=== PATIENT | female | born 1945 | race Caucasian/White ===

== ENCOUNTER 2016-08-14 07:33 | Day surgery (SDC) | payer MEDICARE ==
[2016-08-09 14:18] VITALS: BMI 24.9
[~2016-08-14 07:33] MED LIST: LACTATED RINGERS 1,000 ML IV SCH
[2016-08-14 07:48] VITALS: TEMP 98
[2016-08-14 08:19] LABS: Glucose,Whole Blood 105 mg/dL (75-99)
[2016-08-14] MEDS ORDERED: PROPOFOL 10 MG/ML 20 ML VIAL IV ONE (09:12)
[2016-08-14] MEDS ORDERED: LACTATED RINGERS 1,000 ML IV ONE (09:45)
--- NOTE | 2016-08-14 09:53 | P.PCN ---
Date of Procedure: 08/14/16 Preoperative Diagnosis: Postoperative Diagnosis: Procedure(s) Performed: Procedures: 1. Esophagogastroduodenoscopy and biopsy. 2. Colonoscopy and biopsy and polypectomy. Preoperative diagnosis: Gastroesophageal reflux symptoms, atypical chest pain and screening for colon neoplasia. Postoperative diagnosis: 1. Hiatal hernia with no evidence of esophagitis or complicated reflux disease. 2. Mild antral gastritis. 3. Sigmoid diverticulosis with no evidence of acute diverticulitis or strictures. 4. Proximal sigmoid polyp snared. 5. Floppy fold in the sigmoid at 30 cm from the anal verge biopsied. Preparation: HalfLytely prep. Sedation: Was provided by anesthesia. Brief clinical history: The patient is a 71-year-old female who is referred for this evaluation for the above reasons. This would be her first upper and lower endoscopy. She has no bleeding or anemia. No family history of colon cancer. Her reflux symptoms and atypical chest pains are of few months duration. No dysphagia, weight loss or other alarm symptoms. Procedure: With the patient on her left lateral decubitus position and after informed consent and adequate sedation, I passed the Olympus-GIF 160 video upper endoscope through the cricopharyngeus down the esophagus. GE junction was around 35 cm from the incisors and there was a sliding hiatal hernia measuring around 2 cm. The esophagus did not show any erosions, ulcers, strictures or Lara's esophagus. The endoscope was then passed into the stomach which was insufflated with air and inspected in detail including the retroflex view in the cardia. There was some mottling and erythema in the antrum consistent with gastritis but no ulcers or erosions. Pyloric channel, duodenal bulb, post bulbar area and descending duodenum appeared within normal limits. Because of her symptoms I obtained biopsies from the duodenum, antrum and esophagus then the endoscope was withdrawn and I proceeded with the colonoscopy. Perianal area did not show any fissures or fistulas. There were no masses felt on digital rectal examination. The Olympus CFQ 160L video colonoscope was then inserted in the rectum in the usual fashion and advanced to the cecum. There were several diverticular orifices seen scattered in the sigmoid with no evidence of acute diverticulitis or strictures. The mucosa appeared healthy. There was a small polyp in the proximal sigmoid which was snared and retrieved by suction and there was a floppy fold in the sigmoid around 30 cm from the anal verge that that biopsied to rule out early polyp tissue. No other polyps or tumors were seen. I retroflexed the endoscope in the rectum before the endoscope was withdrawn. The patient tolerated the procedure well. Plan: The patient was reassured. Will await biopsy results. I anticipate repeating her colonoscopy in 3-5 years. She will follow-up with you as planned. Implants: Indications for Procedure: Operative Findings: Description of Procedure:
[2016-08-14 10:01] VITALS: BP 112/62
[2016-08-14 10:16] VITALS: PULSE 82; RESP 24
== END 2016-08-14 10:26 | disposition home or self-care (01) ==
LOC: ORWHC2ENDO 07:33
DX: Z12.11 Encounter for screening for malignant neoplasm of colon (principal); K29.50 Unspecified chronic gastritis without bleeding; K21.0 Gastro-esophageal reflux disease with esophagitis; D12.5 Benign neoplasm of sigmoid colon; K44.9 Diaphragmatic hernia without obstruction or gangrene; K57.30 Diverticulosis of large intestine without perforation or abscess without bleeding; E11.9 Type 2 diabetes mellitus without complications; J44.9 Chronic obstructive pulmonary disease, unspecified; I10 Essential (primary) hypertension; E78.5 Hyperlipidemia, unspecified; I25.10 Atherosclerotic heart disease of native coronary artery without angina pectoris; I99.9 Unspecified disorder of circulatory system; F17.200 Nicotine dependence, unspecified, uncomplicated; Z79.84 Long term (current) use of oral hypoglycemic drugs; Z79.1 Long term (current) use of non-steroidal anti-inflammatories (NSAID); Z79.02 Long term (current) use of antithrombotics/antiplatelets; Z79.82 Long term (current) use of aspirin; Z79.899 Other long term (current) drug therapy; Z88.1 Allergy status to other antibiotic agents
CPT/HCPCS: 88305; 88342; 45385; 43239; J2704

== ENCOUNTER → 2016-11-19 | Outpatient (CLI) | payer MEDICARE ==
--- NOTE | 2016-11-20 07:28 | MM ---
Reason for exam: screening (asymptomatic). Last mammogram was performed 1 year and 10 months ago. History: Patient is postmenopausal. Physical Findings: A clinical breast exam by your physician is recommended on an annual basis and results should be correlated with mammographic findings. MG 3D Screening Mammo W/Cad Bilateral CC and MLO view(s) were taken. Prior study comparison: January 26, 2015, bilateral MG 3d screening mammo w/cad. The breast tissue is heterogeneously dense. This may lower the sensitivity of mammography. No significant changes when compared with prior studies. ASSESSMENT: Benign, BI-RAD 2 RECOMMENDATION: Routine screening mammogram of both breasts in 1 year.
== END | disposition home or self-care (01) ==
LOC: RADMAMWWP 07:15
PROVIDERS: ATTEND Family Medicine
DX: Z12.31 Encounter for screening mammogram for malignant neoplasm of breast (principal)
CPT/HCPCS: 77063; G0202

== ENCOUNTER 2016-12-27 15:04 | Emergency (ER) | payer MEDICARE, SELFPAY ==
[2016-12-27] MEDS ORDERED: KETOROLAC 30 MG/ML 1 ML VIAL IVP STA (16:03)
--- NOTE | 2016-12-27 16:05 | ED ---
General Adult HPI - General Chief complaint: Recheck/Abnormal Lab/Rx Stated complaint: Left abd Pain Time Seen by Provider: 12/27/16 15:58 Source: patient, RN notes reviewed Mode of arrival: ambulatory Limitations: no limitations - History of Present Illness Initial comments: 71-year-old female presents emergency room chief complaint of left-sided rib pain. Patient states Saturday and Saturday should the stabbing pains left side of her ribs. Worse when she gets up and down worse if she moves or sits she coughs worse if she takes a deep breath. Patient states the pain got better and then over the last 2 days it has returned. Patient states touching the ribs makes it hurt. Patient denies any abdominal pain with this she denies any nausea or vomiting. Patient has COPD and she does smokes that she chronically has a cough and that irritates her movement around also irritates it. It happened stabbing type pain. Patient was concerned because just continues to be there so she thought that she should be evaluated. Patient denies any recent fever, chills, shortness of breath, back pain, abdominal pain , nausea vomiting, numbness or tingling, dysuria or hematuria, constipation or diarrhea, headaches or visual changes, or any other current symptoms. - Related Data Home Medications Medication Instructions Recorded Confirmed Albuterol Nebulized [Ventolin 2.5 mg INHALATION RT-TID PRN 06/21/15 12/27/16 Nebulized] Gabapentin [Neurontin] 200 mg PO QAM 06/21/15 12/27/16 Metoprolol Tartrate 12.5 mg PO BID 08/12/15 12/27/16 metFORMIN HCL [Glucophage] 500 mg PO DAILY 10/11/15 12/27/16 Acetaminophen Tab [Tylenol Tab] 500 mg PO DAILY PRN 08/09/16 12/27/16 Aspirin [Adult Low Dose Aspirin EC] 81 mg PO DAILY 08/09/16 12/27/16 Famotidine 20 mg PO BID PRN 12/27/16 12/27/16 Previous Rx's Medication Instructions Recorded Atorvastatin [Lipitor] 40 mg PO HS #90 tab 07/14/15 Clopidogrel [Plavix] 75 mg PO DAILY #90 tab 07/14/15 Ibuprofen [Motrin] 600 mg PO Q6HR PRN #20 tab 12/27/16 Allergies Allergy/AdvReac Type Severity Reaction Status Date / Time azithromycin Allergy Dyspnea Verified 12/27/16 16:19 Review of Systems ROS Statement: Those systems with pertinent positive or pertinent negative responses have been documented in the HPI. ROS Other: All systems not noted in ROS Statement are negative. Past Medical History Past Medical History: Chest Pain / Angina, COPD, Diabetes Mellitus, GERD/Reflux , Osteoarthritis (OA), Vascular Disorder Additional Past Medical History / Comment(s): RT LEG NERVE PAIN, OCCASIONAL TINNITUS, inguinal hernia, constipation, occ tightness in chest. poor circulation sosa legs, sm rt inguinal hernia, History of Any Multi-Drug Resistant Organisms: None Reported Past Surgical History: Hysterectomy, Tonsillectomy, Tubal Ligation Additional Past Surgical History / Comment(s): PTBA/STENT TO LT LEG Past Anesthesia/Blood Transfusion Reactions: No Reported Reaction Additional Past Anesthesia/Blood Transfusion Reaction / Comment(s): CLAUSTROPHOBIA Past Psychological History: Anxiety, Depression, Panic Disorder Smoking Status: Current every day smoker Past Alcohol Use History: None Reported Past Drug Use History: None Reported - Past Family History Son(s) Family Medical History: Cancer Additional Family Medical History / Comment(s): LYMPHOMA Mother Family Medical History: Diabetes Mellitus Father Additional Family Medical History / Comment(s): HAD AAA Sister(s) Family Medical History: Cancer General Exam - General Exam Comments Initial Comments: General: The patient is awake and alert, in no distress, and does not appear acutely ill. Eye: Pupils are equal, round. Ears, nose, mouth and throat: There are moist mucous membranes and no oral lesions. Neck: The neck is supple, there is no tenderness. Cardiovascular: There is a regular rate and rhythm. No murmur, rub or gallop is appreciated. Respiratory: Lungs are clear to auscultation, respirations are non-labored, breath sounds are equal. No wheezes, stridor, rales, or rhonchi. Tenderness along left lower rib cage Gastrointestinal: Soft, non-distended, non-tender abdomen without masses or organomegaly noted. There is no rebound or guarding present. No CVA tenderness. Bowel sounds are unremarkable. Back: There is no tenderness to palpation in the midline. There is no obvious deformity. No rashes noted. Musculoskeletal: Normal ROM, no tenderness, There is no pedal edema. There is no calf tenderness or swelling. Sensation intact. Pulses equal bilaterally 2+. Neurological: CN II-XII intact, There are no obvious motor or sensory deficits. Coordination appears grossly intact. Speech is normal. Skin: Skin is warm and dry and no rashes or lesions are noted. Psychiatric: Cooperative, appropriate mood & affect, normal judgment. Limitations: no limitations Course Vital Signs 12/27/16 12/27/16 15:07 17:18 Temperature 98.1 F Pulse Rate 85 78 Respiratory 20 16 Rate Blood Pressure 139/75 132/75 O2 Sat by Pulse 99 98 Oximetry EKG Findings - EKG Comments: EKG Findings:: normal sinus rhythm 78 bpm, normal axis, no atopy, no S-T depressions or elevations, Medical Decision Making - Medical Decision Making 71-year-old female presents for left-sided rib pain. At this time patient's lab work and imaging has been reviewed. At this time there does not appear to be a PE and cardiac negative for about a week now. At this and we discussed patient's symptoms are most consistent with costochondritis is reproducible to movement. This and we discussed care for this. We discussed follow-up. We discussed return parameters all patient's questions. She stated she understood and she plan. All questions have been answered. She will be discharged. - Lab Data Result diagrams: 12/27/16 16:12 12/27/16 16:12 Lab Results 12/27/16 12/27/16 12/27/16 Range/Units 16:12 16:12 16:12 WBC 10.9 H (3.8-10.6) k/uL RBC 4.82 (3.80-5.40) m/uL Hgb 14.4 (11.4-16.0) gm/dL Hct 45.1 (34.0-46.0) % MCV 93.5 (80.0-100.0) fL MCH 29.8 (25.0-35.0) pg MCHC 31.9 (31.0-37.0) g/dL RDW 15.0 (11.5-15.5) % Plt Count 376 (150-450) k/uL Neutrophils % 64 % Lymphocytes % 24 % Monocytes % 7 % Eosinophils % 2 % Basophils % 1 % Neutrophils # 6.9 (1.3-7.7) k/uL Lymphocytes # 2.6 (1.0-4.8) k/uL Monocytes # 0.7 (0-1.0) k/uL Eosinophils # 0.3 (0-0.7) k/uL Basophils # 0.2 (0-0.2) k/uL PT (9.0-12.0) sec INR (<1.2) APTT (22.0-30.0) sec D-Dimer (<0.60) mg/L FEU Sodium 140 (137-145) mmol/L Potassium 4.2 (3.5-5.1) mmol/L Chloride 104 (98-107) mmol/L Carbon Dioxide 24 (22-30) mmol/L Anion Gap 12 mmol/L BUN 14 (7-17) mg/dL Creatinine 0.72 (0.52-1.04) mg/dL Est GFR (MDRD) Af Amer >60 (>60 ml/min/1.73 sqM) Est GFR (MDRD) Non-Af >60 (>60 ml/min/1.73 sqM) Glucose 104 H (74-99) mg/dL Calcium 9.4 (8.4-10.2) mg/dL Magnesium 1.8 (1.6-2.3) mg/dL Total Bilirubin 0.2 (0.2-1.3) mg/dL AST 17 (14-36) U/L ALT 23 (9-52) U/L Alkaline Phosphatase 85 (38-126) U/L Total Creatine Kinase 25 L (30-135) U/L CK-MB (CK-2) 0.3 (0.0-2.4) ng/mL CK-MB (CK-2) Rel Index 1.2 Troponin I <0.012 (0.000-0.034) ng/mL Total Protein 8.1 (6.3-8.2) g/dL Albumin 4.2 (3.5-5.0) g/dL 12/27/16 Range/Units 16:12 WBC (3.8-10.6) k/uL RBC (3.80-5.40) m/uL Hgb (11.4-16.0) gm/dL Hct (34.0-46.0) % MCV (80.0-100.0) fL MCH (25.0-35.0) pg MCHC (31.0-37.0) g/dL RDW (11.5-15.5) % Plt Count (150-450) k/uL Neutrophils % % Lymphocytes % % Monocytes % % Eosinophils % % Basophils % % Neutrophils # (1.3-7.7) k/uL Lymphocytes # (1.0-4.8) k/uL Monocytes # (0-1.0) k/uL Eosinophils # (0-0.7) k/uL Basophils # (0-0.2) k/uL PT 9.6 (9.0-12.0) sec INR 0.9 (<1.2) APTT 23.9 (22.0-30.0) sec D-Dimer 0.71 H (<0.60) mg/L FEU Sodium (137-145) mmol/L Potassium (3.5-5.1) mmol/L Chloride (98-107) mmol/L Carbon Dioxide (22-30) mmol/L Anion Gap mmol/L BUN (7-17) mg/dL Creatinine (0.52-1.04) mg/dL Est GFR (MDRD) Af Amer (>60 ml/min/1.73 sqM) Est GFR (MDRD) Non-Af (>60 ml/min/1.73 sqM) Glucose (74-99) mg/dL Calcium (8.4-10.2) mg/dL Magnesium (1.6-2.3) mg/dL Total Bilirubin (0.2-1.3) mg/dL AST (14-36) U/L ALT (9-52) U/L Alkaline Phosphatase (38-126) U/L Total Creatine Kinase (30-135) U/L CK-MB (CK-2) (0.0-2.4) ng/mL CK-MB (CK-2) Rel Index Troponin I (0.000-0.034) ng/mL Total Protein (6.3-8.2) g/dL Albumin (3.5-5.0) g/dL - Radiology Data Radiology results: report reviewed, image reviewed Disposition Clinical Impression: Costochondritis Disposition: HOME SELF-CARE Condition: Stable Instructions: Costochondritis (ED) Additional Instructions: Please use medication as discussed. Please follow up with family doctor if symptoms have not improved over the next two days. Please return to the emergency room if your symptoms increase or worsen or for any other concerns. Prescriptions: Ibuprofen [Motrin] 600 mg PO Q6HR PRN #20 tab PRN Reason: pain Referrals: Silviano Lieberman MD [Primary Care Provider] - 1-2 days Time of Disposition: 17:42
[2016-12-27 16:26] LABS: Basophils # (A) 0.2 k/uL (0-0.2); Basophils % (A) 1 %; CH 30.6; CHCM 32.9; Eosinophils # (A) 0.3 k/uL (0-0.7); Eosinophils % (A) 2 %; HCT 45.1 % (34.0-46.0); HDW 2.21; HGB 14.4 gm/dL (11.4-16.0); Luc # (Auto) 0.26; Luc % (Auto) 2; Lymphocytes # (A) 2.6 k/uL (1.0-4.8); Lymphocytes % (A) 24 %; MCH 29.8 pg (25.0-35.0); MCHC 31.9 g/dL (31.0-37.0); MCV 93.5 fL (80.0-100.0); Mean Platelet Volume 7.2; Monocytes # (A) 0.7 k/uL (0-1.0); Monocytes % (A) 7 %; Neutrophils # (A) 6.9 k/uL (1.3-7.7); Neutrophils % (A) 64 %; RBC 4.82 m/uL (3.80-5.40); WBC 10.9 k/uL (3.8-10.6); WBC (Perox) 10.42
[2016-12-27 16:35] LABS: ALT 23 U/L (9-52); AST 17 U/L (14-36); Alkaline Phosphatase 85 U/L (38-126); Anion Gap 12 mmol/L; Blood Urea Nitrogen 14 mg/dL (7-17); Calcium 9.4 mg/dL (8.4-10.2); Carbon Dioxide 24 mmol/L (22-30); Chloride 104 mmol/L (98-107); Glucose 104 mg/dL (74-99); Magnesium 1.8 mg/dL (1.6-2.3); Non-African American GFR(MDRD) >60 (>60 ml/min/1.73 sqM); Potassium 4.2 mmol/L (3.5-5.1); Sodium 140 mmol/L (137-145); Total Bilirubin 0.2 mg/dL (0.2-1.3); Total Protein 8.1 g/dL (6.3-8.2)
[2016-12-27 16:39] LABS: Creatine Kinase 25 U/L (30-135)
[2016-12-27 16:44] LABS: INR 0.9 (<1.2); Partial Thromboplastin Time 23.9 sec (22.0-30.0); Prothrombin Time 9.6 sec (9.0-12.0)
[2016-12-27 16:52] LABS: Creatine Kinase MB 0.3 ng/mL (0.0-2.4); Troponin I <0.012 ng/mL (0.000-0.034)
--- NOTE | 2016-12-27 16:56 | XR ---
EXAMINATION TYPE: XR chest 2V DATE OF EXAM: 12/27/2016 COMPARISON: NONE HISTORY: Cough TECHNIQUE: Frontal and lateral views of the chest are obtained. FINDINGS: There is no heart failure nor confluent pneumonic infiltrate. Heart size is normal. Thorac ic aorta is atheromatous. There are small calcified granulomata at the pulmonary curly. Bony thorax is intact. IMPRESSION: No active cardiopulmonary disease.
[2016-12-27] MEDS ORDERED: RX INFO: IV CONTRAST WAS GIVEN 1 EACH MISC MISCELLANE PRN (17:00)
[2016-12-27 17:19] VITALS: BP 132/75; PULSE 78; RESP 16
--- NOTE | 2016-12-27 17:36 | CT ---
EXAMINATION TYPE: CT angio chest DATE OF EXAM: 12/27/2016 5:29 PM COMPARISON: NONE HISTORY: Chest pain CT DLP: mGycm Automated exposure control for dose reduction was used. CONTRAST: CTA scan of the thorax is performed , patient injected with mL of , pulmonary embolism protocol. The re are 3-D post processed images. Contrast was Omnipaque 65 mL.. FINDINGS: Thoracic aorta is atheromatous. There is no evidence of aneurysm or dissection. I see no filling defects in the pulmonary arteries. There are no hilar masses. There are no mediastin al lymph nodes enlarged. The lungs are clear of consolidation. There is no sign of a pulmonary mass. There is no pleural effus ion. I see no bony destructive process. IMPRESSION: NO EVIDENCE OF PULMONARY EMBOLISM. ATHEROSCLEROTIC VASCULAR DISEASE.
[2016-12-27 18:02] VITALS: TEMP 98
== END 2016-12-27 18:00 | disposition home or self-care (01) ==
LOC: EC 15:04
DX: M94.0 Chondrocostal junction syndrome [Tietze] (principal); E11.9 Type 2 diabetes mellitus without complications; F17.200 Nicotine dependence, unspecified, uncomplicated; Z88.1 Allergy status to other antibiotic agents; Z79.82 Long term (current) use of aspirin; Z79.84 Long term (current) use of oral hypoglycemic drugs; Z79.899 Other long term (current) drug therapy
CPT/HCPCS: 99284; 96374; 36415; 93005; 85379; 80053; 82550; 82553; 83735; 84484; 85025; 85610; 85730; 71020; 71275; Q9967; J1885

== ENCOUNTER → 2016-12-28 | Outpatient (CLI) | payer MEDICARE ==
[2016-12-28 09:01] LABS: CH 29.7; CHCM 31.1; HDW 2.11; HGB 13.9 gm/dL (11.4-16.0); MCH 30.4 pg (25.0-35.0); MCHC 31.6 g/dL (31.0-37.0); MCV 96.3 fL (80.0-100.0); RBC 4.57 m/uL (3.80-5.40); RDW 13.9 % (11.5-15.5); WBC 10.9 k/uL (3.8-10.6)
[2016-12-28 09:23] LABS: Anion Gap 10 mmol/L; Blood Urea Nitrogen 19 mg/dL (7-17); Carbon Dioxide 23 mmol/L (22-30); Chloride 107 mmol/L (98-107); Non-African American GFR(MDRD) >60 (>60 ml/min/1.73 sqM); Sodium 140 mmol/L (137-145)
== END | disposition home or self-care (01) ==
LOC: LABWHC1 08:43
PROVIDERS: ATTEND Internal Medicine Interventional Cardiology
DX: Z01.812 Encounter for preprocedural laboratory examination (principal); I73.9 Peripheral vascular disease, unspecified
CPT/HCPCS: 36415; 80051; 82565; 84520; 85027

== ENCOUNTER → 2017-05-30 | Outpatient (CLI) | payer MEDICARE, OTHER ==
--- NOTE | 2017-05-30 08:23 | US ---
EXAMINATION TYPE: US thyroid st tissue head/neck DATE OF EXAM: 05/30/2017 COMPARISON: NONE CLINICAL HISTORY: R22.1 Localized swelling, mass and lump, neck. Lump right neck for 1 year Right neck within patient's area of concern, probable lymph node = 3.6 x 1.6 x 3.1cm Multiple lymph nodes noted bilateral neck Multiple lymph nodes are seen throughout the right neck and images saved. Some retained fatty hilum. Largest at beginning of study is heterogeneous with loss of fatty hilum and abnormal longitudinal and transverse thickening or enlargement. IMPRESSION: Suspicious right neck adenopathy, neoplasm such as lymphoma needs to be excluded especia lly given history of findings present for one year. Hematology oncology referral is advised. Consider contrast-enhanced CT or PET CT follow-up.
== END | disposition home or self-care (01) ==
LOC: RADUSWWP 07:32
PROVIDERS: ATTEND Family Medicine
DX: R22.1 Localized swelling, mass and lump, neck (principal)
CPT/HCPCS: 76536

== ENCOUNTER 2017-06-14 09:37 | Day surgery (SDC) | payer MEDICARE, OTHER ==
[2017-06-14] MEDS ORDERED: ALPRAZolam 0.25 MG TAB PO STA (10:19)
[2017-06-14 10:36] LABS: Mean Platelet Volume 7.4; Platelet Count 285 k/uL (150-450)
[2017-06-14 10:40] LABS: INR 1.1 (<1.2); Prothrombin Time 10.4 sec (9.0-12.0)
--- NOTE | 2017-06-14 11:45 | US ---
ULTRASOUND GUIDED CORE BIOPSY RIGHT NECK MASS: CLINICAL HISTORY: Right neck lymph node FINDINGS: The procedure was explained to the patient. The risks, complications, benefits and alternatives were discussed and any questions were answered. Informed consent was obtained. Patient was placed supin e on the ultrasound table and prepped and draped in the usual sterile fashion. Utilizing a 18-gauge core needle, samples obtained from the right neck lymph node. Patient was stable throughout the procedure. Pathology is pending. All elements of maximal barrier technique were utilized. IMPRESSION: 1. Successful ultrasound guided core biopsy right neck mass.
[2017-06-14 11:51] VITALS: RESP 18; TEMP 97.7
[2017-06-14 11:52] VITALS: BP 117/74; PULSE 72
== END 2017-06-14 11:50 | disposition home or self-care (01) ==
LOC: RADPROMAIN 09:37
PROVIDERS: ATTEND Internal Medicine Hematology & Oncology
DX: C90.00 Multiple myeloma not having achieved remission (principal)
CPT/HCPCS: 36415; 38505; 76942; 85049; 85610; 88305; 88341; 88342

== ENCOUNTER → 2018-04-16 | Outpatient (CLI) | payer MEDICARE, OTHER ==
[2018-04-16 11:36] LABS: Blood Urea Nitrogen 17 mg/dL (7-17)
--- NOTE | 2018-04-16 13:15 | CT ---
EXAMINATION TYPE: CT soft tissue neck w con DATE OF EXAM: 04/16/2018 HISTORY: Right sided mass marked by BB COMPARISON: Right neck ultrasound June 14, 2017 CT DLP: 448 mGycm. Automated Exposure Control for Dose Reduction was Utilized. TECHNIQUE: CT scan of the neck is performed with IV Contrast, patient injected with 100 mL of Isovue 300, axial images are obtained, coronal and sagittal reformatted images are reviewed. FINDINGS: Airway: Mild to moderate emphysematous change in visualized upper lungs is seen. There are borderline 1 cm nodules left thyroid lobe upper to mid pole level seen best coronal image 44. Airway is patent. No obvious mucosal lesion is seen. Parotid/submandibular glands: Metallic BB is placed at level of palpable abnormality right neck axial image 23. There is heterogeneous enhancing oval circumscribed mass within the inferior right parotid gland extending inferiorly into the submandibular space at this level measuring 3.2 x 2.8 cm on axia l image 29 x 2.5 cm craniocaudal dimension coronal image 42. Just inferior to this there is second he terogeneous oval solid mass measuring 2.3 x 2.1 cm axial image 36 x 3.1 cm protocol dimension coronal image 36 causing mass effect on the submandibular gland lung is posterior lateral aspect and overlyi ng draining external jugular vein. There is additional posterior cervical mass deep to the posterior aspect of the SCM just posterior lateral to right internal jugular vein measuring 1.4 x 1.2 cm axial image 37 x 2.4 cm craniocaudal dimension sagittal image 28. Left parotid gland and bilateral submandibular glands are all noted within normal limits. Carotid/Vascular Structures: Moderate calcified plaque bilateral carotid bulbs is present without sig nificant stenosis seen. Osseous Structures: There is moderate disc space narrowing with mild to moderate spurring C3 at C4 th rough C5-C6 levels Other: No additional suspicious abnormality noted. IMPRESSION: Redemonstration of large right neck solid mass with 2 adjacent masses identified in the r ight neck. Correlation should be made with biopsy performed June 14, 2017. Consider parotid neoplasm with adjacent adenopathy or metastatic adenopathy related to other cancer. Uncertain why this case i s marked stat as strict clinical correlation is necessary.
== END | disposition home or self-care (01) ==
LOC: RADCTMAIN 11:00
PROVIDERS: ATTEND Family Medicine
DX: R22.1 Localized swelling, mass and lump, neck (principal)
CPT/HCPCS: 82565; 84520; 70491; 36415; Q9967

== ENCOUNTER → 2018-04-19 | Outpatient (CLI) | payer MEDICARE, OTHER ==
--- NOTE | 2018-04-21 07:39 | PE ---
EXAMINATION TYPE: PET CT fusion whole body DATE OF EXAM: 04/19/2018 COMPARISON: CT neck April 16, 2018. 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 TECHNIQUE: Following the intravenous administration of 14.02 mCi of F-18 FDG, top of head to bottom of feet. Images are reviewed on the computer in the coronal, axial, and sagittal planes. Reconstruc arnie rotating images are created on independent workstation and reviewed on the computer. A noncontr ast CT is performed in conjunction with the PET scan. SCAN: Initial Scan FINDINGS: HEAD AND NECK: There is large hypermetabolic right neck mass measuring 3.3 x 3.2 cm on axial image 6 0, max SUV is 14.37. There are additional smaller hypermetabolic posterior cervical lymph nodes for r eference 1.4 x 1.3 cm lymph node axial image 63, max SUV is 9.04. No suspicious hypermetabolic uptake left neck or scalp. CHEST, MEDIASTINUM, AND HILAR REGION: No suspicious hypermetabolic uptake. ABDOMEN AND PELVIS: No suspicious hypermetabolic uptake. OSSEOUS STRUCTURES: No suspicious hypermetabolic uptake. LOWER EXTREMITIES: No suspicious hypermetabolic uptake. OTHER CT: Moderate to severe calcified plaque bilateral carotid bulbs is present. Moderate to severe calcified plaque of aorta extends into branch vessels. There is moderate to severe coronary artery calcification. IMPRESSION: Hypermetabolic uptake right neck corresponds to biopsy-proven malignancy. No metastatic m alignancy to remainder body identified.
== END | disposition home or self-care (01) ==
LOC: RADPETMAIN 14:36
PROVIDERS: ATTEND Internal Medicine Hematology & Oncology
DX: D47.Z1 Post-transplant lymphoproliferative disorder (PTLD) (principal)
CPT/HCPCS: 78816; A9552

== ENCOUNTER → 2018-08-23 | Outpatient (CLI) | payer MEDICARE, OTHER ==
--- NOTE | 2018-08-26 10:41 | PE ---
Nuclear medicine PET/CT HISTORY: Solitary plasmacytoma, subsequent Patient received 11.8 mCi F-18 FDG intravenously in delayed scanning was performed through the whole body Correlation to prior nuclear medicine PET/CT April 19, 2018 Neck and chest: The abnormal hypermetabolic uptake seen along the right neck on previous exam is note d and shows a similar appearance posterior to the right mandible, hypermetabolic uptake is somewhat l ess intense, SUV is 7.7, central lack of signal be due to necrosis or posttreatment change, the hyper metabolic activity is peripheral. No additional soft tissue mass seen within the neck, no additional hypermetabolic uptake. There is some uptake seen at the sternomanubrial location, suggestion of a loc al fracture, SUV 3.8. There is no mediastinal, axillary, or hilar adenopathy. Coronary artery calcifi cations are present. There is a small hiatal hernia. No evident lung mass, pleural or pericardial eff usion. ABDOMEN: No evident liver mass or retroperitoneal adenopathy. No suspicious hypermetabolic uptake. De nse aortic calcifications are present. There is no ascites. Urinary bladder shows a thickened wall po ssibly due to lack of distention. Osseous structures are remarkable for some sclerotic density within the sacrum, mild uptake towards t he right of midline, SUV 3.2. IMPRESSION: There is an interval decreased activity in patient's right neck mass likely due to posttr eatment change. Correlate for history of trauma to this general manubrium joint. Sclerotic change in the sacrum, findings could be related to insufficiency fracture to the right of midline, MRI or diagn ostic CT may be of benefit.
== END | disposition home or self-care (01) ==
LOC: RADPETMAIN 09:06
PROVIDERS: ATTEND Radiology Radiation Oncology
DX: M89.8X8 Other specified disorders of bone, other site (principal); R22.1 Localized swelling, mass and lump, neck; C90.30 Solitary plasmacytoma not having achieved remission; F17.210 Nicotine dependence, cigarettes, uncomplicated
CPT/HCPCS: 78816; A9552

== ENCOUNTER 2018-09-27 19:23 | Emergency (ER) | payer MEDICARE, OTHER ==
[2018-09-27 19:42] VITALS: RESP 18
[2018-09-27] MEDS ORDERED: ACETAMINOPHEN TAB 325 MG TAB PO STA (19:57)
[2018-09-27 20:47] LABS: Basophils # (A) 0.1 k/uL (0-0.2); Basophils % (A) 1 %; Eosinophils # (A) 0.1 k/uL (0-0.7); Eosinophils % (A) 1 %; HCT 36.6 % (34.0-46.0); HGB 11.9 gm/dL (11.4-16.0); Lymphocytes # (A) 0.6 k/uL (1.0-4.8); Lymphocytes % (A) 6 %; MCH 27.6 pg (25.0-35.0); MCHC 32.5 g/dL (31.0-37.0); MCV 85.1 fL (80.0-100.0); Mean Platelet Volume 7.3; Monocytes # (A) 0.7 k/uL (0-1.0); Monocytes % (A) 7 %; Neutrophils # (A) 8.8 k/uL (1.3-7.7); Neutrophils % (A) 83 %; Platelet Count 381 k/uL (150-450); RDW 14.6 % (11.5-15.5); WBC 10.7 k/uL (3.8-10.6)
[2018-09-27 20:55] LABS: African American GFR (CKD) >90 (>60 ml/min/1.73 sqM); Anion Gap 9 mmol/L; Blood Urea Nitrogen 24 mg/dL (7-17); Calcium 9.2 mg/dL (8.4-10.2); Carbon Dioxide 27 mmol/L (22-30); Chloride 104 mmol/L (98-107); Glucose 126 mg/dL (74-99); Potassium 4.6 mmol/L (3.5-5.1); Sodium 140 mmol/L (137-145)
--- NOTE | 2018-09-27 22:04 | CT ---
EXAMINATION TYPE: CT soft tissue neck w con DATE OF EXAM: 09/27/2018 HISTORY: Pt c/o pain, burning sensation on LT side of neck. Hx of mass, plasmacytoma on RT side COMPARISON: NONE CT DLP: 179.2 mGycm. Automated Exposure Control for Dose Reduction was Utilized. TECHNIQUE: CT scan of the neck is performed with IV Contrast, patient injected with 100 mL of Isovue 300, axial images are obtained, coronal and sagittal reformatted images are reviewed. FINDINGS: There is interval growth of the previously seen right neck mass appearing to communicate with the inf erior deep lobe of the parotid gland and inferior superficial lobe of the parotid gland. There is pro gressive internal cystic degeneration. This previously measured 3.2 x 2.8 cm and currently measures 3 .6 x 3.8 cm. There is mass effect on the right internal and external carotid as well as the jugular v ein. The jugular vein is essentially nonvisualized throughout the mass. Thrombus from adjacent inflam matory change and reaction as well as compression is suspected. The previously seen associated adenop athy has decreased in size measuring up to 1.4 cm on the prior of 04/16/2018 and currently measuring u p to 8 mm on image 47 posterior to this mass. There is fat stranding surrounding this mass and oblite ration of the fat planes with the platysma and submandibular gland. There is some subtle fat strandin g and irregularity of the right sternocleidomastoid beginning at the level of the thyroid gland and i nferiorly, possibly reactive or infectious myositis. There is mass effect on the oropharynx with severe narrowing as phlegmonous changes surrounding the c arotid space and obscure the superficial mucosal space with mass effect on the right palatine tonsil. Mild centrilobular emphysematous changes are seen of the lung apices. Moderate multilevel degenerativ e changes of the cervical spine are noted with air posterior to the C6 vertebral level likely on the basis of vacuum disc disease. Visualized paranasal sinuses and mastoid air cells are well aerated. IMPRESSION: Progressive enlargement of the complex right neck mass appearing to originate from the inferior parot id gland as seen on the prior PET/CT dated 08/23/2018, 04/19/[address] dated 04/16/2018 that has been previously biopsied. This now has mass effect on the surrounding carotid vasculature and right caroti d space creating significant narrowing of the oral pharynx and concern for internal jugular thrombus. Surrounding myositis is also seen and adenopathy.
--- NOTE | 2018-09-27 22:44 | ED ---
ENT HPI - General Chief complaint: Dental/Oral Stated complaint: Jaw pain Time Seen by Provider: 09/27/18 19:46 Source: patient Mode of arrival: ambulatory Limitations: no limitations - History of Present Illness Initial comments: 73-year-old female with a history of right neck mass and recent radiation 3 weeks prior presenting with left jaw pain that she states the present for the last 1 week. States the pain is radiating from the left side of her jaw up to her left ear. She states she's been taking ibuprofen intermittently for the pain which improves it but does not alleviated. She denies any fevers or chills. States she feels like her face is now swollen and red. Denies any trouble swallowing or handling her secretions. - Related Data Home Medications Medication Instructions Recorded Confirmed Albuterol Nebulized [Ventolin 2.5 mg INHALATION RT-TID PRN 06/21/15 06/14/17 Nebulized] Gabapentin [Neurontin] 200 mg PO QAM 06/21/15 06/14/17 Metoprolol Tartrate 12.5 mg PO BID 08/12/15 06/14/17 metFORMIN HCL [Glucophage] 500 mg PO DAILY 10/11/15 06/14/17 Acetaminophen Tab [Tylenol Tab] 500 mg PO DAILY PRN 08/09/16 06/14/17 Famotidine 20 mg PO BID PRN 12/27/16 06/14/17 Ferrous Sulfate [Iron] 325 mg PO DAILY 06/06/17 06/14/17 Previous Rx's Medication Instructions Recorded Atorvastatin [Lipitor] 40 mg PO HS #90 tab 07/14/15 Clopidogrel [Plavix] 75 mg PO DAILY #90 tab 07/14/15 Ibuprofen [Motrin] 600 mg PO Q6HR PRN #20 tab 12/27/16 HYDROcodone/APAP 5-325MG [[place] 1 tab PO Q6HR PRN 3 Days #12 tab 09/27/18 5-325] Allergies Allergy/AdvReac Type Severity Reaction Status Date / Time azithromycin Allergy Dyspnea Verified 09/27/18 19:42 Review of Systems ROS Statement: Those systems with pertinent positive or pertinent negative responses have been documented in the HPI. Review of Systems Constitutional: Denies fever, chills Eyes: Denies change in vision, Denies pain Ears, nose, mouth, throat: Denies headaches, Denies sore throat. Positive jaw pain Cardiovascular: Denies chest pain. Denies palpitations Respiratory: Denies shortness of breath, Denies cough Gastrointestinal: Denies abdominal pain. Denies nausea, vomiting, diarrhea. Genitourinary: Denies hematuria, Denies infections Musculoskeletal: Denies pain, Denies swelling Integumentary: Denies rash Neurological: Denies headache, focal weakness, focal numbness Psychiatric: Denies anxiety, Denies depression Hematologic/Lymphatic: Denies easy bleeding or bruising ROS Other: All systems not noted in ROS Statement are negative. Past Medical History Past Medical History: Chest Pain / Angina, COPD, Diabetes Mellitus, GERD/Reflux, Osteoarthritis (OA), Vascular Disorder Additional Past Medical History / Comment(s): RT LEG NERVE PAIN, OCCASIONAL TINNITUS, inguinal hernia, constipation, occ tightness in chest. poor circulation sosa legs, sm rt inguinal hernia, History of Any Multi-Drug Resistant Organisms: None Reported Past Surgical History: Hysterectomy, Tonsillectomy, Tubal Ligation Additional Past Surgical History / Comment(s): PTBA/STENT TO LT LEG Past Anesthesia/Blood Transfusion Reactions: No Reported Reaction Additional Past Anesthesia/Blood Transfusion Reaction / Comment(s): CLAUSTROPHOBIA Past Psychological History: Anxiety, Depression, Panic Disorder Smoking Status: Current every day smoker Past Alcohol Use History: None Reported Past Drug Use History: None Reported - Past Family History Son(s) Family Medical History: Cancer Additional Family Medical History / Comment(s): LYMPHOMA Mother Family Medical History: Diabetes Mellitus Father Additional Family Medical History / Comment(s): HAD AAA Sister(s) Family Medical History: Cancer General Exam - General Exam Comments Initial Comments: General: Awake, alert, No acute Distress HENT: Normocephalic. Atraumatic. TMs without erythema, bulging, or effusions bilaterally. No gingival erythema. No apical abscess. No post-oropharyngeal swelling. No trismus Eyes: PERRL. EOMI. No scleral icterus. No injected conjunctiva. Neck: Full ROM. Right sided neck mass without erythema. Thyromegaly. No submandibular or cervical lymphadenopathy. Chest/Lungs: Clear to auscultation bilaterally. No wheezing, rhonchi, or rales Cardiac: Regular rate, rhythm. No murmurs or rubs Abdomen/GI: Soft, nontender, nondistended. No rebound, guarding, or rigidity. Musculoskeletal: Full ROM Skin: Warm, dry, intact Neurologic: A/Ox3, no weakness, no sensory deficit, no abnormal gait, no coordination deficit Limitations: no limitations Course Vital Signs 09/27/18 09/27/18 19:39 23:10 Temperature 98.9 F 97.5 F L Pulse Rate 106 H 99 Respiratory 18 18 Rate Blood Pressure 140/72 130/92 O2 Sat by Pulse 98 95 Oximetry Medical Decision Making - Medical Decision Making 73-year-old female presenting with jaw pain. Initial exam the patient is awake, alert, no acute distress. VSS. She is having left-sided jaw pain radiating up to her left ear. Her symptoms did not seem anginal in nature. She is nontoxic- appearing on exam and was in no respiratory distress. She was handling her secretions without difficulty. CT was done secondary to patient's history of this right-sided neck mass for concern that she could have another cancerous process. CT did not show any pathology on the left side. There was enlargement and inflammation of the right-sided neck mass and the CT results stated that there could be a jugular venous thrombosis on the right side. Patient was not having any worsening swelling or pain in that right side. I spoke with the on- call highway patrol pilot oncologist who stated that this was most likely was secondary to the radiation therapy, and if she is not having any acute symptoms on that side that she should be safe to follow-up with her physician as scheduled. I discussed this with the patient was agreeable to plan. I discussed the patient also following up with a dentist as her dental plates could be causing some irritation of her gums and jaw, which could be leading to her pain. She is given a short course of analgesic medication.No further emergent workup indicated. The patient was given return to ED instructions. They were instructed to follow up with their primary care provider. Stable for discharge at this time. - Lab Data Result diagrams: 09/27/18 20:25 09/27/18 20:25 Lab Results 09/27/18 09/27/18 Range/Units 20:25 20:25 WBC 10.7 H (3.8-10.6) k/uL RBC 4.30 (3.80-5.40) m/uL Hgb 11.9 (11.4-16.0) gm/dL Hct 36.6 (34.0-46.0) % MCV 85.1 (80.0-100.0) fL MCH 27.6 (25.0-35.0) pg MCHC 32.5 (31.0-37.0) g/dL RDW 14.6 (11.5-15.5) % Plt Count 381 (150-450) k/uL Neutrophils % 83 % Lymphocytes % 6 % Monocytes % 7 % Eosinophils % 1 % Basophils % 1 % Neutrophils # 8.8 H (1.3-7.7) k/uL Lymphocytes # 0.6 L (1.0-4.8) k/uL Monocytes # 0.7 (0-1.0) k/uL Eosinophils # 0.1 (0-0.7) k/uL Basophils # 0.1 (0-0.2) k/uL Sodium 140 (137-145) mmol/L Potassium 4.6 (3.5-5.1) mmol/L Chloride 104 (98-107) mmol/L Carbon Dioxide 27 (22-30) mmol/L Anion Gap 9 mmol/L BUN 24 H (7-17) mg/dL Creatinine 0.67 (0.52-1.04) mg/dL Est GFR (CKD-EPI)AfAm >90 (>60 ml/min/1.73 sqM) Est GFR (CKD-EPI)NonAf 89 (>60 ml/min/1.73 sqM) Glucose 126 H (74-99) mg/dL Calcium 9.2 (8.4-10.2) mg/dL Disposition Clinical Impression: Jaw pain Disposition: HOME SELF-CARE Condition: Good Instructions (If sedation given, give patient instructions): Toothache (ED) Prescriptions: HYDROcodone/APAP 5-325MG [[place] 5-325] 1 tab PO Q6HR PRN 3 Days #12 tab PRN Reason: Pain Is patient prescribed a controlled substance at d/c from ED?: Yes When asked, does pt state using other controlled substances?: No If prescribed controlled substance>3 days was MAPS reviewed?: Prescribed <3 Days Referrals: Silviano Lieberman MD [Primary Care Provider] - 1-2 days Venu Jack MD [STAFF PHYSICIAN] - 1-2 days
[2018-09-27 23:17] VITALS: BP 130/92; PULSE 99; TEMP 97.5
== END 2018-09-27 23:10 | disposition home or self-care (01) ==
LOC: EC 19:23
DX: R68.84 Jaw pain (principal); R22.1 Localized swelling, mass and lump, neck; J44.9 Chronic obstructive pulmonary disease, unspecified; E11.9 Type 2 diabetes mellitus without complications; K21.9 Gastro-esophageal reflux disease without esophagitis; F17.200 Nicotine dependence, unspecified, uncomplicated; Z79.84 Long term (current) use of oral hypoglycemic drugs; Z79.899 Other long term (current) drug therapy; Z88.1 Allergy status to other antibiotic agents
CPT/HCPCS: 36415; 80048; 85025; 70491; 99284; Q9967

== ENCOUNTER → 2018-11-08 | Outpatient (CLI) | payer MEDICARE, OTHER ==
--- NOTE | 2018-11-09 15:07 | PE ---
EXAMINATION TYPE: PET CT fusion skull to thigh DATE OF EXAM: 11/08/2018 COMPARISON: CT neck 09/27/2018 Prior PET/CT: 08/23/2018 HISTORY: Plasmacytoma TECHNIQUE: Following the intravenous administration of 12.5 mCi of F-18 FDG, whole body images are p erformed from the skull base to the midthigh. Images are reviewed on the computer in the coronal, ax ial, and sagittal planes. Reconstructed rotating images are created on independent workstation and r eviewed on the computer. A localization and attenuation correction CT is performed in conjunction w ith the PET scan. Dedicated head and neck imaging is performed. DLP: 76.01+ 279.85 mGycm SCAN: Follow-up Blood glucose: 114 mg/dL Average Mediastinum SUV: 1.5 Average Liver SUV: 2.06 FINDINGS: Head: There is likely some misregistration of the head imaged with the brain image. However, given th e limitation on the localization and attenuation correction CT, subdural hematoma on the right cannot be excluded. This is unlikely given the appearance on the whole body PET/CT imaging through this reg ion. Artifact is felt to be favored given the radiotracer in the expected region of the left calvariu m. Example image 11 CT PET fusion. NECK: There is a peripherally enhancing lesion within the right parotid region. The lateral portion has intense radiotracer accumulation measuring SUV of 15 suspicious for neoplastic process. Additiona l abnormal radiotracer within the head and neck is not evident. Small amount of radiotracer is in the anterior lateral left mandible, more likely related to periodon angela disease. This has SUV value of 3.1. THORAX: No suspicious uptake ABDOMEN: No suspicious uptake PELVIS: No suspicious uptake OSSEOUS STRUCTURES: No suspicious uptake LOCALIZATION CT: The right parotid gland is enlarged and poorly defined. This appears to extend into the left tonsillar pillar region and parapharyngeal region on previous poorly defined on the localiza tion and attenuation correction CT. The appearance on the PET portion of the study more closely match es the cavitary lesion appearance of the 09/27/2018 CT soft tissue neck. COMPARISON: The enhancement pattern of the right parotid region is similar to 08/23/2018. However, thi ckness of the enhancement is significantly diminished over the interval. No new enhancing lesions are identified. IMPRESSION: 1. Ring-enhancing lesion can be compatible with a cavitary lesion in the right parotid region. Radiot racer remains elevated but has less radiotracer thickness increasing SUV value from 08/23/2018. 2. No new enhancing lesions identified. 3. Misregistration is likely present on PET CT of the head and neck.
== END | disposition home or self-care (01) ==
LOC: RADPETMAIN 07:06
PROVIDERS: ATTEND Internal Medicine Hematology & Oncology
DX: C90.30 Solitary plasmacytoma not having achieved remission (principal); Z92.3 Personal history of irradiation
CPT/HCPCS: 78815; A9552

== ENCOUNTER 2018-11-19 08:26 | Day surgery (SDC) | payer MEDICARE, OTHER ==
[2018-11-19 09:13] LABS: Glucose,Whole Blood 112 mg/dL (75-99)
[2018-11-19 09:17] VITALS: TEMP 97.8
[2018-11-19 10:40] VITALS: BP 131/71; PULSE 90; RESP 18
--- NOTE | 2018-11-19 11:03 | US ---
EXAMINATION TYPE: US biopsy thorax or neck DATE OF EXAM: 11/19/2018 HISTORY: Right neck mass. FINDINGS: Maximal barrier technique was utilized. The skin overlying a suitable path to the patient' s right neck mass was localized with ultrasound and the overlying skin prepped and draped. Ultrasoun d was utilized with sterile technique. Lidocaine was used for local anesthesia. A skin camelia was mad e with a scalpel. An 18-gauge needle was advanced under direct ultrasound guidance and core specimen obtained of the mass, second specimen obtained for flow analysis. First specimen submitted in formal in to Pathology. Following the procedure, hemostasis achieved and the patient is discharged in stabl e condition without complication. IMPRESSION:STATUS POST ULTRASOUND GUIDED CORE BIOPSY OF right neck MASS, PATHOLOGY IS PENDING. THIS PROCEDURE IS PERFORMED BY THE UNDERSIGNED.
== END 2018-11-19 10:49 | disposition home or self-care (01) ==
LOC: RADPROMAIN 08:26
PROVIDERS: ATTEND Internal Medicine Hematology & Oncology
DX: R22.1 Localized swelling, mass and lump, neck (principal); C90.00 Multiple myeloma not having achieved remission
CPT/HCPCS: 21550; 88305

== ENCOUNTER → 2018-12-11 | Outpatient (CLI) | payer MEDICARE, OTHER ==
[2018-12-11 14:09] LABS: African American GFR (CKD) >90 (>60 ml/min/1.73 sqM); Blood Urea Nitrogen 20 mg/dL (7-17)
--- NOTE | 2018-12-11 14:57 | CT ---
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 Location marked by BB. CT DLP: 292.9 mGycm CONTRAST: CT scan of the neck is performed with IV Contrast, patient injected with 100 mL of Isovue M300. Contrast enhanced CT of the neck was performed from the skull base through the lung apices. AIRWAY: The supraglottic, glottic, and subglottic portions of the airway appear patent and free of mass. SALIVARY GLANDS: Interval enlargement of right neck mass with infiltration into the deep parotid lobe as well as the superficial right parotid lobe. Mass currently measures 5.4 x 4.1 x 4.8 cm versus 3.6 x 3.8 cm. There is subcutaneous extension noted as well as mass effect upon the adjacent right inter nal carotid and right internal jugular vein. Right internal jugular vein again is essentially nonvisu alized through the course of the mass. Mass demonstrates internal cystic degeneration. Stable adjacen t lymph nodes are seen measuring up to 1.4 cm. Suspect infiltration into the sternocleidomastoid musc ulature as well. THYROID GLAND: No nodules or masses seen. LUNG APICES: No nodule or mass is seen. OTHER: Degenerative changes cervical spine. No abscess seen. IMPRESSION: 1. Progressive enlargement of complex right neck mass as discussed above. Mass effect upon the adjace nt carotid vasculature as well as essentially nonvisualization of the internal jugular vein through t he course of the mass. The mass is also suspected to infiltrate into the sternocleidomastoid musculat ure and into the subcutaneous tissues. Stable adenopathy appreciated.
== END | disposition home or self-care (01) ==
LOC: RADCTMAIN 13:25
PROVIDERS: ATTEND Otolaryngology
DX: R59.9 Enlarged lymph nodes, unspecified (principal); C90.30 Solitary plasmacytoma not having achieved remission; F17.210 Nicotine dependence, cigarettes, uncomplicated; Z92.3 Personal history of irradiation
CPT/HCPCS: 82565; 84520; 70491; 36415; Q9967

== ENCOUNTER → 2019-04-04 | Outpatient (CLI) | payer MEDICARE, OTHER ==
--- NOTE | 2019-04-06 08:32 | PE ---
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 Patient status post r adiation therapy 2 months ago. TECHNIQUE: Following the intravenous administration of 10.21 mCi of F-18 FDG, initial cone-down marie ges of the head and neck were obtained followed by whole body images are performed from the skull bas e to the midthigh. Images are reviewed on the computer in the coronal, axial, and sagittal planes. Reconstructed rotating images are created on independent workstation and reviewed on the computer. A localization and attenuation correction CT is performed in conjunction with the PET scan. Glucose level: 10.21 mg/dL Injection site: Right AC COMPARISON: 11/08/2018 FINDINGS: PET: As compared to 11/08/2018, there has been progressive enlargement of the large, fungating lobulated ma ss along the right side of the head/jaw and upper neck with new abnormal mass extending anteriorly an d posteriorly. Intense hypermetabolism remains, max SUV 20.2 versus 15, previously. Large areas of central cavitatio n and photopenia are redemonstrated even within the new portions of the mass. The hypermetabolic abnormality measures up to 10.0 cm AP by 5.6 cm wide (versus 4.8 x 4.2 cm, previou sly) but the underlying soft tissue abnormality is larger measuring up to 7.2 cm wide extending to th e right lateral aspect of the hypopharyngeal mucosal space across the carotid space as seen previousl y. 9 mm left mid cervical lymph node is new and shows mild, borderline moderate FDG uptake, max SUV 3.2. Physiologic FDG uptake within the chest. Focal intense uptake at the right antecubital fossa likely relating to injection site. Average liver SUV: 1.8 Focal moderate intense uptake along the splenic flexure of the colon and upper descending colon (Max SUV 3.8 and 5.2, respectively, shows no discrete CT abnormality but the areas appears slightly larger from 11/08/2018 (max SUV 3.3, previously). Direct visualization can be performed to exclude any under lying polyps within the colon. Some scattered mild to moderate FDG uptake throughout the colon likely physiologic. ATTENUATION CORRECTION CT: Visualized paranasal sinuses and mastoid air cells are well pneumatized. Heart is normal size without pericardial effusion. Coronary vessel calcifications are present. Moder ate atherosclerotic calcifications throughout the thoracic aorta with conventional arch vessel branch ing anatomy. No thoracic lymphadenopathy by CT size criteria. Mild centrilobular emphysema. No consol idation or pleural effusion. Moderate to severe atherosclerotic calcifications throughout the abdominal aorta and iliac arteries, particularly severe at the aortic bifurcation. Moderate stool burden. No dilated small bowel, fluid, or free air. Bladder under distended. Multiple pelvic phlebolith. No abnormal fluid collection in the pelvis or pe lvic lymphadenopathy. Severe atherosclerotic calcifications within the common femoral arteries on bot h sides. Bones: Degenerative changes at the hips and lower lumbar spine. Endplate spondylosis lower thoracic s pine. IMPRESSION: 1. As compared to 11/08/2018, significant interval enlargement of intensely hypermetabolic mass along the right side of the face and jaw with the hypermetabolic area measuring up to 10.0 x 5.6 cm (versus 4.8 x 4.2 cm, previously). Large areas of central necrosis are redemonstrated, max SUV 20.2 versus 1 5.0, previously. Findings suggest local progression. 2. A new 9 mm left mid cervical lymph node shows mild, borderline moderate FDG uptake. Attention on f ollow-up. 3. A couple focal areas of increased uptake at the splenic flexure of the colon appear slightly large r from 11/08/2018. Direct visualization can be performed to exclude underlying polyps/mucosal lesions. 4. Incidental: Moderate to severe atherosclerotic calcifications throughout the abdominal aorta and i liac arteries, particularly severe at the aortic bifurcation and within the common femoral arteries.
== END | disposition home or self-care (01) ==
LOC: RADPETMAIN 10:46
PROVIDERS: ATTEND Internal Medicine Hematology & Oncology
DX: R93.3 Abnormal findings on diagnostic imaging of other parts of digestive tract (principal); R93.89 Abnormal findings on diagnostic imaging of other specified body structures; C90.30 Solitary plasmacytoma not having achieved remission
CPT/HCPCS: 78815; A9552

== ENCOUNTER 2019-07-20 08:06 | Emergency (ER) | payer MEDICARE, OTHER ==
[2019-07-20 08:12] VITALS: BP 128/72; PULSE 80; RESP 18; TEMP 97.8
[2019-07-20] MEDS ORDERED: KETOROLAC 60 MG/2 ML VIAL IM STA (08:25)
[2019-07-20] MEDS ORDERED: MORPHINE SULFATE 2 MG/ML SYRINGE IM STA (08:26)
--- NOTE | 2019-07-20 08:28 | ED ---
General Adult HPI - General Chief complaint: Abdominal Pain Stated complaint: lt sided abd pain Time Seen by Provider: 07/20/19 08:06 Source: patient, RN notes reviewed, old records reviewed Mode of arrival: ambulatory Limitations: no limitations - History of Present Illness Initial comments: This is a 74-year-old female who presents emergency Department complaining of left-sided rib pain. Patient states she bent over to clean something up a floor when she got up and twisted she heard a crack in her left side of her ribs. Patient states she is a patient with cancer of the skin shows no type which she just finished radiation and chemotherapy. Patient denies any difficulty breathing first breath per patient only complains of pain with deep breathing or moving or twisting. Patient denies any abdominal pain. Patient denies any fever chills or cough. Patient denies any other problems at this time. - Related Data Home Medications Medication Instructions Recorded Confirmed Gabapentin [Neurontin] 200 mg PO QAM 06/21/15 06/25/19 Metoprolol Tartrate 12.5 mg PO BID 08/12/15 06/25/19 metFORMIN HCL [Glucophage] 500 mg PO QAM 10/11/15 06/25/19 Famotidine 20 mg PO BID PRN 12/27/16 06/25/19 Aspirin [Adult Low Dose Aspirin EC] 81 mg PO DAILY 11/10/18 06/25/19 Albuterol Nebulized [Ventolin 2.5 mg INHALATION QID PRN 01/27/19 06/25/19 Nebulized] Atorvastatin [Lipitor] 40 mg PO W/SUPPER 01/27/19 06/25/19 traMADol HCL [Ultram] 50 mg PO Q6HR PRN 01/27/19 06/25/19 Doxycycline [Vibramycin] 100 mg PO BID 04/16/19 06/25/19 Previous Rx's Medication Instructions Recorded Ibuprofen [Motrin] 400 mg PO Q6HR PRN 5 Days #20 tab 07/20/19 Allergies Allergy/AdvReac Type Severity Reaction Status Date / Time azithromycin Allergy Dyspnea/anx Verified 06/25/19 07:39 iety Review of Systems ROS Statement: Those systems with pertinent positive or pertinent negative responses have been documented in the HPI. ROS Other: All systems not noted in ROS Statement are negative. 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(getting Tx with radiation) History of Any Multi-Drug Resistant Organisms: None Reported Past Surgical History: Hysterectomy, Tonsillectomy, Tubal Ligation Additional Past Surgical History / Comment(s): PTBA/STENT TO LT LEG Past Anesthesia/Blood Transfusion Reactions: No Reported Reaction Additional Past Anesthesia/Blood Transfusion Reaction / Comment(s): CLAUSTROPHOBIA Past Psychological History: Anxiety, Depression, Panic Disorder Smoking Status: Current every day smoker Past Alcohol Use History: None Reported Past Drug Use History: None Reported - Past Family History Son(s) Family Medical History: Cancer Additional Family Medical History / Comment(s): LYMPHOMA Mother Family Medical History: Diabetes Mellitus Father Additional Family Medical History / Comment(s): HAD AAA Sister(s) Family Medical History: Cancer General Exam - General Exam Comments Initial Comments: GENERAL: Patient is well-developed and well-nourished. Patient is nontoxic and well- hydrated and is in no acute distress. ENT: Neck is soft and supple. No significant lymphadenopathy is noted. Neck has full range of motion without eliciting any pain. EYES: The sclera were anicteric and conjunctiva were pink and moist. Extraocular movements were intact and pupils were equal round and reactive to light. Eyelids were unremarkable. PULMONARY: Unlabored respirations. Good breath sounds bilaterally. No audible rales rhonchi or wheezing was noted. CARDIOVASCULAR: There is a regular rate and rhythm without any murmurs gallops or rubs. Left lateral ribs are very tender to touch at about ribs 9 and 10 ABDOMEN: Soft and nontender with normal bowel sounds. SKIN: Skin is clear with no lesions or rashes and otherwise unremarkable. NEUROLOGIC: Patient is alert and oriented x3. Cranial nerves II through XII are grossly intact. Motor and sensory are also intact. Normal speech, volume and content. Symmetrical smile. MUSCULOSKELETAL: Normal extremities with adequate strength and full range of motion. LYMPHATICS: No significant lymphadenopathy is noted PSYCHIATRIC: Normal psychiatric evaluation. Limitations: no limitations Course Vital Signs 07/20/19 08:06 Temperature 97.8 F Pulse Rate 80 Respiratory 18 Rate Blood Pressure 128/72 O2 Sat by Pulse 97 Oximetry Medical Decision Making - Medical Decision Making Chest x-ray and x-ray of the ribs showed possible 6 rib fracture Disposition Clinical Impression: Rib fracture Disposition: HOME SELF-CARE Instructions (If sedation given, give patient instructions): Rib Fracture (ED) Prescriptions: Ibuprofen [Motrin] 400 mg PO Q6HR PRN 5 Days #20 tab PRN Reason: Pain Is patient prescribed a controlled substance at d/c from ED?: No Referrals: Silviano Lieberman MD [Primary Care Provider] - 1-2 days Time of Disposition: 09:11
--- NOTE | 2019-07-20 08:55 | XR ---
EXAMINATION TYPE: XR ribs LT w pa chest xray DATE OF EXAM: 07/20/2019 COMPARISON: 12/27/2016 HISTORY: Pain TECHNIQUE: Single view of the chest 4 views of the ribs are submitted. FINDINGS: Small density left costophrenic angle may reflect atelectasis or small infiltrate. No Evide nce for pneumothorax. No evidence for focal contusion. Mediastinal structures are midline. Evaluat ion of the ribs demonstrate some vague deformity of left rib #6. Nondisplaced fracture difficult to e xclude. Correlate clinically with point tenderness. Chronic appearing deformity left clavicle IMPRESSION: 1.Small density left costophrenic angle may reflect atelectasis or small infiltrate. 2.Evaluation of the ribs demonstrate some vague deformity of left rib #6. Nondisplaced fracture diffi cult to exclude.
== END 2019-07-20 09:25 | disposition home or self-care (01) ==
LOC: EC 08:06
DX: S22.32XA Fracture of one rib, left side, initial encounter for closed fracture (principal); J44.9 Chronic obstructive pulmonary disease, unspecified; E78.5 Hyperlipidemia, unspecified; I10 Essential (primary) hypertension; M19.90 Unspecified osteoarthritis, unspecified site; E11.42 Type 2 diabetes mellitus with diabetic polyneuropathy; I25.2 Old myocardial infarction; F17.200 Nicotine dependence, unspecified, uncomplicated; Z79.84 Long term (current) use of oral hypoglycemic drugs; Z79.899 Other long term (current) drug therapy; Z79.82 Long term (current) use of aspirin; Z88.1 Allergy status to other antibiotic agents; Z85.79 Personal history of other malignant neoplasms of lymphoid, hematopoietic and related tissues; Z85.828 Personal history of other malignant neoplasm of skin; Z92.21 Personal history of antineoplastic chemotherapy; Z92.3 Personal history of irradiation; X50.1XXA Overexertion from prolonged static or awkward postures, initial encounter; Y93.E5 Activity, floor mopping and cleaning; Y92.009 Unspecified place in unspecified non-institutional (private) residence as the place of occurrence of the external cause
CPT/HCPCS: 71101; 96372 ×2; 99284; J1885; J2270

== ENCOUNTER → 2019-08-28 | Outpatient (CLI) | payer MEDICARE, OTHER ==
--- NOTE | 2019-08-28 15:38 | PE ---
Nuclear medicine PET/CT HISTORY: Head and neck carcinoma, subsequent Patient received 11.8 mCi F-18 FDG intravenously in delayed scanning was performed from the skull bas e to the mid thighs. Localization and attenuation correction CT scan was performed. Small field-of-vi ew images obtained through the head and neck Correlation to prior nuclear medicine PET/CT 04/04/2019 Head and neck: The large soft tissue lesion seen on previous exam over the right side of the head and neck is again noted and shows areas of probable necrosis, associated hypermetabolic uptake is presen t with some areas of relative central sparing. There is increased extent of the FDG avid soft tissue anteriorly along the mandible. There is interval development of uptake seen within the right temporal bone. Uptake is also noted at the region of the torus tubarius which is more conspicuous. There is a focus of uptake also present anterior to the C3 transverse process level on the right. Mass effect i s noted along the oropharynx on the right. Along the anterior cervical chain on the left there is a f ocus of shanthi uptake present as on prior exam. CHEST: There is no FDG uptake. No pleural or pericardial effusion. No evident lung mass. ABDOMEN: There is no liver mass. No retroperitoneal adenopathy. No ascites. Uptake along the bowel is likely physiologic. Osseous structures show multiple anterior rib foci on the left at the lower aspect of the chest likel y representing healing rib fractures, correlate for history of trauma. IMPRESSION: Progression of patient's head and neck mass, abnormal uptake as described.
== END | disposition home or self-care (01) ==
LOC: RADPETMAIN 09:55
PROVIDERS: ATTEND Internal Medicine Hematology & Oncology
DX: R93.89 Abnormal findings on diagnostic imaging of other specified body structures (principal); C76.0 Malignant neoplasm of head, face and neck
CPT/HCPCS: 78815; A9552

== ENCOUNTER 2019-09-26 08:37 | Inpatient (IN) | payer MEDICARE, OTHER ==
[2019-09-26] MEDS ORDERED: SODIUM CHLORIDE 0.9% 1,000 ML IV ONE (09:01)
[2019-09-26] MEDS ORDERED: LORazepam 2 MG/ML INJ IV STA (09:01)
[2019-09-26 09:41] LABS: ALT 10 U/L (4-34); AST 15 U/L (14-36); African American GFR (CKD) >90 (>60 ml/min/1.73 sqM); Albumin 3.1 g/dL (3.5-5.0); Alkaline Phosphatase 89 U/L (38-126); Anion Gap 11 mmol/L; Blood Urea Nitrogen 22 mg/dL (7-17); Calcium 8.1 mg/dL (8.4-10.2); Carbon Dioxide 23 mmol/L (22-30); Chloride 101 mmol/L (98-107); Glucose 168 mg/dL (74-99); Non-African American GFR(CKD) >90 (>60 ml/min/1.73 sqM); Potassium 3.7 mmol/L (3.5-5.1); Sodium 135 mmol/L (137-145); Total Bilirubin 0.6 mg/dL (0.2-1.3); Total Protein 6.7 g/dL (6.3-8.2)
[2019-09-26 09:51] LABS: Basophils # (A) 0.1 k/uL (0-0.2); Basophils % (A) 0 %; Eosinophils # (A) 0.1 k/uL (0-0.7); Eosinophils % (A) 1 %; HCT 28.5 % (34.0-46.0); Hypochromasia Slight; Lymphocytes # (A) 0.6 k/uL (1.0-4.8); Lymphocytes % (A) 4 %; MCH 26.2 pg (25.0-35.0); MCHC 32.1 g/dL (31.0-37.0); MCV 81.6 fL (80.0-100.0); Mean Platelet Volume 7.2; Monocytes # (A) 0.1 k/uL (0-1.0); Monocytes % (A) 1 %; Neutrophils # (A) 13.6 k/uL (1.3-7.7); Neutrophils % (A) 93 %; Platelet Count 428 k/uL (150-450); RDW 15.3 % (11.5-15.5); WBC 14.6 k/uL (3.8-10.6)
[2019-09-26 10:01] LABS: HGB 9.2 gm/dL (11.4-16.0); Prothrombin Time 10.1 sec (9.0-12.0)
[2019-09-26 10:04] LABS: Partial Thromboplastin Time 21.7 sec (22.0-30.0)
--- NOTE | 2019-09-26 10:27 | CT ---
EXAMINATION TYPE: CT facial bones w con DATE OF EXAM: 09/26/2019 COMPARISON: Previous PET/CT dated 08/28/2019 HISTORY: Rt sided facial mass, known plasmacytoma, bleeding from Rt ear CT DLP: 422.2 mGycm Automated exposure control for dose reduction was used. CONTRAST: CT scan of the facial bones is performed with IV Contrast, patient injected with 100 mL of Isovue 300 . TECHNIQUE: CT scan of the sinuses is performed without contrast, axial images are obtained, coronal r eformatted images are also reviewed. FINDINGS: There is a large, heterogenous right sided mass overlying the upper neck and involving the pinna on the right. There appears to be areas of necrosis within this. This measures today 10.4 x 5.9 x 7.4 cm. Previously this measured approximately 8.9 x 4.9 cm. No definite destructive lesion about the mandible is seen. There is fluid within the right-sided mastoid air cells suggesting acute mastoi ditis. There is also some the sphenoid sinus mucosal thickening. There is now asymmetry in the oropharynx and the right side of the tongue now appears enlarged and is encroaching on the oropharynx. This was present previously but appears to have worsened slightly. IMPRESSION: WORSENING APPEARANCE OF THE PATIENT'S KNOWN RIGHT NECK MASS.
[2019-09-26] MEDS ORDERED: NALOXONE 0.4 MG/ML 1 ML VIAL IV PRN (11:10)
--- NOTE | 2019-09-26 11:10 | ED ---
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 Patient was diagnosed in May of last year. She sees Dr. Bishop. She was originally on chemo and radiation shortly after her diagnosis. Currently the patient is on chemotherapy every 3 weeks. Last treatment was 2 weeks ago. States that yesterday she began having some bleeding from the area of her mass. She's never had bleeding before. She has never seen a surgeon. She put some ice on it and stated that it stopped. She woke this morning and the bleeding has started again. States that it got her panicked and therefore she called EMS. She denies difficulty breathing. Denies a sensation that her airway is closing off. No hearing changes. Admits to lightheadedness. Denies headaches or visual changes. No hearing changes. No swelling. No chest pain. Denies any fevers or chills. There are no other alleviating, precipitating or modifying factors - Related Data Home Medications Medication Instructions Recorded Confirmed Gabapentin [Neurontin] 200 mg PO DAILY 06/21/15 09/26/19 Metoprolol Tartrate 12.5 mg PO BID 08/12/15 09/26/19 metFORMIN HCL [Glucophage] 500 mg PO DAILY 10/11/15 09/26/19 Famotidine 20 mg PO BID 12/27/16 09/26/19 Albuterol Nebulized [Ventolin 2.5 mg INHALATION TID PRN 01/27/19 09/26/19 Nebulized] Atorvastatin [Lipitor] 40 mg PO W/SUPPER 01/27/19 09/26/19 Ibuprofen [Motrin] 600 mg PO QID PRN 09/26/19 09/26/19 Ondansetron HCl [Zofran] 4 mg PO Q4H PRN 09/26/19 09/26/19 Slow-Mag 71.5mg 143 mg PO DAILY 09/26/19 09/26/19 Previous Rx's Medication Instructions Recorded Acetaminophen Tab [Tylenol] 650 mg PO Q6HR PRN tab 09/30/19 Amoxicillin/Potassium Clav 1 tab PO Q12HR #20 tab 09/30/19 [Augmentin 875-125 Tablet] HYDROcodone/APAP 7.5-325MG [[place] 1 tab PO Q4H PRN 3 Days #18 tab 09/30/19 7.5-325] Nicotine 21Mg/24Hr Patch [Habitrol] 1 patch TRANSDERM DAILY #14 patch 09/30/19 Allergies Allergy/AdvReac Type Severity Reaction Status Date / Time azithromycin Allergy Dyspnea/anx Verified 09/26/19 13:01 iety Review of Systems ROS Statement: Those systems with pertinent positive or pertinent negative responses have been documented in the HPI. ROS Other: All systems not noted in ROS Statement are negative. 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(getting Tx with radiation) History of Any Multi-Drug Resistant Organisms: None Reported Past Surgical History: Hysterectomy, Tonsillectomy, Tubal Ligation Additional Past Surgical History / Comment(s): PTBA/STENT TO LT LEG Past Anesthesia/Blood Transfusion Reactions: No Reported Reaction Additional Past Anesthesia/Blood Transfusion Reaction / Comment(s): CLAUSTROPHOBIA Past Psychological History: Anxiety, Depression, Panic Disorder Smoking Status: Current every day smoker Past Alcohol Use History: None Reported Past Drug Use History: None Reported - Past Family History Son(s) Family Medical History: Cancer Additional Family Medical History / Comment(s): LYMPHOMA Mother Family Medical History: Diabetes Mellitus Father Additional Family Medical History / Comment(s): HAD AAA Sister(s) Family Medical History: Cancer General Exam Limitations: no limitations General appearance: alert, in no apparent distress, anxious Head exam: Present: atraumatic, normocephalic, normal inspection Eye exam: Present: normal appearance, PERRL, EOMI. Absent: scleral icterus, conjunctival injection, periorbital swelling ENT exam: Present: mucous membranes moist, TM's normal bilaterally, other (no drooling, trismus, hoarseness or stridor. Large necrotic facial mass right side of face. Measures approx 16x14x 4 cm. Deep central ulceration. Friable with loosely hanging fragments. Central area of mass has yellow purluent drainage. Mass is malodorous. Areas covered in thick clotted blood but no active, red or pulsatile bleeding. No drooling, trismus, hoarseness or stridor. ) Course Vital Signs 09/26/19 09/26/19 09/26/19 08:51 09:28 12:00 Temperature 98.6 F Pulse Rate 122 H 121 H 98 Respiratory 20 20 20 Rate Blood Pressure 105/65 96/60 109/64 O2 Sat by Pulse 98 96 98 Oximetry Medical Decision Making - Medical Decision Making Upon arrival the patient is placed into room 18. A thorough history and physical exam was performed. Patient has a large necrotic mass noted to the right side of her face. Lesion is malodorous. There is some areas of friability with dark red clotted blood. No active pulsatile bleeding or drainage. No stridor or obvious signs of airway compromise. PIVi was established. The patient was extremely anxious requesting something for anxiety. Patient was given 1 mg of Ativan. Laboratory studies were performed. CT with contrast was performed. Patient has had a drop in hemoglobin from 10.[address] shows enlargement of the patient's facial mass with more impingement on the airway. Patient is reevaluated. I did discuss results. I also discussed the case with Dr. Chino in regards to treatment plan. He requested admission to medicine with him to be placed on consult as well as Dr. Main. States they will discuss further treatment plan with the patient. Blood cultures were obtained. Patient placed on Zosyn. Patient is currently awaiting a bed on the floor - Lab Data Result diagrams: 09/30/19 06:57 09/29/19 06:40 Lab Results 09/26/19 09/26/19 09/26/19 Range/Units 09:19 09:19 09:19 WBC 14.6 H (3.8-10.6) k/uL RBC 3.50 L (3.80-5.40) m/uL Hgb 9.2 L D (11.4-16.0) gm/dL Hct 28.5 L (34.0-46.0) % MCV 81.6 (80.0-100.0) fL MCH 26.2 (25.0-35.0) pg MCHC 32.1 (31.0-37.0) g/dL RDW 15.3 (11.5-15.5) % Plt Count 428 (150-450) k/uL Neutrophils % 93 % Lymphocytes % 4 % Monocytes % 1 % Eosinophils % 1 % Basophils % 0 % Neutrophils # 13.6 H (1.3-7.7) k/uL Lymphocytes # 0.6 L (1.0-4.8) k/uL Monocytes # 0.1 (0-1.0) k/uL Eosinophils # 0.1 (0-0.7) k/uL Basophils # 0.1 (0-0.2) k/uL Hypochromasia Slight PT 10.1 (9.0-12.0) sec INR 1.0 (<1.2) APTT 21.7 L (22.0-30.0) sec Sodium 135 L (137-145) mmol/L Potassium 3.7 (3.5-5.1) mmol/L Chloride 101 (98-107) mmol/L Carbon Dioxide 23 (22-30) mmol/L Anion Gap 11 mmol/L BUN 22 H (7-17) mg/dL Creatinine 0.51 L (0.52-1.04) mg/dL Est GFR (CKD-EPI)AfAm >90 (>60 ml/min/1.73 sqM) Est GFR (CKD-EPI)NonAf >90 (>60 ml/min/1.73 sqM) Glucose 168 H (74-99) mg/dL Calcium 8.1 L (8.4-10.2) mg/dL Total Bilirubin 0.6 (0.2-1.3) mg/dL AST 15 (14-36) U/L ALT 10 (4-34) U/L Alkaline Phosphatase 89 (38-126) U/L Total Protein 6.7 (6.3-8.2) g/dL Albumin 3.1 L (3.5-5.0) g/dL Disposition Clinical Impression: Plasmocytoma, Tachycardia, Anemia Disposition: ADMITTED IP TO THIS [facility] Condition: Stable Is patient prescribed a controlled substance at d/c from ED?: No Decision to Admit Reason: Admit from EC Decision Date: 09/26/19 Decision Time: 11:10
[2019-09-26] MEDS ORDERED: PIPERACILLIN-TAZOBACTAM 3.375 GM in SODIUM CHLORIDE 0.9% 100 ML IVPB SCH (12:00)
[2019-09-26] MEDS ORDERED: AMPICILLIN-SULBACTAM 3 GM in SODIUM CHLORIDE 0.9% 100 ML IVPB SCH (12:45)
[2019-09-26] MEDS ORDERED: ONDANSETRON 4 MG/2 ML VIAL IVP PRN (14:25)
[2019-09-26] MEDS ORDERED: MELATONIN 3 MG TABLET PO PRN (14:25)
[2019-09-26] MEDS ORDERED: MORPHINE SULFATE 4 MG/ML SYRINGE IV PRN (14:25)
[2019-09-26] MEDS ORDERED: ACETAMINOPHEN TAB 325 MG TAB PO PRN (14:25)
[2019-09-26] MEDS ORDERED: ALBUTEROL NEBULIZED 2.5 MG/3 ML INHALATION PRN (14:27)
[2019-09-26] MEDS ORDERED: VANCOMYCIN IV PER PHARMACY 1 EACH MISC MISCELLANE PRN (14:30)
--- NOTE | 2019-09-26 14:32 | P.HPIM ---
History of Present Illness H&P Date: 09/26/19 Chief Complaint: bleeding tumor on face Patient is a 74-year-old female currently undergoing treatment for a plasma cytoma of the right neck and face, COPD, diabetes, and angina who presented to the emergency department secondary to bleeding from her tumor site. In the ER she underwent an extensive evaluation. On arrival she was tachycardic with heart rate of 122. Laboratory analysis showed a white blood cell count of 14.6 (this is down from 21.8 obtained on 09/21/2019 and the patient has recently started taking Augmentin as prescribed by the oncology team.), Hemoglobin of 9.2 (10.8), sodium 135, BUN 22, creatinine 0.51. She underwent a CT facial bones which showed worsening appearance of the patient's known right neck mass with areas of necrosis, possible acute mastoiditis, sphenoid sinus thickening, and Chang symmetry of the oropharynx with enlargement of the right tongue. Dr. Chino was contacted by the emergency department and suggested antibiotics, infectious disease consult, and admission to medicine. Patient was therefore admitted for treatment of infected and necrotic right sided face mask. Patient seen and examined at bedside. Has been under going treatment with Dr. Jack. Her last chemo session was 2 weeks ago and she is currently on q 3 week treatment regiment. No radiation treatment currently. She does not believe that there was any plans for changing her treatment in the near future. She awoke on the couch last night and noted that her face felt wet. She noted blood on the pillow and the couch. She has had one other episode of blood. She became nervous due to the amount of blood and sought medical attention. Has been having right ear pain for a few months that worsened a couple of days ago. No difficulty swallowing, + drooling with drinking that is uncharged. + Chronic shortness of breath that is unchanged Intermittent headache and blurry vision which is unchaged. Left ear lesion started 3 months ago and hurts to the touch Numbness in her legs bilateral and walking is painful this started 3 days ago, b [facility] records indicated that she has been on neurontin with known peripheral neuropathy felt related to chemo. No fevers or chills, No nausea or vomiting, + constipation, No urination problems. She reports no change in appetite. Patient had a large tissue mass that appears mostly to be clotted blood but also possibly some necrotic tissue, which been displaced from her face while she was in the emergency department. Review of Systems Pertinent positives and negatives as discussed in HPI, a complete review of systems was performed and all other systems are negative. 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(getting Tx with radiation) History of Any Multi-Drug Resistant Organisms: None Reported Past Surgical History: Hysterectomy, Tonsillectomy, Tubal Ligation Additional Past Surgical History / Comment(s): PTBA/STENT TO LT LEG Past Anesthesia/Blood Transfusion Reactions: No Reported Reaction Additional Past Anesthesia/Blood Transfusion Reaction / Comment(s): CLAUSTROPHOBIA Past Psychological History: Anxiety, Depression, Panic Disorder Smoking Status: Current every day smoker Past Alcohol Use History: None Reported Past Drug Use History: None Reported Additional History: 1PPD tobacco abuse. Lives with her 2 sons at home - Past Family History Son(s) Family Medical History: Cancer Additional Family Medical History / Comment(s): LYMPHOMA Mother Family Medical History: Diabetes Mellitus Father Additional Family Medical History / Comment(s): HAD AAA Sister(s) Family Medical History: Cancer Medications and Allergies Home Medications Medication Instructions Recorded Confirmed Type Gabapentin [Neurontin] 200 mg PO DAILY 06/21/15 09/26/19 History Metoprolol Tartrate 12.5 mg PO BID 08/12/15 09/26/19 History metFORMIN HCL [Glucophage] 500 mg PO DAILY 10/11/15 09/26/19 History Famotidine 20 mg PO BID 12/27/16 09/26/19 History Albuterol Nebulized [Ventolin 2.5 mg INHALATION TID PRN 01/27/19 09/26/19 History Nebulized] Atorvastatin [Lipitor] 40 mg PO W/SUPPER 01/27/19 09/26/19 History traMADol HCL [Ultram] 50 mg PO Q6HR 01/27/19 09/26/19 History Doxycycline [Vibramycin] 100 mg PO BID 04/16/19 09/26/19 History Ibuprofen [Motrin] 600 mg PO QID PRN 09/26/19 09/26/19 History Ondansetron HCl [Zofran] 4 mg PO Q4H PRN 09/26/19 09/26/19 History Slow-Mag 71.5mg 143 mg PO DAILY 09/26/19 09/26/19 History Allergies Allergy/AdvReac Type Severity Reaction Status Date / Time azithromycin Allergy Dyspnea/anx Verified 09/26/19 13:01 iety Physical Exam Osteopathic Statement: *. No significant issues noted on an osteopathic structural exam other than those noted in the History and Physical/Consult. Vitals: Vital Signs Temp Pulse Resp BP Pulse Ox 09/26/19 09:28 121 H 20 96/60 96 09/26/19 08:51 98.6 F 122 H 20 105/65 98 Intake and Output 09/25/19 09/26/19 09/26/19 22:59 06:59 14:59 Other: Weight 47.627 kg General: ill appearing, mild distress, appears at stated age, temporal wasting, cachectic Derm: no unusual ecchymoses, warm, dry Head: Asymmetric with large multilobulated mass extending from the right side of the neck towards the right and jones with areas of what appears to be necrotic tissue, and some friable tissue with sanguinous drainage, malodorous. Eyes: EOMI, no lid lag, anicteric sclera, pupils equal round reactive to light ENT: Nose atraumatic, no thrush, no pharyngeal erythema Neck: No thyromegaly, no cervical lymphadenopathy, trachea midline, supple Mouth: no lip lesion, mucus membranes dry, enlarged tongue, no signs of extension of tumor into oral pharynx, muffled voice Cardiovascular: S1S2 reg, no murmur, positive posterior tibial pulse bilateral, no edema, capillary refill less than 2 seconds Lungs: CTA bilateral, no rhonchi, no rales , no accessory muscle use Abdominal: soft, nontender to palpation, no guarding, no appreciable organomegaly, normal bowel sounds Ext: no gross muscle atrophy, muscle strength 4 out of 5 in all 4 extremities grossly, no contractures, Neuro: CN II-XI grossly intact, light touch intact all 4 extremities, finger to nose within normal limits, Psych: Alert, oriented, appropriate affect Results CBC & Chem 7: 09/26/19 09:19 09/26/19 09:19 Labs: Abnormal Lab Results - Last 24 Hours (Table) 09/26/19 09/26/19 09/26/19 Range/Units 09:19 09:19 09:19 WBC 14.6 H (3.8-10.6) k/uL RBC 3.50 L (3.80-5.40) m/uL Hgb 9.2 L D (11.4-16.0) gm/dL Hct 28.5 L (34.0-46.0) % Neutrophils # 13.6 H (1.3-7.7) k/uL Lymphocytes # 0.6 L (1.0-4.8) k/uL APTT 21.7 L (22.0-30.0) sec Sodium 135 L (137-145) mmol/L BUN 22 H (7-17) mg/dL Creatinine 0.51 L (0.52-1.04) mg/dL Glucose 168 H (74-99) mg/dL Calcium 8.1 L (8.4-10.2) mg/dL Albumin 3.1 L (3.5-5.0) g/dL Comments: CT facial done reviewed Thrombosis Risk Factor Assmnt - DVT/VTE Prophylaxis DVT/VTE Prophylaxis: Pharmacologic Prophylaxis ordered Assessment and Plan Assessment: Plasmacytoma right face with probable infection and possible mastoiditis with bleeding - Unasyn - Vanco - Consult ID and Heme/onc - IVF - Monitor for sings of increased bleeding Cancer related pain - Transition from tramadol to norco - Morphine is there for break through pain - Patient reports pain at home 8-9 most days and tramadol not helping Acute blood loss anemia on chronic anemia - serial HgB - no indications for transfusion at this time DM 2 - hold metformin - SSI - Follow BS - Check A1C COPD without exacerbation - prn albuterol HTN - metoprolol - follow BP Neuropathy - gabapentin resumed Tobacco abuse - cessation - nicotine replacement Chronic: HLD GERD The patient is admitted with an anticipated greater than 2 midnight stay for evaluation of infected tumor. Surrogate decision-maker: Gemini Johnson and Lakhwinder CODE STATUS:Full DVT prophylaxis: SCDs due to bleeding Discussed with: Patient, nursing, Anticipated discharge date: 1-[address]: home with palliative care A total of 65 minutes was spent on the care of this complex patient more than 50% of the time was spent in counseling and care coordination.
[2019-09-26] MEDS: SODIUM CHLORIDE 0.9% 1,000 ML IV SCH (15:00)
[2019-09-26] MEDS: GABAPENTIN 100 MG CAP PO SCH (15:31)
[2019-09-26] MEDS: NICOTINE 21MG/24HR PATCH TRANSDERM SCH (15:32)
[2019-09-26] MEDS: VANCOMYCIN 750 MG in SODIUM CHLORIDE 0.9% 250 ML IVPB SCH (16:40)
[2019-09-26 17:29] LABS: Glucose,Whole Blood 126 mg/dL (75-99)
[2019-09-26 17:32] LABS: Glucose,Whole Blood 122 mg/dL (75-99)
[2019-09-26] MEDS: INSULIN ASPART (NovoLOG) 100 UNIT/ML VIAL SQ SCH ×2 (17:33→22:19)
[2019-09-26] MEDS: ATORVASTATIN 40 MG TAB PO SCH (17:48)
[2019-09-26 20:37] LABS: Glucose,Whole Blood 121 mg/dL (75-99)
[2019-09-26] MEDS: METOPROLOL TARTRATE 12.5 MG TAB PO SCH (22:18)
[2019-09-26] MEDS: AMPICILLIN-SULBACTAM 3 GM in SODIUM CHLORIDE 0.9% 100 ML IVPB SCH (22:19)
--- NOTE | 2019-09-27 01:15 | P.CONS ---
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 and the patient has been on chemo since then last chemo has been about 2 weeks ago patient did have significant destructive lesion to the right side of the neck involving the pinna of the right ear in this patient presented to the hospital with chief complaints of bleeding from her tumor site that she noticed last night she make a burning or pain to the right side of the neck and tumor area describing a little dull aching to sharp intensity 5-6 out of 10 and no radiation patient denies high-grade fever or any chills denies having difficulty swallowing no chest pain shortness of breath or cough no nausea no vomiting no abdominal pain or diarrhea on arrival to the ER the patient has been afebrile she was noticed to have usual 14.6 and she did have a CT of the facial bone area which it shows destructive changes to the right side of the neck and involvement of the right femur and this has increased in size compared to her previous CT patient has been admitted to the hospital she was started on Unasyn and vancomycin and infectious disease has been consulted for further management of antibiotic therapy and concern for possible cellulitis Review of Systems Positive point has been mentioned in the HPI rest of the systems are negative 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(getting Tx with radiation) History of Any Multi-Drug Resistant Organisms: None Reported Past Surgical History: Hysterectomy, Tonsillectomy, Tubal Ligation Additional Past Surgical History / Comment(s): PTBA/STENT TO LT LEG Past Anesthesia/Blood Transfusion Reactions: No Reported Reaction Additional Past Anesthesia/Blood Transfusion Reaction / Comm: CLAUSTROPHOBIA Past Psychological History: Anxiety, Depression, Panic Disorder Additional Psychological History / Comment(s): claustrophobia Smoking Status: Current every day smoker Past Alcohol Use History: None Reported Additional Past Alcohol Use History / Comment(s): STARTED SMOKING AGE 23, down to<1PPD Past Drug Use History: None Reported - Past Family History Son(s) Family Medical History: Cancer Additional Family Medical History / Comment(s): LYMPHOMA Mother Family Medical History: Diabetes Mellitus Father Additional Family Medical History / Comment(s): HAD AAA Sister(s) Family Medical History: Cancer Medications and Allergies Home Medications Medication Instructions Recorded Confirmed Type Gabapentin [Neurontin] 200 mg PO DAILY 06/21/15 09/26/19 History Metoprolol Tartrate 12.5 mg PO BID 08/12/15 09/26/19 History metFORMIN HCL [Glucophage] 500 mg PO DAILY 10/11/15 09/26/19 History Famotidine 20 mg PO BID 12/27/16 09/26/19 History Albuterol Nebulized [Ventolin 2.5 mg INHALATION TID PRN 01/27/19 09/26/19 History Nebulized] Atorvastatin [Lipitor] 40 mg PO W/SUPPER 01/27/19 09/26/19 History traMADol HCL [Ultram] 50 mg PO Q6HR 01/27/19 09/26/19 History Doxycycline [Vibramycin] 100 mg PO BID 04/16/19 09/26/19 History Ibuprofen [Motrin] 600 mg PO QID PRN 09/26/19 09/26/19 History Ondansetron HCl [Zofran] 4 mg PO Q4H PRN 09/26/19 09/26/19 History Slow-Mag 71.5mg 143 mg PO DAILY 09/26/19 09/26/19 History Allergies Allergy/AdvReac Type Severity Reaction Status Date / Time azithromycin Allergy Dyspnea/anx Verified 09/26/19 13:01 iety Physical Exam Vitals: Vital Signs Temp Pulse Pulse Resp BP BP Pulse Ox 09/26/19 13:35 97.9 F 115 H 20 121/78 98 09/26/19 12:00 98 20 109/64 98 09/26/19 09:28 121 H 20 96/60 96 09/26/19 08:51 98.6 F 122 H 20 105/65 98 Intake and Output 09/26/19 09/26/19 09/26/19 06:59 14:59 22:59 Intake Total 100 Balance 100 Intake: Intake, IV Titration 100 Amount Ampicillin-Sulbactam 3 gm 100 In Sodium Chloride 0.9% 100 ml @ 200 mls/hr IVPB Q6HR [facility], [facility]1983 Rx#:[id number] Other: Weight 47.627 kg 47.627 kg GENERAL DESCRIPTION: Middle-aged female lying in bed, no distress. No tachypnea or accessory muscle of respiration use. HEENT: Shows Pallor , no scleral icterus. Oral mucous membrane is dry. Patient did have significant obstructive tumor to the right side of the neck involving the pain with necrotic tissue and some bleeding surrounding swelling and redness NECK: Trachea central, no thyromegaly. LUNGS: Unlabored breathing. Clear to auscultation anteriorly. No wheeze or crackle. HEART: S1, S2, regular rate and rhythm. No loud murmur ABDOMEN: Soft, no tenderness , guarding or rigidity, no organomegaly EXTREMITIES: No edema of feet. SKIN: No rash, no masses palpable. NEUROLOGICAL: The patient is awake, alert, oriented x3, mood and affect normal. Results CBC & Chem 7: 09/26/19 09:19 09/26/19 09:19 Labs: Abnormal Lab Results - Last 24 Hours (Table) 09/26/19 09/26/19 09/26/19 Range/Units 09:19 09:19 09:19 WBC 14.6 H (3.8-10.6) k/uL RBC 3.50 L (3.80-5.40) m/uL Hgb 9.2 L D (11.4-16.0) gm/dL Hct 28.5 L (34.0-46.0) % Neutrophils # 13.6 H (1.3-7.7) k/uL Lymphocytes # 0.6 L (1.0-4.8) k/uL APTT 21.7 L (22.0-30.0) sec Sodium 135 L (137-145) mmol/L BUN 22 H (7-17) mg/dL Creatinine 0.51 L (0.52-1.04) mg/dL Glucose 168 H (74-99) mg/dL POC Glucose (mg/dL) (75-99) mg/dL Calcium 8.1 L (8.4-10.2) mg/dL Albumin 3.1 L (3.5-5.0) g/dL 09/26/19 09/26/19 09/26/19 Range/Units 17:09 17:30 20:33 WBC (3.8-10.6) k/uL RBC (3.80-5.40) m/uL Hgb (11.4-16.0) gm/dL Hct (34.0-46.0) % Neutrophils # (1.3-7.7) k/uL Lymphocytes # (1.0-4.8) k/uL APTT (22.0-30.0) sec Sodium (137-145) mmol/L BUN (7-17) mg/dL Creatinine (0.52-1.04) mg/dL Glucose (74-99) mg/dL POC Glucose (mg/dL) 126 H 122 H 121 H (75-99) mg/dL Calcium (8.4-10.2) mg/dL Albumin (3.5-5.0) g/dL Assessment and Plan Assessment: 1- patient is a 74-year-old female with a past medical history significant for plasmacytoma diagnosed in May 2018 and this patient has been on chemo last 2 weeks ago presented to hospital with significant bleeding from her tumor site this patient had did have increasing size of the tumor on the CT with possible tumor necrosis with some surrounding swelling and redness underlying infection not entirely excluded and will need to cover for both gram- positive as well as gram-negative pathogen (1) Leukocytosis Current Visit: Yes Status: Acute Code(s): D72.829 - ELEVATED WHITE BLOOD CELL COUNT, UNSPECIFIED SNOMED Code(s): 279059598 (2) Cellulitis and abscess of neck Current Visit: Yes Status: Acute Code(s): L03.221 - CELLULITIS OF NECK; L02.11 - CUTANEOUS ABSCESS OF NECK SNOMED Code(s): 927294939 Plan: 1-Unasyn 3 g every 6 hours 2-Vancomycin pharmacy to dose target trough of 15 while watching his kidney function and Vanco trough closely We will follow on clinical condition and cultures to further adjust medication if needed Thank you for this consultation will follow this patient with you
[2019-09-27] MEDS: AMPICILLIN-SULBACTAM 3 GM in SODIUM CHLORIDE 0.9% 100 ML IVPB SCH ×4 (04:28→20:12)
[2019-09-27] MEDS: SODIUM CHLORIDE 0.9% 1,000 ML IV SCH ×2 (04:28→17:01)
[2019-09-27] MEDS: VANCOMYCIN 750 MG in SODIUM CHLORIDE 0.9% 250 ML IVPB SCH ×2 (05:39→16:53)
[2019-09-27 07:15] LABS: Glucose,Whole Blood 131 mg/dL (75-99)
[2019-09-27 08:03] LABS: Basophils % (A) 0 %; Eosinophils # (A) 0.1 k/uL (0-0.7); Eosinophils % (A) 1 %; HCT 26.4 % (34.0-46.0); HGB 8.5 gm/dL (11.4-16.0); Hypochromasia Slight; Lymphocytes # (A) 0.6 k/uL (1.0-4.8); Lymphocytes % (A) 7 %; MCH 26.2 pg (25.0-35.0); MCHC 32.3 g/dL (31.0-37.0); MCV 81.3 fL (80.0-100.0); Mean Platelet Volume 7.4; Monocytes # (A) 0.2 k/uL (0-1.0); Monocytes % (A) 2 %; Neutrophils # (A) 7.7 k/uL (1.3-7.7); Neutrophils % (A) 88 %; Platelet Count 403 k/uL (150-450); RBC 3.25 m/uL (3.80-5.40); RDW 15.2 % (11.5-15.5); WBC 8.8 k/uL (3.8-10.6)
[2019-09-27 08:20] LABS: African American GFR (CKD) >90 (>60 ml/min/1.73 sqM); Anion Gap 7 mmol/L; Blood Urea Nitrogen 17 mg/dL (7-17); Carbon Dioxide 24 mmol/L (22-30); Chloride 104 mmol/L (98-107); Glucose 112 mg/dL (74-99); Non-African American GFR(CKD) >90 (>60 ml/min/1.73 sqM); Potassium 3.9 mmol/L (3.5-5.1); Sodium 135 mmol/L (137-145)
[2019-09-27] MEDS: METOPROLOL TARTRATE 12.5 MG TAB PO SCH ×2 (08:23→20:12)
[2019-09-27] MEDS: GABAPENTIN 100 MG CAP PO SCH ×2 (08:23→20:12)
[2019-09-27] MEDS: NICOTINE 21MG/24HR PATCH TRANSDERM SCH (08:23)
[2019-09-27] MEDS: INSULIN ASPART (NovoLOG) 100 UNIT/ML VIAL SQ SCH ×4 (08:25→20:12)
[2019-09-27] MEDS: HYDROcodone/APAP 5-325MG 1 EACH TAB PO PRN ×2 (08:32→19:27)
[2019-09-27] MEDS: MORPHINE SULFATE 2 MG/ML SYRINGE IVP PRN (09:44)
[2019-09-27 11:46] LABS: Glucose,Whole Blood 130 mg/dL (75-99)
--- NOTE | 2019-09-27 11:53 | P.CONS ---
History of Present Illness - Reason for Consult Consult date: 09/27/19 Necrotic tumor with possible infection, and bleeding. Squamous cell ca - History of Present Illness The patient is a 74-year-old white female well known to our service. She is followed by Dr. Jack in the outpatient setting. 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 Her Oncology history is as follows: She was initially referred refered by Dr Lieberman in 06/16 for evaluation of R cervical Lymphadenopathy, which she reported present X 1 year, unchanged. She denied fever, chills, night sweats or unexplained weight loss. U/S of Thyroid & neck revealed R cervical lesion measuring 3.6X1.6X3.1 cm in mid R cervical region with fatty hilum. It was interpreted as suspicious by Radiology. She denied prior malignancies. She is a lifetime non smoker and denied ETOH use. Her son of Non-Hodgkins lymphoma. 06/20/17: Bx of Lymph node was positive for Plasmacytoma 04/17/18: The patient declined further staging and treatment after the 06/16 visit and did not want to follow up. She presented to Dr Lieberman with further progression of R cervical mass that was now painful> refered again by her PCP Dr Lieberman. 04/24/18: Feels Ok, C/O R cervical pain. Work up revealed FDG-avid R cervical mass, but no further disease on PET Scan. Serology studies did not show monocl onal protein (Has elevated IgG > reactive). 08/28/18: Completed Radiation therapy > R cervical lesion improving, but still present and painless. 10/08/18: having slight R cervical pain. 11/05/18: Not doing well : C/O progressive diffuse skeletal pain, as well as, increasing pain & size of R cervical mass. 01/09/19: C/O increasing R cervical pain, mass enlarging. Repeat Bx negative. Seen by Dr Salazar : Further XRT scheduled. 02/05/19: C/O R neck pain, no chest pain, SOB or other areas of skeletal pains. 03/03/19: R neck mass enlarging, pain controlled with Tramadol. 04/20: Repeat biopsy in 04/20 at [facility] now showed a new diagnosis of squamous cell carcinoma. She was started on Erbitux 05/01/19: Tolerating Erbitux well, C/O R neck pain, controlled by Tramadol. 05/29/19: Feels Ok, pain in cervical area controlled, tolerating Erbitux well. 06/16/19: Feels well, tolerating Erbitux well, R cervical mass gradually decreasing, has minimal local pain. 08/04/19: Feels well, C/O irritation to hands/feet. Had lesion on L ear, tolerating Erbitux well, pain well controlled. 08/18/19: has a lesion on L ear, tolerating Erbitux well. 09/03/19: Feels well, pain in R neck worse. PET Scan:Progression. 09/21/19: She was thus changed to Carboplatin + Taxol and is s/p 1 cycle Since her first chemotherapy with carboplatin and Taxol, the patient had continued to have right neck pain. She states that she started to have scabs on the surface of the tumor as well as "chunks" of the tumor starting to break down and fall off. She then developed bleeding from an open site along with drainage, about 2 days prior to her admission. This initially improved with local pressure including but then recurred again causing her to come to the ER. She will has also been having increased foul odor from area of the tumor. She also developed significant neuropathic type pain in her lower extremities below the knee since having the chemotherapy. She denied any fevers or chills. She denied any difficulty in swallowing or with breathing Review of Systems Constitutional: Reports weakness, Reports weight loss Eyes: denies blurred vision, denies pain Ears: deny: decreased hearing, ear discharge, earache, tinnitus Ears, nose, mouth and throat: Reports as per HPI, Reports neck lump Cardiovascular: Reports decreased exercise tolerance Respiratory: Denies cough Gastrointestinal: Denies abdominal pain, Denies diarrhea, Denies nausea, Denies vomiting Genitourinary: Denies dysuria, Denies hematuria Menstruation: Reports postmenopausal Musculoskeletal: Reports leg numbness/tingling, Reports muscle weakness Integumentary: Reports as per HPI, Reports wounds Neurological: Reports weakness Psychiatric: Denies anxiety, Denies depression Endocrine: Reports fatigue, Reports weight change Hematologic/Lymphatic: Reports as per HPI, Reports lymphadenopathy 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(getting Tx with radiation) History of Any Multi-Drug Resistant Organisms: None Reported Past Surgical History: Hysterectomy, Tonsillectomy, Tubal Ligation Additional Past Surgical History / Comment(s): PTBA/STENT TO LT LEG Past Anesthesia/Blood Transfusion Reactions: No Reported Reaction Additional Past Anesthesia/Blood Transfusion Reaction / Comm: CLAUSTROPHOBIA Past Psychological History: Anxiety, Depression, Panic Disorder Additional Psychological History / Comment(s): claustrophobia Smoking Status: Current every day smoker Past Alcohol Use History: None Reported Additional Past Alcohol Use History / Comment(s): STARTED SMOKING AGE 23, down to<1PPD Past Drug Use History: None Reported - Past Family History Son(s) Family Medical History: Cancer Additional Family Medical History / Comment(s): LYMPHOMA Mother Family Medical History: Diabetes Mellitus Father Additional Family Medical History / Comment(s): HAD AAA Sister(s) Family Medical History: Cancer Medications and Allergies Home Medications Medication Instructions Recorded Confirmed Type Gabapentin [Neurontin] 200 mg PO DAILY 06/21/15 09/26/19 History Metoprolol Tartrate 12.5 mg PO BID 08/12/15 09/26/19 History metFORMIN HCL [Glucophage] 500 mg PO DAILY 10/11/15 09/26/19 History Famotidine 20 mg PO BID 12/27/16 09/26/19 History Albuterol Nebulized [Ventolin 2.5 mg INHALATION TID PRN 01/27/19 09/26/19 History Nebulized] Atorvastatin [Lipitor] 40 mg PO W/SUPPER 01/27/19 09/26/19 History traMADol HCL [Ultram] 50 mg PO Q6HR 01/27/19 09/26/19 History Doxycycline [Vibramycin] 100 mg PO BID 04/16/19 09/26/19 History Ibuprofen [Motrin] 600 mg PO QID PRN 09/26/19 09/26/19 History Ondansetron HCl [Zofran] 4 mg PO Q4H PRN 09/26/19 09/26/19 History Slow-Mag 71.5mg 143 mg PO DAILY 09/26/19 09/26/19 History Allergies Allergy/AdvReac Type Severity Reaction Status Date / Time azithromycin Allergy Dyspnea/anx Verified 09/26/19 13:01 iety Physical Exam Vitals: Vital Signs Temp Pulse Pulse Resp BP BP Pulse Ox 09/26/19 21:00 98.1 F 110 H 20 112/68 96 09/26/19 13:35 97.9 F 115 H 20 121/78 98 09/26/19 12:00 98 20 109/64 98 09/26/19 09:28 121 H 20 96/60 96 09/26/19 08:51 98.6 F 122 H 20 105/65 98 Intake and Output 09/26/19 09/26/19 09/27/19 14:59 22:59 06:59 Intake Total 100 Balance 100 Intake: Intake, IV Titration 100 Amount Ampicillin-Sulbactam 3 gm 100 In Sodium Chloride 0.9% 100 ml @ 200 mls/hr IVPB Q6HR [facility] Rx#:[id number] Other: # Voids 1 Weight 47.627 kg 47.627 kg - Constitutional General appearance: no acute distress - EENT Eyes: EOMI, PERRLA ENT: hearing grossly normal, other (Extensive irregular nodular lesion involving the lower part of the rt ear and extending down into the upper neck involving the right side of the jaw. 6-7 cm area of necrosis with purulent tissue. No active bleeding sites currently) - Neck As described above Thyroid: bilateral: normal size - Respiratory Respiratory: bilateral: CTA - Cardiovascular Rhythm: regular Heart sounds: normal: S1, S2 - Gastrointestinal General gastrointestinal: normal bowel sounds, soft - Integumentary Lesion of the right ear right angle of the mandible and right neck as described above. Underlying postradiation skin changes Integumentary: ulcer - Neurologic Neurologic: CNII-XII intact - Musculoskeletal Musculoskeletal: generalized weakness, strength equal bilaterally - Psychiatric Psychiatric: A&O x's 3, appropriate affect Results CBC & Chem 7: 09/27/19 07:19 09/27/19 07:19 Labs: Abnormal Lab Results - Last 24 Hours (Table) 09/26/19 09/26/19 09/26/19 Range/Units 09:19 09:19 09:19 WBC 14.6 H (3.8-10.6) k/uL RBC 3.50 L (3.80-5.40) m/uL Hgb 9.2 L D (11.4-16.0) gm/dL Hct 28.5 L (34.0-46.0) % Neutrophils # 13.6 H (1.3-7.7) k/uL Lymphocytes # 0.6 L (1.0-4.8) k/uL APTT 21.7 L (22.0-30.0) sec Sodium 135 L (137-145) mmol/L BUN 22 H (7-17) mg/dL Creatinine 0.51 L (0.52-1.04) mg/dL Glucose 168 H (74-99) mg/dL POC Glucose (mg/dL) (75-99) mg/dL Calcium 8.1 L (8.4-10.2) mg/dL Albumin 3.1 L (3.5-5.0) g/dL 09/26/19 09/26/19 09/26/19 Range/Units 17:09 17:30 20:33 WBC (3.8-10.6) k/uL RBC (3.80-5.40) m/uL Hgb (11.4-16.0) gm/dL Hct (34.0-46.0) % Neutrophils # (1.3-7.7) k/uL Lymphocytes # (1.0-4.8) k/uL APTT (22.0-30.0) sec Sodium (137-145) mmol/L BUN (7-17) mg/dL Creatinine (0.52-1.04) mg/dL Glucose (74-99) mg/dL POC Glucose (mg/dL) 126 H 122 H 121 H (75-99) mg/dL Calcium (8.4-10.2) mg/dL Albumin (3.5-5.0) g/dL Comments: Facial CT report reviewed Assessment and Plan (1) Squamous cell carcinoma, face Narrative/Plan: The patient's current malignancy represents a squamous cell carcinoma, and NOT plasmacytoma, as noted in the HPI. The patient had developed recent progression and has just started a new treatment with carboplatin and Taxol a few days ago. - The patient is preventing with new symptoms, with necrosis, breakdown, discharge and bleeding. At this time it is possible that this could be due to tumor progression. However this could also reflect treatment effect causing tumor degeneration and necrosis. - The patient did have bleeding from an open area but this has improved markedly. Charge in order have also improved with topical treatment. - Skin is discussed in detail with the admitting service. From the oncology standpoint, our management will not change. Even if the patient is having progression, she has just started a new treatment and it may be too early for us to see any benefit from the same. Therefore we will continue the same line of treatment once her current situation is adequately controlled. If the patient is already having treatment effect with tumor necrosis and obviously it would make sense to continue the treatment also. - Continue to monitor counts as the patient may be approaching her alyssa in the next 2-3 days. Supportive transfusions as needed. Resumed treatment in the outpatient setting as current acute situation is adequately controlled - Given the extent of the tumor, and prior radiation to that area, the patient is likely not a candidate for any aggressive surgical approach or additional radiation. Therefore current management focused on treatment of possible infection, and wound care appears to be most reasonable. Current Visit: Yes Status: Acute Code(s): C44.320 - SQUAMOUS CELL CARCINOMA OF SKIN OF UNSPECIFIED PARTS OF FACE SNOMED Code(s): 594815795 (2) Cellulitis and abscess of neck Narrative/Plan: As above. The scan did not show any definite fluid collection or air. It is possible that her presentation with foul odor, and discharged represents necrosis but infection cannot be totally ruled out. Therefore it was recommended, and discussion with the ER physician that ID should be consulted. The patient is on IV antibiotics. Assuming continued improvement, she can be switched over to orals, and continue with wound care as an outpatient. Current Visit: Yes Status: Acute Code(s): L03.221 - CELLULITIS OF NECK; L02.11 - CUTANEOUS ABSCESS OF NECK SNOMED Code(s): 566558900 (3) Anemia Narrative/Plan: Mostly due to antineoplastic chemotherapy, with likely an added component of anemia of malignancy. Hemoglobin is in a safe range. Continue to monitor and t ransfuse to keep above 7. Current Visit: Yes Status: Acute Code(s): D64.9 - ANEMIA, UNSPECIFIED SNOMED Code(s): 457992559 (4) Neoplasm related pain Narrative/Plan: The patient has been having some increased pain related to the right neck area. This appears to be due to the malignancy, and/or increased ongoing inflammation from treatment effect. She was previously on Tylenol which was not controlling her pain well. She has been changed to [place], which is more effective. Continue same as outpatient. - She is also been having lower extremity pain that is most likely due to the effect of Taxol. Gabapentin dose is also being increased. Current Visit: Yes Status: Acute Code(s): G89.3 - NEOPLASM RELATED PAIN (ACUTE) (CHRONIC) SNOMED Code(s): 37481172771326 Plan: Case d/w ER and IM in detail
[2019-09-27 12:56] LABS: HCT 24.5 % (34.0-46.0); HGB 7.9 gm/dL (11.4-16.0); Hypochromasia Slight; MCH 26.2 pg (25.0-35.0); MCHC 32.4 g/dL (31.0-37.0); MCV 81.1 fL (80.0-100.0); Mean Platelet Volume 8.6; Platelet Count 372 k/uL (150-450); RBC 3.02 m/uL (3.80-5.40); RDW 15.4 % (11.5-15.5); WBC 7.9 k/uL (3.8-10.6)
[2019-09-27 15:08] VITALS: BMI 18.0
--- NOTE | 2019-09-27 16:26 | P.PN ---
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 In the ER she underwent an extensive evaluation. On arrival she was tachycardic with heart rate of 122. Laboratory analysis showed a white blood cell count of 14.6 (this is down from 21.8 obtained on 09/21/2019 and the patient has recently started taking Augmentin as prescribed by the oncology team.), Hemoglobin of 9.2 (10.8), sodium 135, BUN 22, creatinine 0.51. She underwent a CT facial bones which showed worsening appearance of the patient's known right neck mass with areas of necrosis, possible acute mastoiditis, sphenoid sinus thickening, and Chang symmetry of the oropharynx with enlargement of the right tongue. Dr. Lulú chaney s contacted by the emergency department and suggested antibiotics, infectious disease consult, and admission to medicine. Patient was therefore admitted for treatment of infected and necrotic right sided face mask. She was started on vanco and unsayn. Her pain regiment was increased. General: non toxic, no distress, appears at stated age Derm: warm, dry Head: Asymmetric with large multilobulated mass extending from the right side of the neck towards the right and jones with areas of what appears to be necrotic tissue, and some friable tissue with sanguinous drainage, malodorous but less and drainage less today. Eyes: EOMI, no lid lag, anicteric sclera Mouth: no lip lesion, mucus membranes moist Cardiovascular: S1S2 reg, no murmur, positive posterior tibial pulse bilateral, Lungs: Decreased bs bilateral, no rhonchi, no rales , no accessory muscle use Abdominal: soft, nontender to palpation, no guarding, no appreciable organomegaly Ext: no gross muscle atrophy, no edema, no contractures Neuro: CN II-XI grossly intact, no focal neuro deficits Psych: Alert, oriented, appropriate affect Squamous cell carcinoma of the right face with probable infection and possible mastoiditis with bleeding - Unasyn - Vanco - ID and Heme/onc recs apprecaited - IVF - Monitor for sings of increased bleeding - Cover with vaseline gauze - Started Taxol and Carboplantin last week Cancer related pain - Transitioned from tramadol to norco - Morphine is there for break through pain - Patient reports pain at home 8-9 most days and tramadol not helping Acute blood loss anemia on chronic anemia - serial HgB - no indications for transfusion at this time - Check iron studies - also may be due to recent chemo DM 2 - hold metformin - SSI - Follow BS - A1C pending COPD without exacerbation - prn albuterol HTN - metoprolol - follow BP Neuropathy - gabapentin increased Tobacco abuse - cessation - nicotine replacement Chronic: HLD GERD DVT prophylaxis: SCDs due to bleeding Discussed with: Patient, nursing, Dr, Lulú Anticipated discharge date: 1-[address]: home with palliative care A total of 35 minutes was spent on the care of this complex patient more than 50% of the time was spent in counseling and care coordination. Objective - Vital Signs Vital signs: Vital Signs Temp 98.4 F 09/27/19 12:31 Pulse 96 09/27/19 13:44 Resp 18 09/27/19 12:31 BP 117/61 09/27/19 12:31 Pulse Ox 98 09/27/19 12:31 Intake & Output 09/26/19 09/27/19 09/27/19 18:59 06:59 18:59 Intake Total 668 405 6904.5 Balance 628 294 0276.5 Weight 47.627 kg 47.627 kg Intake: Intake, IV Titration 100 662.5 Amount Ampicillin-Sulbactam 3 gm 100 In Sodium Chloride 0.9% 100 ml @ 200 mls/hr IVPB Q6H [facility] Rx#:[id number] Ampicillin-Sulbactam 3 gm 100 In Sodium Chloride 0.9% 100 ml @ 200 mls/hr IVPB Q6HR [facility] Rx#:[id number] Sodium Chloride 0.9% 1, 562.5 000 ml @ 75 mls/hr IV . [id number] [facility] Rx#:[id number] Oral 400 350 Other: # Voids 2 - Labs CBC & Chem 7: 09/27/19 12:36 09/27/19 07:19 Labs: Abnormal Lab Results - Last 24 Hours (Table) 09/26/19 09/26/19 09/26/19 Range/Units 17:09 17:30 20:33 RBC (3.80-5.40) m/uL Hgb (11.4-16.0) gm/dL Hct (34.0-46.0) % Lymphocytes # (1.0-4.8) k/uL Sodium (137-145) mmol/L Creatinine (0.52-1.04) mg/dL Glucose (74-99) mg/dL POC Glucose (mg/dL) 126 H 122 H 121 H (75-99) mg/dL Calcium (8.4-10.2) mg/dL 09/27/19 09/27/19 09/27/19 Range/Units 07:14 07:19 07:19 RBC 3.25 L (3.80-5.40) m/uL Hgb 8.5 L (11.4-16.0) gm/dL Hct 26.4 L (34.0-46.0) % Lymphocytes # 0.6 L (1.0-4.8) k/uL Sodium 135 L (137-145) mmol/L Creatinine 0.38 L (0.52-1.04) mg/dL Glucose 112 H (74-99) mg/dL POC Glucose (mg/dL) 131 H (75-99) mg/dL Calcium 8.0 L (8.4-10.2) mg/dL 09/27/19 09/27/19 Range/Units 11:43 12:36 RBC 3.02 L (3.80-5.40) m/uL Hgb 7.9 L (11.4-16.0) gm/dL Hct 24.5 L (34.0-46.0) % Lymphocytes # (1.0-4.8) k/uL Sodium (137-145) mmol/L Creatinine (0.52-1.04) mg/dL Glucose (74-99) mg/dL POC Glucose (mg/dL) 130 H (75-99) mg/dL Calcium (8.4-10.2) mg/dL Microbiology - Last 24 Hours (Table) 09/26/19 12:07 Blood Culture - Preliminary Blood No Growth after 24 hours
[2019-09-27 17:00] LABS: Glucose,Whole Blood 130 mg/dL (75-99)
[2019-09-27] MEDS: ATORVASTATIN 40 MG TAB PO SCH (17:01)
[2019-09-27 19:04] LABS: Glucose,Whole Blood 209 mg/dL (75-99)
[2019-09-28] MEDS: AMPICILLIN-SULBACTAM 3 GM in SODIUM CHLORIDE 0.9% 100 ML IVPB SCH ×4 (03:44→22:27)
[2019-09-28] MEDS: VANCOMYCIN 750 MG in SODIUM CHLORIDE 0.9% 250 ML IVPB SCH ×2 (04:54→18:13)
[2019-09-28] MEDS: SODIUM CHLORIDE 0.9% 1,000 ML IV SCH ×2 (04:55→22:32)
[2019-09-28 07:00] LABS: Glucose,Whole Blood 119 mg/dL (75-99)
[2019-09-28 07:05] LABS: HGB 8.1 gm/dL (11.4-16.0); Hypochromasia Slight; MCH 26.3 pg (25.0-35.0); MCHC 32.2 g/dL (31.0-37.0); MCV 81.5 fL (80.0-100.0); Mean Platelet Volume 7.1; Platelet Count 430 k/uL (150-450); RBC 3.07 m/uL (3.80-5.40); RDW 15.3 % (11.5-15.5); WBC 8.2 k/uL (3.8-10.6)
[2019-09-28 07:12] LABS: ALT 12 U/L (4-34); AST 19 U/L (14-36); African American GFR (CKD) >90 (>60 ml/min/1.73 sqM); Albumin 2.5 g/dL (3.5-5.0); Alkaline Phosphatase 80 U/L (38-126); Anion Gap 8 mmol/L; Blood Urea Nitrogen 10 mg/dL (7-17); Calcium 7.5 mg/dL (8.4-10.2); Carbon Dioxide 22 mmol/L (22-30); Chloride 107 mmol/L (98-107); Glucose 110 mg/dL (74-99); Non-African American GFR(CKD) >90 (>60 ml/min/1.73 sqM); Sodium 137 mmol/L (137-145); Total Bilirubin 0.4 mg/dL (0.2-1.3)
--- NOTE | 2019-09-28 07:38 | PN ---
PROGRESS NOTE DATE OF SERVICE: 09/27/2019 REASON FOR FOLLOWUP: Right neck area wound and cellulitis. INTERVAL HISTORY: The patient is currently afebrile. Still complaining of pain discomfort to the right side of neck area, but no further bleeding. Denies having any chest pain, shortness of breath or cough. No abdominal pain or diarrhea. PHYSICAL EXAMINATION: Blood pressure 117/61 with a pulse of 96, temperature 98.4. She is 98% on room air. General description is an elderly female lying in bed in no distress. HEENT EXAMINATION: Right lateral neck area with tumor and some foul-smelling drainage. LUNGS: Unlabored breathing, clear to auscultation anteriorly. HEART: S1, S2. Regular rate and rhythm. ABDOMEN: Soft, no tenderness. LABS: Hemoglobin 7.9, white count 7.9. Blood culture negative. DIAGNOSTIC IMPRESSION AND PLAN: Patient with a right-sided neck wound from invasive squamous cell carcinoma with bleeding possibly from tumor invasion underlying abscess less likely not entirely excluded. Patient is covered with Unasyn and vancomycin to continue and will monitor clinical course closely. MMODL / IJN: [id number] / MTDD
[2019-09-28] MEDS: INSULIN ASPART (NovoLOG) 100 UNIT/ML VIAL SQ SCH ×4 (08:05→22:27)
[2019-09-28] MEDS: NICOTINE 21MG/24HR PATCH TRANSDERM SCH (08:23)
[2019-09-28] MEDS: METOPROLOL TARTRATE 12.5 MG TAB PO SCH ×2 (08:24→22:26)
[2019-09-28] MEDS: GABAPENTIN 100 MG CAP PO SCH ×2 (08:24→22:26)
[2019-09-28 08:57] LABS: Hemoglobin A1C 6.9 % (4.0-6.0)
[2019-09-28 11:38] LABS: Glucose,Whole Blood 218 mg/dL (75-99)
[2019-09-28] MEDS: MORPHINE SULFATE 2 MG/ML SYRINGE IVP PRN (15:48)
[2019-09-28] MEDS ORDERED: VANCOMYCIN TROUGH DUE 1 EACH MISC MISCELLANE ONE (16:00)
--- NOTE | 2019-09-28 16:13 | CDI ---
Documentation Clarification Form Date: 09/28/2019 03:53:59 PM From: Yessica Bucio RN CCDS Email: [email or web address] Admit Date: 09/26/2019 11:10:00 AM Patient Name: Margaret Chen Visit Number: [id number] Discharge Date: ATTENTION: The Clinical Documentation Specialists (CDI) and [facility] Coding Staff appreciate your assistance in clarifying documentation. Please respond to the clarification below the line at the bottom and electronically sign. The CDI & [facility] Coding staff will review the response and follow-up if needed. Please note: Queries are made part of the Legal Health Record. If you have any questions, please contact the author of this message via ITS. Dr. Hang Solis Conflicting documentation has been found in the medical record. Your progress note 09/27 Moderate protein calorie malnutrition Dietary Consult assessment 09/26 Severe protein calorie malnutrition History/Risk Factors: 74-year-old female presents to the ED with Medical history Plasmacytoma Cancer, COPD, DM, GERD, HTN. Clinical Indicators: Documented in the H&P 09/25 Ill appearing, mild distress, appears at stated age, temporal wasting and cachetic 09/26 Dietary Assessment: Appetite: Fair; Prior to admission regular diet patient prefers soft foods due to facial mass. A 14 -23 Lb weight loss due to decreased appetite. Current Nutrition Intake: Fair; Percent consumed 50-75% consistent carb diet, 800ml fluid restriction. Nutritional concerns: Difficulty chewing due to poor fitting dentures, facial mass and taste changes. Appears underweight. With stated by patient 47.627, Hgt 5 ft 4 inches, BMI 18.0 Calculated ideal weight 54.431 Treatment: 09/26 Dietary Consult: Severe Protein Calorie Malnutrition. See assessment above Supplements: Ensure Compact TID Kcal/Serving 220, protein/serving 9. Monitor PO In your professional opinion, what is the most clinically appropriate diagnosis for this patient? Moderate Protein Calorie Malnutrition Severe Protein-Calorie Malnutrition Other condition, please specify Unable to determine (Last Revision: September 2018) (Last Revision: September 2018) query is addressed in the discharge summary MTDD
[2019-09-28] MEDS ORDERED: VANCOMYCIN 750 MG in SODIUM CHLORIDE 0.9% 250 ML IVPB SCH (17:00)
[2019-09-28 17:18] LABS: Glucose,Whole Blood 142 mg/dL (75-99)
[2019-09-28] MEDS: ATORVASTATIN 40 MG TAB PO SCH (18:11)
[2019-09-28 19:41] LABS: Glucose,Whole Blood 177 mg/dL (75-99)
[2019-09-28] MEDS: HYDROcodone/APAP 5-325MG 1 EACH TAB PO PRN (19:51)
--- NOTE | 2019-09-28 19:54 | PN ---
PROGRESS NOTE DATE OF SERVICE: 09/28/2019 REASON FOR FOLLOWUP: Right neck wound and cellulitis. INTERVAL HISTORY: The patient is currently afebrile. The patient is breathing comfortably. Overall pain and discomfort to the right side of the neck have slightly decreased. No further bleeding. No chest pain. No cough. No abdominal pain or diarrhea. PHYSICAL EXAMINATION: Blood pressure 118/61 with a pulse of 105, temperature 98. She is 98% on room air. General description is an elderly female lying in bed in no distress. HEENT EXAMINATION: The right neck wound is currently dressed. Minimal drainage on the dressing. LUNGS: Unlabored breathing. Clear to auscultation anteriorly. HEART: S1, S2. Regular rate and rhythm. ABDOMEN: Soft. No tenderness. LABS: Hemoglobin 8.9, white count 8.2, BUN of 10, creatinine 0.35. Vancomycin trough has been low at 8. DIAGNOSTIC IMPRESSION AND PLAN: Patient with a right neck wound with secondary cellulitis. The patient seems to have some improvement with the Unasyn; to continue. Vancomycin trough has been on the lower side. Clinically doubt vancomycin did any improvement; hence will discontinue the vancomycin. Continue supportive care. MMODL / IJN: [id number] /
--- NOTE | 2019-09-28 20:18 | P.PN ---
Subjective Progress Note Date: 09/28/19 Principal diagnosis: Necrosis from tumor destruction In follow-up today patient states she is doing okay. She is still tolerating oral intake, no dysphagia, fevers, nausea. Objective - Vital Signs Vital signs: Vital Signs Temp 98.0 F 09/28/19 12:56 Pulse 105 H 09/28/19 15:57 Resp 20 09/28/19 15:57 BP 118/61 09/28/19 12:56 Pulse Ox 98 09/28/19 12:56 Intake & Output 09/28/19 09/28/19 09/29/19 06:59 18:59 06:59 Intake Total 1290 1280 Balance 1290 1280 Intake: Intake, IV Titration 1090 600 Amount Ampicillin-Sulbactam 3 gm 200 In Sodium Chloride 0.9% 100 ml @ 200 mls/hr IVPB Q6H [facility] Rx#:[id number] Sodium Chloride 0.9% 1, 540 600 000 ml @ 75 mls/hr IV . [id number] [facility] Rx#:[id number] Vancomycin 750 mg In 350 Sodium Chloride 0.9% 250 ml @ 125 mls/hr IVPB Q12H [facility] Rx#:[id number] Oral 200 680 Other: Voiding Method Toilet Toilet # Voids 1 3 - Constitutional General appearance: Present: cooperative, no acute distress, thin - EENT EENT Comment(s): Oral mucosa free of thrush Eyes: Present: anicteric sclerae, EOMI ENT: Present: hearing grossly normal - Neck Details: Large necrotic right facial/jaw/neck mass-tumor destruction posttreatment - Respiratory Respiratory: bilateral: CTA, rales (Few scattered) - Cardiovascular Rhythm: regular Heart sounds: normal: S1, S2 Abnormal Heart Sounds: Absent: systolic murmur, diastolic murmur, rub, S3 Gallop, S4 Gallop, click, other - Gastrointestinal General gastrointestinal: Present: normal bowel sounds, soft. Absent: absent bowel sounds, decreased bowel sounds, distended, hepatomegaly, hyperactive bowel sounds, organomegaly, rigid, scaphoid, splenomegaly, tenderness, umbilical hernia, ventral hernia - Integumentary Integumentary Comment(s): see neck - Neurologic Neurologic: Present: CNII-XII intact - Musculoskeletal Musculoskeletal: Present: strength equal bilaterally - Psychiatric Psychiatric: Present: A&O x's 3, appropriate affect, intact judgment & insight - Labs CBC & Chem 7: 09/28/19 06:23 09/28/19 06:23 Labs: Abnormal Lab Results - Last 24 Hours (Table) 09/27/19 09/28/19 09/28/19 Range/Units 07:19 06:23 06:23 RBC 3.07 L (3.80-5.40) m/uL Hgb 8.1 L (11.4-16.0) gm/dL Hct 25.0 L (34.0-46.0) % Creatinine 0.35 L (0.52-1.04) mg/dL Glucose 110 H (74-99) mg/dL POC Glucose (mg/dL) (75-99) mg/dL Hemoglobin A1c 6.9 H (4.0-6.0) % Calcium 7.5 L (8.4-10.2) mg/dL Total Protein 6.0 L (6.3-8.2) g/dL Albumin 2.5 L (3.5-5.0) g/dL 09/28/19 09/28/19 09/28/19 Range/Units 06:58 11:23 17:16 RBC (3.80-5.40) m/uL Hgb (11.4-16.0) gm/dL Hct (34.0-46.0) % Creatinine (0.52-1.04) mg/dL Glucose (74-99) mg/dL POC Glucose (mg/dL) 119 H 218 H 142 H (75-99) mg/dL Hemoglobin A1c (4.0-6.0) % Calcium (8.4-10.2) mg/dL Total Protein (6.3-8.2) g/dL Albumin (3.5-5.0) g/dL 09/28/19 Range/Units 19:40 RBC (3.80-5.40) m/uL Hgb (11.4-16.0) gm/dL Hct (34.0-46.0) % Creatinine (0.52-1.04) mg/dL Glucose (74-99) mg/dL POC Glucose (mg/dL) 177 H (75-99) mg/dL Hemoglobin A1c (4.0-6.0) % Calcium (8.4-10.2) mg/dL Total Protein (6.3-8.2) g/dL Albumin (3.5-5.0) g/dL Microbiology - Last 24 Hours (Table) 09/26/19 12:07 Blood Culture - Preliminary Blood No Growth after 48 hours Assessment and Plan (1) Squamous cell carcinoma, face Narrative/Plan: Patient was very frightened when some of the tumor began falling off, so she cristina ght medical attention. She has a good understanding of what is going on, she feels that she can manage with some assistance from wound care/home care. Discussed with Data Center Manager, patient is ordered the same. Current Visit: Yes Status: Acute Priority: High Code(s): C44.320 - SQUAMOUS CELL CARCINOMA OF SKIN OF UNSPECIFIED PARTS OF FACE SNOMED Code(s): 296947040 (2) Anemia Narrative/Plan: No transfusion needed. Anemia workup ordered Current Visit: Yes Status: Chronic Priority: Medium Code(s): D64.9 - ANEMIA, UNSPECIFIED SNOMED Code(s): 734161320
--- NOTE | 2019-09-28 22:28 | P.PN ---
Progress Note - Text Progress Note Date: 09/28/19 Patient is a 74-year-old female of Dr. Silviano Lieberman. 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 In the ER she underwent an extensive evaluation. On arrival she was tachycardic with heart rate of 122. Laboratory analysis showed a white blood cell count of 14.6 (this is down from 21.8 obtained on 09/21/2019 and the patient has recently started taking Augmentin as prescribed by the oncology team.), Hemoglobin of 9.2 (10.8), sodium 135, BUN 22, creatinine 0.51. She underwent a CT facial bones which showed worsening appearance of the patient's known right neck mass with areas of necrosis, possible acute mastoiditis, sphenoid sinus thickening, and Chang symmetry of the oropharynx with enlargement of the right tongue. Dr. Chino was contacted by the emergency department and suggested antibiotics, infectious disease consult, and admission to medicine. Patient was therefore admitted for treatment of infected and necrotic right sided face mask. She was started on vanco and unsayn. Her pain regiment was increased Today-sitting forward bed. Some pain at the affected side. Did tolerate some diet. Some drainage is present over the dressing. No fever or chills. Review of systems: Was done for constitutional, cardiovascular, GI, pulmonary. HEENT, relevant finding as above Active Medications Acetaminophen (Tylenol Tab) 650 mg PO Q6HR PRN PRN Reason: Mild Pain or Fever > 100.5 Hydrocodone Bitart/Acetaminophen ([place] 5-325) 1 each PO Q6HR PRN PRN Reason: Pain Last Admin: 09/28/19 19:51 Dose: 1 each Documented by: Albuterol Sulfate (Ventolin Nebulized) 2.5 mg INHALATION RT-TID PRN PRN Reason: Shortness Of Breath Last Admin: 09/27/19 13:34 Dose: 2.5 mg Documented by: Atorvastatin Calcium (Lipitor) 40 mg PO W/SUPPER [facility] Last Admin: 09/28/19 18:11 Dose: 40 mg Documented by: Gabapentin (Neurontin) 200 mg PO BID [facility] Last Admin: 09/28/19 08:24 Dose: 200 mg Documented by: Sodium Chloride (Saline 0.9%) 1,000 mls @ 75 mls/hr IV .[id number] [facility] Last Admin: 09/28/19 04:55 Dose: 75 mls/hr Documented by: Ampicillin Sodium/Sulbactam (Sodium 3 gm/ Sodium Chloride) 100 mls @ 200 mls/hr IVPB Q6H [facility] Last Admin: 09/28/19 15:51 Dose: 200 mls/hr Documented by: Insulin Aspart (Novolog) 0 unit SQ ACHS [facility]; Protocol Last Admin: 09/28/19 18:11 Dose: 1 unit Documented by: Melatonin (Melatonin) 3 mg PO HS PRN PRN Reason: Insomnia Metoprolol Tartrate (Lopressor) 12.5 mg PO BID [facility] Last Admin: 09/28/19 08:24 Dose: 12.5 mg Documented by: Morphine Sulfate (Morphine Sulfate (Inj)) 2 mg IVP Q4H PRN PRN Reason: Pain/Discomfort Last Admin: 09/28/19 15:48 Dose: 2 mg Documented by: Morphine Sulfate (Morphine Sulfate (Inj)) 4 mg IV Q4HR PRN PRN Reason: Severe Pain Naloxone HCl (Narcan) 0.2 mg IV Q2M PRN PRN Reason: Opioid Reversal Nicotine (Habitrol 21mg/24hr Patch) 1 patch TRANSDERM DAILY [facility] Last Admin: 09/28/19 08:23 Dose: 1 patch Documented by: Ondansetron HCl (Zofran) 4 mg IVP Q8HR PRN PRN Reason: Nausea And Vomiting On examination: VITAL SIGNS: 98, 105, 20, 118/61, 98% room air GENERAL APPEARANCE: Laying in bed, tired HEENT: No deforming growth on the right side of the face with breakdown and drainage EYES: Pupils equal. Conjunctiva normal. NECK: JVD not raised. Mass not palpable. RESPIRATORY: Respiratory effort increased, decreased breath sounds CARDIOVASCULAR: First and second sounds normal. No edema. ABDOMEN: Soft. Liver and spleen not palpable. No tenderness. No mass palpable. PSYCHIATRY: Alert and oriented x3. Mood and affect normal. INVESTIGATIONS, reviewed in the clinical context: White count 8.2 hemoglobin 8.1 potassium 4 creatinine 0.35 albumin 2.5 Computed tomography scan of the face large heterogenous right-sided mass overlying the upper neck involving the pinna on the right. It is of necrosis within the same. Crohn from the last computed tomography scan. Fluid within the right mastoid air cells. Some asymmetry of the oropharynx and rice of the tongue. Assessment: -Progressive squamous cell carcinoma of the face. -Possible secondary infection of the affected tumor site as above -Chronic nicotine dependence patient's cigarette smoker -Moderate protein calorie malnutrition from decreased oral intake. With a BMI o f 18 -COPD in a current smoker -Diabetes mellitus type 2 on oral hypoglycemic -Essential hypertension Plan: Patient remains on IV Unasyn. IV fluids. Nicotine patch. Follow with ID and oncology. Care was discussed with the patient. Vancomycin being discontinued by ID.
[2019-09-29] MEDS: AMPICILLIN-SULBACTAM 3 GM in SODIUM CHLORIDE 0.9% 100 ML IVPB SCH ×4 (03:24→21:25)
[2019-09-29 07:11] LABS: Glucose,Whole Blood 118 mg/dL (75-99)
[2019-09-29 07:43] LABS: HCT 23.5 % (34.0-46.0); HGB 7.4 gm/dL (11.4-16.0); Hypochromasia Slight; MCH 25.4 pg (25.0-35.0); MCHC 31.4 g/dL (31.0-37.0); MCV 80.9 fL (80.0-100.0); Mean Platelet Volume 7.4; Platelet Count 410 k/uL (150-450); RBC 2.91 m/uL (3.80-5.40); RDW 15.7 % (11.5-15.5); WBC 7.7 k/uL (3.8-10.6)
[2019-09-29 08:10] LABS: African American GFR (CKD) >90 (>60 ml/min/1.73 sqM); Non-African American GFR(CKD) >90 (>60 ml/min/1.73 sqM)
[2019-09-29] MEDS: INSULIN ASPART (NovoLOG) 100 UNIT/ML VIAL SQ SCH ×4 (09:33→21:25)
[2019-09-29] MEDS: GABAPENTIN 100 MG CAP PO SCH ×2 (10:01→21:25)
[2019-09-29] MEDS: METOPROLOL TARTRATE 12.5 MG TAB PO SCH ×2 (10:04→21:25)
[2019-09-29] MEDS: NICOTINE 21MG/24HR PATCH TRANSDERM SCH (10:35)
[2019-09-29] MEDS: MORPHINE SULFATE 2 MG/ML SYRINGE IVP PRN ×2 (11:40→21:31)
[2019-09-29 11:44] LABS: Glucose,Whole Blood 175 mg/dL (75-99)
[2019-09-29] MEDS: SODIUM CHLORIDE 0.9% 1,000 ML IV SCH (14:00)
[2019-09-29] MEDS: HYDROcodone/APAP 5-325MG 1 EACH TAB PO PRN (16:35)
--- NOTE | 2019-09-29 17:03 | PN ---
PROGRESS NOTE DATE OF SERVICE: 09/29/2019 REASON FOR FOLLOWUP: Right side neck wound and cellulitis. INTERVAL HISTORY: The patient is currently afebrile. The patient is feeling slightly better today. The patient denies having any chest pain or shortness of breath or cough. Overall discomfort to the right side of the neck has slightly decreased. No further bleeding. PHYSICAL EXAMINATION: Her blood pressure is 118/68 with a pulse of 101, temperature 97.7. She is 97% on room air. General description is an elderly female lying in bed in no distress. HEENT EXAMINATION: Right-sided neck wound is currently dressed. Minimal drainage on the dressing. LUNGS: Unlabored breathing. Clear to auscultation anteriorly. HEART: S1, S2. Regular rate and rhythm. ABDOMEN: Soft. No tenderness. LABS: Hemoglobin 7.4, white count 7.7, creatinine 0.39. Blood culture has been negative. DIAGNOSTIC IMPRESSION AND PLAN: Patient with right neck wound with concern for secondary cellulitis. The patient is currently covered with Unasyn; to continue, and hopefully finish therapy with oral Augmentin. Continue with supportive care. MMODL / IJN: [id number] /
[2019-09-29 17:19] LABS: Glucose,Whole Blood 153 mg/dL (75-99)
[2019-09-29] MEDS ORDERED: HYDROcodone/APAP 7.5-325MG 1 EACH TAB PO PRN (18:13)
--- NOTE | 2019-09-29 18:21 | P.PN ---
Subjective Progress Note Date: 09/29/19 Principal diagnosis: Necrosis from tumor destruction In follow-up today patient is stable, her ear and facial pain is better controlled with the IV morphine, the norco gives her some relief. She is still tolerating oral intake, no dysphagia, fevers, nausea, she is more confident about managing her tumor with help from home care/wound care. Objective - Vital Signs Vital signs: Vital Signs Temp 97.7 F 09/29/19 13:00 Pulse 101 H 09/29/19 16:00 Resp 18 09/29/19 16:00 BP 118/68 09/29/19 13:00 Pulse Ox 97 09/29/19 13:00 Intake & Output 09/28/19 09/29/19 09/29/19 18:59 06:59 18:59 Intake Total 1280 900 240 Balance 1280 900 240 Intake: Intake, IV Titration 600 900 Amount Ampicillin-Sulbactam 3 gm 100 In Sodium Chloride 0.9% 100 ml @ 200 mls/hr IVPB Q6H [facility] Rx#:[id number] Sodium Chloride 0.9% 1, 600 800 000 ml @ 75 mls/hr IV . [id number] [facility] Rx#:[id number] Oral 680 240 Other: Voiding Method Toilet Toilet Toilet # Voids 3 3 3 - Constitutional General appearance: Present: cooperative, no acute distress, thin - EENT Eyes: Present: anicteric sclerae, EOMI ENT: Present: hearing grossly normal - Respiratory Respiratory: bilateral: CTA - Cardiovascular Heart sounds: normal: S1, S2 - Peripheral edema leg Peripheral Edema: bilateral: None - Gastrointestinal General gastrointestinal: Present: normal bowel sounds, soft - Musculoskeletal Musculoskeletal: Present: strength equal bilaterally - Psychiatric Psychiatric: Present: A&O x's 3, appropriate affect, intact judgment & insight - Labs CBC & Chem 7: 09/29/19 06:40 09/29/19 06:40 Labs: Abnormal Lab Results - Last 24 Hours (Table) 09/28/19 09/29/19 09/29/19 Range/Units 19:40 06:40 06:40 RBC 2.91 L (3.80-5.40) m/uL Hgb 7.4 L (11.4-16.0) gm/dL Hct 23.5 L (34.0-46.0) % RDW 15.7 H (11.5-15.5) % Creatinine 0.39 L (0.52-1.04) mg/dL POC Glucose (mg/dL) 177 H (75-99) mg/dL 09/29/19 09/29/19 09/29/19 Range/Units 07:10 11:23 17:17 RBC (3.80-5.40) m/uL Hgb (11.4-16.0) gm/dL Hct (34.0-46.0) % RDW (11.5-15.5) % Creatinine (0.52-1.04) mg/dL POC Glucose (mg/dL) 118 H 175 H 153 H (75-99) mg/dL Microbiology - Last 24 Hours (Table) 09/26/19 12:07 Blood Culture - Preliminary Blood No Growth after 72 hours Assessment and Plan (1) Squamous cell carcinoma, face Narrative/Plan: Patient was very frightened when some of the tumor began falling off, so she sought medical attention. She has a good understanding of what is going on, she feels that she can manage with some assistance from wound care/home care. Discussed with Shoe Stock Associate, patient is ordered the same. Plan is to continue chemo-pt tolerated actually pretty well with minimal hematological toxicities. Abx per ID for tumor necrosis Current Visit: Yes Status: Acute Priority: High Code(s): C44.320 - SQUAMOUS CELL CARCINOMA OF SKIN OF UNSPECIFIED PARTS OF FACE SNOMED Code(s): 938362698 (2) Anemia Narrative/Plan: No transfusion needed. Anemia workup ordered today-did not order yesterday Current Visit: Yes Status: Chronic Priority: Medium Code(s): D64.9 - ANEMIA, UNSPECIFIED SNOMED Code(s): 891117590 (3) Neoplasm related pain Narrative/Plan: Pt started on norco, using the IV morphine more. Adjusted dose and frequency of norco and have asked pt to try so we can get better control of her pain with an oral so she is prepared for DC. Pt verbalized understanding Current Visit: Yes Status: Acute Priority: High Code(s): G89.3 - NEOPLASM RELATED PAIN (ACUTE) (CHRONIC) SNOMED Code(s): 97590261460662
[2019-09-29] MEDS: ATORVASTATIN 40 MG TAB PO SCH (18:31)
[2019-09-29 20:32] LABS: Glucose,Whole Blood 196 mg/dL (75-99)
--- NOTE | 2019-09-29 22:18 | P.PN ---
Progress Note - Text Progress Note Date: 09/29/19 Patient is a 74-year-old female of Dr. Silviano Lieberman. 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 In the ER she underwent an extensive evaluation. On arrival she was tachycardic with heart rate of 122. Laboratory analysis showed a white blood cell count of 14.6 (this is down from 21.8 obtained on 09/21/2019 and the patient has recently started taking Augmentin as prescribed by the oncology team.), Hemoglobin of 9.2 (10.8), sodium 135, BUN 22, creatinine 0.51. She underwent a CT facial bones which showed worsening appearance of the patient's known right neck mass with areas of necrosis, possible acute mastoiditis, sphenoid sinus thickening, and Chang symmetry of the oropharynx with enlargement of the right tongue. Dr. Chino was contacted by the emergency department and suggested antibiotics, infectious disease consult, and admission to medicine. Patient was therefore admitted for treatment of infected and necrotic right sided face mask. She was started on vanco and unsayn. Her pain regiment was increased Today-face a bit better this morning. Slight decrease drainage. Oral intake improving. On antibiotics. Review of systems: Was done for constitutional, cardiovascular, GI, pulmonary. HEENT, relevant finding as above Active Medications Acetaminophen (Tylenol Tab) 650 mg PO Q6HR PRN PRN Reason: Mild Pain or Fever > 100.5 Hydrocodone Bitart/Acetaminophen ([place] 7.5-325) 1 each PO Q4H PRN PRN Reason: MODERATE Pain Albuterol Sulfate (Ventolin Nebulized) 2.5 mg INHALATION RT-TID PRN PRN Reason: Shortness Of Breath Last Admin: 09/27/19 13:34 Dose: 2.5 mg Documented by: Atorvastatin Calcium (Lipitor) 40 mg PO W/SUPPER [facility] Last Admin: 09/29/19 18:31 Dose: 40 mg Documented by: Gabapentin (Neurontin) 200 mg PO BID [facility] Last Admin: 09/29/19 21:25 Dose: 200 mg Documented by: Sodium Chloride (Saline 0.9%) 1,000 mls @ 75 mls/hr IV .[id number] [facility] Last Admin: 09/29/19 14:00 Dose: 75 mls/hr Documented by: Ampicillin Sodium/Sulbactam (Sodium 3 gm/ Sodium Chloride) 100 mls @ 200 mls/hr IVPB Q6H [facility] Last Admin: 09/29/19 21:25 Dose: 200 mls/hr Documented by: Insulin Aspart (Novolog) 0 unit SQ ACHS [facility]; Protocol Last Admin: 09/29/19 21:25 Dose: 2 unit Documented by: Melatonin (Melatonin) 3 mg PO HS PRN PRN Reason: Insomnia Metoprolol Tartrate (Lopressor) 12.5 mg PO BID [facility] Last Admin: 09/29/19 21:25 Dose: 12.5 mg Documented by: Morphine Sulfate (Morphine Sulfate (Inj)) 2 mg IVP Q4H PRN PRN Reason: Pain/Discomfort Last Admin: 09/29/19 21:31 Dose: 2 mg Documented by: Morphine Sulfate (Morphine Sulfate (Inj)) 4 mg IV Q4HR PRN PRN Reason: Severe Pain Naloxone HCl (Narcan) 0.2 mg IV Q2M PRN PRN Reason: Opioid Reversal Nicotine (Habitrol 21mg/24hr Patch) 1 patch TRANSDERM DAILY [facility] Last Admin: 09/29/19 10:35 Dose: 1 patch Documented by: Ondansetron HCl (Zofran) 4 mg IVP Q8HR PRN PRN Reason: Nausea And Vomiting On examination: VITAL SIGNS: 97.7, 101, 18, 118/68, 97% on room air GENERAL APPEARANCE: Laying in bed, looks a bit better HEENT: No deforming growth on the right side of the face with breakdown and drainage EYES: Pupils equal. Conjunctiva normal. NECK: JVD not raised. Mass not palpable. RESPIRATORY: Respiratory effort increased, decreased breath sounds CARDIOVASCULAR: First and second sounds normal. No edema. ABDOMEN: Soft. Liver and spleen not palpable. No tenderness. No mass palpable. PSYCHIATRY: Alert and oriented x3. Mood and affect normal. INVESTIGATIONS, reviewed in the clinical context: White count 7.7 hemoglobin 7.4 creatinine 0.39 Previous testing White count 8.2 hemoglobin 8.1 potassium 4 creatinine 0.35 albumin 2.5 Computed tomography scan of the face large heterogenous right-sided mass overlying the upper neck involving the pinna on the right. It is of necrosis within the same. Crohn from the last computed tomography scan. Fluid within the right mastoid air cells. Some asymmetry of the oropharynx and rice of the tongue. 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 -Possible secondary infection of the affected tumor site as above -Chronic nicotine dependence patient's cigarette smoker -Moderate protein calorie malnutrition from decreased oral intake. With a BMI of 18 -COPD in a current smoker -Diabetes mellitus type 2 on oral hypoglycemic -Essential hypertension Plan: IV Unasyn. IV fluids. Nicotine patch. Discussed with the patient. Dressing changes to continue.
[2019-09-29 22:23] VITALS: RESP 16
[2019-09-30] MEDS: SODIUM CHLORIDE 0.9% 1,000 ML IV SCH (01:02)
[2019-09-30] MEDS: AMPICILLIN-SULBACTAM 3 GM in SODIUM CHLORIDE 0.9% 100 ML IVPB SCH ×2 (02:58→08:00)
[2019-09-30 07:14] LABS: Glucose,Whole Blood 134 mg/dL (75-99)
[2019-09-30] MEDS: INSULIN ASPART (NovoLOG) 100 UNIT/ML VIAL SQ SCH ×2 (08:00→13:11)
[2019-09-30] MEDS: NICOTINE 21MG/24HR PATCH TRANSDERM SCH (08:01)
[2019-09-30] MEDS: GABAPENTIN 100 MG CAP PO SCH (08:01)
[2019-09-30] MEDS: METOPROLOL TARTRATE 12.5 MG TAB PO SCH (08:01)
[2019-09-30 08:09] LABS: HCT 23.5 % (34.0-46.0); HGB 7.4 gm/dL (11.4-16.0); Hypochromasia Moderate; MCHC 31.7 g/dL (31.0-37.0); Platelet Count 470 k/uL (150-450); RBC 2.86 m/uL (3.80-5.40); RDW 15.6 % (11.5-15.5); WBC 6.1 k/uL (3.8-10.6)
[2019-09-30] MEDS: MORPHINE SULFATE 2 MG/ML SYRINGE IVP PRN (10:21)
--- NOTE | 2019-09-30 10:48 | P.PN ---
Subjective Progress Note Date: 09/30/19 Principal diagnosis: Necrosis from tumor destruction In follow-up today patient is stable, her ear and facial pain is labile, she is not able to identify a specific aggravating factor, what she wants most is to be able to sleep. No fever, dysphagia, nausea, she has had a BM. Objective - Vital Signs Vital signs: Vital Signs Temp 97.8 F 09/30/19 05:00 Pulse 106 H 09/30/19 05:00 Resp 16 09/30/19 05:00 BP 130/74 09/30/19 05:00 Pulse Ox 97 09/30/19 05:00 Intake & Output 09/29/19 09/30/19 09/30/19 18:59 06:59 18:59 Intake Total 240 225 Balance 240 225 Intake: Intake, IV Titration 225 Amount Sodium Chloride 0.9% 1, 225 000 ml @ 75 mls/hr IV . [id number] [facility] Rx#:[id number] Oral 240 Other: Voiding Method Toilet Toilet Toilet # Voids 3 2 - Constitutional General appearance: Present: cooperative, no acute distress, thin - EENT Eyes: Present: anicteric sclerae, EOMI ENT: Present: hearing grossly normal - Respiratory Respiratory: bilateral: CTA - Cardiovascular Heart sounds: normal: S1, S2 - Gastrointestinal General gastrointestinal: Present: normal bowel sounds, soft - Musculoskeletal Musculoskeletal: Present: strength equal bilaterally - Psychiatric Psychiatric: Present: A&O x's 3, appropriate affect, intact judgment & insight - Labs CBC & Chem 7: 09/30/19 06:57 09/29/19 06:40 Labs: Abnormal Lab Results - Last 24 Hours (Table) 09/29/19 09/29/19 09/29/19 Range/Units 11:23 17:17 20:28 RBC (3.80-5.40) m/uL Hgb (11.4-16.0) gm/dL Hct (34.0-46.0) % RDW (11.5-15.5) % Plt Count (150-450) k/uL POC Glucose (mg/dL) 175 H 153 H 196 H (75-99) mg/dL 09/30/19 09/30/19 Range/Units 06:57 07:12 RBC 2.86 L (3.80-5.40) m/uL Hgb 7.4 L (11.4-16.0) gm/dL Hct 23.5 L (34.0-46.0) % RDW 15.6 H (11.5-15.5) % Plt Count 470 H (150-450) k/uL POC Glucose (mg/dL) 134 H (75-99) mg/dL Microbiology - Last 24 Hours (Table) 09/26/19 12:07 Blood Culture - Preliminary Blood No Growth after 72 hours Assessment and Plan (1) Squamous cell carcinoma, face Narrative/Plan: Pt confident she can manage wound with assistance from wound care/home care. Discussed with IM Attending. Plan is to continue chemo-pt tolerated actually pretty well with minimal hemato logical toxicities. Abx per ID for tumor necrosis Current Visit: Yes Status: Acute Priority: High Code(s): C44.320 - SQUAMOUS CELL CARCINOMA OF SKIN OF UNSPECIFIED PARTS OF FACE SNOMED Code(s): 075349108 (2) Anemia Narrative/Plan: No transfusion needed. Anemia workup ordered, pending. Will f/u with results. Current Visit: Yes Status: Chronic Priority: Medium Code(s): D64.9 - ANEMIA, UNSPECIFIED SNOMED Code(s): 585226038 (3) Neoplasm related pain Narrative/Plan: Pt did not use the norco, has had 2 doses of IV morphine. Sent 3 days Rx for norco, she sees Primary Oncologist in 2 days, will evaluate pain at that time. Discussed prevention of narcotic induced constipation Current Visit: Yes Status: Acute Priority: High Code(s): G89.3 - NEOPLASM RELATED PAIN (ACUTE) (CHRONIC) SNOMED Code(s): 83222256532419
[2019-09-30 11:39] LABS: Glucose,Whole Blood 193 mg/dL (75-99)
[2019-09-30 11:56] LABS: Ferritin 104.7 ng/mL (10.0-291.0)
[2019-09-30 12:06] VITALS: BP 106/66; PULSE 99; TEMP 98.4
--- NOTE | 2019-09-30 14:07 | PN ---
PROGRESS NOTE DATE OF SERVICE: 09/30/2019 REASON FOR FOLLOWUP: Right neck wound with concern for secondary infection. INTERVAL HISTORY: The patient is currently afebrile. The patient is breathing comfortably. Overall pain and discomfort to the right side of the neck is slightly decreased. No chest pain or cough. No abdominal pain. No nausea or vomiting. No diarrhea. No further bleeding. On examination, blood pressure is 106/66, pulse of 99, temperature 98.4. He is 97% on room air. General description: The patient is an elderly female lying in bed in no distress. Right side of the neck: Wound is cleaned and dressed. No drainage on the dressing. Lungs unlabored breathing. Clear to auscultation anteriorly. Heart S1, S2. Regular rate and rhythm. Abdomen soft, no tenderness. LABS: White count normal 6.1. Blood culture negative. DIAGNOSTIC IMPRESSION AND PLAN: Patient with right-sided neck wound with concern for secondary infection. The patient's breathing has resolved. We will finish therapy with oral Augmentin 875 b.i.d. for about 2 weeks to 10 days. This was discussed with the admitting physician working on discharge. MMODL / IJN: [id number] /
[2019-09-30 15:02] LABS: % Iron Saturation 3.59 (12.00-45.00)
--- NOTE | 2019-09-30 23:46 | P.DS ---
Providers Date of admission: 09/26/19 11:10 Expected date of discharge: 09/30/19 Attending physician: Hang Solis Consults: 09/26/19 11:12 Consult Physician Urgent Consulting Provider: Autumn Main Consult Reason/Comments: right facial mass, suspected infection Do you want consulting provider notified?: Yes 09/26/19 11:15 Consult Physician Urgent Consulting Provider: Quan Chino Consult Reason/Comments: right facial mass, hx plasmacytoma Do you want consulting provider notified?: Already Contacted Primary care physician: Silviano Lieberman [facility] Course: Patient is a 74-year-old female of Dr. Silviano Lieberman. 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 In the ER she underwent an extensive evaluation. On arrival she was tachycardic with heart rate of 122. Laboratory analysis showed a white blood cell count of 14.6 (this is down from 21.8 obtained on 09/21/2019 and the patient has recently started taking Augmentin as prescribed by the oncology team.), Hemoglobin of 9.2 (10.8), sodium 135, BUN 22, creatinine 0.51. She underwent a CT facial bones which showed worsening appearance of the patient's known right neck mass with areas of necrosis, possible acute mastoiditis, sphenoid sinus thickening, and Chang symmetry of the oropharynx with enlargement of the right tongue. Dr. Chino was contacted by the emergency department and suggested antibiotics, infectious disease consult, and admission to medicine. Patient was therefore admitted for treatment of infected and necrotic right sided face mask. She was started on vanco and unsayn. Her pain regiment was increased Today-symptoms are better today. Decreased drainage. Much improved. Discussed with Dr. Balderas from ID. Discussed with Fabienne from oncology. Okay to ND. Patient also is on the lesion on the left ear. Follow up with Dr. Jack. Dressing changes to continue. Discussion and discharge planning more than 35 minutes Consultation: Dr. Chino from oncology Dr. Main from ID On examination: VITAL SIGNS: 98.4, , 16, 106/66, 97% on room air GENERAL APPEARANCE: Laying in bed, more comfortable HEENT: deforming growth on the right side of the face/neck , slight growth on the left pinna EYES: Pupils equal. Conjunctiva normal. NECK: JVD not raised. Mass not palpable. RESPIRATORY: Respiratory effort increased, decreased breath sounds CARDIOVASCULAR: First and second sounds normal. No edema. ABDOMEN: Soft. Liver and spleen not palpable. No tenderness. No mass palpable. PSYCHIATRY: Alert and oriented x3. Mood and affect normal. INVESTIGATIONS, reviewed in the clinical context: White count 6.1 hemoglobin 7.4 iron studies show iron 8 TIBC 223% saturation 3.59 Previous testing White count 8.2 hemoglobin 8.1 potassium 4 creatinine 0.35 albumin 2.5 Computed tomography scan of the face large heterogenous right-sided mass overlying the upper neck involving the pinna on the right. It is of necrosis within the same. Crohn from the last computed tomography scan. Fluid within the right mastoid air cells. Some asymmetry of the oropharynx and rice of the tongue. Assessment: -Progressive squamous cell carcinoma of the face and neck involving the right ear and neck, possible early lesion on the left ear. -secondary infection of the affected tumor site as above -Chronic nicotine dependence patient's cigarette smoker -Moderate protein calorie malnutrition from decreased oral intake. With a BMI of 18 -COPD in a current smoker -Diabetes mellitus type 2 on oral hypoglycemic -Essential hypertension Plan: Home Patient Condition at Discharge: Stable Plan - Discharge Summary New Discharge Prescriptions: New Amoxicillin/Potassium Clav [Augmentin 875-125 Tablet] 1 tab PO Q12HR #20 tab Nicotine 21Mg/24Hr Patch [Habitrol] 1 patch TRANSDERM DAILY #14 patch Acetaminophen Tab [Tylenol] 650 mg PO Q6HR PRN tab PRN Reason: Mild Pain Or Fever > 100.5 HYDROcodone/APAP 7.5-325MG [[place] 7.5-325] 1 tab PO Q4H PRN 3 Days #18 tab PRN Reason: Pain Continue Gabapentin [Neurontin] 200 mg PO DAILY Metoprolol Tartrate 12.5 mg PO BID metFORMIN HCL [Glucophage] 500 mg PO DAILY Famotidine 20 mg PO BID Atorvastatin [Lipitor] 40 mg PO W/SUPPER Albuterol Nebulized [Ventolin Nebulized] 2.5 mg INHALATION TID PRN PRN Reason: Shortness Of Breath Ibuprofen [Motrin] 600 mg PO QID PRN PRN Reason: Pain Slow-Mag 71.5mg 143 mg PO DAILY Ondansetron HCl [Zofran] 4 mg PO Q4H PRN PRN Reason: Nausea And Vomiting Discontinued traMADol HCL [Ultram] 50 mg PO Q6HR Doxycycline [Vibramycin] 100 mg PO BID Discharge Medication List Gabapentin [Neurontin] 200 mg PO DAILY 06/21/15 [History] Metoprolol Tartrate 12.5 mg PO BID 08/12/15 [History] metFORMIN HCL [Glucophage] 500 mg PO DAILY 10/11/15 [History] Famotidine 20 mg PO BID 12/27/16 [History] Albuterol Nebulized [Ventolin Nebulized] 2.5 mg INHALATION TID PRN 01/27/19 [History] Atorvastatin [Lipitor] 40 mg PO W/SUPPER 01/27/19 [History] Ibuprofen [Motrin] 600 mg PO QID PRN 09/26/19 [History] Ondansetron HCl [Zofran] 4 mg PO Q4H PRN 09/26/19 [History] Slow-Mag 71.5mg 143 mg PO DAILY 09/26/19 [History] Acetaminophen Tab [Tylenol] 650 mg PO Q6HR PRN tab 09/30/19 [Rx] Amoxicillin/Potassium Clav [Augmentin 875-125 Tablet] 1 tab PO Q12HR #20 tab 09/30/19 [Rx] HYDROcodone/APAP 7.5-325MG [[place] 7.5-325] 1 tab PO Q4H PRN 3 Days #18 tab 09/30/19 [Rx] Nicotine 21Mg/24Hr Patch [Habitrol] 1 patch TRANSDERM DAILY #14 patch 09/30/19 [Rx] Follow up Appointment(s)/Referral(s): Silviano Lieberman MD [Primary Care Provider] - 10/05/19 4:30 pm [facility], [NON-STAFF] - Venu Jack MD [STAFF PHYSICIAN] - 10/02/19 8:45 am Patient Instructions/Handouts: Hydrocodone/Acetaminophen (By mouth), Amoxicillin/Clavulanate Potassium (By mouth), Nicotine (Absorbed through the skin), Cellulitis (DC) Activity/Diet/Wound Care/Special Instructions: Cleanse with NS and dry dressing. Ok to increase stool softener to 2 tabs twice a day if needed for prevention of narcotic induced constipation. Discharge Disposition: HOME SELF-CARE
== END 2019-09-30 18:11 | disposition home or self-care (01) | DRG 607 ==
LOC: EC 08:37 → 5NMEDONC 11:10
PROVIDERS: ADMIT Hospitalist; ATTEND Hospitalist
DX: C44.329 Squamous cell carcinoma of skin of other parts of face (principal); Z68.1 Body mass index [BMI] 19.9 or less, adult; E44.0 Moderate protein-calorie malnutrition; C90.30 Solitary plasmacytoma not having achieved remission; D62 Acute posthemorrhagic anemia; L03.221 Cellulitis of neck; L02.11 Cutaneous abscess of neck; H70.002 Acute mastoiditis without complications, left ear; C44.222 Squamous cell carcinoma of skin of right ear and external auricular canal; K21.9 Gastro-esophageal reflux disease without esophagitis; M19.90 Unspecified osteoarthritis, unspecified site; E78.5 Hyperlipidemia, unspecified; F41.0 Panic disorder [episodic paroxysmal anxiety]; F32.9 Major depressive disorder, single episode, unspecified; F17.210 Nicotine dependence, cigarettes, uncomplicated; J44.9 Chronic obstructive pulmonary disease, unspecified; D63.0 Anemia in neoplastic disease; G89.3 Neoplasm related pain (acute) (chronic); I10 Essential (primary) hypertension; E11.9 Type 2 diabetes mellitus without complications; G62.9 Polyneuropathy, unspecified; Z11.59 Encounter for screening for other viral diseases; Z90.710 Acquired absence of both cervix and uterus; Z90.89 Acquired absence of other organs; Z98.51 Tubal ligation status; Z98.890 Other specified postprocedural states; Z79.899 Other long term (current) drug therapy; Z79.84 Long term (current) use of oral hypoglycemic drugs; Z88.1 Allergy status to other antibiotic agents; Z92.3 Personal history of irradiation; Z83.3 Family history of diabetes mellitus; Z80.7 Family history of other malignant neoplasms of lymphoid, hematopoietic and related tissues; Z82.49 Family history of ischemic heart disease and other diseases of the circulatory system
CPT/HCPCS: 36415; 70487; 80048; 80053; 80202; 82565; 82607; 82728; 82747; 83036; 83540; 83550; 85025; 85027; 85610; 85730; 87040; 94640; 96361; 96374; 99284

== ENCOUNTER 2019-11-04 10:55 | Inpatient (IN) | payer MEDICARE, OTHER ==
[2019-11-04] MEDS ORDERED: IPRATROPIUM-ALBUTEROL 3 ML NEB INHALATION STA (11:16)
--- NOTE | 2019-11-04 11:21 | ED ---
General Adult HPI - General Chief complaint: Shortness of Breath Stated complaint: poss PE, sent from [facility] Time Seen by Provider: 11/04/19 11:05 Source: patient, RN notes reviewed, old records reviewed Mode of arrival: wheelchair Limitations: physical limitation - History of Present Illness Initial comments: This is a 74-year-old female presents emergency Department complaining of difficulty breathing. Patient states she has skin cancer on the right side of her neck and that is been there for about a year and a half. Patient states she has had a hard time opening her mouth and has had a hoarse voice for about 3 months now. Patient states she is receiving chemotherapy for. Patient states the difficulty breathing was so she got this morning she continues to smoke however and did not take her breathing treatment this morning. Patient denies any chest pain or palpitations. Patient denies any swelling in her legs or calf tenderness. Patient denies any headache patient denies numbness weakness. Patient denies any recent cough or fever. - Related Data Home Medications Medication Instructions Recorded Confirmed Gabapentin [Neurontin] 200 mg PO DAILY 06/21/15 11/04/19 Metoprolol Tartrate 12.5 mg PO BID 08/12/15 11/04/19 metFORMIN HCL [Glucophage] 500 mg PO DAILY 10/11/15 11/04/19 Famotidine 20 mg PO BID 12/27/16 11/04/19 Albuterol Nebulized [Ventolin 2.5 mg INHALATION RT-TID PRN 01/27/19 11/04/19 Nebulized] Atorvastatin [Lipitor] 40 mg PO HS 01/27/19 11/04/19 Ibuprofen [Motrin] 600 mg PO QID PRN 09/26/19 11/04/19 Ondansetron HCl [Zofran] 4 mg PO Q8H PRN 09/26/19 11/04/19 Morphine Sulfate 15 mg PO BID PRN 11/02/19 11/04/19 Ferrous Sulfate [Feosol] 325 mg PO DAILY 11/04/19 11/04/19 Megestrol Acetate 800 mg PO DAILY 11/04/19 11/04/19 Polyethylene Glycol 3350 [Miralax] 17 gm PO DAILY 11/04/19 11/04/19 Previous Rx's Medication Instructions Recorded HYDROcodone/APAP 7.5-325MG [[place] 1 tab PO Q4H PRN 3 Days #18 tab 09/30/19 7.5-325] Allergies Allergy/AdvReac Type Severity Reaction Status Date / Time azithromycin Allergy Dyspnea/anx Verified 11/04/19 13:07 iety Review of Systems ROS Statement: Those systems with pertinent positive or pertinent negative responses have been documented in the HPI. ROS Other: All systems not noted in ROS Statement are negative. Past Medical History Past Medical History: Cancer, Chest Pain / Angina, COPD, Diabetes Mellitus, GERD/Reflux, Hyperlipidemia, Hypertension, Osteoarthritis (OA), Vascular Disorder Additional Past Medical History / Comment(s): RT LEG NERVE PAIN, OCCASIONAL TINNITUS, constipation, poor circulation sosa legs, sm rt inguinal hernia, varicose veins, hx ulcer, plasmacytoma cancer dx. on neck History of Any Multi-Drug Resistant Organisms: None Reported Past Surgical History: Hysterectomy, Tonsillectomy, Tubal Ligation Additional Past Surgical History / Comment(s): PTBA/STENT TO LT LEG Past Anesthesia/Blood Transfusion Reactions: No Reported Reaction Additional Past Anesthesia/Blood Transfusion Reaction / Comment(s): CLAUSTROPHOBIA Past Psychological History: Anxiety, Depression, Panic Disorder Smoking Status: Current every day smoker Past Alcohol Use History: None Reported Past Drug Use History: None Reported - Past Family History Son(s) Family Medical History: Cancer Additional Family Medical History / Comment(s): LYMPHOMA Mother Family Medical History: Diabetes Mellitus Father Additional Family Medical History / Comment(s): HAD AAA Sister(s) Family Medical History: Cancer General Exam - General Exam Comments Initial Comments: GENERAL: Patient is well-developed and well-nourished. Patient is nontoxic and well- hydrated and is in mild distress. ENT: Neck is soft and supple. Moist mucous membranes. Patient has a large neck mass on the right side of her neck which she states is chronic and has had no changes. She does not want us to remove the bandage at this time. Patient also has difficulty fully opening her mouth which she states this is also chronic. EYES: The sclera were anicteric and conjunctiva were pink and moist. Extraocular movements were intact and pupils were equal round and reactive to light. Eyelids were unremarkable. PULMONARY: Slightly diminished breath sounds in the left base CARDIOVASCULAR: There is a regular rate and rhythm without any murmurs gallops or rubs. ABDOMEN: Soft and nontender with normal bowel sounds. SKIN: Skin is clear with no lesions or rashes and otherwise unremarkable. NEUROLOGIC: Patient is alert and oriented x3. Cranial nerves II through XII are grossly intact. Motor and sensory are also intact. Normal speech, volume and content. Symmetrical smile. MUSCULOSKELETAL: Normal extremities with adequate strength and full range of motion. PSYCHIATRIC: Normal psychiatric evaluation. Limitations: physical limitation Course Vital Signs 11/04/19 11/04/19 11/04/19 11:03 11:18 11:34 Temperature 97.0 F L 97.7 F Pulse Rate 113 H Respiratory 18 20 20 Rate Blood Pressure 118/77 O2 Sat by Pulse 100 100 Oximetry 11/04/19 11/04/19 11/04/19 11:51 11:58 14:13 Temperature Pulse Rate 111 H 110 H 116 H Respiratory 18 Rate Blood Pressure 103/71 O2 Sat by Pulse 99 Oximetry Medical Decision Making - Medical Decision Making EKG shows sinus tachycardia 108 bpm CA interval 230 QRS is 80 QT interval 314 QTC is 420. Patient's EKG shows no ST segment elevation or depression. Patient's chest x-ray showed no acute abnormality. It was determined at about 2 PM that the patient probably had a reaction in the chronic wound on her neck on the right initially she did not want us to remove the bandage but when we did was malodorous and cultures were taken any antibiotics were started. - Lab Data Result diagrams: 11/04/19 11:28 11/04/19 11:28 Lab Results 11/04/19 11/04/19 11/04/19 Range/Units 11:28 11:28 11:28 WBC 26.9 H (3.8-10.6) k/uL RBC 4.12 (3.80-5.40) m/uL Hgb 9.9 L (11.4-16.0) gm/dL Hct 32.8 L (34.0-46.0) % MCV 79.6 L (80.0-100.0) fL MCH 24.0 L (25.0-35.0) pg MCHC 30.2 L (31.0-37.0) g/dL RDW 17.2 H (11.5-15.5) % Plt Count 540 H (150-450) k/uL Neutrophils % 95 % Lymphocytes % 2 % Monocytes % 2 % Eosinophils % 0 % Basophils % 0 % Neutrophils # 25.7 H (1.3-7.7) k/uL Lymphocytes # 0.5 L (1.0-4.8) k/uL Monocytes # 0.6 (0-1.0) k/uL Eosinophils # 0.1 (0-0.7) k/uL Basophils # 0.1 (0-0.2) k/uL Manual Slide Review Performed Hypochromasia Marked Anisocytosis Slight Microcytosis Slight PT 9.9 (9.0-12.0) sec INR 0.9 (<1.2) APTT 22.3 (22.0-30.0) sec D-Dimer 1.05 H (<0.60) mg/L FEU Sodium 131 L (137-145) mmol/L Potassium 5.2 H (3.5-5.1) mmol/L Chloride 97 L (98-107) mmol/L Carbon Dioxide 25 (22-30) mmol/L Anion Gap 9 mmol/L BUN 25 H (7-17) mg/dL Creatinine 0.46 L (0.52-1.04) mg/dL Est GFR (CKD-EPI)AfAm >90 (>60 ml/min/1.73 sqM) Est GFR (CKD-EPI)NonAf >90 (>60 ml/min/1.73 sqM) Glucose 141 H (74-99) mg/dL Plasma Lactic Acid Matthew (0.7-2.0) mmol/L Calcium 9.2 (8.4-10.2) mg/dL Magnesium 1.9 (1.6-2.3) mg/dL Total Bilirubin 0.7 (0.2-1.3) mg/dL AST 33 (14-36) U/L ALT 19 (4-34) U/L Alkaline Phosphatase 99 (38-126) U/L Troponin I (0.000-0.034) ng/mL NT-Pro-B Natriuret Pep pg/mL Total Protein 7.4 (6.3-8.2) g/dL Albumin 3.5 (3.5-5.0) g/dL 11/04/19 11/04/19 11/04/19 Range/Units 11:28 11:28 11:28 WBC (3.8-10.6) k/uL RBC (3.80-5.40) m/uL Hgb (11.4-16.0) gm/dL Hct (34.0-46.0) % MCV (80.0-100.0) fL MCH (25.0-35.0) pg MCHC (31.0-37.0) g/dL RDW (11.5-15.5) % Plt Count (150-450) k/uL Neutrophils % % Lymphocytes % % Monocytes % % Eosinophils % % Basophils % % Neutrophils # (1.3-7.7) k/uL Lymphocytes # (1.0-4.8) k/uL Monocytes # (0-1.0) k/uL Eosinophils # (0-0.7) k/uL Basophils # (0-0.2) k/uL Manual Slide Review Hypochromasia Anisocytosis Microcytosis PT (9.0-12.0) sec INR (<1.2) APTT (22.0-30.0) sec D-Dimer (<0.60) mg/L FEU Sodium (137-145) mmol/L Potassium (3.5-5.1) mmol/L Chloride (98-107) mmol/L Carbon Dioxide (22-30) mmol/L Anion Gap mmol/L BUN (7-17) mg/dL Creatinine (0.52-1.04) mg/dL Est GFR (CKD-EPI)AfAm (>60 ml/min/1.73 sqM) Est GFR (CKD-EPI)NonAf (>60 ml/min/1.73 sqM) Glucose (74-99) mg/dL Plasma Lactic Acid Matthew 1.7 (0.7-2.0) mmol/L Calcium (8.4-10.2) mg/dL Magnesium (1.6-2.3) mg/dL Total Bilirubin (0.2-1.3) mg/dL AST (14-36) U/L ALT (4-34) U/L Alkaline Phosphatase (38-126) U/L Troponin I <0.012 (0.000-0.034) ng/mL NT-Pro-B Natriuret Pep 577 pg/mL Total Protein (6.3-8.2) g/dL Albumin (3.5-5.0) g/dL Disposition Clinical Impression: Infected wound, Squamous cell carcinoma Disposition: ADMITTED IP TO THIS HOSP Referrals: Silviano Lieberman MD [Primary Care Provider] - 1-2 days Time of Disposition: 14:31
--- NOTE | 2019-11-04 11:44 | XR ---
EXAMINATION TYPE: XR chest 2V DATE OF EXAM: 11/04/2019 COMPARISON: 07/20/2019 INDICATION: Difficulty breathing TECHNIQUE: Frontal and lateral views of the chest are obtained. FINDINGS: The heart size is normal. The pulmonary vasculature is normal. The lungs are clear. IMPRESSION: 1. No acute pulmonary process.
[2019-11-04 12:24] LABS: ALT 19 U/L (4-34); AST 33 U/L (14-36); African American GFR (CKD) >90 (>60 ml/min/1.73 sqM); Albumin 3.5 g/dL (3.5-5.0); Alkaline Phosphatase 99 U/L (38-126); Anion Gap 9 mmol/L; Blood Urea Nitrogen 25 mg/dL (7-17); Calcium 9.2 mg/dL (8.4-10.2); Carbon Dioxide 25 mmol/L (22-30); Chloride 97 mmol/L (98-107); Glucose 141 mg/dL (74-99); Magnesium 1.9 mg/dL (1.6-2.3); Non-African American GFR(CKD) >90 (>60 ml/min/1.73 sqM); Potassium 5.2 mmol/L (3.5-5.1); Sodium 131 mmol/L (137-145); Total Bilirubin 0.7 mg/dL (0.2-1.3); Total Protein 7.4 g/dL (6.3-8.2)
[2019-11-04 12:28] LABS: Anisocytosis Slight; Basophils # (A) 0.1 k/uL (0-0.2); Basophils % (A) 0 %; Eosinophils # (A) 0.1 k/uL (0-0.7); Eosinophils % (A) 0 %; HCT 32.8 % (34.0-46.0); HGB 9.9 gm/dL (11.4-16.0); Hypochromasia Marked; Lymphocytes # (A) 0.5 k/uL (1.0-4.8); Lymphocytes % (A) 2 %; MCHC 30.2 g/dL (31.0-37.0); MCV 79.6 fL (80.0-100.0); Mean Platelet Volume 8.1; Microcytosis Slight; Monocytes # (A) 0.6 k/uL (0-1.0); Monocytes % (A) 2 %; Neutrophils # (A) 25.7 k/uL (1.3-7.7); Neutrophils % (A) 95 %; Platelet Count 540 k/uL (150-450); RBC 4.12 m/uL (3.80-5.40); RDW 17.2 % (11.5-15.5)
[2019-11-04 12:31] LABS: INR 0.9 (<1.2); Partial Thromboplastin Time 22.3 sec (22.0-30.0); Prothrombin Time 9.9 sec (9.0-12.0)
[2019-11-04 12:34] LABS: WBC 26.9 k/uL (3.8-10.6)
[2019-11-04 12:42] LABS: D-Dimer 1.05 mg/L FEU (<0.60)
[2019-11-04] MEDS ORDERED: MORPHINE SULFATE 2 MG/ML SYRINGE IVP STA (12:44)
--- NOTE | 2019-11-04 13:35 | CT ---
EXAMINATION TYPE: CT chest angio for PE DATE OF EXAM: 11/04/2019 COMPARISON: CTA chest December 27, 2016 HISTORY: Dyspnea and elevated d-dimer. History of head and neck cancer. CT DLP: 189.4 mGycm. Automated Exposure Control for Dose Reduction was Utilized. CONTRAST: CTA scan of the thorax is performed with IV Contrast, patient injected with 57ml mL of Isovue 370, pu lmonary embolism protocol. MIP Images are created on CT scanner and reviewed. FINDINGS: LUNGS: Backwall mild to moderate underlying emphysematous change is redemonstrated. No new suspicious focal consolidation or groundglass opacity. No pleural effusion or pneumothorax seen bilaterally. No new concerning nodules or masses. MEDIASTINUM: There is satisfactory enhancement of the pulmonary artery and its branches, there is no CT evidence for pulmonary embolism. Satisfactory enhancement of the aorta without aneurysm or dissect ion. Moderate mixed plaque in the arch and descending aorta. There are no greater than 1 cm hilar or mediastinal lymph nodes. No cardiomegaly or pericardial effusion is seen. Coronary artery calcifica tion is present which is noted marked underlying coronary artery disease. OTHER: Slight scoliotic curvature in the upper thoracic spine. IMPRESSION: No CT evidence for acute pulmonary embolism. Mild to moderate underlying emphysematous ch meghan without new suspicious acute pulmonary process.
[2019-11-04] MEDS ORDERED: PIPERACILLIN-TAZOBACTAM 3.375 GM in SODIUM CHLORIDE 0.9% 100 ML IVPB STA (14:28)
[2019-11-04] MEDS ORDERED: SODIUM CHLORIDE 0.9% 1,000 ML IV ONE (14:33)
[2019-11-04] MEDS ORDERED: LEVOFLOXACIN 750MG-D5W PMX 750 MG in DEXTROSE/WATER 1 150ML.BAG IVPB STA (14:34)
[2019-11-04] MEDS ORDERED: LORazepam 2 MG/ML INJ IV STA (15:09)
[2019-11-04] MEDS ORDERED: LEVOFLOXACIN 750MG-D5W PMX 750 MG in DEXTROSE/WATER 1 150ML.BAG IVPB SCH ×2 (16:00→21:00)
[2019-11-04 16:31] LABS: Glucose,Whole Blood 113 mg/dL (75-99)
[2019-11-04] MEDS ORDERED: ONDANSETRON 4 MG TAB PO PRN (16:55)
[2019-11-04] MEDS ORDERED: ALBUTEROL NEBULIZED 2.5 MG/3 ML INHALATION PRN (16:55)
[2019-11-04] MEDS: LACTATED RINGERS 1,000 ML IV SCH (17:09)
[2019-11-04] MEDS: INSULIN ASPART (NovoLOG) 100 UNIT/ML VIAL SQ SCH ×2 (17:29→20:42)
--- NOTE | 2019-11-04 18:07 | P.GSCN ---
History of Present Illness Consult date: 11/04/19 Reason for Consult: Neck mass, neck infection Requesting physician: Hang Solis History of present illness: this is a 74-year-old debilitated cachectic white female who has a two-year history of a right neck skin cancer i.e. squamous cell carcinoma. This is regionally aggressive with extension into the lateral space involving deep structures of the neck on the right side. The patient has difficulty swallowing. He has a chronic problem opening her mouth. She does to dysphagia. She has severe fatigue. The patient is very cachectic. she has been treated for her cancer with chemotherapy. Currently she has difficulty swallowing. Again, she is a chronic difficult time opening her mouth. I infection was suspected because her white count was elevated and the patient's been placed on antibiotic therapy and infectious disease consultation has been ordered. I've been asked to consult to rule out abscess or to see if any surgical intervention would be helpful. The patient is a no code. Hospice care has not been instituted. Review of Systems - Constitutional Reports anorexia, Reports chronic pain, Reports daytime sleepiness, Reports lethargy, Reports malaise, Reports poor appetite, Reports weakness, Reports weight loss - EENT EENT Comment(s): this patient has a very large exophytic fungating mass of the right neck involving the infra-auricular region extending into the mandible and posteriorly into the posterior triangle. This extending down to the midportion of the neck and a deep mass that is fixed. There is no evidence of purulence. Ears: deny: decreased hearing, ear discharge - Cardiovascular Denies chest pain - Respiratory Denies congestion - Gastrointestinal Denies bloating - Genitourinary Genitourinary: Denies hematuria - Musculoskeletal Reports neck stiffness - Integumentary Denies darkening of skin - Neurological Reports change in speech - Psychiatric Denies anxiety - Endocrine Denies cold intolerance - Hematologic/Lymphatic Reports as per HPI - Allergic/Immunologic Reports as per HPI Past Medical History Past Medical History: Cancer, Chest Pain / Angina, COPD, Diabetes Mellitus, GERD/Reflux, Hyperlipidemia, Hypertension, Osteoarthritis (OA), Vascular Disorder Additional Past Medical History / Comment(s): Pt recently admitted to [facility] on 09/26/19 with infected/necrotic R face mass and lesion L ear, moderate protein calorie malnutrition. Other hx: Squamous cell cancer R neck/face/ear with past radiation and chemo last given 11/02/19, anemia, NIDDM type II, past gastric ulcer, PVD-poor circulation bilateral legs, varicosities, R leg nerve pain, occasional tinnitis, constipation, small R inguinal hernia. History of Any Multi-Drug Resistant Organisms: None Reported Past Surgical History: Hysterectomy, Tonsillectomy, Tubal Ligation Additional Past Surgical History / Comment(s): PTBA/STENT TO LT LEG, EGD, colonoscopy/benign polypectomy, cystocele/rectocele repairs. Past Anesthesia/Blood Transfusion Reactions: No Reported Reaction Additional Past Anesthesia/Blood Transfusion Reaction / Comm: CLAUSTROPHOBIA Smoking Status: Current every day smoker - Past Family History Son(s) Family Medical History: Cancer Additional Family Medical History / Comment(s): LYMPHOMA Mother Family Medical History: Diabetes Mellitus Father Additional Family Medical History / Comment(s): HAD AAA Sister(s) Family Medical History: Cancer Medications and Allergies Home Medications Medication Instructions Recorded Confirmed Type Gabapentin [Neurontin] 200 mg PO DAILY 06/21/15 11/04/19 History Metoprolol Tartrate 12.5 mg PO BID 08/12/15 11/04/19 History metFORMIN HCL [Glucophage] 500 mg PO DAILY 10/11/15 11/04/19 History Famotidine 20 mg PO BID 12/27/16 11/04/19 History Albuterol Nebulized [Ventolin 2.5 mg INHALATION RT-TID PRN 01/27/19 11/04/19 History Nebulized] Atorvastatin [Lipitor] 40 mg PO HS 01/27/19 11/04/19 History Ibuprofen [Motrin] 600 mg PO QID PRN 09/26/19 11/04/19 History Ondansetron HCl [Zofran] 4 mg PO Q8H PRN 09/26/19 11/04/19 History HYDROcodone/APAP 7.5-325MG [[place] 1 tab PO Q4H PRN 3 Days #18 tab 09/30/19 11/04/19 Rx 7.5-325] Morphine Sulfate 15 mg PO BID PRN 11/02/19 11/04/19 History Ferrous Sulfate [Feosol] 325 mg PO DAILY 11/04/19 11/04/19 History Megestrol Acetate 800 mg PO DAILY 11/04/19 11/04/19 History Polyethylene Glycol 3350 [Miralax] 17 gm PO DAILY 11/04/19 11/04/19 History Allergies Allergy/AdvReac Type Severity Reaction Status Date / Time azithromycin Allergy Dyspnea/anx Verified 11/04/19 13:07 iety Surgical - Exam Osteopathic Statement: *. No significant issues noted on an osteopathic structural exam other than those noted in the History and Physical/Consult. Vital Signs Temp Pulse Resp BP Pulse Ox 97.0 F L 113 H 18 118/77 100 11/04/19 11:03 11/04/19 11:03 11/04/19 11:03 11/04/19 11:03 11/04/19 11:03 - General no distress, cachectic, chronically ill - Eyes PERRL, normal ocular movement - ENT head is normocephalic, the face is symmetric.scalp is without any defects. Auricles demonstrated asymmetry with a tumor affecting the lower portion of the right auricle. The left auricle is unremarkable. The canals are clear tympanic members without bulging or retraction. Nose is patent. Mouth and throat difficulty examination because of severe trismus. Neck shows a large exophytic fungating mass of the right side of the neck with extension into the mandible, into the pterygoid space, into the skull base, into the deep structures of the right neck and centered around zone two w with posterior extension also noted. - Neck large exophytic fungating mass of the right neck with deep extension. Trismus is noted. no bruits - Respiratory normal expansion - Cardiovascular Rhythm: regular - Abdomen Abdomen: soft - Integumentary no rash - Neurologic other (she is very weak) - Musculoskeletal other (patient is very weak) - Psychiatric oriented to time, oriented to person, oriented to place Results - Labs 11/04/19 11:28 11/04/19 11:28 Abnormal Lab Results - Last 24 Hours (Table) 11/04/19 11/04/19 11/04/19 Range/Units 11:28 11:28 11:28 WBC 26.9 H (3.8-10.6) k/uL Hgb 9.9 L (11.4-16.0) gm/dL Hct 32.8 L (34.0-46.0) % MCV 79.6 L (80.0-100.0) fL MCH 24.0 L (25.0-35.0) pg MCHC 30.2 L (31.0-37.0) g/dL RDW 17.2 H (11.5-15.5) % Plt Count 540 H (150-450) k/uL Neutrophils # 25.7 H (1.3-7.7) k/uL Lymphocytes # 0.5 L (1.0-4.8) k/uL D-Dimer 1.05 H (<0.60) mg/L FEU Sodium 131 L (137-145) mmol/L Potassium 5.2 H (3.5-5.1) mmol/L Chloride 97 L (98-107) mmol/L BUN 25 H (7-17) mg/dL Creatinine 0.46 L (0.52-1.04) mg/dL Glucose 141 H (74-99) mg/dL POC Glucose (mg/dL) (75-99) mg/dL 11/04/19 Range/Units 16:29 WBC (3.8-10.6) k/uL Hgb (11.4-16.0) gm/dL Hct (34.0-46.0) % MCV (80.0-100.0) fL MCH (25.0-35.0) pg MCHC (31.0-37.0) g/dL RDW (11.5-15.5) % Plt Count (150-450) k/uL Neutrophils # (1.3-7.7) k/uL Lymphocytes # (1.0-4.8) k/uL D-Dimer (<0.60) mg/L FEU Sodium (137-145) mmol/L Potassium (3.5-5.1) mmol/L Chloride (98-107) mmol/L BUN (7-17) mg/dL Creatinine (0.52-1.04) mg/dL Glucose (74-99) mg/dL POC Glucose (mg/dL) 113 H (75-99) mg/dL Diabetes panel 11/04/19 Range/Units 11:28 Sodium 131 L (137-145) mmol/L Potassium 5.2 H (3.5-5.1) mmol/L Chloride 97 L (98-107) mmol/L Carbon Dioxide 25 (22-30) mmol/L BUN 25 H (7-17) mg/dL Creatinine 0.46 L (0.52-1.04) mg/dL Glucose 141 H (74-99) mg/dL Calcium 9.2 (8.4-10.2) mg/dL AST 33 (14-36) U/L ALT 19 (4-34) U/L Alkaline Phosphatase 99 (38-126) U/L Total Protein 7.4 (6.3-8.2) g/dL Albumin 3.5 (3.5-5.0) g/dL Calcium panel 11/04/19 Range/Units 11:28 Calcium 9.2 (8.4-10.2) mg/dL Albumin 3.5 (3.5-5.0) g/dL Pituitary panel 11/04/19 Range/Units 11:28 Sodium 131 L (137-145) mmol/L Potassium 5.2 H (3.5-5.1) mmol/L Chloride 97 L (98-107) mmol/L Carbon Dioxide 25 (22-30) mmol/L BUN 25 H (7-17) mg/dL Creatinine 0.46 L (0.52-1.04) mg/dL Glucose 141 H (74-99) mg/dL Calcium 9.2 (8.4-10.2) mg/dL Adrenal panel 11/04/19 Range/Units 11:28 Sodium 131 L (137-145) mmol/L Potassium 5.2 H (3.5-5.1) mmol/L Chloride 97 L (98-107) mmol/L Carbon Dioxide 25 (22-30) mmol/L BUN 25 H (7-17) mg/dL Creatinine 0.46 L (0.52-1.04) mg/dL Glucose 141 H (74-99) mg/dL Calcium 9.2 (8.4-10.2) mg/dL Total Bilirubin 0.7 (0.2-1.3) mg/dL AST 33 (14-36) U/L ALT 19 (4-34) U/L Alkaline Phosphatase 99 (38-126) U/L Total Protein 7.4 (6.3-8.2) g/dL Albumin 3.5 (3.5-5.0) g/dL Assessment and Plan Plan: this patient has a very large exophytic fungating mass of the right neck with extension into the deep structures of the neck laterally, mandible, skull base, pharynx. It appears that the pterygoid muscles are also involved because the patient has significant trismus. The trismus is chronic. I'm recommending a computed tomography scan of the neck to rule out a deep space neck abscess. The patient's on appropriate antibiotics at this time. I would also consider a feeding tube for this patient and consideration of hospice care. I will reevaluate the patient after CAT scan imaging to see if any abscess formation is seen. CAT scan has been scheduled for tomorrow. Consideration of comfort care is strongly suggested. Feeding tube is to be considered. I will defer to medicine. I will see the patient back in the office tomorrow after I review the CAT scan. Continuous pulse oximetry has been ordered. May consider telemetry/ICU if patient's condition worsens. Time with Patient: Greater than 30
[2019-11-04] MEDS: MORPHINE SULFATE 2 MG/ML SYRINGE IVP PRN (19:21)
[2019-11-04 20:23] LABS: Glucose,Whole Blood 113 mg/dL (75-99)
[2019-11-04] MEDS: FAMOTIDINE 20 MG TAB PO SCH (22:00)
[2019-11-04] MEDS: METOPROLOL TARTRATE 12.5 MG TAB PO SCH (22:00)
[2019-11-04] MEDS: ATORVASTATIN 40 MG TAB PO SCH (22:00)
--- NOTE | 2019-11-04 23:17 | P.CONS ---
History of Present Illness - Reason for Consult Consult date: 11/04/19 Infected wound to the neck Requesting physician: Hang Solis - Chief Complaint Shortness of breath and difficulty opening her mouth x weeks - History of Present Illness Patient is a 74-year-old female with a diagnosis of squamous cell carcinoma on the right side of the neck that has been diagnosed about a year and half ago patient did have aggressive cancer involving the right seventh and neck and a deeper tissue with significant ulcerative and fungating wound on the right side of the neck she was recently admitted to this facility and was diagnosed with a wound infection she was treated with IV Unasyn that she was discharged home on oral Augmentin after clinical improvement with IV antibiotic therapy patient now presenting back to [facility] with chief complaints of increasing shortness of breath over the last few days has also been complaining of difficulty opening her mouth, patient complaining of pain to the right side of the neck wound and some foul-smelling scant drainage patient denies high-grade fever however she was noticed to have elevated white count 26,000 patient did have a CT angiogram of of the chest that was negative for PE did not show any pneumonia patient had been started on Zosyn and Levaquin she was admitted to the hospital infection he was considered for further management of antibiotic therapy at that time of my evaluation, patient is lethargic and could not provide any history so most information has been obtained from review of the chart Review of Systems Positive point has been mentioned in the HPI rest of the systems are negative Past Medical History Past Medical History: Cancer, Chest Pain / Angina, COPD, Diabetes Mellitus, GERD/Reflux, Hyperlipidemia, Hypertension, Osteoarthritis (OA), Vascular Disorder Additional Past Medical History / Comment(s): Pt recently admitted to [facility] on 09/26/19 with infected/necrotic R face mass and lesion L ear, moderate protein calorie malnutrition. Other hx: Squamous cell cancer R neck/face/ear with past radiation and chemo last given 11/02/19, anemia, NIDDM type II, past gastric ulcer, PVD-poor circulation bilateral legs, varicosities, R leg nerve pain, occasional tinnitis, constipation, small R inguinal hernia. History of Any Multi-Drug Resistant Organisms: None Reported Past Surgical History: Hysterectomy, Tonsillectomy, Tubal Ligation Additional Past Surgical History / Comment(s): PTBA/STENT TO LT LEG, EGD, colonoscopy/benign polypectomy, cystocele/rectocele repairs. Past Anesthesia/Blood Transfusion Reactions: No Reported Reaction Additional Past Anesthesia/Blood Transfusion Reaction / Comm: CLAUSTROPHOBIA Smoking Status: Current every day smoker - Past Family History Son(s) Family Medical History: Cancer Additional Family Medical History / Comment(s): LYMPHOMA Mother Family Medical History: Diabetes Mellitus Father Additional Family Medical History / Comment(s): HAD AAA Sister(s) Family Medical History: Cancer Medications and Allergies Home Medications Medication Instructions Recorded Confirmed Type Gabapentin [Neurontin] 200 mg PO DAILY 06/21/15 11/04/19 History Metoprolol Tartrate 12.5 mg PO BID 08/12/15 11/04/19 History metFORMIN HCL [Glucophage] 500 mg PO DAILY 10/11/15 11/04/19 History Famotidine 20 mg PO BID 12/27/16 11/04/19 History Albuterol Nebulized [Ventolin 2.5 mg INHALATION RT-TID PRN 01/27/19 11/04/19 History Nebulized] Atorvastatin [Lipitor] 40 mg PO HS 01/27/19 11/04/19 History Ibuprofen [Motrin] 600 mg PO QID PRN 09/26/19 11/04/19 History Ondansetron HCl [Zofran] 4 mg PO Q8H PRN 09/26/19 11/04/19 History HYDROcodone/APAP 7.5-325MG [[place] 1 tab PO Q4H PRN 3 Days #18 tab 09/30/19 11/04/19 Rx 7.5-325] Morphine Sulfate 15 mg PO BID PRN 11/02/19 11/04/19 History Ferrous Sulfate [Feosol] 325 mg PO DAILY 11/04/19 11/04/19 History Megestrol Acetate 800 mg PO DAILY 11/04/19 11/04/19 History Polyethylene Glycol 3350 [Miralax] 17 gm PO DAILY 11/04/19 11/04/19 History Allergies Allergy/AdvReac Type Severity Reaction Status Date / Time azithromycin Allergy Dyspnea/anx Verified 11/04/19 13:07 iety Physical Exam Vitals: Vital Signs Temp Pulse Pulse Resp BP BP Pulse Ox 11/04/19 19:07 98.7 F 113 H 14 107/66 100 11/04/19 15:54 98.1 F 112 H 20 112/63 99 11/04/19 14:57 99.2 F 11/04/19 14:13 116 H 18 103/71 99 11/04/19 11:58 110 H 11/04/19 11:51 111 H 11/04/19 11:34 20 11/04/19 11:18 97.7 F 20 100 11/04/19 11:03 97.0 F L 113 H 18 118/77 100 Intake and Output 11/04/19 11/04/19 11/05/19 14:59 22:59 06:59 Other: # Voids 1 Weight 45.813 kg 45.813 kg GENERAL DESCRIPTION: An elderly female lying in bed, no distress. No tachypnea or accessory muscle of respiration use. HEENT: Shows Pallor , no scleral icterus. Oral mucous membrane is dry. Large ulcerative and fungating lesion on the right side of the neck with slough tissue at the base and foul-smelling NECK: Trachea central, no thyromegaly. LUNGS: Unlabored breathing. Clear to auscultation anteriorly. No wheeze or crackle. HEART: S1, S2, regular rate and rhythm. No loud murmur ABDOMEN: Soft, no tenderness , guarding or rigidity, no organomegaly EXTREMITIES: No edema of feet. SKIN: No rash, no masses palpable. NEUROLOGICAL: The patient is sleepy lethargic orientation could not be determined. Results CBC & Chem 7: 11/04/19 11:28 11/04/19 11:28 Labs: Abnormal Lab Results - Last 24 Hours (Table) 11/04/19 11/04/19 11/04/19 Range/Units 11:28 11:28 11:28 WBC 26.9 H (3.8-10.6) k/uL Hgb 9.9 L (11.4-16.0) gm/dL Hct 32.8 L (34.0-46.0) % MCV 79.6 L (80.0-100.0) fL MCH 24.0 L (25.0-35.0) pg MCHC 30.2 L (31.0-37.0) g/dL RDW 17.2 H (11.5-15.5) % Plt Count 540 H (150-450) k/uL Neutrophils # 25.7 H (1.3-7.7) k/uL Lymphocytes # 0.5 L (1.0-4.8) k/uL D-Dimer 1.05 H (<0.60) mg/L FEU Sodium 131 L (137-145) mmol/L Potassium 5.2 H (3.5-5.1) mmol/L Chloride 97 L (98-107) mmol/L BUN 25 H (7-17) mg/dL Creatinine 0.46 L (0.52-1.04) mg/dL Glucose 141 H (74-99) mg/dL POC Glucose (mg/dL) (75-99) mg/dL 11/04/19 11/04/19 Range/Units 16:29 20:21 WBC (3.8-10.6) k/uL Hgb (11.4-16.0) gm/dL Hct (34.0-46.0) % MCV (80.0-100.0) fL MCH (25.0-35.0) pg MCHC (31.0-37.0) g/dL RDW (11.5-15.5) % Plt Count (150-450) k/uL Neutrophils # (1.3-7.7) k/uL Lymphocytes # (1.0-4.8) k/uL D-Dimer (<0.60) mg/L FEU Sodium (137-145) mmol/L Potassium (3.5-5.1) mmol/L Chloride (98-107) mmol/L BUN (7-17) mg/dL Creatinine (0.52-1.04) mg/dL Glucose (74-99) mg/dL POC Glucose (mg/dL) 113 H 113 H (75-99) mg/dL Microbiology - Last 24 Hours (Table) 11/04/19 14:57 Wound Culture - Preliminary Neck Assessment and Plan Assessment: 1- patient with a large ulcerative and fungating tumor of the right side of the neck with significant slough tissue and some foul-smelling but concern for underlying wound infection more likely from gram-positive skin chica, gram- negative infection less likely but not excluded underlying deep abscess needs to be ruled out for a CT has been ordered (1) Infected wound Current Visit: Yes Status: Acute Code(s): T14.8XXA - OTHER INJURY OF UNSPECIFIED BODY REGION, INITIAL ENCOUNTER; L08.9 - LOCAL INFECTION OF THE SKIN AND SUBCUTANEOUS TISSUE, UNSP SNOMED Code(s): 03022948 (2) Leukocytosis Current Visit: No Status: Acute Code(s): D72.829 - ELEVATED WHITE BLOOD CELL COUNT, UNSPECIFIED SNOMED Code(s): 738561436 Plan: 1- discontinue Zosyn and Levaquin 2- start the patient on Unasyn 3 g every 6 hours 3- await CT of the neck and deep tissue 4- local wound care with medahoney followed by moist dressing With overall poor prognosis hospice oriented care should be considered We will follow on clinical condition and cultures to further adjust medication if needed Thank you for this consultation will follow this patient with you Time with Patient: Greater than 30
[2019-11-05] MEDS ORDERED: PIPERACILLIN-TAZOBACTAM 3.375 GM in SODIUM CHLORIDE 0.9% 100 ML IVPB SCH ×2
[2019-11-05] MEDS: AMPICILLIN-SULBACTAM 3 GM in SODIUM CHLORIDE 0.9% 100 ML IVPB SCH ×5 (00:53→23:54)
[2019-11-05] MEDS: LACTATED RINGERS 1,000 ML IV SCH ×3 (00:53→19:33)
[2019-11-05] MEDS: MORPHINE SULFATE 2 MG/ML SYRINGE IVP PRN ×4 (00:59→22:04)
[2019-11-05 07:37] LABS: Glucose,Whole Blood 118 mg/dL (75-99)
[2019-11-05] MEDS: INSULIN ASPART (NovoLOG) 100 UNIT/ML VIAL SQ SCH ×4 (07:39→20:54)
[2019-11-05] MEDS: METOPROLOL TARTRATE 12.5 MG TAB PO SCH ×2 (08:04→20:54)
[2019-11-05] MEDS: polyethylene glycoL 3350 17 GM POWD.PACK PO SCH (08:04)
[2019-11-05] MEDS: GABAPENTIN 100 MG CAP PO SCH (08:05)
[2019-11-05] MEDS: FERROUS SULFATE 325 MG TAB PO SCH (08:05)
[2019-11-05] MEDS: metFORMIN 500 MG TAB PO SCH (08:05)
[2019-11-05] MEDS: MEGESTROL 400 MG/10 ML CUP PO SCH (08:05)
[2019-11-05] MEDS: FAMOTIDINE 20 MG TAB PO SCH ×2 (08:05→20:54)
[2019-11-05 08:55] LABS: Anisocytosis Slight; HCT 28.4 % (34.0-46.0); HGB 8.5 gm/dL (11.4-16.0); Hypochromasia Marked; MCH 24.1 pg (25.0-35.0); MCHC 29.8 g/dL (31.0-37.0); MCV 80.8 fL (80.0-100.0); Mean Platelet Volume 8.3; Platelet Count 359 k/uL (150-450); RBC 3.51 m/uL (3.80-5.40); RDW 17.3 % (11.5-15.5); WBC 20.3 k/uL (3.8-10.6)
[2019-11-05 09:06] LABS: African American GFR (CKD) >90 (>60 ml/min/1.73 sqM); Anion Gap 6 mmol/L; Blood Urea Nitrogen 18 mg/dL (7-17); Calcium 8.3 mg/dL (8.4-10.2); Carbon Dioxide 26 mmol/L (22-30); Chloride 101 mmol/L (98-107); Glucose 107 mg/dL (74-99); Non-African American GFR(CKD) >90 (>60 ml/min/1.73 sqM); Potassium 4.1 mmol/L (3.5-5.1); Sodium 133 mmol/L (137-145)
--- NOTE | 2019-11-05 10:43 | CT ---
EXAMINATION TYPE: CT soft tissue neck w con DATE OF EXAM: 11/05/2019 10:13 AM COMPARISON: CT facial bones HISTORY: rule out deep space neck abscess, history of squamous cell CA CT DLP: 180.8 mGycm Automated exposure control for dose reduction was used. CONTRAST: CT scan of the neck is performed following with IV Contrast, patient injected with 100 mL of Isovue 3 00. Axial images are obtained, coronal and sagittal reformatted images are reviewed. FINDINGS: There is an increased large right neck superficial, fungating, irregular soft tissue mass measuring 1 1.4 x 7.5 x 7.0 cm spanning from the level of the inferior right ear to the level of C4 involving the right cheek, and buccal/masseter/parapharyngeal/carotid/and parotid spaces. There are areas of hypod ense necrosis. There are also several areas of gas within the mass and near the level of the right C1 transverse process. The right mastoid air cells are opacified. There is somewhat irregular osseous a ppearance around the jugular foramen of the right skull base. The right jugular vein appears occluded . The right external carotid artery and right vertebral artery are patent. The right internal carotid artery becomes narrowed at the level of C1, with trifurcation into collateral vessels and dominant v essel continuing superiorly within the internal carotid canal. There is mass effect and narrowing on the right airway from the oral cavity to the level of the vocal cords. No evidence of cervical or upper mediastinal lymphadenopathy. There is a 2 mm pulmonary nodule of the left upper lobe (204:27). IMPRESSION: Large necrotic fungating neck mass, mildly increased in size versus 09/06/2019 comparison. There are increased internal foci of gas within the mass, likely related to necrosis, however small areas of intratumoral abscesses included in differential. No definitive large drainable fluid collect ion.
[2019-11-05] MEDS: methylPREDNISolone SOD SUCCI 40 MG/ML 1 ML VIAL IV SCH ×3 (11:47→23:55)
[2019-11-05] MEDS: guaiFENesin 600 MG TABLET.ER PO SCH ×2 (11:47→20:54)
[2019-11-05] MEDS: HYDROcodone/APAP 7.5-325MG 1 EACH TAB PO PRN ×3 (11:48→20:53)
[2019-11-05 11:52] LABS: Glucose,Whole Blood 115 mg/dL (75-99)
[2019-11-05] MEDS: IPRATROPIUM-ALBUTEROL 3 ML NEB INHALATION SCH ×3 (13:24→20:33)
--- NOTE | 2019-11-05 16:10 | P.PN ---
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 I did review the results of the patient's CAT scan revealing no drainable abscess. The CAT scan just reveals a large exophytic fungating mass with deep extension to the parapharyngeal region, pterygoid muscle, cervical vertebrae and causing vascular compression of the internal carotid and jugular system. Objective - Vital Signs Vital signs: Vital Signs Temp 98.3 F 11/05/19 14:13 Pulse 104 H 11/05/19 14:13 Resp 16 11/05/19 14:13 BP 103/67 11/05/19 14:13 Pulse Ox 100 11/05/19 14:13 Intake & Output 11/04/19 11/05/19 11/05/19 18:59 06:59 18:59 Weight 45.813 kg 45.813 kg Other: Voiding Method Toilet Toilet Bedside Commode Bedside Commode # Voids 1 # Bowel Movements 2 - Constitutional General appearance: Present: thin - EENT EENT Comment(s): no change in physical exam. Patient has a 12 x 8 cm exophytic fungating mass of the right neck. It is involving the mandible, pterygoid muscle, vascular sheath, cervical vertebrae etc. etc. No demonstrable abscesses seen on CT Eyes: Present: PERRLA ENT: Absent: hard of hearing - Neck Neck: Present: lymphadenopathy - Cardiovascular Rhythm: regular - Musculoskeletal Musculoskeletal: Present: generalized weakness - Psychiatric Psychiatric: Present: A&O x's 3, appropriate affect, intact judgment & insight - Labs CBC & Chem 7: 11/05/19 08:37 11/05/19 08:37 Labs: Abnormal Lab Results - Last 24 Hours (Table) 11/04/19 11/04/19 11/05/19 Range/Units 16:29 20:21 07:26 WBC (3.8-10.6) k/uL RBC (3.80-5.40) m/uL Hgb (11.4-16.0) gm/dL Hct (34.0-46.0) % MCH (25.0-35.0) pg MCHC (31.0-37.0) g/dL RDW (11.5-15.5) % Sodium (137-145) mmol/L BUN (7-17) mg/dL Creatinine (0.52-1.04) mg/dL Glucose (74-99) mg/dL POC Glucose (mg/dL) 113 H 113 H 118 H (75-99) mg/dL Calcium (8.4-10.2) mg/dL 11/05/19 11/05/19 11/05/19 Range/Units 08:37 08:37 11:50 WBC 20.3 H (3.8-10.6) k/uL RBC 3.51 L (3.80-5.40) m/uL Hgb 8.5 L (11.4-16.0) gm/dL Hct 28.4 L (34.0-46.0) % MCH 24.1 L (25.0-35.0) pg MCHC 29.8 L (31.0-37.0) g/dL RDW 17.3 H (11.5-15.5) % Sodium 133 L (137-145) mmol/L BUN 18 H (7-17) mg/dL Creatinine 0.42 L (0.52-1.04) mg/dL Glucose 107 H (74-99) mg/dL POC Glucose (mg/dL) 115 H (75-99) mg/dL Calcium 8.3 L (8.4-10.2) mg/dL Microbiology - Last 24 Hours (Table) 11/04/19 14:57 Gram Stain - Preliminary Neck Wound Culture - Preliminary Assessment and Plan (1) Neck mass Current Visit: Yes Status: Acute Code(s): R22.1 - LOCALIZED SWELLING, MASS AND LUMP, NECK SNOMED Code(s): 698035291 Plan: this patient has a terminal malignancy of the right neck and is quite debilitated. I'm recommending comfort care. I spent of a feeding tube i.e. PEG tube is recommended. Hospice care is our next appropriate option for this patient. This was discussed with the patient. The patient is quite debilitated. I will defer to medicine to make the arrangements for the feeding tube and for comfort care. Thank you. I will no longer be following this patient. Please contact me if you wish to have me see this patient on follow- up. I see no demonstrable abscess to drain. Thank you Time with Patient: Greater than 30
--- NOTE | 2019-11-05 16:23 | PN ---
PROGRESS NOTE DATE OF SERVICE: 11/05/2019 REASON FOR FOLLOWUP: Right-sided neck tumor wound and possible infection. INTERVAL HISTORY: The patient is currently afebrile. The patient is more awake, alert, still complains of pain to the right neck. No worsening, still has some foul smelling. No chest pain, shortness of breath, no cough. No abdominal pain, no diarrhea. PHYSICAL EXAMINATION: Blood pressure 130/67, pulse 104, temperature 98.2, she is 100% on room air. General description is a middle-aged female, lying in bed in no distress. HEENT: Examination right side neck wound is currently dressed, no drainage on the dressing. Some foul smelling. LUNGS: Unlabored breathing, clear to auscultation anteriorly. HEART: S1, S2. Regular rate and rhythm. ABDOMEN: Soft, no tenderness. LABS: Hemoglobin 8.5, white count 20.2, BUN of 18, creatinine 0.42. Wound cultures currently pending. CT of the soft tissue of neck did show large necrotic fungating mass, increased in size likely necrosis and small intramural abscess. DIAGNOSTIC IMPRESSION AND PLAN: Patient with right-sided neck with a fungating tumor and possible necrosis. Patient is covered with Unasyn. Await ENT evaluation for possible drainage versus hospice oriented care may be appropriate for her and continue supportive care. MMODL / IJN: [id number] /
[2019-11-05 17:14] LABS: Glucose,Whole Blood 144 mg/dL (75-99)
--- NOTE | 2019-11-05 18:33 | P.CONS ---
History of Present Illness - Reason for Consult Consult date: 11/05/19 squamous cell carcinoma Requesting physician: Iván Francois - Chief Complaint odynophagia, facial pain - History of Present Illness The patient is a 74-year-old white female well known to our service. She is followed by Dr. Jack in the outpatient setting. 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 She is status post 3 cycles of carbo/Taxol, last dosed 11/01. Her Oncology history is as follows: Patient was referred by her primary care Dr. Lieberman 06/16 for evaluation of right cervical lymphadenopathy, 1 year, stable. Ultrasound revealed right cervical lesion 3.6 x 1.6 x 3.1 cm. 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 Patient declined further staging, treatment, did not want follow-up. Her symptoms progressed, she was referred back April 2018, right cervical mass was FDG avid, no other disease on staging PET scan. She completed radiation therapy with some improvement in the right cervical lesion. By the fall of 2018 she was having more pain, increase size of the cervical mass. Repeat biopsy was negative. She was recommended for some further radiation. Patient was seen in April 2019 at [facility]. Biopsy showed squamous cell carcinoma. Patient was started on Erbitux. She did well until PET scan 09/03/19, PET scan showed progression. She was started 09/20/21 carboplatin plus Taxol. She was admitted to the hospital and believe after the first cycle due to increased pain and tumor basically dissolving and falling off. She also required antibiotic therapy for suspected necrosis/infection. Patient is admitted for very similar symptoms, she is also having some neuropathic pain, difficulty swallowing, unable to eat. Denies fever, vomiting, difficulty in breathing, no other complaints. Review of Systems 14 point ROS is negative except as stated in HPI Past Medical History Past Medical History: Cancer, Chest Pain / Angina, COPD, Diabetes Mellitus, GERD/Reflux, Hyperlipidemia, Hypertension, Osteoarthritis (OA), Vascular Disorder Additional Past Medical History / Comment(s): Pt recently admitted to [facility] on 09/26/19 with infected/necrotic R face mass and lesion L ear, moderate protein calorie malnutrition. Other hx: Squamous cell cancer R neck/face/ear with past radiation and chemo last given 11/02/19, anemia, NIDDM type II, past gastric ulcer, PVD-poor circulation bilateral legs, varicosities, R leg nerve pain, occasional tinnitis, constipation, small R inguinal hernia. History of Any Multi-Drug Resistant Organisms: None Reported Past Surgical History: Hysterectomy, Tonsillectomy, Tubal Ligation Additional Past Surgical History / Comment(s): PTBA/STENT TO LT LEG, EGD, colonoscopy/benign polypectomy, cystocele/rectocele repairs. Past Anesthesia/Blood Transfusion Reactions: No Reported Reaction Additional Past Anesthesia/Blood Transfusion Reaction / Comm: CLAUSTROPHOBIA Smoking Status: Current every day smoker - Past Family History Son(s) Family Medical History: Cancer Additional Family Medical History / Comment(s): LYMPHOMA Mother Family Medical History: Diabetes Mellitus Father Additional Family Medical History / Comment(s): HAD AAA Sister(s) Family Medical History: Cancer Medications and Allergies Home Medications Medication Instructions Recorded Confirmed Type Gabapentin [Neurontin] 200 mg PO DAILY 06/21/15 11/04/19 History Metoprolol Tartrate 12.5 mg PO BID 08/12/15 11/04/19 History metFORMIN HCL [Glucophage] 500 mg PO DAILY 10/11/15 11/04/19 History Famotidine 20 mg PO BID 12/27/16 11/04/19 History Albuterol Nebulized [Ventolin 2.5 mg INHALATION RT-TID PRN 01/27/19 11/04/19 History Nebulized] Atorvastatin [Lipitor] 40 mg PO HS 01/27/19 11/04/19 History Ibuprofen [Motrin] 600 mg PO QID PRN 09/26/19 11/04/19 History Ondansetron HCl [Zofran] 4 mg PO Q8H PRN 09/26/19 11/04/19 History HYDROcodone/APAP 7.5-325MG [[place] 1 tab PO Q4H PRN 3 Days #18 tab 09/30/19 11/04/19 Rx 7.5-325] Morphine Sulfate 15 mg PO BID PRN 11/02/19 11/04/19 History Ferrous Sulfate [Feosol] 325 mg PO DAILY 11/04/19 11/04/19 History Megestrol Acetate 800 mg PO DAILY 11/04/19 11/04/19 History Polyethylene Glycol 3350 [Miralax] 17 gm PO DAILY 11/04/19 11/04/19 History Allergies Allergy/AdvReac Type Severity Reaction Status Date / Time azithromycin Allergy Dyspnea/anx Verified 11/04/19 13:07 iety Physical Exam Vitals: Vital Signs Temp Pulse Pulse Resp BP BP Pulse Ox 11/05/19 08:00 117 H 24 11/05/19 07:14 98.0 F 117 H 24 125/78 100 11/05/19 04:20 16 11/05/19 00:46 16 11/05/19 00:31 97.7 F 117 H 16 97/62 100 11/04/19 19:17 14 11/04/19 19:07 98.7 F 113 H 14 107/66 100 11/04/19 15:54 98.1 F 112 H 20 112/63 99 11/04/19 14:57 99.2 F 11/04/19 14:13 116 H 18 103/71 99 Intake and Output 11/04/19 11/05/19 11/05/19 22:59 06:59 14:59 Other: Voiding Method Toilet Toilet Bedside Commode Bedside Commode # Voids 1 1 Weight 45.813 kg - Constitutional General appearance: cooperative, mild distress, thin - EENT Rt facial/mandible/neck involved with necrotic mass, tumors surround a large hole in the neck and mandible area, purulent drainage and foul odor. Left ear has a skin lesion in the cartilage-this is stable Eyes: anicteric sclerae, EOMI ENT: hard of hearing - Neck Neck: lymphadenopathy (right neck ) - Respiratory Respiratory: bilateral: diminished (weak inspiratory effort) - Cardiovascular Rhythm: regular Heart sounds: normal: S1, S2 Abnormal Heart Sounds: no systolic murmur, no diastolic murmur, no rub, no S3 Gallop, no S4 Gallop, no click, no other leg Peripheral Edema: bilateral: None - Gastrointestinal General gastrointestinal: no absent bowel sounds, no decreased bowel sounds, no distended, no hepatomegaly, no hyperactive bowel sounds, normal bowel sounds, no organomegaly, no rigid, no scaphoid, soft, no splenomegaly, no tenderness, no umbilical hernia, no ventral hernia - Integumentary CT head and neck, skin otherwise normal - Neurologic facial nerves on the right are not intact, invaded by tumor - Musculoskeletal Musculoskeletal: generalized weakness - Psychiatric Psychiatric: A&O x's 3, appropriate affect, intact judgment & insight Results CBC & Chem 7: 11/05/19 08:37 11/05/19 08:37 Labs: Abnormal Lab Results - Last 24 Hours (Table) 11/04/19 11/04/19 11/04/19 Range/Units 11:28 11:28 16:29 WBC 26.9 H (3.8-10.6) k/uL RBC (3.80-5.40) m/uL Hgb 9.9 L (11.4-16.0) gm/dL Hct 32.8 L (34.0-46.0) % MCV 79.6 L (80.0-100.0) fL MCH 24.0 L (25.0-35.0) pg MCHC 30.2 L (31.0-37.0) g/dL RDW 17.2 H (11.5-15.5) % Plt Count 540 H (150-450) k/uL Neutrophils # 25.7 H (1.3-7.7) k/uL Lymphocytes # 0.5 L (1.0-4.8) k/uL D-Dimer 1.05 H (<0.60) mg/L FEU Sodium (137-145) mmol/L BUN (7-17) mg/dL Creatinine (0.52-1.04) mg/dL Glucose (74-99) mg/dL POC Glucose (mg/dL) 113 H (75-99) mg/dL Calcium (8.4-10.2) mg/dL 11/04/19 11/05/19 11/05/19 Range/Units 20:21 07:26 08:37 WBC 20.3 H (3.8-10.6) k/uL RBC 3.51 L (3.80-5.40) m/uL Hgb 8.5 L (11.4-16.0) gm/dL Hct 28.4 L (34.0-46.0) % MCV (80.0-100.0) fL MCH 24.1 L (25.0-35.0) pg MCHC 29.8 L (31.0-37.0) g/dL RDW 17.3 H (11.5-15.5) % Plt Count (150-450) k/uL Neutrophils # (1.3-7.7) k/uL Lymphocytes # (1.0-4.8) k/uL D-Dimer (<0.60) mg/L FEU Sodium (137-145) mmol/L BUN (7-17) mg/dL Creatinine (0.52-1.04) mg/dL Glucose (74-99) mg/dL POC Glucose (mg/dL) 113 H 118 H (75-99) mg/dL Calcium (8.4-10.2) mg/dL 11/05/19 11/05/19 Range/Units 08:37 11:50 WBC (3.8-10.6) k/uL RBC (3.80-5.40) m/uL Hgb (11.4-16.0) gm/dL Hct (34.0-46.0) % MCV (80.0-100.0) fL MCH (25.0-35.0) pg MCHC (31.0-37.0) g/dL RDW (11.5-15.5) % Plt Count (150-450) k/uL Neutrophils # (1.3-7.7) k/uL Lymphocytes # (1.0-4.8) k/uL D-Dimer (<0.60) mg/L FEU Sodium 133 L (137-145) mmol/L BUN 18 H (7-17) mg/dL Creatinine 0.42 L (0.52-1.04) mg/dL Glucose 107 H (74-99) mg/dL POC Glucose (mg/dL) 115 H (75-99) mg/dL Calcium 8.3 L (8.4-10.2) mg/dL Microbiology - Last 24 Hours (Table) 11/04/19 14:57 Gram Stain - Preliminary Neck Wound Culture - Preliminary CT scan - chest: report reviewed Assessment and Plan (1) Squamous cell carcinoma Current Visit: Yes Status: Acute Priority: High Code(s): WIG5699 - SNOMED Code(s): 019053353 (2) Neoplasm related pain Current Visit: Yes Status: Chronic Priority: High Code(s): G89.3 - NEOPLASM RELATED PAIN (ACUTE) (CHRONIC) SNOMED Code(s): 72489157824145 Plan: Dr. Chino discussed with the pt that s/p 3 cycles she is due for treatment f/u imaging. Based on the findings he will be able to tell her if the treatment is providing any benefit or not. Comfort was discussed as the recommendation if she is not deriving any benefit from treatment. PEG tube recommended if pt is going to continue treatment to maintain nutritional status. PEG tube recommended if pursuit of comfort for medication administration. Doctor attests: I performed a history and physical examination of this patient, developed impression and plan of care. Discussed with dictator. I agree with dictators note, documented as a scribe.
--- NOTE | 2019-11-05 19:51 | P.HPIM ---
History of Present Illness H&P Date: 11/05/19 Chief Complaint: Large fungating mass right neck History of presenting complaint: Patient is a 74-year-old female of Dr. Silviano Lieberman. 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 She follows with Dr. Mei. Outpatient treatment has failed. The fungating masses progress to get worse. With drainage. Painful. Patient is continuing to smoke. Congested in the chest, short of breath. Some trouble swallowing. Failing health. Losing weight. Review of systems: GEN.: Weight loss tired decreased appetite EYES: None HEENT: As above] NECK: As above RESPIRATORY: Congested sort of bad cough CARDIOVASCULAR: None GASTROINTESTINAL: None GENITOURINARY: None MUSCULOSKELETAL: Joint pains LYMPHATICS: None HEMATOLOGICAL: None PSYCHIATRY: Anxious NEUROLOGICAL: None Past medical history to include: Squamous cell carcinoma of the face and neck on the right side having failed outpatient treatment, protein calorie malnutrition, COPD, diabetes, hypertension Social history: Does use a walker. Long-standing smoker. Over 50 years. Physical examination: VITAL SIGNS: 97, 113, 18, 118/77, 100% on 2 L GENERAL: BMI 18.5, a massively laying in bed tired. EYES: Pupils equal. Conjunctiva normal. HEENT: [External appearance of nose and ears normal, oral cavity unable to assess NECK: JVD unable to assess; large right neck mass fungating with lower edges. HEART: First and second heart sounds are normal; no edema. LUNGS: Respiratory rate increased, decreased breath sound congested wheezing. ABDOMEN: Soft, nontender, liver spleen not palpable, no masses palpable. PSYCH: [Alert and oriented x3; mood and affect low l. NEUROLOGICAL: Cranial nerves grossly intact; some facial asymmetry, power and sensation grossly intact. Hoarse voice MUSCULAR skeletal: Wasting of muscles LYMPHATICS: No lymph nodes palpable in the axilla and neck INVESTIGATIONS, reviewed in the clinical context: White count 20.3 hemoglobin 8.5 potassium 4.1 creatinine 0.4 to Computed tomography scan of the neck large necrotic fungating neck mass some increase in size increase interval foci of gas within the mass, no obvious fluid collection, right jugular vein appears occluded. Right internal carotid artery narrowing the level of C1. Also mass effect narrowing the right airway from the oral cavity. 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 Causing hoarse otherwise. It looks like patient not able to clear his secretions. -Possible secondary infection of the affected tumor site as above -Chronic nicotine dependence patient's cigarette smoker -Moderate protein calorie malnutrition from decreased oral intake. With a BMI of 18 -Acute COPD exacerbation in a current smoker -Diabetes mellitus type 2 on oral hypoglycemic -Essential hypertension Plan: Patient doing very poorly. Not a surgical candidate. Do not believe any treatment will help the patient. Palliative and hospice care for the past comfortable the patient. A PEG tube and most likely prolonged the misery of the patient. Will discuss with oncology and then get back the patient. Meantime continue current medication treatment plan. Patient IV Unasyn. IV Solu-Medrol. Bronchodilators. Prognosis poor. Past Medical History Past Medical History: Cancer, Chest Pain / Angina, COPD, Diabetes Mellitus, GERD /Reflux, Hyperlipidemia, Hypertension, Osteoarthritis (OA), Vascular Disorder Additional Past Medical History / Comment(s): Pt recently admitted to [facility] on 09/26/19 with infected/necrotic R face mass and lesion L ear, moderate protein calorie malnutrition. Other hx: Squamous cell cancer R neck/face/ear with past radiation and chemo last given 11/02/19, anemia, NIDDM type II, past gastric ulcer, PVD-poor circulation bilateral legs, varicosities, R leg nerve pain, occasional tinnitis, constipation, small R inguinal hernia. History of Any Multi-Drug Resistant Organisms: None Reported Past Surgical History: Hysterectomy, Tonsillectomy, Tubal Ligation Additional Past Surgical History / Comment(s): PTBA/STENT TO LT LEG, EGD, colonoscopy/benign polypectomy, cystocele/rectocele repairs. Past Anesthesia/Blood Transfusion Reactions: No Reported Reaction Additional Past Anesthesia/Blood Transfusion Reaction / Comment(s): CLAUSTROPHOBIA Smoking Status: Current every day smoker - Past Family History Son(s) Family Medical History: Cancer Additional Family Medical History / Comment(s): LYMPHOMA Mother Family Medical History: Diabetes Mellitus Father Additional Family Medical History / Comment(s): HAD AAA Sister(s) Family Medical History: Cancer Medications and Allergies Home Medications Medication Instructions Recorded Confirmed Type Gabapentin [Neurontin] 200 mg PO DAILY 06/21/15 11/04/19 History Metoprolol Tartrate 12.5 mg PO BID 08/12/15 11/04/19 History metFORMIN HCL [Glucophage] 500 mg PO DAILY 10/11/15 11/04/19 History Famotidine 20 mg PO BID 12/27/16 11/04/19 History Albuterol Nebulized [Ventolin 2.5 mg INHALATION RT-TID PRN 01/27/19 11/04/19 History Nebulized] Atorvastatin [Lipitor] 40 mg PO HS 01/27/19 11/04/19 History Ibuprofen [Motrin] 600 mg PO QID PRN 09/26/19 11/04/19 History Ondansetron HCl [Zofran] 4 mg PO Q8H PRN 09/26/19 11/04/19 History HYDROcodone/APAP 7.5-325MG [[place] 1 tab PO Q4H PRN 3 Days #18 tab 09/30/19 11/04/19 Rx 7.5-325] Morphine Sulfate 15 mg PO BID PRN 11/02/19 11/04/19 History Ferrous Sulfate [Feosol] 325 mg PO DAILY 11/04/19 11/04/19 History Megestrol Acetate 800 mg PO DAILY 11/04/19 11/04/19 History Polyethylene Glycol 3350 [Miralax] 17 gm PO DAILY 11/04/19 11/04/19 History Allergies Allergy/AdvReac Type Severity Reaction Status Date / Time azithromycin Allergy Dyspnea/anx Verified 11/04/19 13:07 iety Physical Exam Vitals: Vital Signs Temp Pulse Pulse Resp BP BP Pulse Ox 11/05/19 08:00 117 H 24 11/05/19 07:14 98.0 F 117 H 24 125/78 100 11/05/19 04:20 16 11/05/19 00:46 16 11/05/19 00:31 97.7 F 117 H 16 97/62 100 11/04/19 19:17 14 11/04/19 19:07 98.7 F 113 H 14 107/66 100 11/04/19 15:54 98.1 F 112 H 20 112/63 99 08/05/20 14:57 99.2 F 08/05/20 14:13 116 H 18 103/71 99 11/04/19 11:58 110 H 11/04/19 11:51 111 H 11/04/19 11:34 20 11/04/19 11:18 97.7 F 20 100 11/04/19 11:03 97.0 F L 113 H 18 118/77 100 Intake and Output 11/04/19 11/05/19 11/05/19 22:59 06:59 14:59 Other: Voiding Method Toilet Toilet Bedside Commode Bedside Commode # Voids 1 1 Weight 45.813 kg Results CBC & Chem 7: 11/05/19 08:37 11/05/19 08:37 Labs: Abnormal Lab Results - Last 24 Hours (Table) 11/04/19 11/04/19 11/04/19 Range/Units 11:28 11:28 11:28 WBC 26.9 H (3.8-10.6) k/uL RBC (3.80-5.40) m/uL Hgb 9.9 L (11.4-16.0) gm/dL Hct 32.8 L (34.0-46.0) % MCV 79.6 L (80.0-100.0) fL MCH 24.0 L (25.0-35.0) pg MCHC 30.2 L (31.0-37.0) g/dL RDW 17.2 H (11.5-15.5) % Plt Count 540 H (150-450) k/uL Neutrophils # 25.7 H (1.3-7.7) k/uL Lymphocytes # 0.5 L (1.0-4.8) k/uL D-Dimer 1.05 H (<0.60) mg/L FEU Sodium 131 L (137-145) mmol/L Potassium 5.2 H (3.5-5.1) mmol/L Chloride 97 L (98-107) mmol/L BUN 25 H (7-17) mg/dL Creatinine 0.46 L (0.52-1.04) mg/dL Glucose 141 H (74-99) mg/dL POC Glucose (mg/dL) (75-99) mg/dL Calcium (8.4-10.2) mg/dL 11/04/19 11/04/19 11/05/19 Range/Units 16:29 20:21 07:26 WBC (3.8-10.6) k/uL RBC (3.80-5.40) m/uL Hgb (11.4-16.0) gm/dL Hct (34.0-46.0) % MCV (80.0-100.0) fL MCH (25.0-35.0) pg MCHC (31.0-37.0) g/dL RDW (11.5-15.5) % Plt Count (150-450) k/uL Neutrophils # (1.3-7.7) k/uL Lymphocytes # (1.0-4.8) k/uL D-Dimer (<0.60) mg/L FEU Sodium (137-145) mmol/L Potassium (3.5-5.1) mmol/L Chloride (98-107) mmol/L BUN (7-17) mg/dL Creatinine (0.52-1.04) mg/dL Glucose (74-99) mg/dL POC Glucose (mg/dL) 113 H 113 H 118 H (75-99) mg/dL Calcium (8.4-10.2) mg/dL 11/05/19 11/05/19 Range/Units 08:37 08:37 WBC 20.3 H (3.8-10.6) k/uL RBC 3.51 L (3.80-5.40) m/uL Hgb 8.5 L (11.4-16.0) gm/dL Hct 28.4 L (34.0-46.0) % MCV (80.0-100.0) fL MCH 24.1 L (25.0-35.0) pg MCHC 29.8 L (31.0-37.0) g/dL RDW 17.3 H (11.5-15.5) % Plt Count (150-450) k/uL Neutrophils # (1.3-7.7) k/uL Lymphocytes # (1.0-4.8) k/uL D-Dimer (<0.60) mg/L FEU Sodium 133 L (137-145) mmol/L Potassium (3.5-5.1) mmol/L Chloride (98-107) mmol/L BUN 18 H (7-17) mg/dL Creatinine 0.42 L (0.52-1.04) mg/dL Glucose 107 H (74-99) mg/dL POC Glucose (mg/dL) (75-99) mg/dL Calcium 8.3 L (8.4-10.2) mg/dL Microbiology - Last 24 Hours (Table) 11/04/19 14:57 Gram Stain - Preliminary Neck Wound Culture - Preliminary Thrombosis Risk Factor Assmnt - Choose All That Apply Any of the Below Risk Factors Present?: Yes Each Factor Represents 1 point: Abnormal pulmonary function (COPD) Other Risk Factors: Yes Each Risk Factor Represents 2 Points: Age 61-74 years, Malignancy Other congenital or acquired thrombophilia - If yes, enter type in comment: No Thrombosis Risk Factor Assessment Total Risk Factor Score: 5 Thrombosis Risk Factor Assessment Level: High Risk
[2019-11-05 19:55] LABS: Glucose,Whole Blood 232 mg/dL (75-99)
[2019-11-05] MEDS: ATORVASTATIN 40 MG TAB PO SCH (20:54)
[2019-11-06] MEDS: HYDROcodone/APAP 7.5-325MG 1 EACH TAB PO PRN ×5 (00:02→19:36)
[2019-11-06] MEDS: LACTATED RINGERS 1,000 ML IV SCH ×4 (00:02→23:36)
[2019-11-06] MEDS: MORPHINE SULFATE 2 MG/ML SYRINGE IVP PRN ×4 (05:59→23:34)
[2019-11-06] MEDS: AMPICILLIN-SULBACTAM 3 GM in SODIUM CHLORIDE 0.9% 100 ML IVPB SCH ×4 (05:59→23:33)
[2019-11-06 06:52] LABS: Glucose,Whole Blood 183 mg/dL (75-99)
[2019-11-06] MEDS: methylPREDNISolone SOD SUCCI 40 MG/ML 1 ML VIAL IV SCH ×3 (07:20→23:33)
[2019-11-06] MEDS: INSULIN ASPART (NovoLOG) 100 UNIT/ML VIAL SQ SCH ×4 (07:20→21:02)
[2019-11-06] MEDS: IPRATROPIUM-ALBUTEROL 3 ML NEB INHALATION SCH ×4 (07:48→20:49)
[2019-11-06] MEDS: polyethylene glycoL 3350 17 GM POWD.PACK PO SCH (08:16)
[2019-11-06] MEDS: GABAPENTIN 100 MG CAP PO SCH (08:16)
[2019-11-06] MEDS: guaiFENesin 600 MG TABLET.ER PO SCH ×2 (08:16→21:02)
[2019-11-06] MEDS: metFORMIN 500 MG TAB PO SCH (08:16)
[2019-11-06] MEDS: MEGESTROL 400 MG/10 ML CUP PO SCH (08:16)
[2019-11-06] MEDS: FERROUS SULFATE 325 MG TAB PO SCH (08:16)
[2019-11-06] MEDS: METOPROLOL TARTRATE 12.5 MG TAB PO SCH ×2 (08:16→21:02)
[2019-11-06] MEDS: FAMOTIDINE 20 MG TAB PO SCH ×2 (08:16→21:03)
[2019-11-06 11:38] LABS: Glucose,Whole Blood 192 mg/dL (75-99)
--- NOTE | 2019-11-06 13:05 | PN ---
PROGRESS NOTE DATE OF SERVICE: 11/06/2019 REASON FOR FOLLOWUP: Right neck fungating mass wound and possible cellulitis. INTERVAL HISTORY: The patient is currently afebrile. The patient is feeling better today. The patient's pain to the right side neck wound is currently decreased. No chest pain, no shortness of breath, some cough. No abdominal pain, no diarrhea. The patient has been asking if he can go out and smoke a cigarette. PHYSICAL EXAMINATION: Blood pressure 127/66, pulse of 107, temperature 98.1, she is 99% on 3 L nasal cannula. General description is an elderly female. up in the bed in no distress. HEENT: Examination right wound is currently dressed with some foul smelling. LUNGS: Unlabored breathing, decreased breath sounds. HEART: S1, S2. Regular rate and rhythm. ABDOMEN: Soft, no tenderness. LABS: No new labs have been obtained today. Wound culture showing Gram-negative bacilli. DIAGNOSTIC IMPRESSION AND PLAN: Patient with right neck wound in this patient who did have a squamous cell carcinoma with significant extension to the deeper structures. CT did not show any drainable abscess. Recommending comfort care, which will be appropriate or hospice. Wound culture showing a gram-negative currently covered with Unasyn, make a short course of oral antibiotic on discharge. Continue supportive care. MMODL / IJN: [id number] /
[2019-11-06 16:51] LABS: Glucose,Whole Blood 184 mg/dL (75-99)
[2019-11-06 20:20] LABS: Glucose,Whole Blood 207 mg/dL (75-99)
[2019-11-06] MEDS: ATORVASTATIN 40 MG TAB PO SCH (21:03)
--- NOTE | 2019-11-06 22:51 | P.PN ---
Progress Note - Text Progress Note Date: 11/06/19 Chief Complaint: Large fungating mass right neck History of presenting complaint: Patient is a 74-year-old female of Dr. Silviano Lieberman. 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 She follows with Dr. Mei. Outpatient treatment has failed. The fungating masses progress to get worse. With drainage. Painful. Patient is continuing to smoke. Congested in the chest, short of breath. Some trouble swallowing. Failing health. Losing weight. the right neck mass also affecting the right vocal cord, occluded the right internal jugular vein. Possible secondary infection. Also acute COPD exacerbation. Patient put on nebulized bronchodilators steroids. Today sitting up. Tired. A bit less congested.eating better. Review of systems: Was done for constitutional, cardiovascular, GI, pulmonary. relevant finding as above Active Medications Hydrocodone Bitart/Acetaminophen ([place] 7.5-325) 1 each PO Q4H PRN PRN Reason: Pain Last Admin: 11/06/19 19:36 Dose: 1 each Documented by: Albuterol Sulfate (Ventolin Nebulized) 2.5 mg INHALATION RT-TID PRN PRN Reason: Shortness Of Breath Albuterol/Ipratropium (Duoneb 0.5 Mg-3 Mg/3 Ml Soln) 3 ml INHALATION RT-QID [facility] Last Admin: 11/06/19 20:49 Dose: 3 ml Documented by: Atorvastatin Calcium (Lipitor) 40 mg PO HS [facility] Last Admin: 11/06/19 21:03 Dose: 40 mg Documented by: Famotidine (Pepcid) 20 mg PO BID [facility] Last Admin: 11/06/19 21:03 Dose: 20 mg Documented by: Ferrous Sulfate (Feosol) 325 mg PO DAILY [facility] Last Admin: 11/06/19 08:16 Dose: 325 mg Documented by: Gabapentin (Neurontin) 200 mg PO DAILY [facility] Last Admin: 11/06/19 08:16 Dose: 200 mg Documented by: Guaifenesin (Mucinex) 1,200 mg PO Q12HR [facility] Last Admin: 11/06/19 21:02 Dose: 1,200 mg Documented by: Lactated Ringer's (Lactated Ringers) 1,000 mls @ 125 mls/hr IV .Q8H [facility] Last Admin: 11/06/19 17:16 Dose: 125 mls/hr Documented by: Ampicillin Sodium/Sulbactam (Sodium 3 gm/ Sodium Chloride) 100 mls @ 200 mls/hr IVPB Q6HR [facility] Last Admin: 11/06/19 17:11 Dose: 200 mls/hr Documented by: Ibuprofen (Motrin) 600 mg PO QID PRN PRN Reason: Pain Insulin Aspart (Novolog) 0 unit SQ ACHS [facility]; Protocol Last Admin: 11/06/19 21:02 Dose: 3 unit Documented by: Megestrol Acetate (Megace) 800 mg PO DAILY [facility] Last Admin: 11/06/19 08:16 Dose: 800 mg Documented by: Metformin HCl (Glucophage) 500 mg PO DAILY [facility] Last Admin: 11/06/19 08:16 Dose: 500 mg Documented by: Methylprednisolone Sodium Succinate (Solu-Medrol) 40 mg IV Q8HR [facility] Last Admin: 11/06/19 17:11 Dose: 40 mg Documented by: Metoprolol Tartrate (Lopressor) 12.5 mg PO BID [facility] Last Admin: 11/06/19 21:02 Dose: 12.5 mg Documented by: Morphine Sulfate (Morphine Sulfate (Inj)) 2 mg IVP Q6H PRN PRN Reason: Pain/Discomfort Last Admin: 11/06/19 17:12 Dose: 2 mg Documented by: Morphine Sulfate (Msir) 15 mg PO BID PRN PRN Reason: Pain Ondansetron HCl (Zofran) 4 mg PO Q8H PRN PRN Reason: Nausea And Vomiting Polyethylene Glycol (Miralax) 17 gm PO DAILY [facility] Last Admin: 11/06/19 08:16 Dose: 17 gm Documented by: Physical examination: VITAL SIGNS: 98.1, 106, 18, 127/66, 99% on 3 L GENERAL: sitting at the age the bed, tired EYES: Pupils equal. Conjunctiva pale HEENT: [External appearance of nose and ears normal, oral cavity unable to assess NECK: JVD unable to assess; large right neck mass fungating with lower edges. HEART: First and second heart sounds are normal; no edema. LUNGS: Respiratory rate increased, decreased breath sound congested wheezing. ABDOMEN: Soft, nontender, liver spleen not palpable, no masses palpable. PSYCH: [Alert and oriented x3; mood and affect low . NEUROLOGICAL: Cranial nerves grossly intact; some facial asymmetry, power and sensation grossly intact. Hoarse voice MUSCULAR skeletal: Wasting of muscles INVESTIGATIONS, reviewed in the clinical context: White count 20.3 hemoglobin 8.5 potassium 4.1 creatinine 0.4 to Computed tomography scan of the neck large necrotic fungating neck mass some increase in size increase interval foci of gas within the mass, no obvious fluid collection, right jugular vein appears occluded. Right internal carotid artery narrowing the level of C1. Also mass effect narrowing the right airway from the oral cavity. 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 Causing hoarse otherwise. It looks like patient not able to clear his secretions. -Possible secondary infection of the affected tumor site as above -Chronic nicotine dependence patient's cigarette smoker -Moderate protein calorie malnutrition from decreased oral intake. With a BMI of 18 -Acute COPD exacerbation in a current smoker -Diabetes mellitus type 2 on oral hypoglycemic -Essential hypertension Plan: discussed with the patient. Consultation made to hospice for informational visit. Discussed with Dr. Chino from oncology. She thinks patient may benefit from one more round of chemotherapy. PEG tube feeding is being ordered. Other medications to continue. Total time spent about 45 minutes with over 25 minutes of discussion.
--- NOTE | 2019-11-06 23:52 | P.PN ---
Subjective Progress Note Date: 11/06/19 Principal diagnosis: Known Malignancy Head and Neck Review of CT neck: APpears to have increased necrosis (possible cell from treatment). There is mention of increased size, will await comparison discussion Patient feels it is improving. Objective - Vital Signs Vital signs: Vital Signs Temp 98.1 F 11/06/19 07:15 Pulse 100 11/06/19 11:41 Resp 18 11/06/19 07:15 BP 127/66 11/06/19 07:15 Pulse Ox 99 11/06/19 07:15 Intake & Output 11/05/19 11/06/19 11/06/19 18:59 06:59 18:59 Intake Total 540 Balance 540 Weight 45.813 kg Intake: Oral 540 Other: Voiding Method Toilet Toilet Bedside Commode Bedside Commode # Voids 1 1 # Bowel Movements 2 - Exam - Constitutional General appearance: cooperative, mild distress, thin - EENT Rt facial/mandible/neck involved with necrotic mass, tumors surround a large hole in the neck and mandible area, purulent drainage and foul odor. Left ear has a skin lesion in the cartilage-this is stable Eyes: anicteric sclerae, EOMI ENT: hard of hearing - Neck Neck: lymphadenopathy (right neck ) - Respiratory Respiratory: bilateral: diminished (weak inspiratory effort) - Cardiovascular Rhythm: regular Heart sounds: normal: S1, S2 Abnormal Heart Sounds: no systolic murmur, no diastolic murmur, no rub, no S3 Gallop, no S4 Gallop, no click, no other leg Peripheral Edema: bilateral: None - Gastrointestinal General gastrointestinal: no absent bowel sounds, no decreased bowel sounds, no distended, no hepatomegaly, no hyperactive bowel sounds, normal bowel sounds, no organomegaly, no rigid, no scaphoid, soft, no splenomegaly, no tenderness, no umbilical hernia, no ventral hernia - Integumentary CT head and neck, skin otherwise normal - Neurologic facial nerves on the right are not intact, invaded by tumor - Musculoskeletal Musculoskeletal: generalized weakness - Psychiatric Psychiatric: A&O x's 3, appropriate affect, intact judgment & insight - Labs CBC & Chem 7: 11/05/19 08:37 11/05/19 08:37 Labs: Abnormal Lab Results - Last 24 Hours (Table) 11/05/19 11/05/19 11/06/19 Range/Units 16:58 19:54 06:50 POC Glucose (mg/dL) 144 H 232 H 183 H (75-99) mg/dL 11/06/19 Range/Units 11:36 POC Glucose (mg/dL) 192 H (75-99) mg/dL Microbiology - Last 24 Hours (Table) 11/04/19 14:50 Blood Culture - Preliminary Blood No Growth after 24 hours 11/04/19 14:57 Gram Stain - Preliminary Neck Wound Culture - Preliminary Gram Neg Bacilli Assessment and Plan Plan: CT scan - chest: report reviewed Assessment and Plan Squamous cell carcinoma Current Visit: Yes Status: Acute Priority: High Code(s): ZTG4093 - SNOMED Code(s): 708420279 Neoplasm related pain Current Visit: Yes Status: Chronic Priority: High Code(s): G89.3 - NEOPLASM RELATED PAIN (ACUTE) (CHRONIC) SNOMED Code(s): 69884744497210 Plan: - Based on images it appears she is respondong to treatment with increased necrosis of tumor PEG tube recommended if pt is going to continue treatment to maintain nutritional status. PEG tube recommended if pursuit of comfort for medication administration. Physician Attest: I have completed the full history and physical and developed the complete assessment and plan. Agree with dictation by [employer], Dictated as a scribe
[2019-11-07] MEDS: MORPHINE SULFATE IR 15 MG TABLET PO PRN (05:36)
[2019-11-07] MEDS: AMPICILLIN-SULBACTAM 3 GM in SODIUM CHLORIDE 0.9% 100 ML IVPB SCH ×3 (05:37→17:12)
[2019-11-07 06:47] LABS: Glucose,Whole Blood 173 mg/dL (75-99)
[2019-11-07] MEDS: IPRATROPIUM-ALBUTEROL 3 ML NEB INHALATION SCH ×4 (08:42→20:37)
[2019-11-07] MEDS: metFORMIN 500 MG TAB PO SCH (09:16)
[2019-11-07] MEDS: FERROUS SULFATE 325 MG TAB PO SCH (09:16)
[2019-11-07] MEDS: guaiFENesin 600 MG TABLET.ER PO SCH ×2 (09:16→19:54)
[2019-11-07] MEDS: FAMOTIDINE 20 MG TAB PO SCH ×2 (09:16→19:54)
[2019-11-07] MEDS: methylPREDNISolone SOD SUCCI 40 MG/ML 1 ML VIAL IV SCH ×2 (09:16→17:12)
[2019-11-07] MEDS: INSULIN ASPART (NovoLOG) 100 UNIT/ML VIAL SQ SCH ×4 (09:16→21:13)
[2019-11-07] MEDS: GABAPENTIN 100 MG CAP PO SCH (09:16)
[2019-11-07] MEDS: METOPROLOL TARTRATE 12.5 MG TAB PO SCH ×2 (09:16→19:54)
[2019-11-07] MEDS: MORPHINE SULFATE 2 MG/ML SYRINGE IVP PRN (09:17)
[2019-11-07] MEDS: MEGESTROL 400 MG/10 ML CUP PO SCH (09:19)
[2019-11-07] MEDS: LACTATED RINGERS 1,000 ML IV SCH ×2 (09:19→17:13)
[2019-11-07] MEDS: polyethylene glycoL 3350 17 GM POWD.PACK PO SCH (09:19)
[2019-11-07 11:15] LABS: Glucose,Whole Blood 193 mg/dL (75-99)
[2019-11-07] MEDS: HYDROcodone/APAP 7.5-325MG 1 EACH TAB PO PRN ×2 (11:59→19:54)
[2019-11-07 16:28] LABS: Glucose,Whole Blood 215 mg/dL (75-99)
--- NOTE | 2019-11-07 20:09 | P.PN ---
Progress Note - Text Progress Note Date: 11/07/19 Chief Complaint: Large fungating mass right neck History of presenting complaint: Patient is a 74-year-old female of Dr. Silviano Lieberman. 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 She follows with Dr. Mei. Outpatient treatment has failed. The fungating masses progress to get worse. With drainage. Painful. Patient is continuing to smoke. Congested in the chest, short of breath. Some trouble swallowing. Failing health. Losing weight. the right neck mass also affecting the right vocal cord, occluded the right internal jugular vein. Possible secondary infection. Also acute COPD exacerbation. Patient put on nebulized bronchodilators steroids. Today-breathing a bit better. Did eat some diet. Sitting at the edge of the bed. Review of systems: Was done for constitutional, cardiovascular, GI, pulmonary. relevant finding as above Active Medications Hydrocodone Bitart/Acetaminophen ([place] 7.5-325) 1 each PO Q4H PRN PRN Reason: Pain Last Admin: 11/07/19 19:54 Dose: 1 each Documented by: Albuterol Sulfate (Ventolin Nebulized) 2.5 mg INHALATION RT-TID PRN PRN Reason: Shortness Of Breath Albuterol/Ipratropium (Duoneb 0.5 Mg-3 Mg/3 Ml Soln) 3 ml INHALATION RT-QID [facility] Last Admin: 11/07/19 16:12 Dose: 3 ml Documented by: Atorvastatin Calcium (Lipitor) [address] [facility] Last Admin: 11/06/19 21:03 Dose: 40 mg Documented by: Famotidine (Pepcid) [address] [facility] Last Admin: 11/07/19 19:54 Dose: 20 mg Documented by: Ferrous Sulfate (Feosol) [address] [facility] Last Admin: 11/07/19 09:16 Dose: 325 mg Documented by: Gabapentin (Neurontin) [address] [facility] Last Admin: 11/07/19 09:16 Dose: 200 mg Documented by: Guaifenesin (Mucinex) 1,[address] [facility] Last Admin: 11/07/19 19:54 Dose: 1,200 mg Documented by: Lactated Ringer's (Lactated Ringers) 1,000 mls @ 125 mls/hr IV .Q8H [facility] Last Admin: 11/07/19 17:13 Dose: 125 mls/hr Documented by: Ampicillin Sodium/Sulbactam (Sodium 3 gm/ Sodium Chloride) 100 mls @ 200 mls/hr IVPB Q6HR [facility] Last Admin: 11/07/19 17:12 Dose: 200 mls/hr Documented by: Ibuprofen (Motrin) 600 mg PO QID PRN PRN Reason: Pain Insulin Aspart (Novolog) [address] [facility]; Protocol Last Admin: 11/07/19 17:12 Dose: 3 unit Documented by: Megestrol Acetate (Megace) [address] [facility] Last Admin: 11/07/19 09:19 Dose: 800 mg Documented by: Metformin HCl (Glucophage) [address] [facility] Last Admin: 11/07/19 09:16 Dose: 500 mg Documented by: Methylprednisolone Sodium Succinate (Solu-Medrol) [address] [facility] Last Admin: 11/07/19 17:12 Dose: 40 mg Documented by: Metoprolol Tartrate (Lopressor) 12.[address] [facility] Last Admin: 11/07/19 19:54 Dose: 12.5 mg Documented by: Morphine Sulfate (Morphine Sulfate (Inj)) 2 mg IVP Q6H PRN PRN Reason: Pain/Discomfort Last Admin: 11/07/19 09:17 Dose: 2 mg Documented by: Morphine Sulfate (Msir) 15 mg PO BID PRN PRN Reason: Pain Last Admin: 11/07/19 05:36 Dose: 15 mg Documented by: Ondansetron HCl (Zofran) 4 mg PO Q8H PRN PRN Reason: Nausea And Vomiting Polyethylene Glycol (Miralax) [address] [facility] Last Admin: 11/07/19 09:19 Dose: 17 gm Documented by: Physical examination: VITAL SIGNS: 98.2, 95, 16, 106/51, 100% on 4 L GENERAL: sitting at the age the bed, eating EYES: Pupils equal. Conjunctiva pale HEENT: [External appearance of nose and ears normal, oral cavity unable to assess NECK: JVD unable to assess; large right neck mass fungating with lower edges. HEART: First and second heart sounds are normal; no edema. LUNGS: Respiratory rate increased, decreased breath sound congested wheezing. ABDOMEN: Soft, nontender, liver spleen not palpable, no masses palpable. PSYCH: [Alert and oriented x3; mood and affect low . NEUROLOGICAL: Cranial nerves grossly intact; some facial asymmetry, power and sensation grossly intact. Hoarse voice MUSCULAR skeletal: Wasting of muscles INVESTIGATIONS, reviewed in the clinical context: White count 20.3 hemoglobin 8.5 potassium 4.1 creatinine 0.4 to Computed tomography scan of the neck large necrotic fungating neck mass some increase in size increase interval foci of gas within the mass, no obvious fluid collection, right jugular vein appears occluded. Right internal carotid artery narrowing the level of C1. Also mass effect narrowing the right airway from the oral cavity. 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 Causing hoarse otherwise. It looks like patient not able to clear his secretions. -Possible secondary infection of the affected tumor site as above -Chronic nicotine dependence patient's cigarette smoker -Moderate protein calorie malnutrition from decreased oral intake. With a BMI of 18 -Acute COPD exacerbation in a current smoker -Diabetes mellitus type 2 on oral hypoglycemic -Essential hypertension -PEG tube being scheduled for Saturday with Dr. Hines discussed with him Plan: Discussed with Dr. Hines. PEG tube on Saturday. Meantime continue medications to continue. Discussed with patient. Continue bronchodilators antibiotic steroids.
[2019-11-07 20:16] LABS: Glucose,Whole Blood 121 mg/dL (75-99)
[2019-11-07] MEDS: ATORVASTATIN 40 MG TAB PO SCH (22:10)
--- NOTE | 2019-11-07 23:34 | PN ---
PROGRESS NOTE DATE OF SERVICE: 11/07/2019 REASON FOR FOLLOW UP: Right side neck wound and cellulitis. INTERVAL HISTORY: The patient is currently afebrile. The patient is feeling slightly better. Pain and discomfort to the right side of the neck has decreased. No chest pain or cough. No abdominal pain or diarrhea. PHYSICAL EXAMINATION: Blood pressure 115/64 with a pulse of 90, temperature 98.6. She is 94% on 2 L nasal cannula. General description is an elderly female up in the bed in no distress. HEENT examination: Right side of the neck deep wound with some slough tissue, foul smelling. LUNGS: Unlabored breathing. Clear to auscultation. Heart S1, S2. Regular rate and rhythm. Abdomen soft, no tenderness. LABS: No new labs have been obtained today. Cultures from the neck showing Pseudomonas. DIAGNOSTIC IMPRESSION AND PLAN: Patient with right neck wound from a fungating tumor with secondary infection. Culture now showing Pseudomonas. Antibiotic will be switched over to Zosyn with plan to finish therapy with oral antibiotic on discharge. Continue supportive care. MMODL / IJN: [id number] /
--- NOTE | 2019-11-08 00:24 | P.CONS ---
History of Present Illness - Reason for Consult Consult date: 11/07/19 Dysphagia Requesting physician: Hang Solis - Chief Complaint Pain, shortness of breath - History of Present Illness 74-year-old female with a medical history significant for COPD, tobacco abuse and squamous cell carcinoma affecting the right face and neck who presented to the hospital with complaints of pain related to her malignancy, and shortness of breath. Currently the patient is being managed on the medical service. The patient has had some difficulty swallowing secondary to esophageal dysphagia. She has had poor oral intake and reports weight loss. She denies any abdominal pain, nausea or vomiting. GI was consulted for PEG tube placement given her po or oral nutrition. Review of Systems REVIEW OF SYSTEMS: CONSTITUTIONAL: Denies any fevers, chills, weight change she does report some fatigue and weakness. CARDIOVASCULAR: Denies any chest pain, palpitations high or low blood pressures RESPIRATORY: Denies any shortness of breath, hemoptysis or cough time it did have shortness of breath on presentation. GENITOURINARY: No dysuria or hematuria. MUSCULOSKELETAL: No weakness reported. SKIN: Denies any new rashes or lesions, jaundice or pallor. PSYCHIATRIC: Denies any depression or anxiety. NEUROLOGY: Denies headache, denies any new focal deficits. EARS/NOSE/THROAT: No recent hearing change, congestion, nasal discharge or sore throat, the patient does have a fungating mass on her right face and neck secondary to squamous cell carcinoma. EYES: No pain in eyes, discharge or change in vision. GASTROINTESTINAL: As per HPI. Past Medical History Past Medical History: Cancer, Chest Pain / Angina, COPD, Diabetes Mellitus, GERD/Reflux, Hyperlipidemia, Hypertension, Osteoarthritis (OA), Vascular Disorder Additional Past Medical History / Comment(s): Pt recently admitted to [facility] on 09/26/19 with infected/necrotic R face mass and lesion L ear, moderate protein calorie malnutrition. Other hx: Squamous cell cancer R neck/face/ear with past radiation and chemo last given 11/02/19, anemia, NIDDM type II, past gastric ulcer, PVD-poor circulation bilateral legs, varicosities, R leg nerve pain, occasional tinnitis, constipation, small R inguinal hernia. History of Any Multi-Drug Resistant Organisms: None Reported Past Surgical History: Hysterectomy, Tonsillectomy, Tubal Ligation Additional Past Surgical History / Comment(s): PTBA/STENT TO LT LEG, EGD, colonoscopy/benign polypectomy, cystocele/rectocele repairs. Past Anesthesia/Blood Transfusion Reactions: No Reported Reaction Additional Past Anesthesia/Blood Transfusion Reaction / Comm: CLAUSTROPHOBIA Smoking Status: Current every day smoker - Past Family History Son(s) Family Medical History: Cancer Additional Family Medical History / Comment(s): LYMPHOMA Mother Family Medical History: Diabetes Mellitus Father Additional Family Medical History / Comment(s): HAD AAA Sister(s) Family Medical History: Cancer Medications and Allergies Home Medications Medication Instructions Recorded Confirmed Type Gabapentin [Neurontin] 200 mg PO DAILY 06/21/15 11/04/19 History Metoprolol Tartrate 12.5 mg PO BID 08/12/15 11/04/19 History metFORMIN HCL [Glucophage] 500 mg PO DAILY 10/11/15 11/04/19 History Famotidine 20 mg PO BID 12/27/16 11/04/19 History Albuterol Nebulized [Ventolin 2.5 mg INHALATION RT-TID PRN 01/27/19 11/04/19 History Nebulized] Atorvastatin [Lipitor] 40 mg PO HS 01/27/19 11/04/19 History Ibuprofen [Motrin] 600 mg PO QID PRN 09/26/19 11/04/19 History Ondansetron HCl [Zofran] 4 mg PO Q8H PRN 09/26/19 11/04/19 History HYDROcodone/APAP 7.5-325MG [[place] 1 tab PO Q4H PRN 3 Days #18 tab 09/30/19 11/04/19 Rx 7.5-325] Morphine Sulfate 15 mg PO BID PRN 11/02/19 11/04/19 History Ferrous Sulfate [Feosol] 325 mg PO DAILY 11/04/19 11/04/19 History Megestrol Acetate 800 mg PO DAILY 11/04/19 11/04/19 History Polyethylene Glycol 3350 [Miralax] 17 gm PO DAILY 11/04/19 11/04/19 History Ipratropium-Albuterol Nebulize 3 ml INHALATION RT-QID #120 ml 11/07/19 Rx [Duoneb 0.5 mg-3 mg/3 ml Soln] Levofloxacin [Levaquin] 750 mg PO DAILY 7 Days #7 tab 11/07/19 Rx guaiFENesin [Mucinex] 1,200 mg PO Q12HR #60 tablet.er 11/07/19 Rx predniSONE 10 mg PO DAILY #30 tab 11/07/19 Rx Allergies Allergy/AdvReac Type Severity Reaction Status Date / Time azithromycin Allergy Dyspnea/anx Verified 11/04/19 13:07 iety Physical Exam Vitals: Vital Signs Temp Pulse Pulse Resp BP Pulse Ox 11/07/19 14:29 98.2 F 95 16 106/51 100 11/07/19 12:00 102 H 11/07/19 11:50 102 H 11/07/19 08:53 104 H 11/07/19 08:43 108 H 11/07/19 07:00 97.8 F 120 H 14 119/64 99 11/07/19 02:41 98.2 F 102 H 133/64 99 11/07/19 00:00 16 11/06/19 20:59 100 11/06/19 20:50 100 11/06/19 19:18 98.2 F 111 H 132/67 100 11/06/19 18:00 98 11/06/19 15:43 104 H 11/06/19 15:28 100 Intake and Output 11/06/19 11/07/19 11/07/19 22:59 06:59 14:59 Intake Total 190 Balance 190 Intake: Oral 190 Other: Voiding Method Toilet Toilet Bedside Commode Bedside Commode # Voids 2 2 1 On physical examination, patient appears comfortable in no apparent distress. HEAD: Fungating mass of the right face and neck otherwise atraumatic. EYES: No scleral icterus. No conjunctival injection. MOUTH: No lesions, tongue midline. NECK: Trachea midline, no gross abnormalities. CHEST: Decreased air entry in all amaya. HEART: Regular rate and rhythm. ABDOMEN: Soft, thin. Bowel sounds are positive. No organomegaly. No guarding or rigidity. EXTREMITIES: No pedal edema. SKIN: No rashes, no jaundice. NEUROLOGIC: Alert and oriented x3. No focal deficits. Results CBC & Chem 7: 11/05/19 08:37 11/05/19 08:37 Labs: Abnormal Lab Results - Last 24 Hours (Table) 11/06/19 11/06/19 11/07/19 Range/Units 16:46 20:18 06:46 POC Glucose (mg/dL) 184 H 207 H 173 H (75-99) mg/dL 11/07/19 Range/Units 11:13 POC Glucose (mg/dL) 193 H (75-99) mg/dL Microbiology - Last 24 Hours (Table) 11/04/19 14:57 Gram Stain - Final Neck Wound Culture - Final Pseudomonas aeruginosa 11/04/19 14:50 Blood Culture - Preliminary Blood No Growth after 48 hours Chest x-ray: report reviewed (No acute process on chest x-ray) Assessment and Plan (1) Esophageal dysphagia Narrative/Plan: 74-year-old female with multiple medical comorbidities including squamous cell carcinoma of the right face and neck currently into the management of the oncology service who presented due to weakness, pain and shortness of breath. Patient has been having difficulty swallowing and tolerating a diet. Her oral saturation has been poor. Consult was placed for PEG tube placement. Current Visit: Yes Status: Acute Code(s): R13.10 - DYSPHAGIA, UNSPECIFIED SNOMED Code(s): 34627711 (2) Squamous cell carcinoma Current Visit: Yes Status: Acute Priority: High Code(s): QZA5076 - SNOMED Code(s): 546668293 Plan: Supportive care Okay for diet as tolerated Extensive discussion with the patient regarding PEG tube placement, with all the risks, benefits and possible complications discussed with her at length Plan for PEG tube placement on 11/09/2019 Continue other medical management Thank you for allowing us to participate in the care of the patient
[2019-11-08] MEDS: HYDROcodone/APAP 7.5-325MG 1 EACH TAB PO PRN ×4 (01:13→22:43)
[2019-11-08] MEDS: methylPREDNISolone SOD SUCCI 40 MG/ML 1 ML VIAL IV SCH ×3 (01:29→16:29)
[2019-11-08] MEDS: PIPERACILLIN-TAZOBACTAM 3.375 GM in SODIUM CHLORIDE 0.9% 100 ML IVPB SCH ×4 (01:29→23:03)
[2019-11-08] MEDS: LACTATED RINGERS 1,000 ML IV SCH ×4 (01:30→22:55)
[2019-11-08 06:42] LABS: Glucose,Whole Blood 166 mg/dL (75-99)
[2019-11-08] MEDS: INSULIN ASPART (NovoLOG) 100 UNIT/ML VIAL SQ SCH ×4 (07:27→20:25)
[2019-11-08] MEDS: METOPROLOL TARTRATE 12.5 MG TAB PO SCH (07:28)
[2019-11-08] MEDS: metFORMIN 500 MG TAB PO SCH (07:28)
[2019-11-08] MEDS: guaiFENesin 600 MG TABLET.ER PO SCH ×2 (07:28→20:25)
[2019-11-08] MEDS: FERROUS SULFATE 325 MG TAB PO SCH (07:28)
[2019-11-08] MEDS: FAMOTIDINE 20 MG TAB PO SCH ×2 (07:28→20:25)
[2019-11-08] MEDS: polyethylene glycoL 3350 17 GM POWD.PACK PO SCH (07:29)
[2019-11-08] MEDS: GABAPENTIN 100 MG CAP PO SCH (07:29)
[2019-11-08] MEDS: MEGESTROL 400 MG/10 ML CUP PO SCH (07:29)
[2019-11-08] MEDS: MORPHINE SULFATE 2 MG/ML SYRINGE IVP PRN ×2 (07:30→20:33)
[2019-11-08] MEDS: IPRATROPIUM-ALBUTEROL 3 ML NEB INHALATION SCH ×4 (09:23→19:10)
[2019-11-08 11:13] LABS: Glucose,Whole Blood 248 mg/dL (75-99)
[2019-11-08] MEDS ORDERED: DILTIAZEM DRIP BOLUS FROM BAG 1 MG SOLN IV ONE (14:54)
[2019-11-08] MEDS ORDERED: DILTIAZEM 125 MG in SODIUM CHLORIDE 0.9% 100 ML IV SCH (15:00)
--- NOTE | 2019-11-08 15:05 | P.CRDCN ---
History of Present Illness Consult date: 11/08/19 History of present illness: This is a very pleasant 74-year-old female patient who I see in the office as an outpatient with significant history of smoking as well as history of peripheral arterial disease where she underwent stenting of the left iliac artery in 2016 as well as hypertension who we consulted to see the patient for further evaluation of atrial fibrillation with RVR. 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 She underwent after that multiple cycles of chemotherapy as well as radiation therapy. Apparently she was not amenable to surgical intervention because the mass is adjacent to the right carotid artery. The patient was admitted to the hospital this time because she was diagnosed with an ear infection involving the mass itself. Infectious disease is on the case. We involved in the care of the patient because during her hospital stay she developed an atrial fibrillation with RVR which is new to her. She denies any feeling of heart racing or fluttering and no symptoms of chest pain or chest discomfort. No dizziness or lightheadedness and no change in mental status. She is on metoprolol at 12.5 mg by mouth twice a day. Subsequently the patient was transferred to the third floor for further cardiac evaluation. The patient was seen and evaluated at bedside and she seems to be stable. Her heart rate at this point is around 110 bpm an EKG was performed and confirmed atrial fibrillation. At this point I'm going to start the patient on Cardizem IV at 5 mg per hour after the bolus of 5 mg. The patient is not a candidate to receive any anticoagulation because she did have multiple episodes of bleeding from the mass itself. Past Medical History Past Medical History: Cancer, Chest Pain / Angina, COPD, Diabetes Mellitus, GERD/Reflux, Hyperlipidemia, Hypertension, Osteoarthritis (OA), Vascular Disorder Additional Past Medical History / Comment(s): Pt recently admitted to [facility] on 09/26/19 with infected/necrotic R face mass and lesion L ear, moderate protein calorie malnutrition. Other hx: Squamous cell cancer R neck/face/ear with past radiation and chemo last given 11/02/19, anemia, NIDDM type II, past gastric ulcer, PVD-poor circulation bilateral legs, varicosities, R leg nerve pain, occasional tinnitis, constipation, small R inguinal hernia. History of Any Multi-Drug Resistant Organisms: None Reported Past Surgical History: Hysterectomy, Tonsillectomy, Tubal Ligation Additional Past Surgical History / Comment(s): PTBA/STENT TO LT LEG, EGD, colonoscopy/benign polypectomy, cystocele/rectocele repairs. Past Anesthesia/Blood Transfusion Reactions: No Reported Reaction Additional Past Anesthesia/Blood Transfusion Reaction / Comment(s): CLAUSTROPHOBIA Smoking Status: Current every day smoker - Past Family History Son(s) Family Medical History: Cancer Additional Family Medical History / Comment(s): LYMPHOMA Mother Family Medical History: Diabetes Mellitus Father Additional Family Medical History / Comment(s): HAD AAA Sister(s) Family Medical History: Cancer Medications and Allergies Home Medications Medication Instructions Recorded Confirmed Type Gabapentin [Neurontin] 200 mg PO DAILY 06/21/15 11/04/19 History Metoprolol Tartrate 12.5 mg PO BID 08/12/15 11/04/19 History metFORMIN HCL [Glucophage] 500 mg PO DAILY 10/11/15 11/04/19 History Famotidine 20 mg PO BID 12/27/16 11/04/19 History Albuterol Nebulized [Ventolin 2.5 mg INHALATION RT-TID PRN 01/27/19 11/04/19 History Nebulized] Atorvastatin [Lipitor] 40 mg PO HS 01/27/19 11/04/19 History Ibuprofen [Motrin] 600 mg PO QID PRN 09/26/19 11/04/19 History Ondansetron HCl [Zofran] 4 mg PO Q8H PRN 09/26/19 11/04/19 History HYDROcodone/APAP 7.5-325MG [[place] 1 tab PO Q4H PRN 3 Days #18 tab 09/30/19 11/04/19 Rx 7.5-325] Morphine Sulfate 15 mg PO BID PRN 11/02/19 11/04/19 History Ferrous Sulfate [Feosol] 325 mg PO DAILY 11/04/19 11/04/19 History Megestrol Acetate 800 mg PO DAILY 11/04/19 11/04/19 History Polyethylene Glycol 3350 [Miralax] 17 gm PO DAILY 11/04/19 11/04/19 History Ipratropium-Albuterol Nebulize 3 ml INHALATION RT-QID #120 ml 11/07/19 Rx [Duoneb 0.5 mg-3 mg/3 ml Soln] Levofloxacin [Levaquin] 750 mg PO DAILY 7 Days #7 tab 11/07/19 Rx guaiFENesin [Mucinex] 1,200 mg PO Q12HR #60 tablet.er 11/07/19 Rx predniSONE 10 mg PO DAILY #30 tab 11/07/19 Rx Allergies Allergy/AdvReac Type Severity Reaction Status Date / Time azithromycin Allergy Dyspnea/anx Verified 11/04/19 13:07 iety Physical Exam Vitals: Vital Signs Temp Pulse Pulse Resp BP Pulse Ox 11/08/19 12:43 92 11/08/19 12:31 94 11/08/19 09:34 92 11/08/19 09:23 92 11/08/19 07:00 98.3 F 103 H 15 130/82 99 11/08/19 02:33 98.7 F 87 17 164/65 90 L 11/07/19 23:58 20 11/07/19 20:47 93 11/07/19 20:38 96 11/07/19 19:56 98.6 F 98 20 115/64 94 L 11/07/19 19:30 98 20 11/07/19 16:22 92 11/07/19 16:12 92 Intake and Output 11/07/19 11/08/19 11/08/19 22:59 06:59 14:59 Intake Total 240 Balance 240 Intake: Oral 240 Other: Voiding Method Toilet Toilet Toilet Bedside Commode Bedside Commode Bedside Commode # Voids 2 2 3 # Bowel Movements 2 - Constitutional General appearance: no acute distress - Respiratory Respiratory: bilateral: diminished - Cardiovascular Rhythm: irregularly irregular Heart sounds: normal: S1, S2 Results 11/05/19 08:37 11/05/19 08:37 Current Medications Generic Name Dose Route Start Last Admin Trade Name Freq PRN Reason Stop Dose Admin Hydrocodone Bitart/Acetaminophen 1 each 11/04/19 16:55 11/08/19 10:28 [place] 7.5-325 PO 1 each Q4H PRN Administration Pain Albuterol Sulfate 2.5 mg 11/04/19 16:55 Ventolin Nebulized INHALATION RT-TID PRN Shortness Of Breath Albuterol/Ipratropium 3 ml 11/05/19 12:00 11/08/19 12:31 Duoneb 0.5 Mg-3 Mg/3 Ml Soln INHALATION 3 ml RT-QID MONICA Administration Atorvastatin Calcium 40 mg 11/04/19 21:00 11/07/19 22:10 Lipitor PO 40 mg HS MONICA Administration Diltiazem HCl 5 mg 11/08/19 14:54 Cardizem Drip Bolus From Bag IV 11/08/19 14:55 ONCE ONE Famotidine 20 mg 11/04/19 21:00 11/08/19 07:28 Pepcid PO 20 mg BID MONICA Administration Ferrous Sulfate 325 mg 11/05/19 09:00 11/08/19 07:28 Feosol PO 325 mg DAILY MONICA Administration Gabapentin 200 mg 11/05/19 09:00 11/08/19 07:29 Neurontin PO 200 mg DAILY MONICA Administration Guaifenesin 1,200 mg 11/05/19 11:45 11/08/19 07:28 Mucinex PO 1,200 mg Q12HR MONICA Administration Lactated Ringer's 1,000 mls @ 125 mls/hr 11/04/19 16:30 11/08/19 07:31 Lactated Ringers IV 125 mls/hr .Q8H MONICA Administration Piperacillin Sod/Tazobactam 100 mls @ 25 mls/hr 11/08/19 00:00 11/08/19 07:30 Sod 3.375 gm/ Sodium Chloride IVPB 25 mls/hr Q8HR MONICA Administration Diltiazem HCl 125 mg/ Sodium 125 mls @ 5 mls/hr 11/08/19 15:00 Chloride IV .Q24H MONICA 5 MG/HR Ibuprofen 600 mg 11/04/19 16:55 Motrin PO QID PRN Pain Insulin Aspart 0 unit 11/04/19 17:30 11/08/19 12:05 Novolog SQ 4 unit ACHS MONICA Administration Protocol Megestrol Acetate 800 mg 11/05/19 09:00 11/08/19 07:29 Megace PO 800 mg DAILY MONICA Administration Metformin HCl 500 mg 11/05/19 09:00 11/08/19 07:28 Glucophage PO 500 mg DAILY MONICA Administration Methylprednisolone Sodium Succinate 40 mg 11/05/19 11:45 11/08/19 07:28 Solu-Medrol IV 40 mg Q8HR MONICA Administration Morphine Sulfate 2 mg 11/04/19 14:34 11/08/19 07:30 Morphine Sulfate (Inj) IVP 2 mg Q6H PRN Administration Pain/Discomfort Morphine Sulfate 15 mg 11/04/19 16:55 11/07/19 05:36 Msir PO 15 mg BID PRN Administration Pain Ondansetron HCl 4 mg 11/04/19 16:55 Zofran PO Q8H PRN Nausea And Vomiting Polyethylene Glycol 17 gm 11/05/19 09:00 11/08/19 07:29 Miralax PO 17 gm DAILY MONICA Administration Intake and Output 11/07/19 11/08/19 11/08/19 22:59 06:59 14:59 Intake Total 240 Balance 240 Intake: Oral 240 Other: Voiding Method Toilet Toilet Toilet Bedside Commode Bedside Commode Bedside Commode # Voids 2 2 3 # Bowel Movements 2 11/05/19 08:37 11/05/19 08:37 Assessment and Plan Assessment: Assessment #1 squamous cell carcinoma of the neck, it seems to be progressive #2 significant history of smoking #3 atrial fibrillation with RVR. This is a new to the patient #4 peripheral arterial disease Plan #1 start the patient on Cardizem IV #2 increase the dose of metoprolol #3 hold any oral or IV anticoagulation #4 follow-up with the patient Thank you for allowing us participate in her care
[2019-11-08 16:42] LABS: Glucose,Whole Blood 195 mg/dL (75-99)
--- NOTE | 2019-11-08 16:56 | P.PN ---
Progress Note - Text Progress Note Date: 11/08/19 Chief Complaint: Large fungating mass right neck History of presenting complaint: Patient is a 74-year-old female of Dr. Silviano Lieberman. 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 She follows with Dr. Mei. Outpatient treatment has failed. The fungating masses progress to get worse. With drainage. Painful. Patient is continuing to smoke. Congested in the chest, short of breath. Some trouble swallowing. Failing health. Losing weight. the right neck mass also affecting the right vocal cord, occluded the right internal jugular vein. Possible secondary infection. Also acute COPD exacerbation. Patient put on nebulized bronchodilators steroids. Today-. Eating anemia from 25-50% of her meals. Some shortness of breath and wheezing. Pending PEG tube placement tomorrow. Late in the afternoon I was called and patient got into A. fib with rapid ventricular rate. Patient being moved to the cardiology telemetry floor. Dr. Barakat's been consulted. Review of systems: Was done for constitutional, cardiovascular, GI, pulmonary. relevant finding as above Active Medications Hydrocodone Bitart/Acetaminophen ([place] 7.5-325) 1 each PO Q4H PRN PRN Reason: Pain Last Admin: 11/08/19 10:28 Dose: 1 each Documented by: Albuterol Sulfate (Ventolin Nebulized) 2.5 mg INHALATION RT-TID PRN PRN Reason: Shortness Of Breath Albuterol/Ipratropium (Duoneb 0.5 Mg-3 Mg/3 Ml Soln) 3 ml INHALATION RT-QID [facility] Last Admin: 11/08/19 12:31 Dose: 3 ml Documented by: Atorvastatin Calcium (Lipitor) 40 mg PO HS [facility] Last Admin: 11/07/19 22:10 Dose: 40 mg Documented by: Famotidine (Pepcid) 20 mg PO BID [facility] Last Admin: 11/08/19 07:28 Dose: 20 mg Documented by: Ferrous Sulfate (Feosol) 325 mg PO DAILY [facility] Last Admin: 11/08/19 07:28 Dose: 325 mg Documented by: Gabapentin (Neurontin) 200 mg PO DAILY [facility] Last Admin: 11/08/19 07:29 Dose: 200 mg Documented by: Guaifenesin (Mucinex) 1,200 mg PO Q12HR [facility] Last Admin: 11/08/19 07:28 Dose: 1,200 mg Documented by: Lactated Ringer's (Lactated Ringers) 1,000 mls @ 125 mls/hr IV .Q8H [facility] Last Admin: 11/08/19 16:23 Dose: 125 mls/hr Documented by: Piperacillin Sod/Tazobactam (Sod 3.375 gm/ Sodium Chloride) 100 mls @ 25 mls/hr IVPB Q8HR [facility] Last Admin: 11/08/19 16:29 Dose: 25 mls/hr Documented by: Diltiazem HCl 125 mg/ Sodium (Chloride) 125 mls @ 5 mls/hr IV .Q24H [facility] Last Admin: 11/08/19 16:21 Dose: 5 mg/hr, 5 mls/hr Documented by: Ibuprofen (Motrin) 600 mg PO QID PRN PRN Reason: Pain Insulin Aspart (Novolog) 0 unit SQ ACHS [facility]; Protocol Last Admin: 11/08/19 12:05 Dose: 4 unit Documented by: Megestrol Acetate (Megace) 800 mg PO DAILY [facility] Last Admin: 11/08/19 07:29 Dose: 800 mg Documented by: Metformin HCl (Glucophage) 500 mg PO DAILY [facility] Last Admin: 11/08/19 07:28 Dose: 500 mg Documented by: Methylprednisolone Sodium Succinate (Solu-Medrol) 40 mg IV Q8HR [facility] Last Admin: 11/08/19 16:29 Dose: 40 mg Documented by: Metoprolol Tartrate (Lopressor) 25 mg PO BID [facility] Morphine Sulfate (Morphine Sulfate (Inj)) 2 mg IVP Q6H PRN PRN Reason: Pain/Discomfort Last Admin: 11/08/19 07:30 Dose: 2 mg Documented by: Morphine Sulfate (Msir) 15 mg PO BID PRN PRN Reason: Pain Last Admin: 11/07/19 05:36 Dose: 15 mg Documented by: Ondansetron HCl (Zofran) 4 mg PO Q8H PRN PRN Reason: Nausea And Vomiting Polyethylene Glycol (Miralax) 17 gm PO DAILY [facility] Last Admin: 11/08/19 07:29 Dose: 17 gm Documented by: Sodium Hypochlorite ([place]akin's 0.25% (Half Strength)) 120 ml MISCELLANE DAILY MONICA Physical examination: VITAL SIGNS: 98.3, 103, 15, 130/82, 99% nasal cannula GENERAL: sitting at the age the bed, EYES: Pupils equal. Conjunctiva pale HEENT: [External appearance of nose and ears normal, oral cavity unable to assess NECK: JVD unable to assess; large right neck mass fungating with lower edges. HEART: First and second heart sounds are normal; no edema. LUNGS: Respiratory rate increased, decreased breath sound congested wheezing. ABDOMEN: Soft, nontender, liver spleen not palpable, no masses palpable. PSYCH: [Alert and oriented x3; mood and affect low . NEUROLOGICAL: Cranial nerves grossly intact; some facial asymmetry, power and sensation grossly intact. Hoarse voice MUSCULAR skeletal: Wasting of muscles INVESTIGATIONS, reviewed in the clinical context: White count 20.3 hemoglobin 8.5 potassium 4.1 creatinine 0.4 to Computed tomography scan of the neck large necrotic fungating neck mass some increase in size increase interval foci of gas within the mass, no obvious fluid collection, right jugular vein appears occluded. Right internal carotid artery narrowing the level of C1. Also mass effect narrowing the right airway from the oral cavity. 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 Causing hoarse otherwise. It looks like patient not able to clear his secretions. -Possible secondary infection of the affected tumor site as above -Chronic nicotine dependence patient's cigarette smoker -Moderate protein calorie malnutrition from decreased oral intake. With a BMI of 18 -Acute COPD exacerbation in a current smoker -Diabetes mellitus type 2 on oral hypoglycemic -Essential hypertension -PEG tube being scheduled for Saturday with Dr. Hines discussed with him -New onset atrial fibrillation rapid ventricular rate Plan: Continue current medication treatment plan. Patient scheduled for PEG tube tomorrow morning. Depending on the clinical course to proceed with the same. Depending on heart rate controlled. Prognosis guarded. IV Cardizem drip being started. Switched to by mouth prednisone.
[2019-11-08] MEDS: SODIUM HYPOCHLORITE 0.25% 480 ML BOT MISCELLANE SCH (18:16)
[2019-11-08] MEDS: ATORVASTATIN 40 MG TAB PO SCH (20:24)
[2019-11-08] MEDS: METOPROLOL TARTRATE 25 MG TAB PO SCH (20:24)
[2019-11-08 20:25] LABS: Glucose,Whole Blood 231 mg/dL (75-99)
--- NOTE | 2019-11-08 21:38 | P.PN ---
Subjective Progress Note Date: 11/08/19 Principal diagnosis: Squamous cell carcinoma of the head and neck, esophageal dysphagia The patient seen lying in bed today. No acute complaints. The patient was again informed of the risks, benefits and possible complications of the planned EGD with PEG tube placement tomorrow. Objective - Vital Signs Vital signs: Vital Signs Temp 98.3 F 11/08/19 07:00 Pulse 92 11/08/19 09:34 Resp 15 11/08/19 07:00 BP 130/82 11/08/19 07:00 Pulse Ox 99 11/08/19 07:00 Intake & Output 11/07/19 11/08/19 11/08/19 18:59 06:59 18:59 Intake Total 190 240 Balance 190 240 Intake: Oral 190 240 Other: Voiding Method Toilet Toilet Bedside Commode Bedside Commode # Voids 1 2 # Bowel Movements 2 - Exam On physical examination, patient appears comfortable in no apparent distress. HEAD: Fungating mass of the right face and neck, atraumatic. EYES: No scleral icterus. No conjunctival injection. MOUTH: No lesions, tongue midline. NECK: Trachea midline, no gross abnormalities. ABDOMEN: Soft, obese. Bowel sounds are positive. No organomegaly. No guarding or rigidity. EXTREMITIES: No pedal edema. SKIN: No rashes, no jaundice. NEUROLOGIC: Alert and oriented x3. No focal deficits. - Labs CBC & Chem 7: 11/05/19 08:37 11/05/19 08:37 Labs: Abnormal Lab Results - Last 24 Hours (Table) 11/07/19 11/07/19 11/07/19 Range/Units 11:13 16:27 20:14 POC Glucose (mg/dL) 193 H 215 H 121 H (75-99) mg/dL 11/08/19 Range/Units 06:40 POC Glucose (mg/dL) 166 H (75-99) mg/dL Microbiology - Last 24 Hours (Table) 11/04/19 14:50 Blood Culture - Preliminary Blood No Growth after 72 hours Assessment and Plan (1) Esophageal dysphagia Narrative/Plan: 74-year-old female with multiple medical comorbidities including squamous cell carcinoma of the right face and neck currently into the management of the oncology service who presented due to weakness, pain and shortness of breath. Patient has been having difficulty swallowing and tolerating a diet. Her oral saturation has been poor. Consult was placed for PEG tube placement. Current Visit: Yes Status: Acute Code(s): R13.10 - DYSPHAGIA, UNSPECIFIED SNOMED Code(s): 19610789 (2) Squamous cell carcinoma Current Visit: Yes Status: Acute Priority: High Code(s): MQQ2073 - SNOMED Code(s): 999812408 Plan: Supportive care Okay for diet as tolerated, nothing by mouth after midnight Extensive discussion with the patient regarding PEG tube placement, with all the risks, benefits and possible complications discussed with her at length Plan for PEG tube placement on 11/09/2019 Continue other medical management Thank you for allowing us to participate in the care of the patient
--- NOTE | 2019-11-08 23:26 | PN ---
PROGRESS NOTE DATE OF SERVICE: 11/08/2019 REASON FOR FOLLOWUP: Right neck wound with secondary bacterial infection. INTERVAL HISTORY: Patient is currently afebrile, has been transferred to the cardiac unit because of atrial fibrillation with RVR. The patient denies having any chest pain, or shortness of breath or cough. Pain to the right neck is currently controlled. No abdominal pain. No diarrhea. PHYSICAL EXAMINATION: Blood pressure 130/82 with a pulse of 92, temperature 98.3. She is 99% on room air. General description is an elderly female up in the bed in no distress. Examination right neck wound did have some slough at the base with . LUNGS: Unlabored breathing, clear to auscultation. HEART: S1, S2. Regular rate and rhythm. ABDOMEN: Soft, no tenderness. LABS: No new labs been have been obtained today. DIAGNOSTIC IMPRESSION AND PLAN: Patient with right neck wound from her squamous cell carcinoma with no evidence of any abscess on the CT. Patient is currently covered with Zosyn of local wound cultures. Continue local wound care with half strength Dakin solution daily and monitor clinical course closely. MMODL / IJN: [id number] /
[2019-11-09] MEDS: INSULIN ASPART (NovoLOG) 100 UNIT/ML VIAL SQ SCH ×4 (06:59→20:54)
[2019-11-09 07:00] LABS: Glucose,Whole Blood 124 mg/dL (75-99)
[2019-11-09] MEDS: MORPHINE SULFATE 2 MG/ML SYRINGE IVP PRN ×3 (07:07→23:44)
[2019-11-09] MEDS: IPRATROPIUM-ALBUTEROL 3 ML NEB INHALATION SCH ×4 (07:37→20:09)
[2019-11-09] MEDS: METOPROLOL TARTRATE 25 MG TAB PO SCH ×3 (09:38→20:53)
[2019-11-09] MEDS: MORPHINE SULFATE IR 15 MG TABLET PO PRN (09:38)
[2019-11-09] MEDS: LACTATED RINGERS 1,000 ML IV SCH ×2 (09:47→17:21)
[2019-11-09] MEDS: PIPERACILLIN-TAZOBACTAM 3.375 GM in SODIUM CHLORIDE 0.9% 100 ML IVPB SCH ×3 (09:47→23:44)
[2019-11-09] MEDS: FAMOTIDINE 20 MG TAB PO SCH ×2 (09:48→20:53)
[2019-11-09] MEDS: FERROUS SULFATE 325 MG TAB PO SCH (09:54)
[2019-11-09] MEDS: metFORMIN 500 MG TAB PO SCH (09:55)
[2019-11-09] MEDS: GABAPENTIN 100 MG CAP PO SCH ×2 (09:55→17:20)
[2019-11-09] MEDS: SODIUM HYPOCHLORITE 0.25% 480 ML BOT MISCELLANE SCH (09:55)
[2019-11-09] MEDS: MEGESTROL 400 MG/10 ML CUP PO SCH (09:55)
[2019-11-09] MEDS: guaiFENesin 600 MG TABLET.ER PO SCH ×2 (09:55→20:53)
[2019-11-09] MEDS: polyethylene glycoL 3350 17 GM POWD.PACK PO SCH (09:55)
[2019-11-09] MEDS: predniSONE 20 MG TAB PO SCH ×2 (09:55→17:20)
--- NOTE | 2019-11-09 10:46 | P.PN ---
Subjective Progress Note Date: 11/09/19 CHIEF COMPLAINT: Afib HISTORY OF PRESENT ILLNESS: Patient examined this morning at the bedside. She denies shortness of breath or chest pain. She remains on a cardizem drip at 5mg/hr. She is maintaining SR. Heartrate 80-100s. She is scheduled for a PEG tube today with GI service. PHYSICAL EXAM: VITAL SIGNS: Reviewed. GENERAL: Well-developed in no acute distress. NECK: Large dressing to right side of neck. No JVD or thyromegaly LUNGS: Respirations even and unlabored. Lungs essentially clear to auscultation bilaterally. HEART: Regular rate and rhythm. S1 and S2 heard. EXTREMITIES: Normal range of motion. No clubbing or cyanosis. Peripheral pulses intact. No lower extremity edema ASSESSMENT: 1. New onset atrial fibrillation with RVR 2. Squamous cell carcinoma of the neck 3. History of smoking 4. Peripheral arterial disease PLAN: -Discontinue cardizem drip -Increase metoprolol to 25mg TID. Monitor vital signs. -Obtain echocardiogram Nurse practitioner note has been reviewed by physician. Signing provider agrees with the documented findings, assessment, and plan of care. Objective - Vital Signs Vital signs: Vital Signs Temp 98.0 F 11/08/19 20:00 Pulse 100 11/09/19 07:50 Resp 16 11/09/19 04:00 BP 123/63 11/09/19 04:00 Pulse Ox 98 11/09/19 04:00 Intake & Output 11/08/19 11/09/19 11/09/19 18:59 06:59 18:59 Intake Total 240 Balance 240 Intake: Oral 240 Other: Voiding Method Toilet Toilet Bedside Commode Bedside Commode # Voids 3 - Labs CBC & Chem 7: 11/05/19 08:37 11/05/19 08:37 Labs: Abnormal Lab Results - Last 24 Hours (Table) 11/08/19 11/08/19 11/08/19 Range/Units 11:11 16:40 20:16 POC Glucose (mg/dL) 248 H 195 H 231 H (75-99) mg/dL 11/09/19 Range/Units 06:58 POC Glucose (mg/dL) 124 H (75-99) mg/dL Microbiology - Last 24 Hours (Table) 11/04/19 14:50 Blood Culture - Preliminary Blood No Growth after 96 hours
[2019-11-09 11:47] LABS: Glucose,Whole Blood 107 mg/dL (75-99)
[2019-11-09] MEDS ORDERED: GLYCOPYRROLATE 0.2 MG/ML 2 ML VIAL ONE (13:07)
[2019-11-09] MEDS ORDERED: KETAMINE 10 MG/ML 20 ML VIAL ONE (13:07)
[2019-11-09] MEDS ORDERED: MIDAZOLAM 2 MG/2 ML VIAL ONE (13:07)
[2019-11-09] MEDS ORDERED: IV FLUID CONTINUATION 1,000 ML IV ONE (13:09)
--- NOTE | 2019-11-09 14:01 | P.PCN ---
Date of Procedure: 11/09/19 Description of Procedure: Brief history: 74-year-old female with multiple medical comorbidities including squamous cell carcinoma of the right face and neck currently into the management of the oncology service who presented due to weakness, pain and shortness of breath. Patient has been having difficulty swallowing and tolerating a diet. Her oral saturation has been poor. Procedure performed: EGD with PEG tube placement Preoperative diagnosis: Esophageal dysphagia, unintentional weight loss IV sedation by anesthesia Estimated blood loss: Minimal. Procedure: After informed consent was obtained with the patient as well as the family the patient was brought into the endoscopy unit. IV conscious sedation was administered by anesthesia under continuous monitoring. The Olympus GF 190 video endoscope was inserted into the mouth and esophagus intubated without any difficulty and was gradually advanced to the stomach and duodenum. The bulb and second part of the duodenum was visualized which appeared normal. The scope at this time was withdrawn to the stomach adequately insufflated with air. Adequate transillumination was achieved onto the anterior abdominal wall. At the site of adequate transillumination and maximal finger indentation, on the anterior abdominal wall, this area was sterilely prepped and draped. One percent Lidocaine was infiltrated into the skin and a small incision was made. Trocar and cannula was passed through the incision into the stomach cavity. The trocar was removed. The insertion wire was passed through the cannula into the stomach. Insertion wire was snared and then the insertion wire, snare and endoscope were withdrawn from the mouth. The insertion wire was then attached to a 20-[employer] PEG tube. The insertion wire was then pulled with the PEG tube through the incision site. PEG tube was pulled until the internal bolster was sitting snugly against the gastric mucosa which was confirmed with repeat EGD. On repeat EGD the esophagus was intubated without any difficulty and was advanced into the stomach. The internal bumper appeared to be in secure position. The visualized portions of the antrum body cardia and fundus of the stomach appeared normal. The esophagus was carefully examined as the scope was gradually being withdrawn which appeared normal. At this time external bumper was placed on the PEG tube closer to the anterior abdominal wall at 3.5 cm jac. The patient tolerated the procedure well. Impression: Successful 20[employer] PEG tube placement as described above. Recommendations: Findings of this examination were discussed with the patient's family. The patient will be started on tube feeds tomorrow. Okay for diet tonight. Patient on antibiotic therapy for infection of head and neck squamous cell cancer..
--- NOTE | 2019-11-09 14:06 | P.PN ---
Subjective Progress Note Date: 11/09/19 Principal diagnosis: Known Malignancy Head and Neck She has decided to move forward with feeding tube, and has not comitted to hospice care fully at this time, therefore recheck of her blood work and cardiology is following. Objective - Vital Signs Vital signs: Vital Signs Temp 97.8 F 11/09/19 08:00 Pulse 100 11/09/19 11:20 Resp 18 11/09/19 08:00 BP 121/68 11/09/19 08:00 Pulse Ox 100 11/09/19 08:00 Intake & Output 11/08/19 11/09/19 11/09/19 18:59 06:59 18:59 Intake Total 240 40 Balance 240 40 Weight 45.813 kg Intake: IV 40 Oral 240 Other: Voiding Method Toilet Toilet Bedside Commode Bedside Commode # Voids 3 - Exam - Constitutional General appearance: cooperative, mild distress, thin - EENT Rt facial/mandible/neck involved with necrotic mass, tumors surround a large hole in the neck and mandible area, purulent drainage and foul odor. Left ear has a skin lesion in the cartilage-this is stable Eyes: anicteric sclerae, EOMI ENT: hard of hearing - Neck Neck: lymphadenopathy (right neck ) - Respiratory Respiratory: bilateral: diminished (weak inspiratory effort) - Cardiovascular Rhythm: regular Heart sounds: normal: S1, S2 Abnormal Heart Sounds: no systolic murmur, no diastolic murmur, no rub, no S3 Ga llop, no S4 Gallop, no click, no other leg Peripheral Edema: bilateral: None - Gastrointestinal General gastrointestinal: no absent bowel sounds, no decreased bowel sounds, no distended, no hepatomegaly, no hyperactive bowel sounds, normal bowel sounds, no organomegaly, no rigid, no scaphoid, soft, no splenomegaly, no tenderness, no umbilical hernia, no ventral hernia - Integumentary CT head and neck, skin otherwise normal - Neurologic facial nerves on the right are not intact, invaded by tumor - Musculoskeletal Musculoskeletal: generalized weakness - Psychiatric Psychiatric: A&O x's 3, appropriate affect, intact judgment & insight - Labs CBC & Chem 7: 11/05/19 08:37 11/05/19 08:37 Labs: Abnormal Lab Results - Last 24 Hours (Table) 11/08/19 11/08/19 11/09/19 Range/Units 16:40 20:16 06:58 POC Glucose (mg/dL) 195 H 231 H 124 H (75-99) mg/dL 11/09/19 Range/Units 11:46 POC Glucose (mg/dL) 107 H (75-99) mg/dL Microbiology - Last 24 Hours (Table) 11/04/19 14:50 Blood Culture - Preliminary Blood No Growth after 96 hours Assessment and Plan Plan: CT scan - chest: report reviewed Assessment and Plan Squamous cell carcinoma Current Visit: Yes Status: Acute Priority: High Code(s): MGG1008 - SNOMED Code(s): 682723175 Neoplasm related pain Current Visit: Yes Status: Chronic Priority: High Code(s): G89.3 - NEOPLASM RELATED PAIN (ACUTE) (CHRONIC) SNOMED Code(s): 73411632750061 Plan: - Based on images it appears she is respondong to treatment with increased necrosis of tumor PEG tube planned Recheck cbc, cmp today Physician Attest: I have completed the full history and physical and agree with above dictation, dictated as a ascribe
[2019-11-09 16:29] LABS: Anisocytosis Slight; Basophils % (A) 0 %; Eosinophils % (A) 0 %; HCT 27.7 % (34.0-46.0); HGB 8.4 gm/dL (11.4-16.0); Hypochromasia Marked; Lymphocytes # (A) 0.8 k/uL (1.0-4.8); Lymphocytes % (A) 11 %; MCH 24.5 pg (25.0-35.0); MCHC 30.4 g/dL (31.0-37.0); MCV 80.7 fL (80.0-100.0); Mean Platelet Volume 7.7; Monocytes # (A) 0.3 k/uL (0-1.0); Monocytes % (A) 3 %; Neutrophils # (A) 6.1 k/uL (1.3-7.7); Neutrophils % (A) 83 %; Platelet Count 362 k/uL (150-450); RBC 3.43 m/uL (3.80-5.40); RDW 17.1 % (11.5-15.5); WBC 7.4 k/uL (3.8-10.6)
[2019-11-09 16:35] LABS: Prothrombin Time 10.8 sec (9.0-12.0)
[2019-11-09 16:53] LABS: ALT 14 U/L (4-34); AST 17 U/L (14-36); African American GFR (CKD) >90 (>60 ml/min/1.73 sqM); Albumin 2.7 g/dL (3.5-5.0); Alkaline Phosphatase 70 U/L (38-126); Anion Gap 6 mmol/L; Blood Urea Nitrogen 15 mg/dL (7-17); Carbon Dioxide 27 mmol/L (22-30); Chloride 102 mmol/L (98-107); Glucose 90 mg/dL (74-99); Non-African American GFR(CKD) >90 (>60 ml/min/1.73 sqM); Potassium 3.5 mmol/L (3.5-5.1); Sodium 135 mmol/L (137-145); Total Bilirubin 0.3 mg/dL (0.2-1.3); Total Protein 5.8 g/dL (6.3-8.2)
[2019-11-09 17:13] LABS: Glucose,Whole Blood 106 mg/dL (75-99)
[2019-11-09] MEDS: IBUPROFEN 600 MG TAB PO PRN (17:20)
--- NOTE | 2019-11-09 17:33 | PN ---
PROGRESS NOTE DATE OF SERVICE: 11/09/2019 REASON FOR FOLLOWUP: Right side neck wound infection with Pseudomonas. INTERVAL HISTORY: Patient is currently afebrile, the patient is breathing comfortably. Overall pain and discomfort to the right side of the neck has improved. Denies having any chest pain, no cough. No abdominal pain, no diarrhea. PHYSICAL EXAMINATION: Blood pressure 121/68 with a pulse of 89, temperature is 97.8, she is 100% on room air. General description is an elderly female, lying in bed in no distress. Right sided neck wound is currently dressed. Overall swelling has improved. LUNGS: Unlabored breathing, clear to auscultation anteriorly. HEART: S1, S2. Regular rate and rhythm. LABS: Hemoglobin 8.4, white count 7.4, BUN of 15, creatinine 0.47. Local culture with Pseudomonas aeruginosa. DIAGNOSTIC IMPRESSION AND PLAN: Patient with right ankle wound with secondary cellulitis, culture with Pseudomonas aeruginosa. Continue with Zosyn to finish therapy with oral Cipro. Local care to continue with Dakin solution and close outpatient followup. MMODL / IJN: [id number] /
--- NOTE | 2019-11-09 17:47 | ECHOF ---
Referral Reason:afib MEASUREMENTS -------- HEIGHT: 157.5 cm WEIGHT: 45.8 kg BP: 123/63 RVIDd: 3.3 cm (< 3.3) IVSd: 1.2 cm (0.6 - 1.1) LVIDd: 3.7 cm (3.9 - 5.3) LVPWd: 1.2 cm (0.6 - 1.1) EDV(Teich): 57 ml IVSs: 1.5 cm LVIDs: 2.5 cm LVPWs: 1.1 cm %IVS Thck: 22 % ESV(Teich): 23 ml EF(Teich): 60 % %FS: 31 % SV(Teich): 34 ml LA Diam: 3.7 cm (2.7 - 3.8) Ao Diam: 2.9 cm (2.0 - 3.7) AV Cusp: 1.7 cm (1.5 - 2.6) MV EXCURSION: 19.089 mm (> 18.000) MV EF SLOPE: 81 mm/s (70 - 150) EPSS: 0.2 cm MV E Wan: 0.49 m/s MV DecT: 147 ms MV Dec [place]: 3.4 m/s MV A Wan: 0.77 m/s MV E/A Ratio: 0.64 MV PHT: 43 ms TR Vmax: 2.41 m/s TR maxP.15 mmHg RAP: 5.00 mmHg RVSP: 28.15 mmHg FINDINGS -------- Sinus rhythm. This was a technically good study. LV size, wall thickness and systolic function are normal, with an EF greater than 55%. The left jillian tricular size is normal. The right ventricle is normal in size. The left atrial size is normal. The right atrial size is normal. There is mild aortic valve sclerosis. There is mild aortic regurgitation. Mild mitral regurgitation is present. Mild tricuspid regurgitation present. Right ventricular systolic pressure is normal at < 35 mmHg. There is no pulmonic regurgitation present. The aortic root size is normal. There is no pericardial effusion. CONCLUSIONS -------- 1. LV size, wall thickness and systolic function are normal, with an EF greater than 55%. 2. The left ventricular size is normal. 3. The right ventricle is normal in size. 4. The left atrial size is normal. 5. The right atrial size is normal. 6. There is mild aortic valve sclerosis. 7. There is mild aortic regurgitation. 8. Mild mitral regurgitation is present. 9. Mild tricuspid regurgitation present. 10aneurysmal interatrial septum BEVERAGE MANAGER: Marah Stark RDCS
[2019-11-09 20:21] LABS: Glucose,Whole Blood 134 mg/dL (75-99)
[2019-11-09] MEDS: HYDROcodone/APAP 7.5-325MG 1 EACH TAB PO PRN (20:54)
[2019-11-09] MEDS: ATORVASTATIN 40 MG TAB PO SCH (20:54)
--- NOTE | 2019-11-10 01:03 | P.PN ---
Subjective Progress Note Date: 11/09/19 Principal diagnosis: Large fungating mass right neck Patient is a 74-year-old female of Dr. Silviano Lieberman. 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 She follows with Dr. Mei. Outpatient treatment has failed. The fungating masses progress to get worse. With drainage. Painful. Patient is continuing to smoke. Congested in the chest, short of breath. Some trouble swallowing. Failing health. Losing weight. the right neck mass also affecting the right vocal cord, occluded the right internal jugular vein. Possible secondary infection. Also acute COPD exacerbation. Patient put on nebulized bronchodilators steroids. on 11/07-. Eating anemia from 25-50% of her meals. Some shortness of breath and wheezing. Pending PEG tube placement tomorrow. Late in the afternoon I was called and patient got into A. fib with rapid ventricular rate. Patient being moved to the cardiology telemetry floor. Dr. Barakat's been consulted. 11/09/2019 Patient is currently lying in bed comfortably. No complaints of fever or chills. Patient decided to go with feeding tube. Patient underwent EGD with PEG tube placement today. Echocardiogram showed ejection fraction 55% and no significant valvular abnormalities noted. Currently patient is in sinus rhythm. Currently on antibiotics in the form of Zosyn. Cardiology, ID and oncology is following. Current medications reviewed. Review of systems: Was done for constitutional, cardiovascular, GI, pulmonary. relevant finding as above Objective - Vital Signs Vital signs: Vital Signs Temp 97.8 F 11/09/19 08:00 Pulse 100 11/09/19 11:20 Resp 18 11/09/19 08:00 BP 121/68 11/09/19 08:00 Pulse Ox 100 11/09/19 08:00 Intake & Output 11/08/19 11/09/19 11/09/19 18:59 06:59 18:59 Intake Total 240 40 Balance 240 40 Weight 45.813 kg Intake: IV 40 Oral 240 Other: Voiding Method Toilet Toilet Bedside Commode Bedside Commode # Voids 3 - Exam GENERAL: sitting at the age the bed, EYES: Pupils equal. Conjunctiva pale HEENT: [External appearance of nose and ears normal, oral cavity unable to assess NECK: JVD unable to assess; large right neck mass fungating with lower edges. HEART: First and second heart sounds are normal; no edema. LUNGS: Respiratory rate increased, decreased breath sound congested wheezing. ABDOMEN: Soft, nontender, liver spleen not palpable, no masses palpable. PSYCH: [Alert and oriented x3; mood and affect low . NEUROLOGICAL: Cranial nerves grossly intact; some facial asymmetry, power and sensation grossly intact. 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 Causing hoarse otherwise. It looks like patient not able to clear his secretions. -Possible secondary infection of the affected tumor site as above - -Chronic nicotine dependence patient's cigarette smoker -Moderate protein calorie malnutrition from decreased oral intake. With a BMI of 18 -Acute COPD exacerbation in a current smoker -Diabetes mellitus type 2 on oral hypoglycemic -Essential hypertension -PEG tube placement on 11/[address] Hines -New onset atrial fibrillation rapid ventricular rate Plan: Continue current medication treatment plan. c/w Zosyn s/p PEG tube today. Depending on the clinical course to proceed with the same. heart rate controlled. c/w metoprolol. DCed Cardizem drip Prognosis guarded. Time with Patient: Greater than 30
[2019-11-10] MEDS: HYDROcodone/APAP 7.5-325MG 1 EACH TAB PO PRN ×2 (04:06→17:33)
[2019-11-10 06:06] LABS: Glucose,Whole Blood 153 mg/dL (75-99)
[2019-11-10 06:32] LABS: Anisocytosis Slight; Basophils % (A) 0 %; Eosinophils % (A) 0 %; HCT 32.2 % (34.0-46.0); Hypochromasia Marked; Lymphocytes # (A) 0.4 k/uL (1.0-4.8); Lymphocytes % (A) 4 %; MCH 24.3 pg (25.0-35.0); MCHC 28.1 g/dL (31.0-37.0); Mean Platelet Volume 7.7; Monocytes # (A) 0.3 k/uL (0-1.0); Monocytes % (A) 3 %; Neutrophils # (A) 8.5 k/uL (1.3-7.7); Neutrophils % (A) 91 %; Platelet Count 374 k/uL (150-450); RBC 3.72 m/uL (3.80-5.40); RDW 16.5 % (11.5-15.5); WBC 9.4 k/uL (3.8-10.6)
[2019-11-10 06:37] LABS: MCV 86.5 fL (80.0-100.0)
[2019-11-10 06:46] LABS: African American GFR (CKD) >90 (>60 ml/min/1.73 sqM); Anion Gap 8 mmol/L; Blood Urea Nitrogen 17 mg/dL (7-17); Calcium 7.6 mg/dL (8.4-10.2); Carbon Dioxide 21 mmol/L (22-30); Chloride 106 mmol/L (98-107); Glucose 139 mg/dL (74-99); Non-African American GFR(CKD) >90 (>60 ml/min/1.73 sqM); Potassium 4.1 mmol/L (3.5-5.1); Sodium 135 mmol/L (137-145)
[2019-11-10] MEDS: LACTATED RINGERS 1,000 ML IV SCH ×2 (08:12→08:15)
[2019-11-10] MEDS: INSULIN ASPART (NovoLOG) 100 UNIT/ML VIAL SQ SCH ×4 (08:13→20:14)
[2019-11-10] MEDS: polyethylene glycoL 3350 17 GM POWD.PACK PO SCH (08:13)
[2019-11-10] MEDS: metFORMIN 500 MG TAB PO SCH (08:13)
[2019-11-10] MEDS: predniSONE 20 MG TAB PO SCH (08:13)
[2019-11-10] MEDS: GABAPENTIN 100 MG CAP PO SCH (08:13)
[2019-11-10] MEDS: FERROUS SULFATE 325 MG TAB PO SCH (08:13)
[2019-11-10] MEDS: FAMOTIDINE 20 MG TAB PO SCH ×2 (08:13→20:14)
[2019-11-10] MEDS: guaiFENesin 600 MG TABLET.ER PO SCH ×2 (08:14→20:14)
[2019-11-10] MEDS: PIPERACILLIN-TAZOBACTAM 3.375 GM in SODIUM CHLORIDE 0.9% 100 ML IVPB SCH ×2 (08:14→17:26)
[2019-11-10] MEDS: MORPHINE SULFATE IR 15 MG TABLET PO PRN (08:14)
[2019-11-10] MEDS: MEGESTROL 400 MG/10 ML CUP PO SCH (08:15)
[2019-11-10] MEDS: SODIUM HYPOCHLORITE 0.25% 480 ML BOT MISCELLANE SCH (08:16)
[2019-11-10] MEDS: METOPROLOL TARTRATE 25 MG TAB PO SCH (08:19)
--- NOTE | 2019-11-10 11:27 | PN ---
PROGRESS NOTE Mrs. Chen is a 74-year-old female with a history of malignancy, with squamous cell carcinoma of the neck. History of smoking, history of peripheral vascular disease. She had atrial fibrillation. She underwent PEG tube placement yesterday. She is feeling better. She denies any chest pain. She denies any dizziness or palpitation. Her echocardiogram revealed a preserved ventricular size and systolic function with mild mitral and tricuspid regurgitation. She continues to be at this time on Lipitor 40 mg daily, metformin 500 mg daily, metoprolol tartrate 25 mg 3 times a day in addition to prednisone. PHYSICAL EXAMINATION: Blood pressure 135/60 with a heart rate in the 80s. LUNGS: No wheezes. NECK: With dressing noted. HEART: Regular rate and rhythm, S1, S2. No S3. No rub or gallop. ABDOMEN: Soft, nontender. EXTREMITIES: No edema. LAB DATA: Revealed BUN and creatinine 17 and 0.43, hemoglobin of 9. IMPRESSION: 1. Paroxysmal atrial fibrillation, back in sinus mechanism, not anticoagulated because of bleeding. 2. History of squamous non-cell carcinoma of the neck, status post PEG tube placement. 3. History of smoking. 4. Peripheral vascular disease. RECOMMENDATION: At this time from the cardiac standpoint, will continue present therapy. I will change her metoprolol to 50 mg twice a day. Continue rest of medical regimen. No further cardiac workup is needed at this time. MMODL / IJN: [id number] /
[2019-11-10] MEDS: IPRATROPIUM-ALBUTEROL 3 ML NEB INHALATION SCH ×4 (11:54→19:53)
[2019-11-10 12:01] LABS: Glucose,Whole Blood 193 mg/dL (75-99)
[2019-11-10] MEDS: SODIUM CHLORIDE 0.9% 1,000 ML IV SCH (12:24)
[2019-11-10] MEDS: MORPHINE SULFATE 2 MG/ML SYRINGE IVP PRN ×2 (12:25→20:15)
[2019-11-10] MEDS: IBUPROFEN 600 MG TAB PO PRN (13:59)
--- NOTE | 2019-11-10 16:06 | PN ---
PROGRESS NOTE DATE OF SERVICE: 11/10/2019 REASON FOR FOLLOWUP: Right neck wound infection, Pseudomonas. INTERVAL HISTORY: The patient is currently afebrile. The patient is breathing comfortably. The patient denies having any chest pain or shortness of breath or cough. The patient is status post PEG tube placement yesterday; tolerated the procedure. No worsening pain to the neck area. PHYSICAL EXAMINATION: Blood pressure 127/68 with a pulse of 92, temperature 97.4. She is 100% on 2 L nasal cannula. General description is an elderly female up in the bed in no distress. HEENT EXAMINATION: Right neck wound is currently dressed. No foul-smelling or drainage on the dressing. LUNGS: Unlabored breathing. Clear to auscultation anteriorly. HEART: S1, S2. Regular rate and rhythm. ABDOMEN: Soft. No tenderness. LABS: Hemoglobin 9, white count 9.4, BUN of 17, creatinine 0.43. DIAGNOSTIC IMPRESSION AND PLAN: Patient with Pseudomonas right neck wound infection. Plan at this time is to continue with Zosyn. Local care with the Dakin solution. Finish therapy with oral Cipro. Local wound care as ordered. Continue with supportive care. MMODL / IJN: [id number] /
[2019-11-10 16:47] LABS: Glucose,Whole Blood 145 mg/dL (75-99)
--- NOTE | 2019-11-10 17:42 | P.PN ---
Subjective Progress Note Date: 11/10/19 Principal diagnosis: Known Malignancy Head and Neck Status Post EGD and PEg Tube Objective - Vital Signs Vital signs: Vital Signs Temp 97.4 F L 11/10/19 08:00 Pulse 97 11/10/19 16:03 Resp 20 11/10/19 16:00 BP 124/57 11/10/19 16:00 Pulse Ox 97 11/10/19 16:00 Intake & Output 11/09/19 11/10/19 11/10/19 18:59 06:59 18:59 Intake Total 280 720 Balance 280 720 Weight 45.813 kg Intake: IV 40 Oral 240 720 Other: Voiding Method Toilet Bedside Commode - Exam - Constitutional General appearance: cooperative, mild distress, thin - EENT Rt facial/mandible/neck involved with necrotic mass, tumors surround a large hole in the neck and mandible area, purulent drainage and foul odor. Left ear has a skin lesion in the cartilage-this is stable Eyes: anicteric sclerae, EOMI ENT: hard of hearing - Neck Neck: lymphadenopathy (right neck ) - Respiratory Respiratory: bilateral: diminished (weak inspiratory effort) - Cardiovascular Rhythm: regular Heart sounds: normal: S1, S2 Abnormal Heart Sounds: no systolic murmur, no diastolic murmur, no rub, no S3 Gallop, no S4 Gallop, no click, no other leg Peripheral Edema: bilateral: None - Gastrointestinal General gastrointestinal: no absent bowel sounds, no decreased bowel sounds, no distended, no hepatomegaly, no hyperactive bowel sounds, normal bowel sounds, no organomegaly, no rigid, no scaphoid, soft, no splenomegaly, no tenderness, no umbilical hernia, no ventral hernia - Integumentary CT head and neck, skin otherwise normal - Neurologic facial nerves on the right are not intact, invaded by tumor - Musculoskeletal Musculoskeletal: generalized weakness - Psychiatric Psychiatric: A&O x's 3, appropriate affect, intact judgment & insight - Labs CBC & Chem 7: 11/10/19 06:07 11/10/19 06:07 Labs: Abnormal Lab Results - Last 24 Hours (Table) 11/09/19 11/10/19 11/10/19 Range/Units 20:20 06:05 06:07 RBC (3.80-5.40) m/uL Hgb (11.4-16.0) gm/dL Hct (34.0-46.0) % MCH (25.0-35.0) pg MCHC (31.0-37.0) g/dL RDW (11.5-15.5) % Neutrophils # (1.3-7.7) k/uL Lymphocytes # (1.0-4.8) k/uL Sodium 135 L (137-145) mmol/L Carbon Dioxide 21 L (22-30) mmol/L Creatinine 0.43 L (0.52-1.04) mg/dL Glucose 139 H (74-99) mg/dL POC Glucose (mg/dL) 134 H 153 H (75-99) mg/dL Calcium 7.6 L (8.4-10.2) mg/dL 11/10/19 11/10/19 11/10/19 Range/Units 06:07 11:36 16:45 RBC 3.72 L (3.80-5.40) m/uL Hgb 9.0 L (11.4-16.0) gm/dL Hct 32.2 L (34.0-46.0) % MCH 24.3 L (25.0-35.0) pg MCHC 28.1 L (31.0-37.0) g/dL RDW 16.5 H (11.5-15.5) % Neutrophils # 8.5 H (1.3-7.7) k/uL Lymphocytes # 0.4 L (1.0-4.8) k/uL Sodium (137-145) mmol/L Carbon Dioxide (22-30) mmol/L Creatinine (0.52-1.04) mg/dL Glucose (74-99) mg/dL POC Glucose (mg/dL) 193 H 145 H (75-99) mg/dL Calcium (8.4-10.2) mg/dL Microbiology - Last 24 Hours (Table) 11/04/19 14:50 Blood Culture - Final Blood No Growth after 144 hours Assessment and Plan Plan: CT scan - chest: report reviewed Assessment and Plan New Onset A-fib: Pseudomonas in Right Neck Wound: - ID is managing Squamous cell carcinoma Current Visit: Yes Status: Acute Priority: High Code(s): QTY4311 - SNOMED Code(s): 023919902 Neoplasm related pain Current Visit: Yes Status: Chronic Priority: High Code(s): G89.3 - NEOPLASM RELATED PAIN (ACUTE) (CHRONIC) SNOMED Code(s): 98578382223623 Plan: - Based on images it appears she is respondong to treatment with increased necrosis of tumor - Status Post EGD and PEG - Iron Deficiency anemia - Will continue on Faraheme as outpatient she has received one of two - Follow-up with Dr. Chino after discharge before resuming chemo Physician Attest: I have completed the full history and physical and agree with above dictation, dictated as a ascribe
[2019-11-10 20:04] LABS: Glucose,Whole Blood 192 mg/dL (75-99)
[2019-11-10] MEDS: METOPROLOL TARTRATE 50 MG TAB PO SCH (20:14)
[2019-11-10] MEDS: ATORVASTATIN 40 MG TAB PO SCH (20:14)
--- NOTE | 2019-11-10 22:58 | P.PN ---
Subjective Progress Note Date: 11/10/19 Principal diagnosis: Squamous cell carcinoma of the head and neck, esophageal dysphagia The patient seen lying in bed today. No acute complaints. The patient underwent successful placement of PEG tube yesterday and has been started on tube feeds. Patient seen at bedside with PEG tube bumper loosened. Objective - Vital Signs Vital signs: Vital Signs Temp 97.4 F L 11/10/19 08:00 Pulse 92 11/10/19 12:40 Resp 20 11/10/19 08:00 BP 127/68 11/10/19 08:00 Pulse Ox 100 11/10/19 08:00 Intake & Output 11/09/19 11/10/19 11/10/19 18:59 06:59 18:59 Intake Total 280 Balance 280 Weight 45.813 kg Intake: IV 40 Oral 240 Other: Voiding Method Toilet Bedside Commode - Exam On physical examination, patient appears comfortable in no apparent distress. HEAD: Fungating mass of the right face and neck, atraumatic. EYES: No scleral icterus. No conjunctival injection. MOUTH: No lesions, tongue midline. NECK: Trachea midline, no gross abnormalities. ABDOMEN: Soft, PEG tube site clean/Dry/intact with bumper loosened. Bowel sounds are positive. No organomegaly. No guarding or rigidity. EXTREMITIES: No pedal edema. SKIN: No rashes, no jaundice. NEUROLOGIC: Alert and oriented x3. No focal deficits. - Labs CBC & Chem 7: 11/10/19 06:07 11/10/19 06:07 Labs: Abnormal Lab Results - Last 24 Hours (Table) 11/09/19 11/09/19 11/09/19 Range/Units 15:50 15:50 17:11 RBC 3.43 L (3.80-5.40) m/uL Hgb 8.4 L (11.4-16.0) gm/dL Hct 27.7 L (34.0-46.0) % MCH 24.5 L (25.0-35.0) pg MCHC 30.4 L (31.0-37.0) g/dL RDW 17.1 H (11.5-15.5) % Neutrophils # (1.3-7.7) k/uL Lymphocytes # 0.8 L (1.0-4.8) k/uL Sodium 135 L (137-145) mmol/L Carbon Dioxide (22-30) mmol/L Creatinine 0.47 L (0.52-1.04) mg/dL Glucose (74-99) mg/dL POC Glucose (mg/dL) 106 H (75-99) mg/dL Calcium 8.0 L (8.4-10.2) mg/dL Total Protein 5.8 L (6.3-8.2) g/dL Albumin 2.7 L (3.5-5.0) g/dL 11/09/19 11/10/19 11/10/19 Range/Units 20:20 06:05 06:07 RBC (3.80-5.40) m/uL Hgb (11.4-16.0) gm/dL Hct (34.0-46.0) % MCH (25.0-35.0) pg MCHC (31.0-37.0) g/dL RDW (11.5-15.5) % Neutrophils # (1.3-7.7) k/uL Lymphocytes # (1.0-4.8) k/uL Sodium 135 L (137-145) mmol/L Carbon Dioxide 21 L (22-30) mmol/L Creatinine 0.43 L (0.52-1.04) mg/dL Glucose 139 H (74-99) mg/dL POC Glucose (mg/dL) 134 H 153 H (75-99) mg/dL Calcium 7.6 L (8.4-10.2) mg/dL Total Protein (6.3-8.2) g/dL Albumin (3.5-5.0) g/dL 11/10/19 11/10/19 Range/Units 06:07 11:36 RBC 3.72 L (3.80-5.40) m/uL Hgb 9.0 L (11.4-16.0) gm/dL Hct 32.2 L (34.0-46.0) % MCH 24.3 L (25.0-35.0) pg MCHC 28.1 L (31.0-37.0) g/dL RDW 16.5 H (11.5-15.5) % Neutrophils # 8.5 H (1.3-7.7) k/uL Lymphocytes # 0.4 L (1.0-4.8) k/uL Sodium (137-145) mmol/L Carbon Dioxide (22-30) mmol/L Creatinine (0.52-1.04) mg/dL Glucose (74-99) mg/dL POC Glucose (mg/dL) 193 H (75-99) mg/dL Calcium (8.4-10.2) mg/dL Total Protein (6.3-8.2) g/dL Albumin (3.5-5.0) g/dL Microbiology - Last 24 Hours (Table) 11/04/19 14:50 Blood Culture - Preliminary Blood No Growth after 120 hours Assessment and Plan (1) Esophageal dysphagia Narrative/Plan: 74-year-old female with multiple medical comorbidities including squamous cell carcinoma of the right face and neck currently into the management of the oncology service who presented due to weakness, pain and shortness of breath. Patient has been having difficulty swallowing and tolerating a diet. Her oral saturation has been poor. PEG tube placement successfully yesterday. Current Visit: Yes Status: Acute Code(s): R13.10 - DYSPHAGIA, UNSPECIFIED SNOMED Code(s): 89251071 (2) Squamous cell carcinoma Current Visit: Yes Status: Acute Priority: High Code(s): TQT2994 - SNOMED Code(s): 522674919 Plan: Supportive care Okay for diet as tolerated Continue nutritional supplementation through PEG tube as per recommendations by nutrition service Local PEG tube care Treatment of other medical comorbidities per oncology and primary team as well as infectious disease service No plans for further GI workup at this time Thank you for allowing us to participate in the care of the patient, the GI ser vice will stand by, please call us back with any questions or concerns
[2019-11-11] MEDS: HYDROcodone/APAP 7.5-325MG 1 EACH TAB PO PRN ×2 (00:31→09:57)
[2019-11-11] MEDS: PIPERACILLIN-TAZOBACTAM 3.375 GM in SODIUM CHLORIDE 0.9% 100 ML IVPB SCH ×3 (00:32→14:48)
[2019-11-11] MEDS: SODIUM CHLORIDE 0.9% 1,000 ML IV SCH ×3 (00:32→21:12)
[2019-11-11] MEDS: MORPHINE SULFATE 2 MG/ML SYRINGE IVP PRN ×2 (03:52→15:51)
[2019-11-11 06:03] LABS: Glucose,Whole Blood 139 mg/dL (75-99)
[2019-11-11] MEDS: MORPHINE SULFATE IR 15 MG TABLET PO PRN ×2 (06:13→21:04)
[2019-11-11] MEDS: INSULIN ASPART (NovoLOG) 100 UNIT/ML VIAL SQ SCH ×4 (06:18→21:19)
[2019-11-11 07:41] LABS: Anisocytosis Slight; Basophils % (A) 0 %; Eosinophils % (A) 0 %; HCT 24.7 % (34.0-46.0); Hypochromasia Marked; Lymphocytes # (A) 0.4 k/uL (1.0-4.8); Lymphocytes % (A) 5 %; MCH 24.5 pg (25.0-35.0); MCHC 30.1 g/dL (31.0-37.0); Mean Platelet Volume 7.1; Monocytes # (A) 0.4 k/uL (0-1.0); Monocytes % (A) 5 %; Neutrophils # (A) 7.6 k/uL (1.3-7.7); Neutrophils % (A) 87 %; Platelet Count 383 k/uL (150-450); RBC 3.04 m/uL (3.80-5.40); RDW 17.7 % (11.5-15.5); WBC 8.7 k/uL (3.8-10.6)
[2019-11-11 07:49] LABS: HGB 7.4 gm/dL (11.4-16.0); MCV 81.4 fL (80.0-100.0)
[2019-11-11 08:05] LABS: African American GFR (CKD) >90 (>60 ml/min/1.73 sqM); Anion Gap 3 mmol/L; Blood Urea Nitrogen 17 mg/dL (7-17); Calcium 7.2 mg/dL (8.4-10.2); Carbon Dioxide 23 mmol/L (22-30); Chloride 111 mmol/L (98-107); Glucose 130 mg/dL (74-99); Non-African American GFR(CKD) >90 (>60 ml/min/1.73 sqM); Potassium 4.1 mmol/L (3.5-5.1); Sodium 137 mmol/L (137-145)
[2019-11-11] MEDS: IPRATROPIUM-ALBUTEROL 3 ML NEB INHALATION SCH ×4 (08:56→20:02)
[2019-11-11] MEDS: FERROUS SULFATE 325 MG TAB PO SCH (09:25)
[2019-11-11] MEDS: GABAPENTIN 100 MG CAP PO SCH (09:25)
[2019-11-11] MEDS: polyethylene glycoL 3350 17 GM POWD.PACK PO SCH (09:25)
[2019-11-11] MEDS: METOPROLOL TARTRATE 50 MG TAB PO SCH ×2 (09:25→21:05)
[2019-11-11] MEDS: FAMOTIDINE 20 MG TAB PO SCH ×2 (09:25→21:04)
[2019-11-11] MEDS: predniSONE 20 MG TAB PO SCH (09:25)
[2019-11-11] MEDS: guaiFENesin 600 MG TABLET.ER PO SCH ×2 (09:26→21:04)
[2019-11-11] MEDS: SODIUM HYPOCHLORITE 0.25% 480 ML BOT MISCELLANE SCH (09:26)
[2019-11-11] MEDS: MEGESTROL 400 MG/10 ML CUP PO SCH (09:31)
[2019-11-11 11:56] LABS: Glucose,Whole Blood 143 mg/dL (75-99)
--- NOTE | 2019-11-11 12:48 | P.PN ---
Subjective Progress Note Date: 11/11/19 CHIEF COMPLAINT: Afib HISTORY OF PRESENT ILLNESS: Patient examined this morning at the bedside. She complains of shortness of breath and a nonproductive cough this morning. Patient is on nasal cannula with oxygen saturations greater than 92%. She denies chest pain. PHYSICAL EXAM: VITAL SIGNS: Reviewed. GENERAL: Well-developed in no acute distress. NECK: Large dressing to right side of neck. No JVD or thyromegaly LUNGS: Respirations even and unlabored. Lungs essentially clear to auscultation bilaterally. HEART: Regular rate and rhythm. S1 and S2 heard. EXTREMITIES: Normal range of motion. No clubbing or cyanosis. Peripheral pul ses intact. No lower extremity edema ASSESSMENT: 1. New onset atrial fibrillation with RVR 2. Squamous cell carcinoma of the neck 3. History of smoking 4. Peripheral arterial disease PLAN: -Obtain 2 view chest x-ray -Continue current dose of metoprolol 50 mg twice a day. Monitor heart rate Nurse practitioner note has been reviewed by physician. Signing provider agrees with the documented findings, assessment, and plan of care. Objective - Vital Signs Vital signs: Vital Signs Temp 98.0 F 11/11/19 08:00 Pulse 100 11/11/19 09:09 Resp 16 11/11/19 08:00 BP 136/63 11/11/19 08:00 Pulse Ox 98 11/11/19 08:00 Intake & Output 11/10/19 11/11/19 11/11/19 18:59 06:59 18:59 Intake Total 840 200 Balance 840 200 Weight 50.8 kg Intake: Oral 840 200 Other: Voiding Method Toilet Toilet Bedside Commode Bedside Commode - Labs CBC & Chem 7: 11/11/19 06:54 11/11/19 06:54 Labs: Abnormal Lab Results - Last 24 Hours (Table) 11/10/19 11/10/19 11/10/19 Range/Units 11:36 16:45 20:02 RBC (3.80-5.40) m/uL Hgb (11.4-16.0) gm/dL Hct (34.0-46.0) % MCH (25.0-35.0) pg MCHC (31.0-37.0) g/dL RDW (11.5-15.5) % Lymphocytes # (1.0-4.8) k/uL Chloride (98-107) mmol/L Creatinine (0.52-1.04) mg/dL Glucose (74-99) mg/dL POC Glucose (mg/dL) 193 H 145 H 192 H (75-99) mg/dL Calcium (8.4-10.2) mg/dL 11/11/19 11/11/19 11/11/19 Range/Units 06:02 06:54 06:54 RBC 3.04 L (3.80-5.40) m/uL Hgb 7.4 L D (11.4-16.0) gm/dL Hct 24.7 L (34.0-46.0) % MCH 24.5 L (25.0-35.0) pg MCHC 30.1 L (31.0-37.0) g/dL RDW 17.7 H (11.5-15.5) % Lymphocytes # 0.4 L (1.0-4.8) k/uL Chloride 111 H (98-107) mmol/L Creatinine 0.40 L (0.52-1.04) mg/dL Glucose 130 H (74-99) mg/dL POC Glucose (mg/dL) 139 H (75-99) mg/dL Calcium 7.2 L (8.4-10.2) mg/dL Microbiology - Last 24 Hours (Table) 11/04/19 14:50 Blood Culture - Final Blood No Growth after 144 hours
[2019-11-11 12:53] LABS: Glucose,Whole Blood 135 mg/dL (75-99)
--- NOTE | 2019-11-11 13:45 | XR ---
EXAMINATION TYPE: XR chest 2V DATE OF EXAM: 11/11/2019 COMPARISON: 11/04/2019 HISTORY: 74 year-old female shortness of breath and cough TECHNIQUE: PA and lateral views FINDINGS: Heart normal size. Aorta and pulmonary vasculature within normal limits. Mild hyperinflation. Small e ffusions with posterior basilar patchy opacity, new from prior. IMPRESSION: 1. Correlate for underlying COPD. 2. Small effusions with adjacent atelectasis and/or consolidation, new from 11/04/2019. Correlate for u nderlying pneumonia versus sequela of mild CHF.
[2019-11-11 14:47] VITALS: BMI 20.5
--- NOTE | 2019-11-11 14:59 | PN ---
PROGRESS NOTE DATE OF SERVICE: 11/11/2019 REASON FOR FOLLOWUP: Right neck wound infection. INTERVAL HISTORY: Patient is currently afebrile. The patient denies having any chest pain or shortness of breath or cough. No abdominal pain at the PEG tube site. No nausea, no vomiting, no diarrhea or pain to the right neck wound. PHYSICAL EXAMINATION: Blood pressure 100/55 with a pulse of 93, temperature 98.2, he is 98% 2 L nasal cannula. General description is elderly female, up in the bed in no distress. Right side neck wound is currently dressed, no drainage on the dressing. LUNGS: Unlabored breathing, clear to auscultation anteriorly. HEART: S1, S2. Regular rate and rhythm. ABDOMEN: Soft, no tenderness. LABS: Hemoglobin 7.2, white count 8.7, BUN of 17, creatinine 0.40. DIAGNOSTIC IMPRESSION AND PLAN: Patient with Pseudomonas aeruginosa right side neck wound infection with secondary cellulitis. Plan at this time is to keep the patient on Zosyn, finishing therapy with oral Cipro on discharge. Continue supportive care. MMODL / IJN: [id number] /
[2019-11-11 16:56] LABS: Glucose,Whole Blood 157 mg/dL (75-99)
[2019-11-11] MEDS: ATORVASTATIN 40 MG TAB PO SCH (21:04)
[2019-11-11 21:17] LABS: Glucose,Whole Blood 159 mg/dL (75-99)
[2019-11-12] MEDS: HYDROcodone/APAP 7.5-325MG 1 EACH TAB PO PRN ×3 (00:24→13:13)
[2019-11-12] MEDS: PIPERACILLIN-TAZOBACTAM 3.375 GM in SODIUM CHLORIDE 0.9% 100 ML IVPB SCH ×2 (01:24→09:28)
[2019-11-12 02:20] VITALS: RESP 20
[2019-11-12] MEDS: MORPHINE SULFATE 2 MG/ML SYRINGE IVP PRN ×2 (02:58→09:30)
[2019-11-12 06:17] LABS: Glucose,Whole Blood 127 mg/dL (75-99)
[2019-11-12] MEDS: SODIUM CHLORIDE 0.9% 1,000 ML IV SCH (06:33)
[2019-11-12] MEDS: INSULIN ASPART (NovoLOG) 100 UNIT/ML VIAL SQ SCH ×2 (06:34→13:13)
[2019-11-12] MEDS: MORPHINE SULFATE IR 15 MG TABLET PO PRN (06:36)
[2019-11-12] MEDS: IPRATROPIUM-ALBUTEROL 3 ML NEB INHALATION SCH ×3 (08:53→16:24)
[2019-11-12] MEDS: FERROUS SULFATE 325 MG TAB PO SCH (09:30)
[2019-11-12] MEDS: polyethylene glycoL 3350 17 GM POWD.PACK PO SCH (09:30)
[2019-11-12] MEDS: GABAPENTIN 100 MG CAP PO SCH (09:30)
[2019-11-12] MEDS: metFORMIN 500 MG TAB PO SCH (09:31)
[2019-11-12] MEDS: SODIUM HYPOCHLORITE 0.25% 480 ML BOT MISCELLANE SCH (09:31)
[2019-11-12] MEDS: METOPROLOL TARTRATE 50 MG TAB PO SCH (09:31)
[2019-11-12] MEDS: FAMOTIDINE 20 MG TAB PO SCH (09:31)
[2019-11-12] MEDS: guaiFENesin 600 MG TABLET.ER PO SCH (09:31)
[2019-11-12] MEDS: predniSONE 20 MG TAB PO SCH (09:31)
[2019-11-12] MEDS: MEGESTROL 400 MG/10 ML CUP PO SCH (09:38)
--- NOTE | 2019-11-12 11:09 | P.PN ---
Subjective Progress Note Date: 11/12/19 CHIEF COMPLAINT: Afib HISTORY OF PRESENT ILLNESS: Patient examined this morning at the bedside. She continues to complain of mild shortness of breath and states it is about the same as yesterday. Chest x-ray completed yesterday reveals underlying COPD, small effusions with adjacent atelectasis and/or consolidation new from 11/04/2019. Correlate for underlying pneumonia versus mild CHF. Patient is on nasal cannula with oxygen saturations greater than 92%. She denies chest pain. Blood pressure is stable. Heart rate in the 80s and 90s. PHYSICAL EXAM: VITAL SIGNS: Reviewed. GENERAL: Well-developed in no acute distress. NECK: Large dressing to right side of neck. No JVD or thyromegaly LUNGS: Respirations even and unlabored. Lungs essentially clear to auscultation bilaterally. HEART: Regular rate and rhythm. S1 and S2 heard. EXTREMITIES: Normal range of motion. No clubbing or cyanosis. Peripheral pulses intact. No lower extremity edema ASSESSMENT: 1. New onset atrial fibrillation with RVR 2. Squamous cell carcinoma of the neck 3. History of smoking 4. Peripheral arterial disease PLAN: -Continue current dose of metoprolol 50 mg twice a day -Monitor heart rate -Patient is stable from a cardiac perspective. We will sign off. Please reconsult if needed. Nurse practitioner note has been reviewed by physician. Signing provider agrees with the documented findings, assessment, and plan of care. Objective - Vital Signs Vital signs: Vital Signs Temp 98.3 F 11/11/19 20:00 Pulse 92 11/12/19 09:05 Resp 20 11/12/19 04:00 BP 121/60 11/12/19 04:00 Pulse Ox 97 11/12/19 04:00 Intake & Output 11/11/19 11/12/19 11/12/19 18:59 06:59 18:59 Intake Total 850 20 120 Balance 850 20 120 Weight 50.8 kg 49.7 kg Intake: IV 20 Invasive Line 7 20 Oral 850 120 Other: Voiding Method Toilet Toilet # Voids 1 - Labs CBC & Chem 7: 11/11/19 06:54 11/11/19 06:54 Labs: Abnormal Lab Results - Last 24 Hours (Table) 11/11/19 11/11/19 11/11/19 Range/Units 11:55 12:52 16:40 POC Glucose (mg/dL) 143 H 135 H 157 H (75-99) mg/dL 11/11/19 11/12/19 Range/Units 21:16 06:12 POC Glucose (mg/dL) 159 H 127 H (75-99) mg/dL
[2019-11-12 11:34] VITALS: TEMP 98.2
[2019-11-12 11:55] LABS: Glucose,Whole Blood 138 mg/dL (75-99)
--- NOTE | 2019-11-12 13:04 | P.DS ---
Providers Date of admission: 11/04/19 14:33 Expected date of discharge: 11/12/19 Attending physician: Hang Solis Consults: 11/04/19 14:33 Consult Physician Urgent Consulting Provider: Truman Simon Consult Reason/Comments: Squamous cell carcinoma Do you want consulting provider notified?: Yes 11/04/19 14:50 Consult Physician Urgent Consulting Provider: Frank Hernandez Consult Reason/Comments: Squamous cell neck mass Do you want consulting provider notified?: Yes Consult Physician Urgent Consulting Provider: Autumn Main Consult Reason/Comments: Infected neck mass Do you want consulting provider notified?: Yes 11/08/19 14:42 Consult Physician Routine Consulting Provider: Mckay Canada Consult Reason/Comments: new afib RVR Do you want consulting provider notified?: Yes Primary care physician: Silviano Lieberman [facility] Course: Final diagnosis -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 Wound cultures growing Pseudomonas aeruginosa. 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 With a BMI of 18 -Acute COPD exacerbation in a current smoker -Diabetes mellitus type 2 -Essential hypertension -PEG tube placement on 11/08 -New onset atrial fibrillation rapid ventricular rate -No code Discharge disposition Patient is being discharged in a stable condition with guarded prognosis to home. Patient will continue with home care in the outpatient setting. Patient will follow-up with Dr. Lieberman upon discharge. Patient also instructed to follow-up with GI along with oncology Dr. Jack. Patient will also Continue with oral antibiotics in the form of Cipro 500 mg twice daily for the next 10 days. Patient will continue on a prednisone taper along with breathing inhalational treatments. Total time taken is 35 minutes. History of present illness This is an 74-year-old female who was recently admitted with A fungating mass with squamous cell carcinoma of the neck and was being closely monitored. Multiple medical consultations following. 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 Patient was seen and evaluated by cardiology, infectious disease, and oncology. Patient was also evaluated by GI Dr. Alberts And underwent PEG tube placement She has been having some difficulty swallowing and inability to eat. Patient has been initiated on tube feedings and case management made arrangements for continued tube feedings in the outpatient setting. Patient persistent ongoing home with home care and will be staying with her son. During hospitalization patient went into A. fib with RVR and was evaluated by cardiology. Patient will continue on Metoprolol 50 mg twice daily. Infectious disease was also following as wound cultures of the neck finalized showing Pseudomonas aeruginosa and patient will continue on oral antibiotics in the form of Cipro 500 mg twice daily for the next 10 days. Patient will also continue on breathing inhalational treatments along with a prednisone taper. Currently no reports of chest pain, shortness of breath, or palpitations. Patient is afebrile. No reports of nausea or vomiting and patient is tolerating diet. Patient will be discharged home today and continue with home care. Patient had an informational meeting with [facility] and is not ready to sign on with hospice at this time. On exam vital signs are stable. Temp is 98.2F, pulse is 84, respirations are 20, blood pressure is 120/56, oxygen saturation is 98% on 2 L via nasal cannula. Cardio S1, S2 are muffled. Respiratory shows diminished breath sounds at the bases with Some scattered rhonchi noted. Abdomen is soft and nontender. Nervous system shows No focal deficits. Please refer to medication reconciliation sheet for a list of medications. Patient Condition at Discharge: Stable Plan - Discharge Summary Discharge Rx Participant: No New Discharge Prescriptions: New Ipratropium-Albuterol Nebulize [Duoneb 0.5 mg-3 mg/3 ml Soln] 3 ml INHALATION RT-QID #120 ml guaiFENesin [Mucinex] 1,200 mg PO Q12HR #60 tablet.er predniSONE 10 mg PO DAILY #30 tab Ciprofloxacin HCl [Cipro] 500 mg PO BID 10 Days #30 tab Metoprolol Tartrate [Lopressor] 50 mg PO BID 30 Days #60 tab Continue Gabapentin [Neurontin] 200 mg PO DAILY metFORMIN HCL [Glucophage] 500 mg PO DAILY Famotidine 20 mg PO BID Atorvastatin [Lipitor] 40 mg PO HS Albuterol Nebulized [Ventolin Nebulized] 2.5 mg INHALATION RT-TID PRN PRN Reason: Shortness Of Breath Ibuprofen [Motrin] 600 mg PO QID PRN PRN Reason: Pain Ondansetron HCl [Zofran] 4 mg PO Q8H PRN PRN Reason: Nausea And Vomiting HYDROcodone/APAP 7.5-325MG [Grayling 7.5-325] 1 tab PO Q4H PRN 3 Days #18 tab PRN Reason: Pain Morphine Sulfate 15 mg PO BID PRN PRN Reason: Pain Ferrous Sulfate [Feosol] 325 mg PO DAILY Polyethylene Glycol 3350 [Miralax] 17 gm PO DAILY Megestrol Acetate 800 mg PO DAILY Discontinued Metoprolol Tartrate 12.5 mg PO BID Discharge Medication List Gabapentin [Neurontin] 200 mg PO DAILY 06/21/15 [History] metFORMIN HCL [Glucophage] 500 mg PO DAILY 10/11/15 [History] Famotidine 20 mg PO BID 12/27/16 [History] Albuterol Nebulized [Ventolin Nebulized] 2.5 mg INHALATION RT-TID PRN 01/27/19 [History] Atorvastatin [Lipitor] 40 mg PO HS 01/27/19 [History] Ibuprofen [Motrin] 600 mg PO QID PRN 09/26/19 [History] Ondansetron HCl [Zofran] 4 mg PO Q8H PRN 09/26/19 [History] HYDROcodone/APAP 7.5-325MG [Grayling 7.5-325] 1 tab PO Q4H PRN 3 Days #18 tab 09/30/19 [Rx] Morphine Sulfate 15 mg PO BID PRN 11/02/19 [History] Ferrous Sulfate [Feosol] 325 mg PO DAILY 11/04/19 [History] Megestrol Acetate 800 mg PO DAILY 11/04/19 [History] Polyethylene Glycol 3350 [Miralax] 17 gm PO DAILY 11/04/19 [History] Ipratropium-Albuterol Nebulize [Duoneb 0.5 mg-3 mg/3 ml Soln] 3 ml INHALATION RT-QID #120 ml 11/07/19 [Rx] guaiFENesin [Mucinex] 1,200 mg PO Q12HR #60 tablet.er 11/07/19 [Rx] predniSONE 10 mg PO DAILY #30 tab 11/07/19 [Rx] Ciprofloxacin HCl [Cipro] 500 mg PO BID 10 Days #30 tab 08/13/20 [Rx] Metoprolol Tartrate [Lopressor] 50 mg PO BID 30 Days #60 tab 11/12/19 [Rx] Follow up Appointment(s)/Referral(s): Silviano Lieberman MD [Primary Care Provider] - 2 Weeks [facility], [NON-STAFF] - Venu Jack MD [STAFF PHYSICIAN] - 11/19/19 11:15 am Raman Mckeon MD [STAFF PHYSICIAN] - 1 Week Activity/Diet/Wound Care/Special Instructions: Patient will require a nebulizer and supplies due to COPD. Activity Limited until follow-up Continue with PEG tube feedings With Glucerna and 0.2 with a goal rate of 55 and free water boluses of 30 mL's every 4 hours Follow-up with primary care provider upon discharge Follow-up with oncology in the outpatient setting Follow-up with GI in the outpatient setting Continue with home care Discharge Disposition: HOME WITH HOME HEALTH SERVICES
[2019-11-12 15:02] VITALS: BP 118/56; PULSE 95
--- NOTE | 2019-11-12 15:22 | PN ---
PROGRESS NOTE DATE OF SERVICE: 11/12/2019 REASON FOR FOLLOWUP: Right neck wound infection and cellulitis. INTERVAL HISTORY: The patient is currently afebrile. She denies any worsening pain to the right neck wound area. Denies any chest pain. Occasional cough. Still has some abdominal pain, but no vomiting, no diarrhea. PHYSICAL EXAMINATION: Blood pressure 120/56, pulse of 99, temperature is 98.2, she is 98% on 2 L nasal cannula. General description is an elderly female, up in the bed in no distress. RESPIRATORY SYSTEM: Unlabored breathing, decreased breath sounds in the base, with no wheeze. HEART: S1, S2. Regular rhythm and rhythm. ABDOMEN: Soft, no tenderness. LABS: No new labs have been obtained today. DIAGNOSTIC IMPRESSION AND PLAN: Patient with right neck wound with secondary cellulitis. Plan is to continue with Dakin solution soaked dressing to the neck wound and/or to finish therapy with oral Cipro and close outpatient followup. MMODL / IJN: [id number] /
== END 2019-11-12 16:32 | disposition home health service (06) | DRG 603 ==
LOC: EC 10:55 → 4SSUR 14:33 → 3SCARD 11-08 14:26
PROVIDERS: ADMIT Hospitalist; ATTEND Hospitalist
PROC: 3E0G76Z Introduction of Nutritional Substance into Upper GI, Via Natural or Artificial Opening (ICD-10-PCS; principal; 2019-11-09 08:50)
PROC: 0DH63UZ Insertion of Feeding Device into Stomach, Percutaneous Approach (ICD-10-PCS; principal; 2019-11-09 08:50)
DX: L03.211 Cellulitis of face (principal); E44.0 Moderate protein-calorie malnutrition; R64 Cachexia; J44.1 Chronic obstructive pulmonary disease with (acute) exacerbation; I87.1 Compression of vein; Z68.1 Body mass index [BMI] 19.9 or less, adult; C79.89 Secondary malignant neoplasm of other specified sites; E11.51 Type 2 diabetes mellitus with diabetic peripheral angiopathy without gangrene; I48.0 Paroxysmal atrial fibrillation; C44.329 Squamous cell carcinoma of skin of other parts of face; B96.5 Pseudomonas (aeruginosa) (mallei) (pseudomallei) as the cause of diseases classified elsewhere; D50.9 Iron deficiency anemia, unspecified; Z66 Do not resuscitate; Z51.5 Encounter for palliative care; R13.10 Dysphagia, unspecified; G89.3 Neoplasm related pain (acute) (chronic); K21.9 Gastro-esophageal reflux disease without esophagitis; E78.5 Hyperlipidemia, unspecified; R47.02 Dysphasia; I10 Essential (primary) hypertension; R49.0 Dysphonia; F41.9 Anxiety disorder, unspecified; M19.90 Unspecified osteoarthritis, unspecified site; I83.90 Asymptomatic varicose veins of unspecified lower extremity; K40.90 Unilateral inguinal hernia, without obstruction or gangrene, not specified as recurrent; K59.00 Constipation, unspecified; H66.91 Otitis media, unspecified, right ear; H91.90 Unspecified hearing loss, unspecified ear; H93.19 Tinnitus, unspecified ear; F17.210 Nicotine dependence, cigarettes, uncomplicated; Z71.6 Tobacco abuse counseling; Z79.84 Long term (current) use of oral hypoglycemic drugs; Z79.818 Long term (current) use of other agents affecting estrogen receptors and estrogen levels; Z79.899 Other long term (current) drug therapy; Z71.3 Dietary counseling and surveillance; Z92.3 Personal history of irradiation; Z90.710 Acquired absence of both cervix and uterus; Z87.11 Personal history of peptic ulcer disease; Z87.42 Personal history of other diseases of the female genital tract; Z90.89 Acquired absence of other organs; Z95.820 Peripheral vascular angioplasty status with implants and grafts; Z98.51 Tubal ligation status; Z86.010 Personal history of colon polyps; Z98.890 Other specified postprocedural states; Z86.59 Personal history of other mental and behavioral disorders; Z87.448 Personal history of other diseases of urinary system; Z87.19 Personal history of other diseases of the digestive system; Z88.1 Allergy status to other antibiotic agents; Z80.7 Family history of other malignant neoplasms of lymphoid, hematopoietic and related tissues; Z83.3 Family history of diabetes mellitus; Z82.49 Family history of ischemic heart disease and other diseases of the circulatory system
CPT/HCPCS: 36415; 43246; 70491; 71046; 71275; 80048; 80053; 83605; 83735; 83880; 84484; 85025; 85027; 85379; 85610; 85730; 87040; 87070; 87077; 87186; 87205; 93005; 93306; 94640; 94760; 96365; 96366; 96367; 96375; 96413; 96415; 96417; 99285

== ENCOUNTER 2019-11-16 08:22 | Inpatient (IN) | payer MEDICARE, OTHER ==
[2019-11-16] MEDS ORDERED: IPRATROPIUM-ALBUTEROL 3 ML NEB INHALATION STA (08:50)
[2019-11-16] MEDS ORDERED: SODIUM CHLORIDE 0.9% 500 ML 500 ML IV STA (08:50)
--- NOTE | 2019-11-16 09:19 | ED ---
SOB HPI - General Chief Complaint: Shortness of Breath Stated Complaint: BRIONNA, neck pain Time Seen by Provider: 11/16/19 08:41 Source: patient Mode of arrival: wheelchair Limitations: no limitations - History of Present Illness Initial Comments: Patient is a 74-year-old female, currently receiving treatment for squama cell carcinoma of her right neck face, last chemo was 3 weeks ago, hypertension, diabetes, COPD, presenting to the emergency Department with complaints of difficulty in breathing that started this morning when she woke up. Patient denies any chest pains with this but states she feels like her heart is beating fast and having a hard time catching her breath. She states she is not currently on oxygen at home. Patient admits that he continues to smoke. She states she tried to do a quick breathing treatment this morning before she came into the ER. She denies any swelling of her legs. She denies recent fever, chills, nausea, vomiting. Patient states that she was supposed to continue with antibiotics once she was discharged from the hospital, 4 days ago, for an infection on the right side of her face however she never picked up the antibiotics. She has no further complaints at this time. Upon arrival to the ER, patient's tachycardia at 128, 99% on room air, 97.7 temp, 20 to rest her rate, 108/68. - Related Data Home Medications Medication Instructions Recorded Confirmed Gabapentin [Neurontin] 200 mg PO DAILY 06/21/15 11/16/19 metFORMIN HCL [Glucophage] 500 mg PO DAILY 10/11/15 11/16/19 Famotidine 20 mg PO BID 12/27/16 11/16/19 Albuterol Nebulized [Ventolin 2.5 mg INHALATION RT-TID PRN 01/27/19 11/16/19 Nebulized] Atorvastatin [Lipitor] 40 mg PO HS 01/27/19 11/16/19 Ibuprofen [Motrin] 600 mg PO QID PRN 09/26/19 11/16/19 Ondansetron HCl [Zofran] 4 mg PO Q8H PRN 09/26/19 11/16/19 Morphine Sulfate 15 mg PO BID PRN 11/02/19 11/16/19 Ferrous Sulfate [Feosol] 325 mg PO DAILY 11/04/19 11/16/19 Megestrol Acetate 800 mg PO DAILY 11/04/19 11/16/19 Polyethylene Glycol 3350 [Miralax] 17 gm PO DAILY 11/04/19 11/16/19 Previous Rx's Medication Instructions Recorded HYDROcodone/APAP 7.5-325MG [[place] 1 tab PO Q4H PRN 3 Days #18 tab 09/30/19 7.5-325] Ipratropium-Albuterol Nebulize 3 ml INHALATION RT-QID #120 ml 11/07/19 [Duoneb 0.5 mg-3 mg/3 ml Soln] guaiFENesin [Mucinex] 1,200 mg PO Q12HR #60 tablet.er 11/07/19 predniSONE 10 mg PO DAILY #30 tab 11/07/19 Ciprofloxacin HCl [Cipro] 500 mg PO BID 10 Days #30 tab 11/12/19 Metoprolol Tartrate [Lopressor] 50 mg PO BID 30 Days #60 tab 11/12/19 Allergies Allergy/AdvReac Type Severity Reaction Status Date / Time azithromycin Allergy Dyspnea/anx Verified 11/16/19 09:33 iety Review of Systems ROS Statement: Those systems with pertinent positive or pertinent negative responses have been documented in the HPI. ROS Other: All systems not noted in ROS Statement are negative. Past Medical History Past Medical History: Cancer, Chest Pain / Angina, COPD, Diabetes Mellitus, GERD/Reflux, Hyperlipidemia, Hypertension, Osteoarthritis (OA), Vascular Disorder Additional Past Medical History / Comment(s): Pt recently admitted to [facility] on 09/26/19 with infected/necrotic R face mass and lesion L ear, moderate protein calorie malnutrition. Other hx: Squamous cell cancer R neck/face/ear with past radiation and chemo last given 11/02/19, anemia, NIDDM type II, past gastric ulcer, PVD-poor circulation bilateral legs, varicosities, R leg nerve pain, occasional tinnitis, constipation, small R inguinal hernia. History of Any Multi-Drug Resistant Organisms: None Reported Past Surgical History: Hysterectomy, Tonsillectomy, Tubal Ligation Additional Past Surgical History / Comment(s): PTBA/STENT TO LT LEG, EGD, co lonoscopy/benign polypectomy, cystocele/rectocele repairs. Past Anesthesia/Blood Transfusion Reactions: No Reported Reaction Additional Past Anesthesia/Blood Transfusion Reaction / Comment(s): CLAUSTROPHOBIA Past Psychological History: Anxiety, Depression, Panic Disorder Smoking Status: Current every day smoker Past Alcohol Use History: None Reported Past Drug Use History: None Reported - Past Family History Son(s) Family Medical History: Cancer Additional Family Medical History / Comment(s): LYMPHOMA Mother Family Medical History: Diabetes Mellitus Father Additional Family Medical History / Comment(s): HAD AAA Sister(s) Family Medical History: Cancer General Exam - General Exam Comments Initial Comments: GENERAL: Patient is well-developed and well-nourished. Patient is nontoxic and in mild distress. HEAD: Atraumatic, normocephalic. EYES: Pupils equal round and reactive to light, extraocular movements intact, sclera anicteric, conjunctiva are normal. Eyelids were unremarkable. ENT: TMs normal, nares patent. Moist mucous membranes. Patient has a large chronic neck mass on the right side of her cheek, neck, squama cell carcinoma. The dressing was removed and there is malodorous drainage, erythema. She also has a hard time opening her mouth which is chronic she states. NECK: Normal range of motion, supple without lymphadenopathy or JVD. LUNGS: Unlabored respirations. Breath sounds slightly diminished in the lower lung amaya, very mild wheezes present. HEART: Tachycardia rate and rhythm without murmurs, rubs or gallops. ABDOMEN: Soft, nontender, normoactive bowel sounds. No guarding, no rebound. No masses appreciated. : Deferred MUSCULOSKELETAL: Normal extremities with adequate strength and normal range of motion, no pitting or edema. No clubbing or cyanosis. NEUROLOGICAL: Patient is alert and oriented x 3. Motor and sensory are also intact. Cranial nerves II through XII grossly intact. Symmetrical smile. Normal speech, normal gait. PSYCH: Normal mood, normal affect. SKIN: Warm, Dry, normal turgor. Limitations: no limitations Course Vital Signs 11/16/19 11/16/19 11/16/19 08:26 08:53 09:11 Temperature 97.7 F Pulse Rate 128 H 117 H 112 H Respiratory 22 20 Rate Blood Pressure 108/68 132/78 O2 Sat by Pulse 99 100 Oximetry 11/16/19 11/16/19 11/16/19 09:18 11:53 13:07 Temperature Pulse Rate 114 H 112 H 120 H Respiratory 18 Rate Blood Pressure 104/64 O2 Sat by Pulse 96 Oximetry Medical Decision Making - Medical Decision Making Patient is a 74-year-old female, with history of hypertension, COPD, squama cell carcinoma of the right face and neck, presenting with dyspnea, started this morning. She was tachycardia upon arrival. EKG shows sinus tach otherwise a normal EKG. she had mild wheezes on exam, improvement after breathing treatment. Lab work shows slight leukocytosis of 11.1, d-dimer is elevated at 2.61, troponin is normal, BNP is normal. CTA of the chest reveals no evidence of PE. Patient continues to be tachycardic even at rest ranging from 110 to 115, rate increases when the patient is speaking. Patient will be admitted for continued breathing treatments, mild acute COPD exacerbation. Patient was accepted by Dr. Graf. I will also give patient a dose of Cipro as she is supposed to be on this for an infection on the right side of her face however she did not pickle pumper her prescription. Case discussed with Dr. Israel. - Lab Data Result diagrams: 11/16/19 08:56 11/16/19 08:56 Lab Results 11/16/19 11/16/19 11/16/19 Range/Units 08:56 08:56 08:56 WBC 11.1 H (3.8-10.6) k/uL RBC 4.02 (3.80-5.40) m/uL Hgb 10.0 L D (11.4-16.0) gm/dL Hct 33.8 L (34.0-46.0) % MCV 84.1 (80.0-100.0) fL MCH 24.9 L (25.0-35.0) pg MCHC 29.7 L (31.0-37.0) g/dL RDW 21.0 H (11.5-15.5) % Plt Count 544 H (150-450) k/uL Neutrophils % Not Reportable Neutrophils % (Manual) 63 % Band Neutrophils % 1 % Lymphocytes % Not Reportable Lymphocytes % (Manual) 10 % Monocytes % Not Reportable Monocytes % (Manual) 18 % Eosinophils % Not Reportable Basophils % Not Reportable Metamyelocytes % 3 % Myelocytes % 6 % Neutrophils # Not Reportable Neutrophils # (Manual) 7.10 (1.3-7.7) k/uL Lymphocytes # Not Reportable Lymphocytes # (Manual) 1.11 (1.0-4.8) k/uL Monocytes # Not Reportable Monocytes # (Manual) 2.00 H (0-1.0) k/uL Eosinophils # Not Reportable Basophils # Not Reportable Metamyelocytes # (Man) 0.33 H (0) k/uL Myelocytes # (Manual) 0.67 H (0) k/uL Nucleated RBCs 0 (0-0) /100 WBC Manual Slide Review Performed Hypochromasia Marked Poikilocytosis (manual Present Anisocytosis Moderate PT 9.8 (9.0-12.0) sec INR 0.9 (<1.2) APTT 19.4 L (22.0-30.0) sec D-Dimer 2.61 H (<0.60) mg/L FEU Sodium 135 L (137-145) mmol/L Potassium 4.4 (3.5-5.1) mmol/L Chloride 102 (98-107) mmol/L Carbon Dioxide 27 (22-30) mmol/L Anion Gap 6 mmol/L BUN 19 H (7-17) mg/dL Creatinine 0.43 L (0.52-1.04) mg/dL Est GFR (CKD-EPI)AfAm >90 (>60 ml/min/1.73 sqM) Est GFR (CKD-EPI)NonAf >90 (>60 ml/min/1.73 sqM) Glucose 157 H (74-99) mg/dL Plasma Lactic Acid Matthew (0.7-2.0) mmol/L Calcium 8.5 (8.4-10.2) mg/dL Total Bilirubin 0.3 (0.2-1.3) mg/dL AST 20 (14-36) U/L ALT 21 (4-34) U/L Alkaline Phosphatase 73 (38-126) U/L Troponin I (0.000-0.034) ng/mL NT-Pro-B Natriuret Pep pg/mL Total Protein 6.0 L (6.3-8.2) g/dL Albumin 2.9 L (3.5-5.0) g/dL 11/16/19 11/16/19 11/16/19 Range/Units 08:56 08:56 08:56 WBC (3.8-10.6) k/uL RBC (3.80-5.40) m/uL Hgb (11.4-16.0) gm/dL Hct (34.0-46.0) % MCV (80.0-100.0) fL MCH (25.0-35.0) pg MCHC (31.0-37.0) g/dL RDW (11.5-15.5) % Plt Count (150-450) k/uL Neutrophils % Neutrophils % (Manual) % Band Neutrophils % % Lymphocytes % Lymphocytes % (Manual) % Monocytes % Monocytes % (Manual) % Eosinophils % Basophils % Metamyelocytes % % Myelocytes % % Neutrophils # Neutrophils # (Manual) (1.3-7.7) k/uL Lymphocytes # Lymphocytes # (Manual) (1.0-4.8) k/uL Monocytes # Monocytes # (Manual) (0-1.0) k/uL Eosinophils # Basophils # Metamyelocytes # (Man) (0) k/uL Myelocytes # (Manual) (0) k/uL Nucleated RBCs (0-0) /100 WBC Manual Slide Review Hypochromasia Poikilocytosis (manual Anisocytosis PT (9.0-12.0) sec INR (<1.2) APTT (22.0-30.0) sec D-Dimer (<0.60) mg/L FEU Sodium (137-145) mmol/L Potassium (3.5-5.1) mmol/L Chloride (98-107) mmol/L Carbon Dioxide (22-30) mmol/L Anion Gap mmol/L BUN (7-17) mg/dL Creatinine (0.52-1.04) mg/dL Est GFR (CKD-EPI)AfAm (>60 ml/min/1.73 sqM) Est GFR (CKD-EPI)NonAf (>60 ml/min/1.73 sqM) Glucose (74-99) mg/dL Plasma Lactic Acid Matthew 2.0 (0.7-2.0) mmol/L Calcium (8.4-10.2) mg/dL Total Bilirubin (0.2-1.3) mg/dL AST (14-36) U/L ALT (4-34) U/L Alkaline Phosphatase (38-126) U/L Troponin I <0.012 (0.000-0.034) ng/mL NT-Pro-B Natriuret Pep 585 pg/mL Total Protein (6.3-8.2) g/dL Albumin (3.5-5.0) g/dL - EKG Data EKG Comments: Sinus tachycardia otherwise a normal ECG, no signs of acute ischemia, ve ntricular rate 118, P arrival 114, QT 312. Disposition Clinical Impression: Cellulitis and abscess of neck, Tachycardia, Dyspnea, Acute exacerbation of chronic obstructive pulmonary disease Disposition: ADMITTED IP TO THIS HOSP Condition: Fair Decision Date: 11/16/19 Decision Time: 11:55
[2019-11-16 09:53] LABS: Anisocytosis Moderate; HCT 33.8 % (34.0-46.0); Hypochromasia Marked; MCH 24.9 pg (25.0-35.0); MCHC 29.7 g/dL (31.0-37.0); MCV 84.1 fL (80.0-100.0); Mean Platelet Volume 8.1; Platelet Count 544 k/uL (150-450); RBC 4.02 m/uL (3.80-5.40); WBC 11.1 k/uL (3.8-10.6)
[2019-11-16 09:55] LABS: ALT 21 U/L (4-34); AST 20 U/L (14-36); African American GFR (CKD) >90 (>60 ml/min/1.73 sqM); Albumin 2.9 g/dL (3.5-5.0); Alkaline Phosphatase 73 U/L (38-126); Anion Gap 6 mmol/L; Blood Urea Nitrogen 19 mg/dL (7-17); Calcium 8.5 mg/dL (8.4-10.2); Carbon Dioxide 27 mmol/L (22-30); Chloride 102 mmol/L (98-107); Glucose 157 mg/dL (74-99); Non-African American GFR(CKD) >90 (>60 ml/min/1.73 sqM); Potassium 4.4 mmol/L (3.5-5.1); Sodium 135 mmol/L (137-145); Total Bilirubin 0.3 mg/dL (0.2-1.3)
[2019-11-16 10:05] LABS: INR 0.9 (<1.2); Prothrombin Time 9.8 sec (9.0-12.0)
[2019-11-16 10:17] LABS: Band Neutrophils % 1 %; Lymphocytes # (M) 1.11 k/uL (1.0-4.8); Metamyelocytes # (M) 0.33 k/uL (0); Metamyelocytes % 3 %; Myelocytes # (M) 0.67 k/uL (0); Myelocytes % 6 %; Neutrophils % (M) 63 %; Nucleated Red Blood Cells 0 /100 WBC (0-0); Total Cells Counted 200
[2019-11-16 10:18] LABS: Poikilocytosis (M) Present
[2019-11-16 10:22] LABS: D-Dimer 2.61 mg/L FEU (<0.60); Partial Thromboplastin Time 19.4 sec (22.0-30.0)
--- NOTE | 2019-11-16 10:30 | XR ---
EXAMINATION TYPE: XR chest 2V DATE OF EXAM: 11/16/2019 COMPARISON: 11/11/2019 HISTORY: 74-year-old female difficulty breathing TECHNIQUE: AP and lateral views FINDINGS: Heart normal size. Atherosclerotic arch calcifications. Similar blunting of the left costophrenic ang le, possible trace effusion or pleural-parenchymal scarring. There is a questionable crescent of air below the right hemidiaphragm that could represent colonic interposition or right basilar atelectasis . IMPRESSION: 1. A crescent of air projecting at the right hemidiaphragm that could represent colonic interposition or adjacent right basilar atelectasis. Unable to exclude a small amount of free intraperitoneal air below the right hemidiaphragm. Correlate for any signs/symptoms of an acute abdomen. Dedicated acute abdominal series can further evaluate. Recommend the addition of a left decubitus view as well. 2. Stable blunting of the left costophrenic angle, either pleural parenchymal scarring or trace effus ion.
--- NOTE | 2019-11-16 11:19 | CT ---
EXAMINATION TYPE: CT chest angio for PE DATE OF EXAM: 11/16/2019 COMPARISON: November 04, 2019 HISTORY: Dyspnea, elevated d-dimer. CT DLP: 185.8 mGycm CONTRAST: CT chest with contrast and 3D reconstruction with MIP imaging is performed with IV Contrast, patient injected with 100 mL of Isovue 370. Contrast-enhanced CT of the chest was performed through the course of the pulmonary arteries with louise g and mediastinal window settings submitted. 3D reconstruction with MIP imaging was also performed. PULMONARY ARTERIES: The pulmonary arteries and their major tributaries are patent. I do not see miley dence for sizable filling defect to suggest pulmonary embolic process. LUNGS: Mild to moderate underlying emphysematous change. The lungs are clear and free of infiltrate. No evidence for atelectasis. No pulmonary nodule or mass is detected. No pleural effusion. MEDIASTINUM: Thoracic aorta is of normal caliber,however, evaluation is limited given timing of the contrast bolus. If there is concern for thoracic aortic pathology consider LUIS MIGUEL. Correlate clinicall y . The heart is not enlarged. No evidence for mediastinal mass. No mediastinal lymph nodes greater than 1cm. HILAR STRUCTURES: No evidence for mass. No hilar lymph nodes greater than 1 cm. UPPER ABDOMEN: No significant abnormality is seen. IMPRESSION: 1. No evidence for Pulmonary embolism at this time.
[2019-11-16] MEDS ORDERED: IPRATROPIUM-ALBUTEROL 3 ML NEB INHALATION PRN (11:49)
[2019-11-16] MEDS ORDERED: CIPROFLOXACIN HCL 500 MG TAB PO STA (11:54)
[2019-11-16] MEDS: IPRATROPIUM-ALBUTEROL 3 ML NEB INHALATION SCH ×2 (15:59→19:06)
[2019-11-16] MEDS ORDERED: MORPHINE SULFATE IR 15 MG TABLET PO PRN (17:13)
[2019-11-16] MEDS ORDERED: NALOXONE 0.4 MG/ML 1 ML VIAL IV PRN (17:14)
[2019-11-16] MEDS ORDERED: ACETAMINOPHEN TAB 325 MG TAB PO PRN (17:14)
[2019-11-16] MEDS: MORPHINE SULFATE 4 MG/ML SYRINGE IV PRN (18:16)
--- NOTE | 2019-11-16 18:33 | P.HPIM ---
History of Present Illness H&P Date: 11/16/19 74-year-old female with PMH of squamous cell cancer of the face, COPD, diabetes mellitus, hypertension, dyslipidemia, recent PEG tube for nutrition and recent admission for right-sided facial wound growing Pseudomonas presents the ED for shortness of breath. Patient reports feeling short of breath when she woke up. She attempted a nebulizer treatment without much relief. She also reports abdominal discomfort at the site of PEG tube insertion. This constellation of symptoms prompted her to come to the ED. She denies any headache, lower extremity edema, nausea or vomiting, fever or chills, cough, chest pain, palpitations, changes in urination or bowel habits. She reports decreased appetite. She denies any dizziness, numbness/weakness/tingling of the extremities. In the ED, her vital signs are stable except for heart rate in the 110s. CBC showed leukocytosis of 11.1 and hemoglobin of 10. CMP showed sodium 135, BUN of 19, creatinine 0.43, glucose 157. Troponin was less than 0.012, EKG showing sinus tachycardia. BNP was 585. D-dimer was 2.61. Chest x-ray showed crescent of air from the right hemidiaphragm, blunting of the left coastal phrenic angle. CTA chest ruled out PE. Patient is admitted for shortness of breath, COPD exacerbation with pulmonology on consult. Review of Systems Pertinent positives and negatives as discussed in HPI, a complete review of systems was performed and all other systems are negative. Past Medical History Past Medical History: Cancer, Chest Pain / Angina, COPD, Diabetes Mellitus, GERD/Reflux, Hyperlipidemia, Hypertension, Osteoarthritis (OA), Vascular Disorder Additional Past Medical History / Comment(s): Pt recently admitted to [facility] on 09/26/19 with infected/necrotic R face mass and lesion L ear, moderate protein calorie malnutrition. Other hx: Squamous cell cancer R neck/face/ear with past radiation and chemo last given 11/02/19, anemia, NIDDM type II, past gastric ulcer, PVD-poor circulation bilateral legs, varicosities, R leg nerve pain, occasional tinnitis, constipation, small R inguinal hernia. History of Any Multi-Drug Resistant Organisms: None Reported Past Surgical History: Hysterectomy, Tonsillectomy, Tubal Ligation Additional Past Surgical History / Comment(s): PTBA/STENT TO LT LEG, EGD, colonoscopy/benign polypectomy, cystocele/rectocele repairs. Past Anesthesia/Blood Transfusion Reactions: No Reported Reaction Additional Past Anesthesia/Blood Transfusion Reaction / Comment(s): CLAUSTROPHOBIA Past Psychological History: Anxiety, Depression, Panic Disorder Smoking Status: Current every day smoker Past Alcohol Use History: None Reported Past Drug Use History: None Reported - Past Family History Son(s) Family Medical History: Cancer Additional Family Medical History / Comment(s): LYMPHOMA Mother Family Medical History: Diabetes Mellitus Father Additional Family Medical History / Comment(s): HAD AAA Sister(s) Family Medical History: Cancer Medications and Allergies Home Medications Medication Instructions Recorded Confirmed Type Gabapentin [Neurontin] 200 mg PO DAILY 06/21/15 11/16/19 History metFORMIN HCL [Glucophage] 500 mg PO DAILY 10/11/15 11/16/19 History Famotidine 20 mg PO BID 12/27/16 11/16/19 History Albuterol Nebulized [Ventolin 2.5 mg INHALATION RT-TID PRN 01/27/19 11/16/19 History Nebulized] Atorvastatin [Lipitor] 40 mg PO HS 01/27/19 11/16/19 History Ibuprofen [Motrin] 600 mg PO QID PRN 09/26/19 11/16/19 History Ondansetron HCl [Zofran] 4 mg PO Q8H PRN 09/26/19 11/16/19 History HYDROcodone/APAP 7.5-325MG [[place] 1 tab PO Q4H PRN 3 Days #18 tab 09/30/19 11/16/19 Rx 7.5-325] Morphine Sulfate 15 mg PO BID PRN 11/02/19 11/16/19 History Ferrous Sulfate [Feosol] 325 mg PO DAILY 11/04/19 11/16/19 History Megestrol Acetate 800 mg PO DAILY 11/04/19 11/16/19 History Polyethylene Glycol 3350 [Miralax] 17 gm PO DAILY 11/04/19 11/16/19 History Ipratropium-Albuterol Nebulize 3 ml INHALATION RT-QID #120 ml 11/07/19 11/16/19 Rx [Duoneb 0.5 mg-3 mg/3 ml Soln] guaiFENesin [Mucinex] 1,200 mg PO Q12HR #60 tablet.er 11/07/19 11/16/19 Rx predniSONE 10 mg PO DAILY #30 tab 11/07/19 11/16/19 Rx Ciprofloxacin HCl [Cipro] 500 mg PO BID 10 Days #30 tab 11/12/19 11/16/19 Rx Metoprolol Tartrate [Lopressor] 50 mg PO BID 30 Days #60 tab 11/12/19 11/16/19 Rx Allergies Allergy/AdvReac Type Severity Reaction Status Date / Time azithromycin Allergy Dyspnea/anx Verified 11/16/19 09:33 iety Physical Exam Vitals: Vital Signs Temp Pulse Resp BP Pulse Ox 11/16/19 16:09 112 H 11/16/19 16:03 109 H 20 113/65 100 11/16/19 16:00 111 H 11/16/19 13:42 118 H 20 104/64 100 11/16/19 13:17 112 H 11/16/19 13:07 120 H 11/16/19 11:53 112 H 18 104/64 96 11/16/19 09:18 114 H 11/16/19 09:11 112 H 11/16/19 08:53 117 H 20 132/78 100 11/16/19 08:26 97.7 F 128 H 22 108/68 99 Intake and Output 11/16/19 11/16/19 11/16/19 06:59 14:59 22:59 Other: Weight 48.081 kg General: [non toxic], [no distress], [appears at stated age] Derm: [warm], [dry], right-sided facial with purulent drainage Head: [atraumatic], [normocephalic], [symmetric] Eyes: [EOMI], [no lid lag], [anicteric sclera] Mouth: [no lip lesion], [mucus membranes moist] Cardiovascular: [S1S2 reg], [tachycardic], [positive posterior tibial pulse bilateral], Lungs: [Expiratory wheezing bilateral], [no rhonchi, no rales] , [no accessory muscle use] Abdominal: [soft], [tenderness to palpation in all 4 quadrants without rebound], [no guarding], [no appreciable organomegaly], PEG tube in place Ext: [no gross muscle atrophy], [no edema], [no contractures] Neuro: [ CN II-XI grossly intact], [no focal neuro deficits] Psych: [Alert], [oriented], [appropriate affect] Results CBC & Chem 7: 11/16/19 08:56 11/16/19 08:56 Labs: Abnormal Lab Results - Last 24 Hours (Table) 11/16/19 11/16/19 11/16/19 Range/Units 08:56 08:56 08:56 WBC 11.1 H (3.8-10.6) k/uL Hgb 10.0 L D (11.4-16.0) gm/dL Hct 33.8 L (34.0-46.0) % MCH 24.9 L (25.0-35.0) pg MCHC 29.7 L (31.0-37.0) g/dL RDW 21.0 H (11.5-15.5) % Plt Count 544 H (150-450) k/uL Monocytes # (Manual) 2.00 H (0-1.0) k/uL Metamyelocytes # (Man) 0.33 H (0) k/uL Myelocytes # (Manual) 0.67 H (0) k/uL APTT 19.4 L (22.0-30.0) sec D-Dimer 2.61 H (<0.60) mg/L FEU Sodium 135 L (137-145) mmol/L BUN 19 H (7-17) mg/dL Creatinine 0.43 L (0.52-1.04) mg/dL Glucose 157 H (74-99) mg/dL Total Protein 6.0 L (6.3-8.2) g/dL Albumin 2.9 L (3.5-5.0) g/dL Assessment and Plan Assessment: Acute COPD exacerbation Elevated D Dimer Abdominal pain SIRS with pseudomonal right neck wound Squamous cell carcinoma of the face Hypertension Diabetes mellitus Plans: DuoNeb scheduled and as needed for shortness of breath or wheezing. Prednisone 40 mg by mouth daily. Supplemental O2 to maintain O2 saturation greater than 92%. Telemetry monitoring. Follow pulmonology consultation. Likely related to diagnosed cancer. CTA chest rules out PE. Plans: Nothing further to do. Recent insertion of PEG tube. Chest x-ray cannot exclude free air in the abdomen. Plans: Obtain CT abdomen and pelvis stat. Patient meets SIRS criteria with leukocytosis, tachycardia and recent infection. Plans: Start Zosyn. Collect blood culture. Tylenol stated for fever. Transition to ciprofloxacin for discharge. Follow ID consultation. Plans: Patient will need to follow-up with oncology in the outpatient setting. BP 113/65. Plans: Continue metoprolol. Monitor vitals, adjust medications if necessary. Plans: Insulin sliding scale. Regular Accu-Cheks. Hypoglycemic precautions. DVT prophylaxis: [Lovenox] Discussed with: [Patient] Anticipated discharge: [1-2 days] Anticipated discharge place: [Home] A total of [35] minutes was spent on the care of this complex patient more than 50% of the time was spent in counseling and care coordination.
--- NOTE | 2019-11-16 19:47 | CT ---
EXAMINATION TYPE: CT abdomen pelvis wo con DATE OF EXAM: 11/16/2019 COMPARISON: None HISTORY: Abdominal pain. CT DLP: 329 mGycm Automated exposure control for dose reduction was used. Images were obtained from the diaphragm to the floor the pelvis with no IV contrast. There is residua l IV contrast from the CT angiogram. There is some mild atelectasis at the posterior lung bases. Heart size is normal. There is no pericar dial effusion. Liver shows no focal defect. There is contrast in the bladder from vicarious excretion . The spleen is intact. There is small calcified splenic granuloma. There is gastrostomy tube in good position. There is no pancreatic mass. There is no adrenal mass. Kidneys show satisfactory opacification with the dilute contrast. There is no hydronephrosis. Ureters are not dilated. There is no retroperitoneal adenopathy. Abdominal aorta i s atheromatous. There is bladder is distended with contrast and appears normal. There is no inguinal hernia. There is no evidence of a pelvic mass. There is moderate retained fecal material in the large bowel. There is no mesenteric edema. There is no ascites or free air. There is no bowel obstruction. Lumbar vertebra have normal alignment. Disc spaces are fairly normal for age. There is no compression fracture. There is multilevel hypertrophic facet arthropathy. The bony pelvis is intact. Hip joints are intact. There is at least moderate vascular calcification. IMPRESSION: There is constipation. Gastrostomy tube in good position. No renal mass or obstruction. Mild atelectasis at the posterior lung bases.
[2019-11-16 20:35] LABS: Glucose,Whole Blood 146 mg/dL (75-99)
[2019-11-16] MEDS: INSULIN ASPART (NovoLOG) 100 UNIT/ML VIAL SQ SCH ×2 (20:41→21:15)
[2019-11-16] MEDS: FAMOTIDINE 20 MG TAB PO SCH (21:14)
[2019-11-16] MEDS: METOPROLOL TARTRATE 50 MG TAB PO SCH (21:14)
[2019-11-16] MEDS: ATORVASTATIN 40 MG TAB PO SCH (21:14)
[2019-11-16] MEDS: predniSONE 20 MG TAB PO SCH (21:16)
[2019-11-16] MEDS: HYDROcodone/APAP 7.5-325MG 1 EACH TAB PO PRN (22:09)
[2019-11-17] MEDS ORDERED: ONDANSETRON 4 MG/2 ML VIAL IVP PRN (01:08)
[2019-11-17] MEDS ORDERED: ONDANSETRON 4 MG in SODIUM CHLORIDE 0.9% 50 ML IVPB ONE (01:30)
[2019-11-17 01:44] LABS: Glucose,Whole Blood 107 mg/dL (75-99)
[2019-11-17] MEDS: HYDROcodone/APAP 7.5-325MG 1 EACH TAB PO PRN ×3 (04:21→13:29)
[2019-11-17 05:50] LABS: Anisocytosis Moderate; HCT 31.9 % (34.0-46.0); HGB 9.5 gm/dL (11.4-16.0); Hypochromasia Marked; MCH 25.2 pg (25.0-35.0); MCHC 29.7 g/dL (31.0-37.0); Mean Platelet Volume 6.9; Microcytosis Slight; Platelet Count 458 k/uL (150-450); RBC 3.75 m/uL (3.80-5.40); RDW 21.8 % (11.5-15.5); WBC 9.8 k/uL (3.8-10.6)
[2019-11-17 05:59] LABS: ALT 21 U/L (4-34); AST 23 U/L (14-36); African American GFR (CKD) >90 (>60 ml/min/1.73 sqM); Albumin 2.6 g/dL (3.5-5.0); Alkaline Phosphatase 71 U/L (38-126); Anion Gap 5 mmol/L; Blood Urea Nitrogen 15 mg/dL (7-17); Carbon Dioxide 22 mmol/L (22-30); Chloride 106 mmol/L (98-107); Glucose 117 mg/dL (74-99); Magnesium 1.9 mg/dL (1.6-2.3); Non-African American GFR(CKD) >90 (>60 ml/min/1.73 sqM); Potassium 4.8 mmol/L (3.5-5.1); Sodium 133 mmol/L (137-145); Total Bilirubin 0.4 mg/dL (0.2-1.3); Total Protein 5.7 g/dL (6.3-8.2)
[2019-11-17 06:12] LABS: Band Neutrophils % 10 %; Lymphocytes # (M) 0.49 k/uL (1.0-4.8); Metamyelocytes % 1 %; Myelocytes % 1 %; Neutrophils % (M) 81 %; Nucleated Red Blood Cells 0 /100 WBC (0-0); Polychromasia Present; Total Cells Counted 200
[2019-11-17 06:45] LABS: Glucose,Whole Blood 115 mg/dL (75-99)
[2019-11-17] MEDS: INSULIN ASPART (NovoLOG) 100 UNIT/ML VIAL SQ SCH ×4 (07:40→22:01)
[2019-11-17] MEDS: METOPROLOL TARTRATE 50 MG TAB PO SCH ×2 (08:08→20:23)
[2019-11-17] MEDS: ENOXAPARIN 40 MG/0.4 ML SYRINGE SQ SCH (08:08)
[2019-11-17] MEDS: predniSONE 20 MG TAB PO SCH (08:08)
[2019-11-17] MEDS: FAMOTIDINE 20 MG TAB PO SCH ×2 (08:08→20:23)
[2019-11-17] MEDS: GABAPENTIN 100 MG CAP PO SCH (08:08)
[2019-11-17] MEDS: FERROUS SULFATE 325 MG TAB PO SCH (08:08)
[2019-11-17] MEDS: MEGESTROL 400 MG/10 ML CUP PO SCH (08:09)
--- NOTE | 2019-11-17 08:42 | CONS ---
CONSULTATION PULMONARY/CRITICAL CARE CONSULTATION: DATE OF SERVICE: 11/17/2019 REASON FOR CONSULTATION: Shortness of breath. HISTORY OF PRESENT ILLNESS: This is a 74-year-old female who is currently undergoing chemotherapy for squamous cell carcinoma involving the right side of her face and neck. Her last chemo was apparently 3 weeks ago[address] She sees Dr. Jack. She also has a history of hypertension, diabetes, and COPD. She apparently was recently in the hospital and was discharged and came back into the hospital because of difficulty breathing. She apparently got scared and felt it was difficult to breathe and she came in to be evaluated. In addition, she had some rapid heartbeat and palpitations. She had a hard time catching her breath. She is not currently on oxygen at home. She does continue to smoke cigarettes. She does have some underlying COPD, but does not see a lung doctor. Her doctors include Dr. Silviano Lieberman, Dr. Jack, and she sees Dr. Canada for her heart. The patient was also recently in, as I mentioned above, with an infection which required some outpatient antibiotics but she did not apple picker the antibiotics and start them. The patient is currently resting comfortably in the observation unit. She is on a couple liters of O2. She is not manifesting any signs of respiratory distress. There is no audible wheezing, use of accessory muscles or conversational dyspnea. She is quite hoarse though. CURRENT HOME MEDICATIONS: Include Neurontin, Glucophage, famotidine, albuterol updrafts, Lipitor, Motrin, Zofran, morphine, iron, Megace, and MiraLAX. Also, the patient has been on prednisone, ciprofloxacin, metoprolol and [place]. ALLERGIES: Include AZITHROMYCIN. MEDICAL HISTORY: Squamous cell carcinoma of the face and neck on the right side, chest pain, COPD, diabetes, GERD, hyperlipidemia, hypertension, DJD, and cellulitis of the right side of the face. The patient also suffers from protein calorie malnutrition, anemia, gastric ulcer, peripheral vascular disease, tinnitus, constipation, and right inguinal hernia. SURGICAL HISTORY: Includes hysterectomy, tonsillectomy, and tubal ligation. She has also had a percutaneous balloon angioplasty to the left leg, EGD, colonoscopy, and cystocele and rectocele repair. SOCIAL HISTORY: Positive for ongoing tobacco use. She continues to smoke about a pack a day. She denies any alcohol use or illicit drug use. FAMILY HISTORY: Positive for some with lymphoma, a mother who had diabetes mellitus, father who had AAA and a sister with cancer. REVIEW OF SYSTEMS: CONSTITUTIONAL: Negative. NEUROLOGIC: Anxiety. HEENT: Negative. CARDIOVASCULAR: Palpitations, rapid heartbeat. PULMONARY: Shortness of breath, chronic cough. GI: Negative. : Negative. RHEUMATOLOGIC: Negative. IMMUNOLOGIC: Negative. ENDOCRINOLOGIC: Negative. DERMATOLOGIC: Negative. PHYSICAL EXAMINATION: VITAL SIGNS: Current vital signs include temperature 97.6 heart rate 95, respiratory rate 16, blood pressure 128/64, mean 85, 2 L saturation 98%. Appears in no acute distress HEENT: Examination is grossly unremarkable. She does have a significantly abnormal right side of the face demonstrating a squamous cell carcinoma. It involves the right face and neck area. It is covered with a bandage. Neck otherwise is supple. CARDIOVASCULAR: Examination reveals regular rhythm and rate. Heart rate in mid 90s. S1, S2 normal. LUNGS: Reveal coarse rhonchi. There are some mild expiratory wheezes. Breath sounds are diminished. ABDOMEN: Soft. EXTREMITIES: Intact. No cyanosis, clubbing, or edema. SKIN: Without rash. NEUROLOGIC: Examination is brief but nonfocal. LABS: Reviewed. White count 9.8, hemoglobin 9.5, hematocrit 31.9, platelet count 458,000. Sodium 133, potassium 4.8, chloride 106, CO2 22, anion gap is 5. BUN and creatinine were 15 and 0.36. Albumin 2.6. Microbiology is negative. Previous wound culture from the neck area from November 03 did show evidence of Pseudomonas aeruginosa. IMAGING: Chest x-ray was essentially normal. CT angiogram was negative for PE. MEDICATIONS: Medications are reviewed. Currently, she is on Tylenol, Lipitor, Lovenox, Pepcid, iron, gabapentin, [place], insulin, DuoNeb, Megace, metoprolol, morphine, Narcan, Zofran, prednisone and a saline IV. We will add Symbicort 160/4.5, two puffs twice a day. She also would benefit from a nicotine patch. ASSESSMENT: 1. Mild chronic obstructive pulmonary disease exacerbation in a patient with ongoing tobacco use and underlying chronic obstructive pulmonary disease. 2. Squamous cell carcinoma of the right facial area and right neck, undergoing chemotherapy. 3. Recent admission to the hospital for cellulitis of the right facial area, secondary to Pseudomonas aeruginosa. Patient noncompliant with outpatient antibiotics. 4. History of angina. 5. Diabetes mellitus. 6. Gastroesophageal reflux disease. 7. Hyperlipidemia. 8. History of hypertension. 9. Degenerative joint disease. 10.Peripheral vascular disease. 11.Multiple other medical problems and comorbidities. PLAN: The patient is already on prednisone and updrafts. We will add Symbicort and a nicotine patch. No additional recommendations are made. Not much I can offer this woman. She continues to smoke cigarettes. She is obviously sabotaging her health. On her last admission, she was a DNR. That should be addressed again. Will see the patient as needed. Prognosis is very poor. MMODL / IJN: [id number] /
[2019-11-17 09:18] VITALS: BMI 18.1
[2019-11-17] MEDS: IPRATROPIUM-ALBUTEROL 3 ML NEB INHALATION SCH ×4 (09:48→18:45)
[2019-11-17] MEDS: NICOTINE 21MG/24HR PATCH TRANSDERM SCH (10:52)
[2019-11-17 11:45] LABS: Glucose,Whole Blood 119 mg/dL (75-99)
--- NOTE | 2019-11-17 13:13 | P.PN ---
Objective - Vital Signs Vital signs: Vital Signs Temp 97.6 F 11/17/19 08:04 Pulse 98 11/17/19 12:11 Resp 16 11/17/19 08:06 BP 128/64 11/17/19 08:04 Pulse Ox 98 11/17/19 08:04 Intake & Output 11/16/19 11/17/19 11/17/19 18:59 06:59 18:59 Intake Total 320 Balance 320 Weight 48.081 kg 48.081 kg Intake: Oral 320 Other: Voiding Method Bedside Commode # Voids 1 - Labs CBC & Chem 7: 11/17/19 05:37 11/17/19 05:37 Labs: Abnormal Lab Results - Last 24 Hours (Table) 11/16/19 11/17/19 11/17/19 Range/Units 20:34 01:41 05:37 RBC 3.75 L (3.80-5.40) m/uL Hgb 9.5 L (11.4-16.0) gm/dL Hct 31.9 L (34.0-46.0) % MCHC 29.7 L (31.0-37.0) g/dL RDW 21.8 H (11.5-15.5) % Plt Count 458 H (150-450) k/uL Neutrophils # (Manual) 8.90 H (1.3-7.7) k/uL Lymphocytes # (Manual) 0.49 L (1.0-4.8) k/uL Metamyelocytes # (Man) 0.10 H (0) k/uL Myelocytes # (Manual) 0.10 H (0) k/uL Sodium (137-145) mmol/L Creatinine (0.52-1.04) mg/dL Glucose (74-99) mg/dL POC Glucose (mg/dL) 146 H 107 H (75-99) mg/dL Calcium (8.4-10.2) mg/dL Total Protein (6.3-8.2) g/dL Albumin (3.5-5.0) g/dL 11/17/19 11/17/19 11/17/19 Range/Units 05:37 06:43 11:43 RBC (3.80-5.40) m/uL Hgb (11.4-16.0) gm/dL Hct (34.0-46.0) % MCHC (31.0-37.0) g/dL RDW (11.5-15.5) % Plt Count (150-450) k/uL Neutrophils # (Manual) (1.3-7.7) k/uL Lymphocytes # (Manual) (1.0-4.8) k/uL Metamyelocytes # (Man) (0) k/uL Myelocytes # (Manual) (0) k/uL Sodium 133 L (137-145) mmol/L Creatinine 0.36 L (0.52-1.04) mg/dL Glucose 117 H (74-99) mg/dL POC Glucose (mg/dL) 115 H 119 H (75-99) mg/dL Calcium 8.0 L (8.4-10.2) mg/dL Total Protein 5.7 L (6.3-8.2) g/dL Albumin 2.6 L (3.5-5.0) g/dL Assessment and Plan Plan: Acute COPD exacerbation: Supportive care, bronchodilators as indicated, appreciate input from pulmonology, and oral steroids Elevated D Dimer likely associated with cancer: Supportive care, CT chest negative for pulmonary embolism Abdominal pain, unspecified etiology, abdominal CT consistent with constipation SIRS with pseudomonal right neck wound: Supportive care, infectious disease following, continue on Zosyn Squamous cell carcinoma of the face: Patient not interested in hospice care at this point Hypertension Diabetes mellitus2 with hyperglycemia Moderate protein calorie malnutrition, continue PEG tube feeding, consult GI for 2 oblique DVT prophylaxis: [Lovenox] Discussed with: [Patient] Anticipated discharge: [1-2 days] Anticipated discharge place: [Home]
[2019-11-17 16:39] LABS: Glucose,Whole Blood 147 mg/dL (75-99)
[2019-11-17] MEDS: SYMBICORT 160-4.5 MCG INHALER INHALATION SCH (18:46)
[2019-11-17] MEDS: MORPHINE SULFATE 4 MG/ML SYRINGE IV PRN (20:21)
[2019-11-17] MEDS: ATORVASTATIN 40 MG TAB PO SCH (20:23)
--- NOTE | 2019-11-17 21:51 | P.CONS ---
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 this patient did have a significant amount on the right side of the neck from her underlying squamous cell carcinoma for the patient has been on chemotherapy, last chemotherapy has been more than 3 weeks ago also with a history of COPD this patient continued to smoke, patient was recently admitted at this facility with significant worsening of the right-sided neck wound local wound culture positive for Pseudomonas patient was treated with IV Zosyn and subsequently discharged home on oral Cipro which apparently the patient did not go to the pharmacy to hot die picker her prescription or do any dressing changes the patient continued to smoke and presented to the ER yesterday with a she complains of increasing shortness of breath that apparently started the morning when she woke up, the patient denies having any chest pain she did have minimal, but no sputum production came in complaining of pain to the right side of the neck wound area more of a dull aching at times throbbing. 4 out of 10 and no radiation she did have mild foul- smelling from that area, with these symptoms the patient was evaluated by the ER physician on arrival to the patient was afebrile and white count was normal, pat ient did have a CT angiogram of the chest was negative for PE or pneumonia patient has been admitted to the hospital for further workup infectious disease consult for local wound care and antibiotic therapy Review of Systems Positive point has been mentioned in the HPI rest of the systems are negative Past Medical History Past Medical History: Cancer, Chest Pain / Angina, COPD, Diabetes Mellitus, GERD/Reflux, Hyperlipidemia, Hypertension, Osteoarthritis (OA), Vascular Disorder Additional Past Medical History / Comment(s): Pt recently admitted to [facility] on 09/26/19 with infected/necrotic R face mass and lesion L ear, moderate protein calorie malnutrition. Other hx: Squamous cell cancer R neck/face/ear with past radiation and chemo last given 11/02/19, anemia, NIDDM type II, past gastric ulcer, PVD-poor circulation bilateral legs, varicosities, R leg nerve pain, occasional tinnitis, constipation, small R inguinal hernia. History of Any Multi-Drug Resistant Organisms: None Reported Past Surgical History: Hysterectomy, Tonsillectomy, Tubal Ligation Additional Past Surgical History / Comment(s): PTBA/STENT TO LT LEG, EGD, colonoscopy/benign polypectomy, cystocele/rectocele repairs. Past Anesthesia/Blood Transfusion Reactions: No Reported Reaction Additional Past Anesthesia/Blood Transfusion Reaction / Comm: . Past Psychological History: Anxiety, Depression, Panic Disorder Additional Psychological History / Comment(s): Pt has an adult son residing with her. She states she uses a walker to ambulate. Smoking Status: Current every day smoker Past Alcohol Use History: None Reported Additional Past Alcohol Use History / Comment(s): STARTED SMOKING AGE 23, down to<1PPD Past Drug Use History: None Reported - Past Family History Son(s) Family Medical History: Cancer Additional Family Medical History / Comment(s): LYMPHOMA Mother Family Medical History: Diabetes Mellitus Father Additional Family Medical History / Comment(s): HAD AAA Sister(s) Family Medical History: Cancer Additional Family Medical History / Comment(s): rectal Medications and Allergies Home Medications Medication Instructions Recorded Confirmed Type Gabapentin [Neurontin] 200 mg PO DAILY 06/21/15 11/16/19 History metFORMIN HCL [Glucophage] 500 mg PO DAILY 10/11/15 11/16/19 History Famotidine 20 mg PO BID 12/27/16 11/16/19 History Albuterol Nebulized [Ventolin 2.5 mg INHALATION RT-TID PRN 01/27/19 11/16/19 History Nebulized] Atorvastatin [Lipitor] 40 mg PO HS 01/27/19 11/16/19 History Ibuprofen [Motrin] 600 mg PO QID PRN 09/26/19 11/16/19 History Ondansetron HCl [Zofran] 4 mg PO Q8H PRN 09/26/19 11/16/19 History HYDROcodone/APAP 7.5-325MG [[place] 1 tab PO Q4H PRN 3 Days #18 tab 09/30/19 11/16/19 Rx 7.5-325] Morphine Sulfate 15 mg PO BID PRN 11/02/19 11/16/19 History Ferrous Sulfate [Feosol] 325 mg PO DAILY 11/04/19 11/16/19 History Megestrol Acetate 800 mg PO DAILY 11/04/19 11/16/19 History Polyethylene Glycol 3350 [Miralax] 17 gm PO DAILY 11/04/19 11/16/19 History Ipratropium-Albuterol Nebulize 3 ml INHALATION RT-QID #120 ml 11/07/19 11/16/19 Rx [Duoneb 0.5 mg-3 mg/3 ml Soln] guaiFENesin [Mucinex] 1,200 mg PO Q12HR #60 tablet.er 11/07/19 11/16/19 Rx predniSONE 10 mg PO DAILY #30 tab 11/07/19 11/16/19 Rx Ciprofloxacin HCl [Cipro] 500 mg PO BID 10 Days #30 tab 11/12/19 11/16/19 Rx Metoprolol Tartrate [Lopressor] 50 mg PO BID 30 Days #60 tab 11/12/19 11/16/19 Rx Allergies Allergy/AdvReac Type Severity Reaction Status Date / Time azithromycin Allergy Dyspnea/anx Verified 11/16/19 09:33 iety Physical Exam Vitals: Vital Signs Temp Pulse Pulse Resp BP BP Pulse Ox 11/17/19 19:36 97.8 F 91 16 107/63 99 11/17/19 18:59 84 18 11/17/19 18:46 84 18 11/17/19 16:00 16 11/17/19 15:34 88 18 11/17/19 15:24 82 18 95 11/17/19 14:11 97.9 F 81 16 94/61 100 11/17/19 12:11 98 11/17/19 12:01 96 11/17/19 08:06 16 11/17/19 08:04 97.6 F 95 16 128/64 98 11/17/19 03:00 97.6 F 81 19 106/56 100 11/17/19 00:00 100 19 11/16/19 23:00 98 F 100 19 96/60 100 Intake and Output 11/17/19 11/17/19 11/17/19 06:59 14:59 22:59 Intake Total 100 Balance 100 Intake: Oral 100 Other: Voiding Method Bedside Commode # Voids 1 Weight 48.081 kg GENERAL DESCRIPTION: An elderly female lying in bed, no distress. No tachypnea or accessory muscle of respiration use. HEENT: Shows Pallor , no scleral icterus. Oral mucous membrane is dry. No pharyngeal erythema or thrush NECK: Trachea central, no thyromegaly. Right side her neck wound significantly relieved with significant amount of slough tissue the base and mild foul- smelling LUNGS: Unlabored breathing. Decreased intensity of breath sounds. No wheeze or crackle. HEART: S1, S2, regular rate and rhythm. No loud murmur ABDOMEN: Soft, no tenderness , guarding or rigidity, no organomegaly EXTREMITIES: No edema of feet. SKIN: No rash, no masses palpable. NEUROLOGICAL: The patient is awake, alert, oriented x3, mood and affect normal. Results CBC & Chem 7: 11/17/19 05:37 11/17/19 05:37 Labs: Abnormal Lab Results - Last 24 Hours (Table) 11/17/19 11/17/19 11/17/19 Range/Units 01:41 05:37 05:37 RBC 3.75 L (3.80-5.40) m/uL Hgb 9.5 L (11.4-16.0) gm/dL Hct 31.9 L (34.0-46.0) % MCHC 29.7 L (31.0-37.0) g/dL RDW 21.8 H (11.5-15.5) % Plt Count 458 H (150-450) k/uL Neutrophils # (Manual) 8.90 H (1.3-7.7) k/uL Lymphocytes # (Manual) 0.49 L (1.0-4.8) k/uL Metamyelocytes # (Man) 0.10 H (0) k/uL Myelocytes # (Manual) 0.10 H (0) k/uL Sodium 133 L (137-145) mmol/L Creatinine 0.36 L (0.52-1.04) mg/dL Glucose 117 H (74-99) mg/dL POC Glucose (mg/dL) 107 H (75-99) mg/dL Calcium 8.0 L (8.4-10.2) mg/dL Total Protein 5.7 L (6.3-8.2) g/dL Albumin 2.6 L (3.5-5.0) g/dL 11/17/19 11/17/19 11/17/19 Range/Units 06:43 11:43 16:38 RBC (3.80-5.40) m/uL Hgb (11.4-16.0) gm/dL Hct (34.0-46.0) % MCHC (31.0-37.0) g/dL RDW (11.5-15.5) % Plt Count (150-450) k/uL Neutrophils # (Manual) (1.3-7.7) k/uL Lymphocytes # (Manual) (1.0-4.8) k/uL Metamyelocytes # (Man) (0) k/uL Myelocytes # (Manual) (0) k/uL Sodium (137-145) mmol/L Creatinine (0.52-1.04) mg/dL Glucose (74-99) mg/dL POC Glucose (mg/dL) 115 H 119 H 147 H (75-99) mg/dL Calcium (8.4-10.2) mg/dL Total Protein (6.3-8.2) g/dL Albumin (3.5-5.0) g/dL Microbiology - Last 24 Hours (Table) 11/16/19 17:58 Blood Culture - Preliminary Blood No Growth after 24 hours Assessment and Plan Assessment: 1-patient with right-sided neck wound from her underlying squamous cell carcinoma with significant deep wound and significant amount of slough tissue with recent local culture was positive for pseudomonas aeruginosa in this patient who did show overall clinical improvement to the IV Zosyn and local care with [place] solution unfortunately worsening more likely patient noncompliance with her local wound care and the patient did not hot die picker her prescription of oral Cipro (1) Cellulitis and abscess of neck Current Visit: Yes Status: Acute Code(s): L03.221 - CELLULITIS OF NECK; L02.11 - CUTANEOUS ABSCESS OF NECK SNOMED Code(s): 139496318 Plan: 1- we will start the patient cefepime 2 g every 12 hours 2- local wound care with the medahoney followed by moist dressing to be changed daily We will follow on clinical condition and cultures to further adjust medication if needed Thank you for this consultation will follow this patient with you Time with Patient: Greater than 30
[2019-11-17 21:52] LABS: Glucose,Whole Blood 178 mg/dL (75-99)
[2019-11-17] MEDS: CEFEPIME 2 GM in SODIUM CHLORIDE 0.9% 100 ML IVPB SCH (22:16)
[2019-11-18] MEDS: HYDROcodone/APAP 7.5-325MG 1 EACH TAB PO PRN ×3 (00:16→08:38)
--- NOTE | 2019-11-18 01:54 | CONS ---
CONSULTATION DATE OF DICTATION: 11/17/2019 REASON FOR CONSULTATION: PEG site infection. HISTORY OF PRESENT ILLNESS: The patient is a 74-year-old pleasant white female who was diagnosed with squamous cell carcinoma of the right side of the neck and face undergoing chemotherapy came to the emergency room complaining of shortness of breath and some leakage around the PEG tube. She underwent a PEG tube insertion by Dr. Mckeon on November 08 for decreased oral intake and nutritional requirements. The patient states that she has been eating some soft foods, but has been using the PEG tube for feeds regularly. For the last 3 or 4 days she started noticing some leakage around the PEG tube, which was somewhat purulent in nature. She does complain of some pain around the PEG site also and hence we are consulted in regards to this issue. She denies any abdominal pain. She reports no nausea, vomiting. No fever, chills, or night sweats. PAST MEDICAL HISTORY: Her past medical history is significant for head and neck cancer for which she is undergoing chemotherapy, the last dose was about 3 weeks ago, history of COPD, diabetes mellitus, hyperlipidemia, hypertension, peripheral vascular disease, degenerative joint disease. PEG tube placement 2 weeks ago, infection of the necrotic right for which she needed hospitalization 2 months ago. PAST SURGICAL HISTORY: Hysterectomy, tonsillectomy, tubal ligation, rectocele and cystocele repair. SOCIAL HISTORY: Chronic smoker. No alcohol use. FAMILY HISTORY: Son diagnosed with lymphoma, mother has diabetes mellitus and father had AAA. MEDICATIONS: Medications at home include Neurontin, Glucophage, famotidine, Ventolin, Lipitor Motrin, Zofran, [place], morphine, Feosol, Megace, MiraLAX, albuterol, Mucinex, Cipro, and Lopressor. ALLERGIES: AZITHROMYCIN. REVIEW OF SYSTEMS: CARDIOPULMONARY: She denies any chest pain. She does complain of some shortness of breath, but she is feeling better since being in the hospital. NEUROLOGY: Unremarkable. PSYCHIATRIC: Unremarkable. ENT/VISION: Unremarkable. Complains of some pain at the necrotic lesion on the right side of the face. CONSTITUTIONAL: Weight loss of about 20 pounds in the last 6 months. No fever, chills, night sweats. ONCOLOGY: Head and neck CA as described above. PHYSICAL EXAMINATION: She appears comfortable. No apparent distress. Vital signs are stable. Blood pressure 108/68, pulse rate 128, temperature 97.7. HEENT: Examination unremarkable. Conjunctivae pink. Sclerae anicteric. Oral cavity, no lesions. However, there is a necrotic area on the right side of the face by the parotid gland and some bruise around the right angle of the mouth. NECK: No JVD or lymph node enlargement. CHEST: Clear to auscultation. HEART: Regular rate and rhythm. ABDOMEN: Soft. PEG tube in place and the PEG site has mild cellulitis noted. There was some purulent material noted around the PEG site. The PEG tube itself appeared intact. EXTREMITIES: No pedal edema. SKIN: No rashes. NEURO: She is alert and oriented x3. No focal deficits. LABS: Labs done at the time of admission to the hospital: WBC 9.8, hemoglobin 9.5, platelets 458. Basic metabolic panel is within normal limits. BUN 15, creatinine 0.32. AST, ALT, T-bilirubin, alkaline phosphatase are normal. IMPRESSION: 1. Mild PEG site cellulitis. There was some purulent material with redness around the PEG tube noted. She had a PEG tube placement by Dr. Mckeon 2 weeks ago for dysphagia and decreased oral intake. 2. Shortness of breath, probably mild exacerbation of chronic obstructive pulmonary disease. Pulmonary following the patient closely. 3. Squamous cell carcinoma of the right side of the face/neck diagnosed a year ago undergoing chemotherapy, currently last one was about 3 weeks ago. 4. History of diabetes mellitus. 5. Hypertension and hyperlipidemia. RECOMMENDATIONS: 1. Start her on Kefzol 2 grams q.8 hours for PEG site cellulitis. 2. Continue with PEG tube feeds as before. 3. Start her on a soft diet. 4. Continue with symptomatic and supportive care. 5. Repeat labs in the morning and will follow with you closely. Thank you for this consultation. MMODL / IJN: [id number] /
[2019-11-18 02:16] LABS: Glucose,Whole Blood 117 mg/dL (75-99)
[2019-11-18 06:26] LABS: Glucose,Whole Blood 126 mg/dL (75-99)
[2019-11-18] MEDS: SYMBICORT 160-4.5 MCG INHALER INHALATION SCH (07:59)
[2019-11-18] MEDS: IPRATROPIUM-ALBUTEROL 3 ML NEB INHALATION SCH ×2 (07:59→11:12)
[2019-11-18 08:33] VITALS: RESP 16
[2019-11-18] MEDS: FAMOTIDINE 20 MG TAB PO SCH (08:33)
[2019-11-18] MEDS: ENOXAPARIN 40 MG/0.4 ML SYRINGE SQ SCH (08:33)
[2019-11-18] MEDS: predniSONE 20 MG TAB PO SCH (08:33)
[2019-11-18] MEDS: METOPROLOL TARTRATE 50 MG TAB PO SCH (08:33)
[2019-11-18] MEDS: GABAPENTIN 100 MG CAP PO SCH (08:33)
[2019-11-18] MEDS: FERROUS SULFATE 325 MG TAB PO SCH (08:33)
[2019-11-18] MEDS: NICOTINE 21MG/24HR PATCH TRANSDERM SCH ×2 (08:34→08:35)
[2019-11-18] MEDS: INSULIN ASPART (NovoLOG) 100 UNIT/ML VIAL SQ SCH ×2 (08:34→12:20)
[2019-11-18] MEDS: MEGESTROL 400 MG/10 ML CUP PO SCH (08:34)
--- NOTE | 2019-11-18 09:34 | P.DS ---
Providers Date of admission: 11/16/19 12:01 Expected date of discharge: 11/18/19 Attending physician: Trisha Graf MD Consults: 11/16/19 17:13 Consult Physician Routine Consulting Provider: Marquis Bettencourt Consult Reason/Comments: COPD Do you want consulting provider notified?: Yes 11/16/19 18:30 Consult Physician Routine Consulting Provider: Autumn Main Consult Reason/Comments: facial infection growing pseudomonas Do you want consulting provider notified?: Yes 11/17/19 13:00 Consult Physician Routine Consulting Provider: Jayshree Valentine Consult Reason/Comments: PEG tube leakage Do you want consulting provider notified?: Yes Primary care physician: [facility] Hospital Course: HPI: 74-year-old female with PMH of squamous cell cancer of the face, COPD, diabetes mellitus, hypertension, dyslipidemia, recent PEG tube for nutrition and recent admission for right-sided facial wound growing Pseudomonas presents the ED for shortness of breath. Patient reports feeling short of breath when she woke up. She attempted a nebulizer treatment without much relief. She also reports abdominal discomfort at the site of PEG tube insertion. This constellation of symptoms prompted her to come to the ED. She denies any headache, lower extremity edema, nausea or vomiting, fever or chills, cough, chest pain, palpitations, changes in urination or bowel habits. She reports decreased appetite. She denies any dizziness, numbness/weakness/tingling of the extremities. In the ED, her vital signs are stable except for heart rate in the 110s. CBC showed leukocytosis of 11.1 and hemoglobin of 10. CMP showed sodium 135, BUN of 19, creatinine 0.43, glucose 157. Troponin was less than 0.012, EKG showing sinus tachycardia. BNP was 585. D-dimer was 2.61. Chest x-ray showed crescent of air from the right hemidiaphragm, blunting of the left coastal phrenic angle. CTA chest ruled out PE. Patient is admitted for shortness of breath, COPD exacerbation with pulmonology on consult. Hospital course and treatment she was admitted to the hospital. She has history of significant squamous cell carcinoma of the right neck with cellulitis/abscess. She was evaluated by infectious disease. She is treated with IV antibiotics and adjust accordingly. She has a PEG tube for nutrition which has some leakage and was evaluated by GI. She had COPD exacerbation and was evaluated by pulmonology. Patient is agreeable on hospice care and was discharged home with hospice. Patient Condition at Discharge: Poor Plan - Discharge Summary Discharge Rx Participant: Yes New Discharge Prescriptions: Continue Gabapentin [Neurontin] 200 mg PO DAILY metFORMIN HCL [Glucophage] 500 mg PO DAILY Famotidine 20 mg PO BID Atorvastatin [Lipitor] 40 mg PO HS Albuterol Nebulized [Ventolin Nebulized] 2.5 mg INHALATION RT-TID PRN PRN Reason: Shortness Of Breath Ibuprofen [Motrin] 600 mg PO QID PRN PRN Reason: Pain Ondansetron HCl [Zofran] 4 mg PO Q8H PRN PRN Reason: Nausea And Vomiting HYDROcodone/APAP 7.5-325MG [Angela 7.5-325] 1 tab PO Q4H PRN 3 Days #18 tab PRN Reason: Pain Morphine Sulfate 15 mg PO BID PRN PRN Reason: Pain Ferrous Sulfate [Feosol] 325 mg PO DAILY Polyethylene Glycol 3350 [Miralax] 17 gm PO DAILY Megestrol Acetate 800 mg PO DAILY Ipratropium-Albuterol Nebulize [Duoneb 0.5 mg-3 mg/3 ml Soln] 3 ml INHALATION RT-QID #120 ml guaiFENesin [Mucinex] 1,200 mg PO Q12HR #60 tablet.er predniSONE 10 mg PO DAILY #30 tab Ciprofloxacin HCl [Cipro] 500 mg PO BID 10 Days #30 tab Metoprolol Tartrate [Lopressor] 50 mg PO BID 30 Days #60 tab Discharge Medication List Gabapentin [Neurontin] 200 mg PO DAILY 06/21/15 [History] metFORMIN HCL [Glucophage] 500 mg PO DAILY 10/11/15 [History] Famotidine 20 mg PO BID 12/27/16 [History] Albuterol Nebulized [Ventolin Nebulized] 2.5 mg INHALATION RT-TID PRN 01/27/19 [History] Atorvastatin [Lipitor] 40 mg PO HS 01/27/19 [History] Ibuprofen [Motrin] 600 mg PO QID PRN 09/26/19 [History] Ondansetron HCl [Zofran] 4 mg PO Q8H PRN 09/26/19 [History] HYDROcodone/APAP 7.5-325MG [Angela 7.5-325] 1 tab PO Q4H PRN 3 Days #18 tab 09/30/19 [Rx] Morphine Sulfate 15 mg PO BID PRN 11/02/19 [History] Ferrous Sulfate [Feosol] 325 mg PO DAILY 11/04/19 [History] Megestrol Acetate 800 mg PO DAILY 11/04/19 [History] Polyethylene Glycol 3350 [Miralax] 17 gm PO DAILY 11/04/19 [History] Ipratropium-Albuterol Nebulize [Duoneb 0.5 mg-3 mg/3 ml Soln] 3 ml INHALATION RT-QID #120 ml 11/07/19 [Rx] guaiFENesin [Mucinex] 1,200 mg PO Q12HR #60 tablet.er 11/07/19 [Rx] predniSONE 10 mg PO DAILY #30 tab 11/07/19 [Rx] Ciprofloxacin HCl [Cipro] 500 mg PO BID 10 Days #30 tab 11/12/19 [Rx] Metoprolol Tartrate [Lopressor] 50 mg PO BID 30 Days #60 tab 11/12/19 [Rx] Follow up Appointment(s)/Referral(s): Silviano Lieberman MD [Primary Care Provider] - 1-2 days [facility], [NON-STAFF] - [facility], [REFERRING] - Discharge Disposition: HOME WITH HOSPICE
--- NOTE | 2019-11-18 11:07 | PN ---
PROGRESS NOTE PULMONARY/CRITICAL CARE PROGRESS NOTE: DATE OF SERVICE: 11/18/2019 HISTORY OF PRESENT ILLNESS: This is a 74-year-old female with a history of mild COPD exacerbation. Currently, the patient is doing very well. She is much less short of breath she tells me. She is currently on DuoNeb, Symbicort, and prednisone. Apparently, the patient is considering to be discharged to hospice. She is apparently going to speak to hospice today. In addition to COPD, she has a history of squamous cell carcinoma of the right facial area and right neck, undergoing chemotherapy, a cellulitis of the right facial area secondary to Pseudomonas, angina pectoris, diabetes mellitus, GERD, hyperlipidemia, hypertension, DJD, peripheral vascular occlusive disease, among other things. PHYSICAL EXAMINATION: VITAL SIGNS: Current vital signs are reviewed. Temperature is 97.4, heart rate 104, respiratory rate 16, blood pressure 97/69, mean 78, saturations on 2 L 100%. Appears in no acute distress. HEENT: Examination is grossly unremarkable. NECK: Supple. Full range of motion. No adenopathy or thyromegaly. Neck veins are flat. The lesion on the right side of her face and neck area are unchanged. It is covered with a bandage. CARDIOVASCULAR: Examination reveals regular rhythm and rate. Heart rate 84. S1, S2 normal. LUNGS: Reveal diminished breath sounds throughout. A few scattered rhonchi in the right lung. No wheezes or crackles. ABDOMEN: Soft. EXTREMITIES: Intact. No cyanosis, clubbing, or edema. SKIN: Without rash. NEUROLOGIC: Examination is brief but nonfocal. LABS: No new labs from today as yet. Microbiology is currently negative. IMAGING: No new x-rays to report. ASSESSMENT: 1. Mild chronic obstructive pulmonary disease exacerbation, not complicated by infection. 2. History of underlying chronic obstructive pulmonary disease from previous tobacco use. 3. Squamous cell carcinoma of the right facial and right neck area, currently undergoing chemotherapy. 4. Recent admission to this hospital for cellulitis of the right facial area, secondary to Pseudomonas aeruginosa, patient noncompliant with outpatient antibiotics. 5. History of angina. 6. Diabetes mellitus. 7. Gastroesophageal reflux disease. 8. Hyperlipidemia. 9. Hypertension by history. 10.Degenerative joint disease. 11.Peripheral vascular occlusive disease. PLAN: The patient is doing better. She will continue on DuoNeb, Symbicort, and prednisone. She is a DNR. She apparently is going to be speaking to hospice about hospice involvement. Nothing more to add from the pulmonary standpoint. She continues to smoke cigarettes. She is counseled about the importance of smoking cessation. MMODL / IJN: [id number] /
[2019-11-18 11:46] LABS: Glucose,Whole Blood 135 mg/dL (75-99)
[2019-11-18] MEDS: CEFEPIME 2 GM in SODIUM CHLORIDE 0.9% 100 ML IVPB SCH (12:14)
--- NOTE | 2019-11-18 14:37 | P.PN ---
Progress Note - Text Progress Note Date: 11/18/19 Pt will require a hospital bed to meet the requirement to keep the head of the bed angled to 30 degrees or greater at all times in order to prevent or reduce aspiration. Pt will also require home oxygen.
--- NOTE | 2019-11-18 15:09 | PN ---
PROGRESS NOTE DATE OF SERVICE: 11/18/2019 REASON FOR FOLLOWUP: Right neck wound with secondary cellulitis. INTERVAL HISTORY: Patient is currently afebrile. Patient is breathing more comfortably. Denies having any chest pain. Occasional cough. No abdominal pain or any worsening pain to the neck wound. PHYSICAL EXAMINATION: Blood pressure 97/69, pulse of 80. Temperature is 97.4. She is 100% on room air. General description: The patient is an elderly female lying in bed in no distress. HEENT examination: The right neck wound is currently dressed. Minimal foul smelling odor. LUNGS: Unlabored breathing. Clear to auscultation. Heart S1, S2. Regular rate and rhythm. Abdomen soft, no tenderness. LABS: No new labs have been obtained today. DIAGNOSTIC IMPRESSION AND PLAN: Patient with right neck wound with surrounding cellulitis. Local care to continue with [facility]. Antibiotic will be switched to oral Cipro for another week and close outpatient followup. Continue supportive care. MMODL / IJN: [id number] /
--- NOTE | 2019-11-18 15:13 | CDI ---
Documentation Clarification Form Date: 11/18/2019 02:31:45 PM From: Veronica Burnett RN, CCDS Admit Date: 11/16/2019 12:01:00 PM Patient Name: Margaret Chen Visit Number: [id number] Discharge Date: ATTENTION: The Clinical Documentation Specialists (CDI) and [facility] Coding Staff appreciate your assistance in clarifying documentation. Please respond to the clarification below the line at the bottom and electronically sign. The CDI & [facility] Coding staff will review the response and follow-up if needed. Please note: Queries are made part of the Legal Health Record. If you have any questions, please contact the author of this message via ITS. Dr. Jaclyn Gilman 11/15 present to ED with neck pain. H/P and subsequent progress notes has SIRS with pseudomonas right neck wound. 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 11/16 GI document mild PEG site cellulitis. She was discharged on 11/12/19 for an infection on the right side of her face was supposed to continue with antibiotics but never picked up the antibiotics. 11/15WBC/Left Shift: 11.1 Lactic acid: 2.0 11/15 Vitals signs on admission: 108/68 128 22 97.8 99 % RA 11/15 Blood culture: No Growth after 24 hours Treatment: Cipro 500 mg po Once STA 11/16 Cefazolin 2 gm ivpb q 8/hrs 11/16 Cefepime 2 gm q 12 hours Medahoney followed by moist dressing change q day .9NS 500ml bolus 11/16 ID Consult: Right-side neck wound from her underlying squamous cell carcinoma with significant deep wound and significant amount of slough tissue with recent culture was positive for pseudomonas aeruginosa. Cellulitis and abscess of neck. In your professional opinion, can you please clarify if these findings signify one of the following conditions, whether the condition is POA, and cause, if known? SIRS due to infectious process without Sepsis SIRS with Sepsis due to cellulitis and abscess of right neck Other, please specify Unable to determine SIRS Criteria (2 or more of the following may indicate SIRS): -Temperature < 96.8F(36C) or > 101.0F (38.3C) -Heart Rate > 90 bpm -Respiratory Rate > 20 breaths/min or PaCO2 < 32 mmHg -White Blood Cell Count > 12,000 or < 4,000 cells/mm3 or > 10% bands (Last Revision: December 2016) SIRS with pseudomonas right neck wound. sirs 2/2 infection MTDD
[2019-11-18 15:20] VITALS: BP 108/62; PULSE 99; TEMP 97.6
--- NOTE | 2019-11-19 01:04 | PN ---
PROGRESS NOTE DATE OF DICTATION: 11/18/2019 Patient is a 74-year-old pleasant white female seen on followup today. She was having some discharge around the PEG site secondary to cellulitis was started on cefepime yesterday. She is feeling better today. She is being discharged home today. She denies any abdominal pain. No nausea, no vomiting. PHYSICAL EXAMINATION: Appears comfortable. Vital signs are stable. Blood pressure is 102/86, pulse rate 99, temperature 97.6. HEENT EXAMINATION: Unremarkable. Conjunctivae pink. Sclerae anicteric. Oral cavity, no lesions. Ulceration on the right carotid area. NECK: No JVD or lymph node enlargement. CHEST: Clear to auscultation. HEART: Regular rate and rhythm. ABDOMEN: Soft. PEG tube has some dark drainage around with improving cellulitis. EXTREMITIES: No pedal edema. SKIN: No rashes. NEUROLOGIC: Alert and oriented x3. No focal deficits. LABS: Labs from today: WBC 9.8, hemoglobin 9.5, platelets 488. Basic metabolic panel is within normal limits. IMPRESSION: 1. PEG site cellulitis on antibiotics, doing well. 2. History of head and neck CA, undergoing chemotherapy, last dose was 3 weeks ago. 3. Open wound in the right side of the neck and cheek consistent with cellulitis. Presently on oral Cipro and ID following the patient closely. RECOMMENDATION: 1. Continue antibiotics for PEG site cellulitis for 7 days. 2. Continue PEG tube feeds. 3. Resume soft diet. 4. Follow up in the office in 2 weeks. Thank you for this consultation. MMODL / IJN: [id number] /
== END 2019-11-18 15:35 | disposition home or self-care (01) | DRG 191 ==
LOC: EC 08:22 → OBSVTOIN 12:01 → 4SSUR 12:01 → 1SOBS 18:00
PROVIDERS: ADMIT Internal Medicine; ATTEND Internal Medicine
DX: J44.1 Chronic obstructive pulmonary disease with (acute) exacerbation (principal); E44.0 Moderate protein-calorie malnutrition; Z68.1 Body mass index [BMI] 19.9 or less, adult; L03.221 Cellulitis of neck; L02.11 Cutaneous abscess of neck; L03.211 Cellulitis of face; K94.22 Gastrostomy infection; C76.0 Malignant neoplasm of head, face and neck; E11.51 Type 2 diabetes mellitus with diabetic peripheral angiopathy without gangrene; B96.5 Pseudomonas (aeruginosa) (mallei) (pseudomallei) as the cause of diseases classified elsewhere; D64.9 Anemia, unspecified; E11.65 Type 2 diabetes mellitus with hyperglycemia; Z66 Do not resuscitate; T36.8X6A Underdosing of other systemic antibiotics, initial encounter; Z91.128 Patient's intentional underdosing of medication regimen for other reason; I10 Essential (primary) hypertension; R13.10 Dysphagia, unspecified; E78.5 Hyperlipidemia, unspecified; K21.9 Gastro-esophageal reflux disease without esophagitis; K40.90 Unilateral inguinal hernia, without obstruction or gangrene, not specified as recurrent; I83.90 Asymptomatic varicose veins of unspecified lower extremity; K59.00 Constipation, unspecified; H93.19 Tinnitus, unspecified ear; M54.2 Cervicalgia; R49.0 Dysphonia; M19.90 Unspecified osteoarthritis, unspecified site; F17.210 Nicotine dependence, cigarettes, uncomplicated; Z71.6 Tobacco abuse counseling; Z79.84 Long term (current) use of oral hypoglycemic drugs; Z79.818 Long term (current) use of other agents affecting estrogen receptors and estrogen levels; Z79.899 Other long term (current) drug therapy; Z92.3 Personal history of irradiation; Z87.11 Personal history of peptic ulcer disease; Z90.710 Acquired absence of both cervix and uterus; Z87.42 Personal history of other diseases of the female genital tract; Z98.51 Tubal ligation status; Z86.010 Personal history of colon polyps; Z90.89 Acquired absence of other organs; Z87.448 Personal history of other diseases of urinary system; Z95.820 Peripheral vascular angioplasty status with implants and grafts; Z98.890 Other specified postprocedural states; Z86.59 Personal history of other mental and behavioral disorders; Y63.6 Underdosing and nonadministration of necessary drug, medicament or biological substance; Z88.1 Allergy status to other antibiotic agents; Z80.7 Family history of other malignant neoplasms of lymphoid, hematopoietic and related tissues; Z83.3 Family history of diabetes mellitus; Z82.49 Family history of ischemic heart disease and other diseases of the circulatory system; Z80.9 Family history of malignant neoplasm, unspecified
CPT/HCPCS: 36415; 71046; 71275; 74176; 80053; 83036; 83605; 83735; 83880; 84484; 85025; 85379; 85610; 85730; 87040; 87070; 87075; 87077; 87186; 87205; 94640; 94760; 96361; 96374; 99285

== ENCOUNTER 2019-11-22 18:35 | Inpatient (IN) | payer MEDICARE, OTHER ==
[2019-11-22] MEDS ORDERED: IPRATROPIUM-ALBUTEROL 3 ML NEB INHALATION STA (19:04)
--- NOTE | 2019-11-22 19:14 | ED ---
General Adult HPI - General Chief complaint: Shortness of Breath Stated complaint: SOB Time Seen by Provider: 11/22/19 18:46 Source: patient, RN notes reviewed Mode of arrival: wheelchair Limitations: no limitations - History of Present Illness Initial comments: Patient is a pleasant 74-year-old female presenting to the emergency department with difficulty breathing. Onset of symptoms was the past couple of days. Patient was hospitalized couple weeks ago for dyspnea as well. Patient does have history of COPD and still smokes. Patient also has large right cancerous neck mass which she is currently on chemotherapy for. Patient has noticed some odor and drainage. - Related Data Home Medications Medication Instructions Recorded Confirmed Gabapentin [Neurontin] 200 mg PO DAILY 06/21/15 11/16/19 metFORMIN HCL [Glucophage] 500 mg PO DAILY 10/11/15 11/16/19 Famotidine 20 mg PO BID 12/27/16 11/16/19 Albuterol Nebulized [Ventolin 2.5 mg INHALATION RT-TID PRN 01/27/19 11/16/19 Nebulized] Atorvastatin [Lipitor] 40 mg PO HS 01/27/19 11/16/19 Ibuprofen [Motrin] 600 mg PO QID PRN 09/26/19 11/16/19 Ondansetron HCl [Zofran] 4 mg PO Q8H PRN 09/26/19 11/16/19 Morphine Sulfate 15 mg PO BID PRN 11/02/19 11/16/19 Ferrous Sulfate [Feosol] 325 mg PO DAILY 11/04/19 11/16/19 Megestrol Acetate 800 mg PO DAILY 11/04/19 11/16/19 Polyethylene Glycol 3350 [Miralax] 17 gm PO DAILY 11/04/19 11/16/19 Previous Rx's Medication Instructions Recorded HYDROcodone/APAP 7.5-325MG [[place] 1 tab PO Q4H PRN 3 Days #18 tab 09/30/19 7.5-325] Ipratropium-Albuterol Nebulize 3 ml INHALATION RT-QID #120 ml 11/07/19 [Duoneb 0.5 mg-3 mg/3 ml Soln] guaiFENesin [Mucinex] 1,200 mg PO Q12HR #60 tablet.er 11/07/19 predniSONE 10 mg PO DAILY #30 tab 11/07/19 Ciprofloxacin HCl [Cipro] 500 mg PO BID 10 Days #30 tab 11/12/19 Metoprolol Tartrate [Lopressor] 50 mg PO BID 30 Days #60 tab 11/12/19 Allergies Allergy/AdvReac Type Severity Reaction Status Date / Time azithromycin Allergy Dyspnea/anx Verified 11/22/19 18:42 iety Review of Systems ROS Statement: Those systems with pertinent positive or pertinent negative responses have been documented in the HPI. ROS Other: All systems not noted in ROS Statement are negative. Constitutional: Denies: fever Eyes: Denies: eye pain ENT: Denies: ear pain Respiratory: Reports: cough Cardiovascular: Denies: chest pain Endocrine: Denies: fatigue Gastrointestinal: Denies: abdominal pain Genitourinary: Denies: dysuria Musculoskeletal: Denies: back pain Skin: Reports: lesions Neurological: Denies: headache Past Medical History Past Medical History: Cancer, Chest Pain / Angina, COPD, Diabetes Mellitus, GERD/Reflux, Hyperlipidemia, Hypertension, Osteoarthritis (OA), Vascular Disorder Additional Past Medical History / Comment(s): Pt recently admitted to [facility] on 09/26/19 with infected/necrotic R face mass and lesion L ear, moderate protein calorie malnutrition. Other hx: Squamous cell cancer R neck/face/ear with past radiation and chemo last given 11/02/19, anemia, NIDDM type II, past gastric ulcer, PVD-poor circulation bilateral legs, varicosities, R leg nerve pain, occasional tinnitis, constipation, small R inguinal hernia. History of Any Multi-Drug Resistant Organisms: None Reported Past Surgical History: Hysterectomy, Tonsillectomy, Tubal Ligation Additional Past Surgical History / Comment(s): PTBA/STENT TO LT LEG, EGD, colonoscopy/benign polypectomy, cystocele/rectocele repairs. Past Anesthesia/Blood Transfusion Reactions: No Reported Reaction Additional Past Anesthesia/Blood Transfusion Reaction / Comment(s): . Past Psychological History: Anxiety, Depression, Panic Disorder Smoking Status: Current every day smoker Past Alcohol Use History: None Reported Past Drug Use History: None Reported - Past Family History Son(s) Family Medical History: Cancer Additional Family Medical History / Comment(s): LYMPHOMA Mother Family Medical History: Diabetes Mellitus Father Additional Family Medical History / Comment(s): HAD AAA Sister(s) Family Medical History: Cancer Additional Family Medical History / Comment(s): rectal General Exam Limitations: no limitations General appearance: alert, in no apparent distress Head exam: Present: normocephalic Eye exam: Present: normal appearance Neck exam: Present: other (Large destructive lesion right neck, greater than 10 cm with irregularity. There is mild odor and yellow thick drainage.) Respiratory exam: Present: wheezes, rhonchi Cardiovascular Exam: Present: tachycardia GI/Abdominal exam: Present: soft. Absent: tenderness Extremities exam: Present: normal inspection. Absent: pedal edema, calf tenderness Neurological exam: Present: alert Psychiatric exam: Present: normal affect, normal mood Skin exam: Absent: rash Course Vital Signs 11/22/19 11/22/19 11/22/19 18:40 19:09 19:44 Temperature 98.3 F Pulse Rate 101 H 112 H Respiratory 24 20 Rate Blood Pressure 108/68 O2 Sat by Pulse 99 Oximetry 11/22/19 11/22/19 19:53 20:00 Temperature Pulse Rate 116 H 105 H Respiratory 18 Rate Blood Pressure 124/71 O2 Sat by Pulse 98 Oximetry - Reevaluation(s) Reevaluation #1: 11/22/19 20:16 Patient does meet sepsis criteria diagnosed at 1999. Blood culture and lactic acid ordered. IV antibiotics will be ordered. EKG Findings - EKG Comments: EKG Findings:: Sinus tachycardia 117. ND 118. QRS 76. QT 290. QTC 404. Normal axis. Septal Q waves. No acute ST change. Medical Decision Making - Medical Decision Making Patient reevaluated and updated. Case was discussed with Dr. Fleming, who will admit for Dr. Fleming, covering for Dr. Solis, who admits for Dr. Lieberman. - Lab Data Result diagrams: 11/22/19 19:41 11/22/19 19:41 Lab Results 11/22/19 11/22/19 11/22/19 Range/Units 19:41 19:41 19:41 WBC 21.7 H (3.8-10.6) k/uL RBC 3.78 L (3.80-5.40) m/uL Hgb 9.7 L (11.4-16.0) gm/dL Hct 31.6 L (34.0-46.0) % MCV 83.4 (80.0-100.0) fL MCH 25.6 (25.0-35.0) pg MCHC 30.7 L (31.0-37.0) g/dL RDW 22.0 H (11.5-15.5) % Plt Count 442 (150-450) k/uL Neutrophils % 91 % Lymphocytes % 2 % Monocytes % 5 % Eosinophils % 0 % Basophils % 0 % Neutrophils # 19.7 H (1.3-7.7) k/uL Lymphocytes # 0.5 L (1.0-4.8) k/uL Monocytes # 1.0 (0-1.0) k/uL Eosinophils # 0.1 (0-0.7) k/uL Basophils # 0.1 (0-0.2) k/uL Hypochromasia Slight Anisocytosis Moderate Microcytosis Slight Sodium 132 L (137-145) mmol/L Potassium 4.6 (3.5-5.1) mmol/L Chloride 99 (98-107) mmol/L Carbon Dioxide 26 (22-30) mmol/L Anion Gap 7 mmol/L BUN 26 H (7-17) mg/dL Creatinine 0.48 L (0.52-1.04) mg/dL Est GFR (CKD-EPI)AfAm >90 (>60 ml/min/1.73 sqM) Est GFR (CKD-EPI)NonAf >90 (>60 ml/min/1.73 sqM) Glucose 146 H (74-99) mg/dL Plasma Lactic Acid Matthew 1.6 (0.7-2.0) mmol/L Calcium 8.2 L (8.4-10.2) mg/dL Total Bilirubin 0.2 (0.2-1.3) mg/dL AST 20 (14-36) U/L ALT 19 (4-34) U/L Alkaline Phosphatase 71 (38-126) U/L Total Protein 5.8 L (6.3-8.2) g/dL Albumin 2.9 L (3.5-5.0) g/dL - Radiology Data Radiology results: image reviewed (Chest x-ray shows atelectasis) Critical Care Time Critical Care Time: Yes Total Critical Care Time: 33 Disposition Clinical Impression: Infected wound, Sepsis, Acute exacerbation of chronic obstructive pulmonary disease Disposition: ADMITTED IP TO THIS HOSP Condition: Serious Is patient prescribed a controlled substance at d/c from ED?: No Referrals: Silviano Lieberman MD [Primary Care Provider] - 1-2 days Decision Time: 20:17
--- NOTE | 2019-11-22 19:19 | XR ---
EXAMINATION TYPE: XR chest 2V DATE OF EXAM: 11/22/2019 COMPARISON: 11/16/2019 HISTORY: Difficulty breathing TECHNIQUE: FINDINGS: There is small linear density lateral left lung base. The other lung amaya are clear. Cost ophrenic angles are clear. There are no hilar masses. Thoracic aorta is atheromatous. There are chest leads. IMPRESSION: Minimal subsegmental atelectasis lateral left lung base unchanged. Normal heart.
[2019-11-22 19:51] LABS: Anisocytosis Moderate; Basophils # (A) 0.1 k/uL (0-0.2); Basophils % (A) 0 %; Eosinophils # (A) 0.1 k/uL (0-0.7); Eosinophils % (A) 0 %; HCT 31.6 % (34.0-46.0); HGB 9.7 gm/dL (11.4-16.0); Hypochromasia Slight; Lymphocytes # (A) 0.5 k/uL (1.0-4.8); Lymphocytes % (A) 2 %; MCH 25.6 pg (25.0-35.0); MCHC 30.7 g/dL (31.0-37.0); MCV 83.4 fL (80.0-100.0); Microcytosis Slight; Monocytes % (A) 5 %; Neutrophils # (A) 19.7 k/uL (1.3-7.7); Neutrophils % (A) 91 %; Platelet Count 442 k/uL (150-450); RBC 3.78 m/uL (3.80-5.40); WBC 21.7 k/uL (3.8-10.6)
[2019-11-22 20:00] LABS: ALT 19 U/L (4-34); AST 20 U/L (14-36); African American GFR (CKD) >90 (>60 ml/min/1.73 sqM); Albumin 2.9 g/dL (3.5-5.0); Alkaline Phosphatase 71 U/L (38-126); Anion Gap 7 mmol/L; Blood Urea Nitrogen 26 mg/dL (7-17); Calcium 8.2 mg/dL (8.4-10.2); Carbon Dioxide 26 mmol/L (22-30); Chloride 99 mmol/L (98-107); Glucose 146 mg/dL (74-99); Non-African American GFR(CKD) >90 (>60 ml/min/1.73 sqM); Potassium 4.6 mmol/L (3.5-5.1); Sodium 132 mmol/L (137-145); Total Bilirubin 0.2 mg/dL (0.2-1.3); Total Protein 5.8 g/dL (6.3-8.2)
[2019-11-22 20:06] LABS: INR 0.9 (<1.2); Prothrombin Time 9.4 sec (9.0-12.0)
[2019-11-22 20:16] LABS: Partial Thromboplastin Time 20.4 sec (22.0-30.0)
[2019-11-22] MEDS ORDERED: IPRATROPIUM-ALBUTEROL 3 ML NEB INHALATION PRN (20:18)
[2019-11-22] MEDS ORDERED: LEVOFLOXACIN 750MG-D5W PMX 750 MG in DEXTROSE/WATER 1 150ML.BAG IVPB STA (20:18)
[2019-11-22] MEDS: SODIUM CHLORIDE 0.9% 1,000 ML IV SCH (20:40)
--- NOTE | 2019-11-22 23:19 | P.HPIM ---
History of Present Illness H&P Date: 11/22/19 Chief Complaint: dyspnea 74 year old female with DM, HTN, skin cancer, and COPD patient was discharged few days ago, when she was treated for acute COPD exacerabtion , she presented complaining of dyspnea, and CTA done and ruled out PE. she is noted to have been discharged with hospice care. patient today comes back with dyspnea at rest, despite doing multiple breathing treatments with no benefit. she denies any fever, chills, chest pain , hemoptysis, nausea or vomiting. she reports some off and on changes in her taste related in her opinion to chemotherapy which has been going on since she started chemotherapy. she tells me that she is scheduled for more chemotherapy tomorrow. she is still on prednison PO since her last discharge. otherwise denies any abd pain , diarrhea, gi bleeding, or urinary symptoms. patient skin cancer wound on her right side of the face, with some drainage and bleeding. patient has stopped her BP meds including metoprolol, she claims that her doctor advised to do so due to low blood pressure she currently feels better after some breathing treatment in the ED, CXR showed no acute changes. in the ED she was afebrile, but has elevated WBC could be in part due to taking steroids. also showing chronic anemia at baseline. patient admits that she continues to smoke Review of Systems Pertinent positives as noted in HPI. All other systems were reviewed and are negative Past Medical History Past Medical History: Cancer, Chest Pain / Angina, COPD, Diabetes Mellitus, GERD/Reflux, Hyperlipidemia, Hypertension, Osteoarthritis (OA), Vascular Disorder Additional Past Medical History / Comment(s): Pt recently admitted to [facility] on 09/26/19 with infected/necrotic R face mass and lesion L ear, moderate protein calorie malnutrition. Other hx: Squamous cell cancer R neck/face/ear with past radiation and chemo last given 11/02/19, anemia, NIDDM type II, past gastric ulcer, PVD-poor circulation bilateral legs, varicosities, R leg nerve pain, occasional tinnitis, constipation, small R inguinal hernia. History of Any Multi-Drug Resistant Organisms: None Reported Past Surgical History: Hysterectomy, Tonsillectomy, Tubal Ligation Additional Past Surgical History / Comment(s): PTBA/STENT TO LT LEG, EGD, colonoscopy/benign polypectomy, cystocele/rectocele repairs. Past Anesthesia/Blood Transfusion Reactions: No Reported Reaction Additional Past Anesthesia/Blood Transfusion Reaction / Comment(s): . Past Psychological History: Anxiety, Depression, Panic Disorder Smoking Status: Current every day smoker Past Alcohol Use History: None Reported Past Drug Use History: None Reported - Past Family History Son(s) Family Medical History: Cancer Additional Family Medical History / Comment(s): LYMPHOMA Mother Family Medical History: Diabetes Mellitus Father Additional Family Medical History / Comment(s): HAD AAA Sister(s) Family Medical History: Cancer Additional Family Medical History / Comment(s): rectal Medications and Allergies Home Medications Medication Instructions Recorded Confirmed Type Gabapentin [Neurontin] 200 mg PO DAILY 06/21/15 11/22/19 History metFORMIN HCL [Glucophage] 500 mg PO DAILY 10/11/15 11/22/19 History Famotidine 20 mg PO BID 12/27/16 11/22/19 History Albuterol Nebulized [Ventolin 2.5 mg INHALATION RT-TID PRN 01/27/19 11/22/19 History Nebulized] Atorvastatin [Lipitor] 40 mg PO HS 01/27/19 11/22/19 History Ibuprofen [Motrin] 600 mg PO QID PRN 09/26/19 11/22/19 History Ondansetron HCl [Zofran] 4 mg PO Q8H PRN 09/26/19 11/22/19 History Ferrous Sulfate [Feosol] 325 mg PO DAILY 11/04/19 11/22/19 History Megestrol Acetate 800 mg PO DAILY 11/04/19 11/22/19 History Polyethylene Glycol 3350 [Miralax] 17 gm PO DAILY 11/04/19 11/22/19 History Ipratropium-Albuterol Nebulize 3 ml INHALATION RT-QID #120 ml 11/07/19 11/22/19 Rx [Duoneb 0.5 mg-3 mg/3 ml Soln] Ciprofloxacin HCl [Cipro] 500 mg PO BID 10 Days #30 tab 11/12/19 11/22/19 Rx Metoprolol Tartrate [Lopressor] 50 mg PO BID 30 Days #60 tab 11/12/19 11/22/19 Rx HYDROcodone/APAP 7.5-325MG [[place] 1 tab PO Q4H PRN 08/23/20 08/23/20 History 7.5-325] Morphine Sulfate [Ms Contin] 15 mg PO BID 11/22/19 11/22/19 History guaiFENesin [Mucinex] 1,200 mg PO Q12H 11/22/19 11/22/19 History predniSONE See Taper PO DAILY 11/22/19 11/22/19 History Allergies Allergy/AdvReac Type Severity Reaction Status Date / Time azithromycin Allergy Dyspnea/anx Verified 11/22/19 20:18 iety Physical Exam Vitals: Vital Signs Temp Pulse Pulse Resp BP BP Pulse Ox 11/22/19 21:29 98.0 F 129 H 128/60 96 11/22/19 20:50 98.2 F 104 H 18 121/92 99 11/22/19 20:00 105 H 18 124/71 98 11/22/19 19:53 116 H 11/22/19 19:44 112 H 11/22/19 19:09 20 11/22/19 18:40 98.3 F 101 H 24 108/68 99 Intake and Output 11/22/19 11/22/19 11/22/19 06:59 14:59 22:59 Other: Weight 45.359 kg Constitutional: No acute distress, conversant, pleasant Eyes: Anicteric sclerae, moist conjunctiva, Pupils equal round reactive to light ENMT: NC/AT Oropharynx clear, no erythema, no exudates Neck: Supple, FROM, no masses, or JVD No carotid bruits No thyromegaly Lungs: Clear to auscultation Clear to percussion Normal respiratory effort, no accessory muscle use Cardiovascular: Heart regular in rate and rhythm, No murmurs, gallops, or rubs No peripheral edema Abdominal: Soft, PEG tube in place with slight erythema around the base of the tube. no drainage, no bleeding no induration Nontender, no guarding, rebound or rigidity Abdomen moving with respiration Normoactive bowel sounds No hepatomegaly, No splenomegaly No palpable mass No abdominal wall hernia noted Skin: nodular lesions over the right side of the face, with ulcerating centers, otherwise Normal temperature, tone, texture, turgor Extremities: No digital cyanosis No clubbing Pedal pulses intact and symmetrical Radial pulses intact and symmetrical No calf tenderness Psychiatric: Alert and oriented to person, place and time Appropriate affect fair judgement Neuro Muscles Strength 4/5 in all 4 extremities Sensation to light touch grossly present throughout Cranial nerves II-XII grossly intact No focal sensory deficits Lymphatics: palpable cervical LN Results CBC & Chem 7: 11/22/19 19:41 11/22/19 19:41 Labs: Abnormal Lab Results - Last 24 Hours (Table) 11/22/19 11/22/19 11/22/19 Range/Units 19:41 19:41 19:41 WBC 21.7 H (3.8-10.6) k/uL RBC 3.78 L (3.80-5.40) m/uL Hgb 9.7 L (11.4-16.0) gm/dL Hct 31.6 L (34.0-46.0) % MCHC 30.7 L (31.0-37.0) g/dL RDW 22.0 H (11.5-15.5) % Neutrophils # 19.7 H (1.3-7.7) k/uL Lymphocytes # 0.5 L (1.0-4.8) k/uL APTT 20.4 L (22.0-30.0) sec Sodium 132 L (137-145) mmol/L BUN 26 H (7-17) mg/dL Creatinine 0.48 L (0.52-1.04) mg/dL Glucose 146 H (74-99) mg/dL Calcium 8.2 L (8.4-10.2) mg/dL Total Protein 5.8 L (6.3-8.2) g/dL Albumin 2.9 L (3.5-5.0) g/dL Assessment and Plan Assessment: recurrent dyspnea , secondary to acute COPD exacerbation consider repeat CTA if patient becomes hypoxic, she had CTA done less than a week ago due to dyspnea and was negative for PE breathing treatments steroids IV supplemental oxygen as needed levofloxacin for possible underlying pneumonia pulmonary consult sequamous cell cancer of the face outpatient follow up consult to oncology chronic condition s skin cancer DM, insulin sliding scale hypertension , resume metoprolol failure to thrive , s/p PEG tube , resume tube feeding as tolerated chronic anemia , stable Preformed a thorough record review from recent hospitalization patient was discharged few days ago, when she was treated for acute COPD exacerabtion , she presented complaining of dyspnea, and CTA done and ruled out PE. she is noted to have been discharged with hospice care. CODE STATUS:full code DVT prophylaxis: heparin sc tid Discussed with: Patient, ER, RN Anticipated length of stay < than [address]: home A total of 75 minutes was spent on the care of this complex patient more than 50% of the time was spent in counseling and care coordination. k
[2019-11-23] MEDS: MORPHINE SULFATE ER 15 MG TABLET PO SCH ×3 (00:05→20:43)
[2019-11-23] MEDS: METOPROLOL TARTRATE 50 MG TAB PO SCH ×3 (00:05→20:43)
[2019-11-23] MEDS: ATORVASTATIN 40 MG TAB PO SCH ×2 (00:06→20:42)
[2019-11-23] MEDS: HEPARIN SODIUM,PORCINE 5,000 UNIT/ML 1 ML VIAL SQ SCH ×4 (00:06→23:35)
[2019-11-23] MEDS: FAMOTIDINE 20 MG TAB PO SCH ×3 (00:06→20:42)
[2019-11-23] MEDS: guaiFENesin 600 MG TABLET.ER PO SCH ×3 (00:06→23:36)
[2019-11-23] MEDS: HYDROcodone/APAP 7.5-325MG 1 EACH TAB PO PRN ×4 (04:37→23:40)
[2019-11-23] MEDS: SODIUM CHLORIDE 0.9% 1,000 ML IV SCH (05:27)
[2019-11-23 06:36] LABS: Glucose,Whole Blood 106 mg/dL (75-99)
[2019-11-23] MEDS: INSULIN ASPART (NovoLOG) 100 UNIT/ML VIAL SQ SCH ×4 (07:03→20:42)
[2019-11-23] MEDS: GABAPENTIN 100 MG CAP PO SCH (07:08)
[2019-11-23] MEDS: MEGESTROL 400 MG/10 ML CUP PO SCH (07:09)
[2019-11-23] MEDS: polyethylene glycoL 3350 17 GM POWD.PACK PO SCH (07:10)
[2019-11-23] MEDS: IPRATROPIUM-ALBUTEROL 3 ML NEB INHALATION SCH ×6 (08:48→23:34)
[2019-11-23 11:16] LABS: Glucose,Whole Blood 101 mg/dL (75-99)
--- NOTE | 2019-11-23 12:28 | CT ---
CT CHEST FOR PULMONARY EMBOLISM. EXAMINATION TYPE: CT angio chest DATE OF EXAM: 11/23/2019 INDICATION: Dyspnea with exertion CT DLP: 186.4 mGycm, Automated exposure control for dose reduction was used. CONTRAST: Patient injected with 100, wasted 28 mL of Isovue 370. COMPARISON: 12/27/2016 TECHNIQUE: CT of the chest is performed on a spiral scan at 2 mm thick sections. Study is performed with intravenous contrast timed for evaluation for pulmonary embolism. This will limit additional po rtions of the evaluation. 3-D MIP images reconstructed by the technologist are reviewed on the compu ter in the coronal and sagittal planes. FINDINGS: No persistent filling defects are evident to suggest an acute pulmonary embolism. No mediastinal or hilar adenopathy enlarged by CT criteria is evident. The ascending aorta diameter at the level of the main pulmonary artery is 3.2 cm. The main pulmonary artery diameter at the bifur cation is 2.7 cm. There is a 1.1 cm infiltrate in the posterior medial right midlung. Image 37. This should be followed to clearing. If the more solid component increases in size, PET/CT would be recommended for addition al evaluation. Some mild compressive atelectasis is likely within the dependent portions of the lung bases bilateral ly. Limited CT section through the upper abdomen are unremarkable. IMPRESSIONS: 1. No acute pulmonary embolism. 2. Small posterior medial right midlung density. Follow-up CT chest in 3 months is recommended.
[2019-11-23] MEDS: NICOTINE 14MG/24HR PATCH TRANSDERM SCH (13:48)
[2019-11-23] MEDS: methylPREDNISolone SOD SUCCI 40 MG/ML 1 ML VIAL IV SCH ×2 (13:49→23:36)
--- NOTE | 2019-11-23 13:54 | P.CONS ---
History of Present Illness - Reason for Consult Consult date: 11/23/19 Head/neck cancer on treatment Requesting physician: Ramesh Rodriguez - Chief Complaint SOB - History of Present Illness Patient is currently admitted with complaints of shortness of breath times one day. She was discharged just a couple of weeks ago for COPD exacerbation. At t hat time patient was discharged on hospice. Since then, she did follow-up in the office, she decided that she wanted to proceed with and other round of therapy so, she opted out of hospice. Did receive a treatment since her last discharge. She denied fevers, productive cough, she is up to 3 cans per day via the PEG tube for nutrition. She does not utilize too much water through the PEG tube. She is noting some irritation on her cheeks around the tumor, the dressing changes in the cleaning of the tumor area have improved some of the older, she is not able to take anything in by mouth at this time though. Malignancy history: Referred by PCP Dr. Lieberman 06/16 for evaluation of right cervical lymphadenopathy, 1 year, stable. Ultrasound revealed right cervical lesion 3.6 x 1.6 x 3.1 cm. 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 Patient declined further staging, treatment, did not want follow-up. Her symptoms progressed, she was referred back April 2018, right cervical mass was FDG avid, no other disease on staging PET scan. She completed radiation therapy with some improvement in the right cervical lesion. By the fall of 2018 she was having more pain, increase size of the cervical mass. Repeat biopsy was negative. She was recommended for some further radiation. Patient was seen in April 2019 at [facility]. Biopsy showed squamous cell carcinoma. Patient was started on Erbitux. She did well until PET scan 09/03/19, PET scan showed progression. She was started 09/20/21 carboplatin/Taxol. She was admitted to the hospital after the first cycle due to increased pain and tumor basically dissolving and falling off. She also required antibiotic therapy for suspected necrosis/infection. Patient was admitted for very similar symptoms later in September. Patient was admittedt earlier this month for COPD exacerbation. Review of Systems 14 point ROS is negative except as stated in HPI Past Medical History Past Medical History: Cancer, Chest Pain / Angina, COPD, Diabetes Mellitus, GERD/Reflux, Hyperlipidemia, Hypertension, Osteoarthritis (OA), Vascular Disorder Additional Past Medical History / Comment(s): Pt recently admitted to [facility] on 09/26/19 with infected/necrotic R face mass and lesion L ear, moderate protein calorie malnutrition. Other hx: Squamous cell cancer R neck/face/ear with past radiation and chemo last given 11/02/19, anemia, NIDDM type II, past gastric ulcer, PVD-poor circulation bilateral legs, varicosities, R leg nerve pain, occasional tinnitis, constipation, small R inguinal hernia. History of Any Multi-Drug Resistant Organisms: None Reported Past Surgical History: Hysterectomy, Tonsillectomy, Tubal Ligation Additional Past Surgical History / Comment(s): PTBA/STENT TO LT LEG, EGD, colonoscopy/benign polypectomy, cystocele/rectocele repairs. Past Anesthesia/Blood Transfusion Reactions: No Reported Reaction Additional Past Anesthesia/Blood Transfusion Reaction / Comm: . Past Psychological History: Anxiety, Depression, Panic Disorder Smoking Status: Current every day smoker Past Alcohol Use History: None Reported Past Drug Use History: None Reported - Past Family History Son(s) Family Medical History: Cancer Additional Family Medical History / Comment(s): LYMPHOMA Mother Family Medical History: Diabetes Mellitus Father Additional Family Medical History / Comment(s): HAD AAA Sister(s) Family Medical History: Cancer Additional Family Medical History / Comment(s): rectal Medications and Allergies Home Medications Medication Instructions Recorded Confirmed Type Gabapentin [Neurontin] 200 mg PO DAILY 06/21/15 11/22/19 History metFORMIN HCL [Glucophage] 500 mg PO DAILY 10/11/15 11/22/19 History Famotidine 20 mg PO BID 12/27/16 11/22/19 History Albuterol Nebulized [Ventolin 2.5 mg INHALATION RT-TID PRN 01/27/19 11/22/19 History Nebulized] Atorvastatin [Lipitor] 40 mg PO HS 01/27/19 11/22/19 History Ibuprofen [Motrin] 600 mg PO QID PRN 09/26/19 11/22/19 History Ondansetron HCl [Zofran] 4 mg PO Q8H PRN 09/26/19 11/22/19 History Ferrous Sulfate [Feosol] 325 mg PO DAILY 11/04/19 11/22/19 History Megestrol Acetate 800 mg PO DAILY 11/04/19 11/22/19 History Polyethylene Glycol 3350 [Miralax] 17 gm PO DAILY 11/04/19 11/22/19 History Ipratropium-Albuterol Nebulize 3 ml INHALATION RT-QID #120 ml 11/07/19 11/22/19 Rx [Duoneb 0.5 mg-3 mg/3 ml Soln] Ciprofloxacin HCl [Cipro] 500 mg PO BID 10 Days #30 tab 11/12/19 11/22/19 Rx Metoprolol Tartrate [Lopressor] 50 mg PO BID 30 Days #60 tab 11/12/19 11/22/19 Rx HYDROcodone/APAP 7.5-325MG [[place] 1 tab PO Q4H PRN 11/22/19 11/22/19 History 7.5-325] Morphine Sulfate [Ms Contin] 15 mg PO BID 11/22/19 11/22/19 History guaiFENesin [Mucinex] 1,200 mg PO Q12H 11/22/19 11/22/19 History predniSONE See Taper PO DAILY 11/22/19 11/22/19 History Allergies Allergy/AdvReac Type Severity Reaction Status Date / Time azithromycin Allergy Dyspnea/anx Verified 11/22/19 20:18 iety Physical Exam Vitals: Vital Signs Temp Pulse Pulse Resp BP BP Pulse Ox 11/23/19 09:00 72 11/23/19 08:49 80 11/23/19 08:00 91 17 11/23/19 06:56 98.4 F 91 17 108/58 100 11/23/19 00:59 98.0 F 90 120/66 100 11/22/19 21:29 98.0 F 129 H 128/60 96 11/22/19 20:50 98.2 F 104 H 18 121/92 99 11/22/19 20:00 105 H 18 124/71 98 11/22/19 19:53 116 H 11/22/19 19:44 112 H 11/22/19 19:09 20 11/22/19 18:40 98.3 F 101 H 24 108/68 99 Intake and Output 11/22/19 11/23/19 11/23/19 22:59 06:59 14:59 Other: # Voids 1 Weight 45.359 kg - Constitutional General appearance: cooperative, no acute distress, thin - EENT Eyes: anicteric sclerae, EOMI ENT: hearing grossly normal - Neck right neck tissue destruction, necrosis, multiple tumor masses Neck: lymphadenopathy - Respiratory Respiratory: bilateral: wheezing (scattered), prolonged expiration - Cardiovascular Rhythm: regular Heart sounds: normal: S1, S2 Abnormal Heart Sounds: no systolic murmur, no diastolic murmur, no rub, no S3 Gallop, no S4 Gallop, no click, no other leg Peripheral Edema: bilateral: None - Gastrointestinal PEG General gastrointestinal: scaphoid, soft - Neurologic Neurologic: focal deficits (right side, 2/2 tumor) - Musculoskeletal Musculoskeletal: generalized weakness, strength equal bilaterally - Psychiatric Psychiatric: A&O x's 3, appropriate affect, intact judgment & insight Results CBC & Chem 7: 11/22/19 19:41 11/22/19 19:41 Labs: Abnormal Lab Results - Last 24 Hours (Table) 11/22/19 11/22/19 11/22/19 Range/Units 19:41 19:41 19:41 WBC 21.7 H (3.8-10.6) k/uL RBC 3.78 L (3.80-5.40) m/uL Hgb 9.7 L (11.4-16.0) gm/dL Hct 31.6 L (34.0-46.0) % MCHC 30.7 L (31.0-37.0) g/dL RDW 22.0 H (11.5-15.5) % Neutrophils # 19.7 H (1.3-7.7) k/uL Lymphocytes # 0.5 L (1.0-4.8) k/uL APTT 20.4 L (22.0-30.0) sec Sodium 132 L (137-145) mmol/L BUN 26 H (7-17) mg/dL Creatinine 0.48 L (0.52-1.04) mg/dL Glucose 146 H (74-99) mg/dL POC Glucose (mg/dL) (75-99) mg/dL Calcium 8.2 L (8.4-10.2) mg/dL Total Protein 5.8 L (6.3-8.2) g/dL Albumin 2.9 L (3.5-5.0) g/dL 11/23/19 Range/Units 06:35 WBC (3.8-10.6) k/uL RBC (3.80-5.40) m/uL Hgb (11.4-16.0) gm/dL Hct (34.0-46.0) % MCHC (31.0-37.0) g/dL RDW (11.5-15.5) % Neutrophils # (1.3-7.7) k/uL Lymphocytes # (1.0-4.8) k/uL APTT (22.0-30.0) sec Sodium (137-145) mmol/L BUN (7-17) mg/dL Creatinine (0.52-1.04) mg/dL Glucose (74-99) mg/dL POC Glucose (mg/dL) 106 H (75-99) mg/dL Calcium (8.4-10.2) mg/dL Total Protein (6.3-8.2) g/dL Albumin (3.5-5.0) g/dL Chest x-ray: report reviewed Assessment and Plan (1) Acute exacerbation of chronic obstructive pulmonary disease Narrative/Plan: Patient is on supportive pulmonary medications as prescribed. Defer to Internal Medicine Current Visit: Yes Status: Acute Priority: High Code(s): J44.1 - CHRONIC OBSTRUCTIVE PULMONARY DISEASE W (ACUTE) EXACERBATION SNOMED Code(s): 325667961 (2) Esophageal dysphagia Narrative/Plan: Patient has a PEG tube for nutritional supplementation. Patient needs to be encouraged to put water into the tube as well. Current Visit: Yes Status: Chronic Priority: Medium Code(s): R13.10 - DYSPHAGIA, UNSPECIFIED SNOMED Code(s): 97159573 (3) Squamous cell carcinoma Narrative/Plan: Hematologically patient has tolerated treatment rather well. On her last admission there was question as to whether the treatment was working as there was not definitive growth but not necessarily significant improvement either. Patient did discharged to home on hospice. She rescinded this at some point in time and requested to continue with further treatment. This time, her presenting symptoms did not appear to be related to the malignancy. We will see how patient does with pulmonary treatments. CTA of the chest ordered Current Visit: Yes Status: Chronic Priority: High Code(s): SWN3714 - SNOMED Code(s): 531126612 (4) Neoplasm related pain Narrative/Plan: Continue current analgesics with adjustments as needed. Continue adjunct pain medications including gabapentin Current Visit: Yes Status: Chronic Priority: Medium Code(s): G89.3 - NEOPLASM RELATED PAIN (ACUTE) (CHRONIC) SNOMED Code(s): 41504899833602 Plan: Doctor attests: I performed a history and physical examination of this patient, developed impression and plan of care. Discussed with dictator. I agree with dictators note, documented as a scribe.
[2019-11-23 14:42] VITALS: BMI 17.2
[2019-11-23] MEDS: BUDESONIDE 1 MG/2 ML NEBU INHALATION SCH ×2 (15:42→20:12)
[2019-11-23 16:32] LABS: Glucose,Whole Blood 189 mg/dL (75-99)
--- NOTE | 2019-11-23 19:32 | P.PN ---
Progress Note - Text Progress Note Date: 11/23/19 Chief Complaint: Short of breath, wheezing History of presenting complaint: Patient is a 74-year-old patient of Dr. Silviano Lieberman. 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 She follows with Dr. Mei. Outpatient treatment has failed. Recently admitted to the hospital.. PEG tube was placed for malnutrition. Patient has been doing bolus feeding at home. Patient has continued to smoke half a pack a day. Now presents for short of breath wheezing. Palliative chemotherapy is being given as an outpatient. Admitted with COPD exacerbation. Started on bronchodilators and Solu-Medrol. Today-short of breath. Wheezing. Eating some. Tired. Review of systems: Was done for constitutional, cardiovascular, GI, pulmonary. relevant finding as above Active Medications Hydrocodone Bitart/Acetaminophen (Thermal 7.5-325) 1 each PO Q4H PRN PRN Reason: Breakthrough Pain Last Admin: 11/23/19 16:13 Dose: 1 each Documented by: Albuterol/Ipratropium (Duoneb 0.5 Mg-3 Mg/3 Ml Soln) 3 ml INHALATION RT-Q4H PRN PRN Reason: Shortness Of Breath Or Wheezing Albuterol/Ipratropium (Duoneb 0.5 Mg-3 Mg/3 Ml Soln) 3 ml INHALATION RT-Q4H [facility] Last Admin: 11/23/19 15:42 Dose: 3 ml Documented by: Atorvastatin Calcium (Lipitor) 40 mg PO HS [facility] Last Admin: 11/23/19 00:06 Dose: 40 mg Documented by: Budesonide (Pulmicort) 1 mg INHALATION RT-BID [facility] Last Admin: 11/23/19 15:42 Dose: Not Given Documented by: Cefdinir (Omnicef) 300 mg PO BID [facility] Famotidine (Pepcid) 20 mg PO BID [facility] Last Admin: 11/23/19 07:09 Dose: 20 mg Documented by: Gabapentin (Neurontin) 200 mg PO DAILY [facility] Last Admin: 11/23/19 07:08 Dose: 200 mg Documented by: Guaifenesin (Mucinex) 1,200 mg PO Q12H [facility] Last Admin: 11/23/19 11:20 Dose: 1,200 mg Documented by: Heparin Sodium (Porcine) (Heparin) 5,000 unit SQ Q8HR [facility] Last Admin: 11/23/19 16:13 Dose: 5,000 unit Documented by: Insulin Aspart (Novolog) 0 unit SQ [facility]; Protocol Last Admin: 11/23/19 17:13 Dose: 3 unit Documented by: Megestrol Acetate (Megace) 800 mg PO DAILY [facility] Last Admin: 11/23/19 07:09 Dose: 800 mg Documented by: Methylprednisolone Sodium Succinate (Solu-Medrol) 40 mg IV Q8HR [facility] Last Admin: 11/23/19 13:49 Dose: 40 mg Documented by: Metoprolol Tartrate (Lopressor) 50 mg PO BID [facility] Last Admin: 11/23/19 07:09 Dose: 50 mg Documented by: Morphine Sulfate (Ms Contin) 15 mg PO BID [facility] Last Admin: 11/23/19 07:09 Dose: 15 mg Documented by: Nicotine (Habitrol 14mg/24hr Patch) 1 patch TRANSDERM DAILY [facility] Last Admin: 11/23/19 13:48 Dose: 1 patch Documented by: Polyethylene Glycol (Miralax) 17 gm PO DAILY [facility] Last Admin: 11/23/19 07:10 Dose: Not Given Documented by: Physical examination: VITAL SIGNS: 97.8, 73, 16, 97/60, 98% on 3 L GENERAL: Sitting up, short of breath EYES: Pupils equal. Conjunctiva pale HEENT: [External appearance of nose and ears normal, oral cavity unable to assess NECK: JVD unable to assess; large right neck mass fungating with lower edges. HEART: First and second heart sounds are normal; no edema. LUNGS: Respiratory rate increased, decreased breath sound , prolonged expiration and wheezing ABDOMEN: Soft, nontender, liver spleen not palpable, no masses palpable. PEG tube in place PSYCH: [Alert and oriented x3; mood and affect anxious. NEUROLOGICAL: Cranial nerves grossly intact; some facial asymmetry, t. Hoarse voice MUSCULAR skeletal: Wasting of muscles INVESTIGATIONS, reviewed in the clinical context: White count 21.7 hemoglobin 9.7 potassium 4.6 bun 26 creatinine 0.48 Recent Computed tomography scan of the neck large necrotic fungating neck mass some increase in size increase interval foci of gas within the mass, no obvious fluid collection, right jugular vein appears occluded. Right internal carotid artery narrowing the level of C1. Also mass effect narrowing the right airway from the oral cavity. 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 Causing hoarse otherwise. -Chronic nicotine dependence patient's cigarette smoker -Moderate protein calorie malnutrition from decreased oral intake. With a BMI of 18 -Diabetes mellitus type 2 on oral hypoglycemic -Essential hypertension -PEG tube for malnutrition -Paroxysmal atrial fibrillation-currently in sinus rhythm -DO NOT RESUSCITATE Plan: Continue with bronchodilators and IV steroids. Had a lengthy talk with the massiel bah. Also spoke to the dietitian. Bolus feeding will be resumed via the PEG tube between meals. Confirmed with the patient. CODE STATUS DO NOT RESUSCITATE. About 40 minutes were spent on the patient. With over 20 minutes of discussion. Smoke cessation counseling: This was done with the patient. Nicotine patch is being given. More than 3 minutes was spent for this
[2019-11-23] MEDS ORDERED: LEVOFLOXACIN 750MG-D5W PMX 750 MG in DEXTROSE/WATER 1 150ML.BAG IVPB SCH (20:00)
[2019-11-23 20:35] LABS: Glucose,Whole Blood 339 mg/dL (75-99)
[2019-11-23] MEDS: CEFDINIR 300 MG CAP PO SCH (20:44)
[2019-11-24] MEDS: IPRATROPIUM-ALBUTEROL 3 ML NEB INHALATION SCH ×5 (03:28→20:49)
[2019-11-24] MEDS: HYDROcodone/APAP 7.5-325MG 1 EACH TAB PO PRN ×4 (04:34→23:47)
[2019-11-24 06:32] LABS: Glucose,Whole Blood 164 mg/dL (75-99)
[2019-11-24] MEDS: GABAPENTIN 100 MG CAP PO SCH (07:36)
[2019-11-24] MEDS: methylPREDNISolone SOD SUCCI 40 MG/ML 1 ML VIAL IV SCH ×2 (07:36→16:24)
[2019-11-24] MEDS: HEPARIN SODIUM,PORCINE 5,000 UNIT/ML 1 ML VIAL SQ SCH ×2 (07:36→16:24)
[2019-11-24] MEDS: NICOTINE 14MG/24HR PATCH TRANSDERM SCH (07:37)
[2019-11-24] MEDS: polyethylene glycoL 3350 17 GM POWD.PACK PO SCH (07:37)
[2019-11-24] MEDS: FAMOTIDINE 20 MG TAB PO SCH ×2 (07:37→20:16)
[2019-11-24] MEDS: MORPHINE SULFATE ER 15 MG TABLET PO SCH ×2 (07:37→20:16)
[2019-11-24] MEDS: MEGESTROL 400 MG/10 ML CUP PO SCH (07:38)
[2019-11-24] MEDS: METOPROLOL TARTRATE 50 MG TAB PO SCH ×2 (07:38→20:17)
[2019-11-24] MEDS: INSULIN ASPART (NovoLOG) 100 UNIT/ML VIAL SQ SCH ×3 (07:38→16:53)
[2019-11-24] MEDS: CEFDINIR 300 MG CAP PO SCH ×2 (07:39→20:17)
[2019-11-24] MEDS: BUDESONIDE 1 MG/2 ML NEBU INHALATION SCH ×2 (08:41→20:49)
[2019-11-24 11:18] LABS: Glucose,Whole Blood 180 mg/dL (75-99)
[2019-11-24] MEDS: guaiFENesin 600 MG TABLET.ER PO SCH (12:07)
--- NOTE | 2019-11-24 15:11 | P.PN ---
Subjective Progress Note Date: 11/24/19 Principal diagnosis: COPD exacerbation In follow-up today, patient seems to be doing a bit better, she states that her breathing is improved, she finds she is needing oxygen to be comfortable, she is able to swallow liquids still at this time, no fevers, nausea or vomiting, she is managing her PEG tube well, her facial pain and numbness is stable, Objective - Vital Signs Vital signs: Vital Signs Temp 97.6 F 11/24/19 13:59 Pulse 93 11/24/19 13:59 Resp 14 11/24/19 13:59 BP 112/69 11/24/19 13:59 Pulse Ox 99 11/24/19 13:59 Intake & Output 11/23/19 11/24/19 11/24/19 18:59 06:59 18:59 Intake Total 580 Balance 580 Weight 45.359 kg Intake: Oral 580 Other: # Voids 2 3 - Constitutional General appearance: Present: cooperative, no acute distress, thin - EENT EENT Comment(s): significant right neck and facial tumor with necrosis - Respiratory Respiratory: bilateral: diminished - Cardiovascular Heart sounds: normal: S1, S2 - Peripheral edema leg Peripheral Edema: bilateral: None - Gastrointestinal Gastrointestinal Comment(s): PEG tube site C/D/I General gastrointestinal: Present: soft - Psychiatric Psychiatric: Present: A&O x's 3, appropriate affect, intact judgment & insight - Labs CBC & Chem 7: 11/22/19 19:41 11/22/19 19:41 Labs: Abnormal Lab Results - Last 24 Hours (Table) 11/23/19 11/23/19 11/24/19 Range/Units 16:32 20:34 06:31 POC Glucose (mg/dL) 189 H 339 H 164 H (75-99) mg/dL 11/24/19 Range/Units 11:17 POC Glucose (mg/dL) 180 H (75-99) mg/dL Microbiology - Last 24 Hours (Table) 11/22/19 19:41 Gram Stain - Preliminary Neck Wound Culture - Preliminary Gram Neg Bacilli 11/22/19 19:41 Blood Culture - Preliminary Blood No Growth after 24 hours - Imaging and Cardiology CT scan - chest: report reviewed (no PE, posterior right mid lung infiltrate/density) Assessment and Plan (1) Acute exacerbation of chronic obstructive pulmonary disease Narrative/Plan: Patient is on supportive pulmonary medications as prescribed. Doing well, decreased pulm symptoms. Defer to Internal Medicine. Current Visit: Yes Status: Acute Priority: High Code(s): J44.1 - CHRONIC OBSTRUCTIVE PULMONARY DISEASE W (ACUTE) EXACERBATION SNOMED Code(s): 765503505 (2) Esophageal dysphagia Narrative/Plan: Patient has a PEG tube for nutritional supplementation. Patient encouraged to put water into the tube as well. She was swallowing coffee and water when seen Current Visit: Yes Status: Chronic Priority: Medium Code(s): R13.10 - DYSPHAGIA, UNSPECIFIED SNOMED Code(s): 18180990 (3) Squamous cell carcinoma Narrative/Plan: Hematologically patient has tolerated treatment rather well. On her last admission there was question as to whether the treatment was working as there was not definitive growth but not necessarily significant improvement either. Patient did discharge to home on hospice. She rescinded this at some point in time and requested to continue with further treatment. This time, her presenting symptoms did not appear to be related to the malignancy. Patient is doing well with pulmonary treatment. CTA of the chest ordered. No PE. Right posterior midlung infiltrate/density. This will need to be followed up. Current Visit: Yes Status: Chronic Priority: High Code(s): JMI1891 - SNOMED Code(s): 264130945 (4) Neoplasm related pain Narrative/Plan: Continue current analgesics with adjustments as needed. Continue adjunct pain medications including gabapentin Current Visit: Yes Status: Chronic Priority: Medium Code(s): G89.3 - NEOPLASM RELATED PAIN (ACUTE) (CHRONIC) SNOMED Code(s): 80087756872836
[2019-11-24 16:36] LABS: Glucose,Whole Blood 211 mg/dL (75-99)
--- NOTE | 2019-11-24 18:59 | P.PN ---
Progress Note - Text Progress Note Date: 11/24/19 Chief Complaint: Short of breath, wheezing History of presenting complaint: Patient is a 74-year-old patient of Dr. Silviano Lieberman. 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 She follows with Dr. Mei. Outpatient treatment has failed. Recently admitted to the hospital.. PEG tube was placed for malnutrition. Patient has been doing bolus feeding at home. Patient has continued to smoke half a pack a day. Now presents for short of breath wheezing. Palliative chemotherapy is being given as an outpatient. Admitted with COPD exacerbation. Started on bronchodilators and Solu-Medrol. Today-short of breath wheezing a bit better. Eating some. Using a PEG tube. Tired Review of systems: Was done for constitutional, cardiovascular, GI, pulmonary. relevant finding as above Active Medications Hydrocodone Bitart/Acetaminophen (Cannon 7.5-325) 1 each PO Q4H PRN PRN Reason: Breakthrough Pain Last Admin: 11/24/19 17:20 Dose: 1 each Documented by: Albuterol/Ipratropium (Duoneb 0.5 Mg-3 Mg/3 Ml Soln) 3 ml INHALATION RT-Q4H PRN PRN Reason: Shortness Of Breath Or Wheezing Albuterol/Ipratropium (Duoneb 0.5 Mg-3 Mg/3 Ml Soln) 3 ml INHALATION RT-Q4H [facility] Last Admin: 11/24/19 15:46 Dose: 3 ml Documented by: Atorvastatin Calcium (Lipitor) 40 mg PO HS [facility] Last Admin: 11/23/19 20:42 Dose: 40 mg Documented by: Budesonide (Pulmicort) 1 mg INHALATION RT-BID [facility] Last Admin: 11/24/19 08:41 Dose: 1 mg Documented by: Cefdinir (Omnicef) 300 mg PO BID [facility] Last Admin: 11/24/19 07:39 Dose: 300 mg Documented by: Famotidine (Pepcid) 20 mg PO BID [facility] Last Admin: 11/24/19 07:37 Dose: 20 mg Documented by: Gabapentin (Neurontin) 200 mg PO DAILY [facility] Last Admin: 11/24/19 07:36 Dose: 200 mg Documented by: Guaifenesin (Mucinex) 1,200 mg PO Q12H [facility] Last Admin: 11/24/19 12:07 Dose: 1,200 mg Documented by: Heparin Sodium (Porcine) (Heparin) 5,000 unit SQ Q8HR [facility] Last Admin: 11/24/19 16:24 Dose: 5,000 unit Documented by: Insulin Aspart (Novolog) 0 unit SQ ACHS [facility]; Protocol Last Admin: 11/24/19 16:53 Dose: 4 unit Documented by: Megestrol Acetate (Megace) 800 mg PO DAILY [facility] Last Admin: 11/24/19 07:38 Dose: 800 mg Documented by: Methylprednisolone Sodium Succinate (Solu-Medrol) 40 mg IV Q8HR [facility] Last Admin: 11/24/19 16:24 Dose: 40 mg Documented by: Metoprolol Tartrate (Lopressor) 50 mg PO BID [facility] Last Admin: 11/24/19 07:38 Dose: 50 mg Documented by: Morphine Sulfate (Ms Contin) 15 mg PO BID [facility] Last Admin: 11/24/19 07:37 Dose: 15 mg Documented by: Nicotine (Habitrol 14mg/24hr Patch) 1 patch TRANSDERM DAILY [facility] Last Admin: 11/24/19 07:37 Dose: 1 patch Documented by: Polyethylene Glycol (Miralax) 17 gm PO DAILY [facility] Last Admin: 11/24/19 07:37 Dose: 17 gm Documented by: Physical examination: VITAL SIGNS: 97.6, 93, 14, 112/69, 99% on 3 L GENERAL: Sitting up, less short of breath EYES: Pupils equal. Conjunctiva pale HEENT: [External appearance of nose and ears normal, oral cavity unable to assess NECK: JVD unable to assess; large right neck mass fungating with breakdown and discharge HEART: First and second heart sounds are normal; no edema. LUNGS: Respiratory rate increased, decreased breath sound , prolonged expiration ABDOMEN: Soft, nontender, liver spleen not palpable, no masses palpable. PEG tube in place PSYCH: [Alert and oriented x3; mood and affect anxious. NEUROLOGICAL: Cranial nerves grossly intact; some facial asymmetry, t. Hoarse voice MUSCULAR skeletal: Wasting of muscles INVESTIGATIONS, reviewed in the clinical context: White count 21.7 hemoglobin 9.7 potassium 4.6 bun 26 creatinine 0.48 Recent Computed tomography scan of the neck large necrotic fungating neck mass some increase in size increase interval foci of gas within the mass, no obvious fluid collection, right jugular vein appears occluded. Right internal carotid artery narrowing the level of C1. Also mass effect narrowing the right airway from the oral cavity. 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 Causing hoarse otherwise. -Chronic nicotine dependence patient's cigarette smoker -Moderate protein calorie malnutrition from decreased oral intake. With a BMI of 18 -Diabetes mellitus type 2 on oral hypoglycemic -Essential hypertension -PEG tube for malnutrition -Paroxysmal atrial fibrillation-currently in sinus rhythm -DO NOT RESUSCITATE Plan: Continue with bronchodilators and IV steroids. Other medications to continue. Another 1-2 days in the hospital depending how she does.
[2019-11-24 20:08] LABS: Glucose,Whole Blood 199 mg/dL (75-99)
[2019-11-24] MEDS: ATORVASTATIN 40 MG TAB PO SCH (20:17)
[2019-11-25] MEDS: IPRATROPIUM-ALBUTEROL 3 ML NEB INHALATION SCH ×4 (00:18→11:05)
[2019-11-25] MEDS: HEPARIN SODIUM,PORCINE 5,000 UNIT/ML 1 ML VIAL SQ SCH ×2 (00:24→07:02)
[2019-11-25] MEDS: INSULIN ASPART (NovoLOG) 100 UNIT/ML VIAL SQ SCH ×2 (00:24→07:03)
[2019-11-25] MEDS: methylPREDNISolone SOD SUCCI 40 MG/ML 1 ML VIAL IV SCH ×2 (00:24→07:03)
[2019-11-25] MEDS: guaiFENesin 600 MG TABLET.ER PO SCH (00:25)
[2019-11-25] MEDS: HYDROcodone/APAP 7.5-325MG 1 EACH TAB PO PRN (06:23)
[2019-11-25 06:33] LABS: Glucose,Whole Blood 166 mg/dL (75-99)
[2019-11-25 06:56] VITALS: BP 127/61; RESP 14; TEMP 98.1
[2019-11-25] MEDS: METOPROLOL TARTRATE 50 MG TAB PO SCH (07:01)
[2019-11-25] MEDS: FAMOTIDINE 20 MG TAB PO SCH (07:01)
[2019-11-25] MEDS: GABAPENTIN 100 MG CAP PO SCH (07:01)
[2019-11-25] MEDS: MORPHINE SULFATE ER 15 MG TABLET PO SCH (07:02)
[2019-11-25] MEDS: NICOTINE 14MG/24HR PATCH TRANSDERM SCH ×2 (07:03→07:12)
[2019-11-25] MEDS: CEFDINIR 300 MG CAP PO SCH (07:03)
[2019-11-25] MEDS: polyethylene glycoL 3350 17 GM POWD.PACK PO SCH (07:04)
[2019-11-25] MEDS: MEGESTROL 400 MG/10 ML CUP PO SCH (07:04)
[2019-11-25] MEDS: BUDESONIDE 1 MG/2 ML NEBU INHALATION SCH (08:14)
[2019-11-25 11:05] LABS: Glucose,Whole Blood 290 mg/dL (75-99)
[2019-11-25 11:15] VITALS: PULSE 92
--- NOTE | 2019-11-25 12:49 | P.PN ---
Subjective Progress Note Date: 11/25/19 Principal diagnosis: COPD exacerbation In f/u today pt is feeling good, she is swallowing coffee and water, she prefers to manage PEG tube feeds at home, pain is managed, cough is stable. Objective - Vital Signs Vital signs: Vital Signs Temp 98.1 F 11/25/19 06:39 Pulse 96 11/25/19 08:34 Resp 14 11/25/19 07:00 BP 127/61 11/25/19 06:39 Pulse Ox 100 11/25/19 06:39 Intake & Output 11/24/19 11/25/19 11/25/19 18:59 06:59 18:59 Intake Total 580 237 240 Balance 580 237 240 Weight 48.6 kg 47 kg Intake: Oral 580 240 Tube Feeding 237 Other: # Voids 4 - Constitutional General appearance: Present: cooperative, no acute distress, thin - EENT Eyes: Present: anicteric sclerae ENT: Present: hearing grossly normal - Neck Details: persistent right neck/face necrotic malignant tumor, purulent drainage - Respiratory Details: resp even and unlabored - Peripheral edema leg Peripheral Edema: bilateral: None - Musculoskeletal Musculoskeletal: Present: strength equal bilaterally - Psychiatric Psychiatric: Present: A&O x's 3, appropriate affect, intact judgment & insight - Labs CBC & Chem 7: 11/22/19 19:41 11/22/19 19:41 Labs: Abnormal Lab Results - Last 24 Hours (Table) 11/24/19 11/24/19 11/24/19 Range/Units 11:17 16:34 20:01 POC Glucose (mg/dL) 180 H 211 H 199 H (75-99) mg/dL 11/25/19 Range/Units 06:32 POC Glucose (mg/dL) 166 H (75-99) mg/dL Microbiology - Last 24 Hours (Table) 11/22/19 19:41 Blood Culture - Preliminary Blood No Growth after 48 hours 11/22/19 19:41 Gram Stain - Preliminary Neck Wound Culture - Preliminary Gram Neg Bacilli Assessment and Plan (1) Acute exacerbation of chronic obstructive pulmonary disease Narrative/Plan: Patient is on supportive pulmonary medications as prescribed. Doing well, decreased pulm symptoms. Defer to Internal Medicine. Status: Acute Priority: High Code(s): J44.1 - CHRONIC OBSTRUCTIVE PULMONARY DISEASE W (ACUTE) EXACERBATION SNOMED Code(s): 927738081 (2) Esophageal dysphagia Narrative/Plan: Patient has a PEG tube for nutritional supplementation. Patient encouraged to put water into the tube as well. She continues to swallow coffee and water Status: Chronic Priority: Medium Code(s): R13.10 - DYSPHAGIA, UNSPECIFIED SNOMED Code(s): 40963280 (3) Squamous cell carcinoma Narrative/Plan: Hematologically patient has tolerated treatment rather well. On her last admission there was question as to whether the treatment was working as there was not definitive growth but not necessarily significant improvement either. Patient did discharge to home on hospice. She rescinded this at some point in time and requested to continue with further treatment. This time, her presenting symptoms did not appear to be related to the malignancy. Patient is doing well with pulmonary treatment. Will resume therapy once off abx. CTA of the chest ordered. No PE. Right posterior midlung infiltrate/density. This will be followed up. Status: Chronic Priority: High Code(s): VXP9625 - SNOMED Code(s): 880551925 (4) Neoplasm related pain Narrative/Plan: Continue current analgesics. Continue adjunct pain medications including gabapentin Status: Chronic Priority: Medium Code(s): G89.3 - NEOPLASM RELATED PAIN (ACUTE) (CHRONIC) SNOMED Code(s): 82617395032216
--- NOTE | 2019-11-25 19:41 | P.DS ---
Providers Date of admission: 11/22/19 20:18 Expected date of discharge: 11/25/19 Attending physician: Hang Solis Consults: 11/22/19 20:18 Consult Physician Routine Consulting Provider: Truman Simon Consult Reason/Comments: Oncological care Do you want consulting provider notified?: Yes Primary care physician: Silviano Lieberman [facility] Course: Chief Complaint: Short of breath, wheezing History of presenting complaint: Patient is a 74-year-old patient of Dr. Silviano Lieberman. 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 She follows with Dr. Mei. Outpatient treatment has failed. Recently admitted to the hospital.. PEG tube was placed for malnutrition. Patient has been doing bolus feeding at home. Patient has continued to smoke half a pack a day. Now presents for short of breath wheezing. Palliative chemotherapy is being given as an outpatient. Admitted with COPD exacerbation. Started on bronchodilators and Solu-Medrol. Bolus feeding through the PEG tube was resumed. Seen by dietitian. Temporarily chemotherapy postponed until antibiotics are done. Today-feeling a bit better. Less wheezing. Less short of breath. Discussed with the patient. follow with oncology as an outpatient. Consultation: Dr. Chino from oncology Physical examination: VITAL SIGNS: 98.1, 94, 14, 127/61, 100% on 3 L GENERAL: Sitting up, less short of breath EYES: Pupils equal. Conjunctiva pale HEENT: [External appearance of nose and ears normal, oral cavity unable to assess NECK: JVD unable to assess; large right neck mass fungating with breakdown and discharge HEART: First and second heart sounds are normal; no edema. LUNGS: Respiratory rate increased, decreased breath sound , prolonged expiration ABDOMEN: Soft, nontender, liver spleen not palpable, no masses palpable. PEG tube in place PSYCH: [Alert and oriented x3; mood and affect anxious. NEUROLOGICAL: some facial asymmetry, Hoarse voice MUSCULAR skeletal: Wasting of muscles INVESTIGATIONS, reviewed in the clinical context: White count 21.7 hemoglobin 9.7 potassium 4.6 bun 26 creatinine 0.48 Recent Computed tomography scan of the neck large necrotic fungating neck mass some increase in size increase interval foci of gas within the mass, no obvious fluid collection, right jugular vein appears occluded. Right internal carotid artery narrowing the level of C1. Also mass effect narrowing the right airway from the oral cavity. 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 Causing hoarse otherwise. -Chronic nicotine dependence patient's cigarette smoker -Moderate protein calorie malnutrition from decreased oral intake. With a BMI of 18 -Diabetes mellitus type 2 on oral hypoglycemic -Essential hypertension -PEG tube for malnutrition -Paroxysmal atrial fibrillation-currently in sinus rhythm -DO NOT RESUSCITATE Disposition: Home Patient Condition at Discharge: Undetermined Plan - Discharge Summary Discharge Rx Participant: Yes New Discharge Prescriptions: New Nicotine 14Mg/24Hr Patch [Habitrol] 1 patch TRANSDERM DAILY #14 patch Cefdinir [Omnicef] 300 mg PO BID #6 cap predniSONE 10 mg PO DAILY #30 tab Continue Gabapentin [Neurontin] 200 mg PO DAILY metFORMIN HCL [Glucophage] 500 mg PO DAILY Famotidine 20 mg PO BID Atorvastatin [Lipitor] 40 mg PO HS Albuterol Nebulized [Ventolin Nebulized] 2.5 mg INHALATION RT-TID PRN PRN Reason: Shortness Of Breath Ibuprofen [Motrin] 600 mg PO QID PRN PRN Reason: Pain Ondansetron HCl [Zofran] 4 mg PO Q8H PRN PRN Reason: Nausea And Vomiting Ferrous Sulfate [Feosol] 325 mg PO DAILY Polyethylene Glycol 3350 [Miralax] 17 gm PO DAILY Megestrol Acetate 800 mg PO DAILY Ipratropium-Albuterol Nebulize [Duoneb 0.5 mg-3 mg/3 ml Soln] 3 ml INHALATION RT-QID #120 ml Metoprolol Tartrate [Lopressor] 50 mg PO BID 30 Days #60 tab Morphine Sulfate [Ms Contin] 15 mg PO BID guaiFENesin [Mucinex] 1,200 mg PO Q12H HYDROcodone/APAP 7.5-325MG [Wal[place] 7.5-325] 1 tab PO Q4H PRN PRN Reason: Breakthrough Pain Discontinued Ciprofloxacin HCl [Cipro] 500 mg PO BID 10 Days #30 tab predniSONE See Taper PO DAILY Discharge Medication List Gabapentin [Neurontin] 200 mg PO DAILY 03/22/16 [History] metFORMIN HCL [Glucophage] 500 mg PO DAILY 10/11/15 [History] Famotidine 20 mg PO BID 12/27/16 [History] Albuterol Nebulized [Ventolin Nebulized] 2.5 mg INHALATION RT-TID PRN 01/27/19 [History] Atorvastatin [Lipitor] 40 mg PO HS 01/27/19 [History] Ibuprofen [Motrin] 600 mg PO QID PRN 09/26/19 [History] Ondansetron HCl [Zofran] 4 mg PO Q8H PRN 09/26/19 [History] Ferrous Sulfate [Feosol] 325 mg PO DAILY 11/04/19 [History] Megestrol Acetate 800 mg PO DAILY 11/04/19 [History] Polyethylene Glycol 3350 [Miralax] 17 gm PO DAILY 11/04/19 [History] Ipratropium-Albuterol Nebulize [Duoneb 0.5 mg-3 mg/3 ml Soln] 3 ml INHALATION RT-QID #120 ml 11/07/19 [Rx] Metoprolol Tartrate [Lopressor] 50 mg PO BID 30 Days #60 tab 11/12/19 [Rx] HYDROcodone/APAP 7.5-325MG [[place] 7.5-325] 1 tab PO Q4H PRN 11/22/19 [History] Morphine Sulfate [Ms Contin] 15 mg PO BID 11/22/19 [History] guaiFENesin [Mucinex] 1,200 mg PO Q12H 11/22/19 [History] Cefdinir [Omnicef] 300 mg PO BID #6 cap 11/25/19 [Rx] Nicotine 14Mg/24Hr Patch [Habitrol] 1 patch TRANSDERM DAILY #14 patch 11/25/19 [Rx] predniSONE 10 mg PO DAILY #30 tab 11/25/19 [Rx] Follow up Appointment(s)/Referral(s): Silviano Lieberman MD [Primary Care Provider] - 1 Week (please call to schedule a follow-up) [facility], [NON-STAFF] - [facility], [REFERRING] - (For tube feeding supplies) Venu Jack MD [Family Provider] - 12/02/19 8:30 am Patient Instructions/Handouts: COPD (Chronic Obstructive Pulmonary Disease) (DC)
--- NOTE | 2019-11-27 04:24 | CDI ---
Documentation Clarification Form Date: 11/27/2019 From: Clifford Phone: If you have a question about this query, please contact Jaylene Philip Information Systems Planner at [phone] between 8am and 5pm. Admit Date: 11/22/2019 Discharge Date: Patient Name: Margaret Chen Visit Number: [id number] ATTENTION: The Clinical Documentation Specialists (CDI) and [facility] Coding Staff appreciate your assistance in clarifying documentation. Please respond to the clarification below the line at the bottom and electronically sign. The CDI & [facility] Coding staff will review the response and follow-up if needed. Please note: Queries are made part of the Legal Health Record. If you have any questions, please contact the author of this message via ITS. Dear Dr :Hang Solis MD, The patient presented with COPD Exacerbation. In ED alone Sepsis was doceumnted. History/Risk Factors: COPD, HTN, Hyperlipidemia. WBC :21.7H Lactic acid: 1.6 Blood cultures: No Growth Vitals signs on admission: Temperature 98.3 F Pulse Rate 101 H 112 H Respiratory 24 20 Blood Pressure 108/68 O2 Sat by Pulse 99 Oximetry Treatment:IV Antibiotics. In your professional opinion, please clarify if these findings signify the following condition, if known: Condition * Sepsis POA and treated. * Sepsis ruled out. * Other, please specify * Unable to determine. (Last Revision: June 2017) possible sepsis, POA MTDD
== END 2019-11-25 11:35 | disposition home health service (06) | DRG 872 ==
LOC: EC 18:35 → 4SSUR 20:18
PROVIDERS: ADMIT Hospitalist; ATTEND Hospitalist
DX: A41.9 Sepsis, unspecified organism (principal); J44.1 Chronic obstructive pulmonary disease with (acute) exacerbation; Z68.1 Body mass index [BMI] 19.9 or less, adult; C90.30 Solitary plasmacytoma not having achieved remission; E44.0 Moderate protein-calorie malnutrition; K21.9 Gastro-esophageal reflux disease without esophagitis; E78.5 Hyperlipidemia, unspecified; M19.90 Unspecified osteoarthritis, unspecified site; E11.51 Type 2 diabetes mellitus with diabetic peripheral angiopathy without gangrene; F41.9 Anxiety disorder, unspecified; I10 Essential (primary) hypertension; R62.7 Adult failure to thrive; Z66 Do not resuscitate; Z51.5 Encounter for palliative care; D63.0 Anemia in neoplastic disease; G89.3 Neoplasm related pain (acute) (chronic); R13.14 Dysphagia, pharyngoesophageal phase; I48.0 Paroxysmal atrial fibrillation; F17.210 Nicotine dependence, cigarettes, uncomplicated; F32.9 Major depressive disorder, single episode, unspecified; F41.0 Panic disorder [episodic paroxysmal anxiety]; Z98.890 Other specified postprocedural states; Z90.710 Acquired absence of both cervix and uterus; Z90.89 Acquired absence of other organs; Z98.51 Tubal ligation status; Z79.84 Long term (current) use of oral hypoglycemic drugs; Z95.820 Peripheral vascular angioplasty status with implants and grafts; Z79.899 Other long term (current) drug therapy; Z79.52 Long term (current) use of systemic steroids; Z88.1 Allergy status to other antibiotic agents; Z80.7 Family history of other malignant neoplasms of lymphoid, hematopoietic and related tissues; Z83.3 Family history of diabetes mellitus; Z80.49 Family history of malignant neoplasm of other genital organs; Z87.11 Personal history of peptic ulcer disease; Z92.3 Personal history of irradiation; Z71.6 Tobacco abuse counseling; Z93.1 Gastrostomy status
CPT/HCPCS: 36415; 71046; 71275; 80053; 83605; 85025; 85610; 85730; 87040; 87070; 87077; 87186; 87205; 93005; 94640; 99291

== ENCOUNTER 2019-11-25 21:05 | Emergency (ER) | payer MEDICARE, OTHER ==
[2019-11-25 21:12] VITALS: BP 121/69; PULSE 111; RESP 20; TEMP 99
--- NOTE | 2019-11-25 21:50 | ED ---
General Adult HPI - General Chief complaint: Recheck/Abnormal Lab/Rx Stated complaint: Issue with feeding tube Time Seen by Provider: 11/25/19 21:15 Source: patient, family Mode of arrival: wheelchair Limitations: no limitations - History of Present Illness Initial comments: Dictation was produced using [employer] dictation software. please excuse any grammatical, word or spelling errors. This patient was cared for during a federal and state declared state of emergency secondary to Covid 19 Chief Complaint: 74-year-old female past medical history of neck cancer presents with PEG tube discharge History of Present Illness: 74-year-old female she is here today because there is drainage of brown material from around her PEG tube site. Approximately 2 weeks ago patient had a PEG tube placed by Dr. Mckeon. Reason for her PEG tube placement was for esophageal dysphasia and for oral intake. Patient had 20- [employer] PEG tube placed. There were no issues with the PEG tube placement. Patient noted that there was significant drainage coming from her PEG tube today. Patient denies any abdominal pain. She is having regular bowel movements. She's been giving herself tube feeds without any consultations.. Patient has also been giving herself Ensurethrough her PEG tube The ROS documented in this emergency department record has been reviewed and confirmed by me. Those systems with pertinent positive or negative responses have been documented in the HPI. All other systems are other negative and/or noncontributory. PHYSICAL EXAM: General Impression: Alert and oriented x3, not in acute distress HEENT: Normocephalic atraumatic, extra-ocular movements intact, pupils equal and reactive to light bilaterally, mucous membranes moist. Cardiovascular: Heart regular rate and rhythm Chest: Able to complete full sentences, no retractions, no tachypnea Abdomen: abdomen soft, non-tender, non-distended, no organomegaly, PEG tube in place. There is brown discharge that school elected on the dressing around the PEG tube site. It appears that the PEG tube disc is loose. No erythema on the skin. Musculoskeletal: Pulses present and equal in all extremities, no peripheral edema Motor: no focal deficits noted Neurological: CN II-XII grossly intact, no focal motor or sensory deficits noted Skin: Intact with no visualized rashes Psych: Normal affect and mood ED course: 74 yo female presents with PEG tube site discharge. It appears that patient has a discharge because the disc is loose allowing fluid to drain around the PEG tube site. PEG tube was adjusted. Patient counseled on how to prevent drainage by lowering the compression disc. Pegogram performed showing good placement. There did appear to be constipation findings on her x-ray however patient reports that she is having regular bowel movements. Patient told to continue taking her bowel regimen. She is advised follow-up with primary care physician. - Related Data Home Medications Medication Instructions Recorded Confirmed Gabapentin [Neurontin] 200 mg PO DAILY 06/21/15 11/25/19 metFORMIN HCL [Glucophage] 500 mg PO DAILY 10/11/15 11/25/19 Famotidine 20 mg PO BID 12/27/16 11/25/19 Albuterol Nebulized [Ventolin 2.5 mg INHALATION RT-TID PRN 01/27/19 11/25/19 Nebulized] Atorvastatin [Lipitor] 40 mg PO HS 01/27/19 11/25/19 Ibuprofen [Motrin] 600 mg PO QID PRN 09/26/19 11/25/19 Ondansetron HCl [Zofran] 4 mg PO Q8H PRN 09/26/19 11/25/19 Ferrous Sulfate [Feosol] 325 mg PO DAILY 11/04/19 11/25/19 Megestrol Acetate 800 mg PO DAILY 11/04/19 11/25/19 Polyethylene Glycol 3350 [Miralax] 17 gm PO DAILY 11/04/19 11/25/19 HYDROcodone/APAP 7.5-325MG [[place] 1 tab PO Q4H PRN 11/22/19 11/25/19 7.5-325] Morphine Sulfate [Ms Contin] 15 mg PO BID 11/22/19 11/25/19 guaiFENesin [Mucinex] 1,200 mg PO Q12H 11/22/19 11/25/19 predniSONE See Taper PO DIRECTED 11/25/19 11/25/19 Previous Rx's Medication Instructions Recorded Ipratropium-Albuterol Nebulize 3 ml INHALATION RT-QID #120 ml 11/07/19 [Duoneb 0.5 mg-3 mg/3 ml Soln] Metoprolol Tartrate [Lopressor] 50 mg PO BID 30 Days #60 tab 11/12/19 Cefdinir [Omnicef] 300 mg PO BID #6 cap 11/25/19 Nicotine 14Mg/24Hr Patch [Habitrol] 1 patch TRANSDERM DAILY #14 patch 11/25/19 Allergies Allergy/AdvReac Type Severity Reaction Status Date / Time azithromycin Allergy Dyspnea/anx Verified 11/25/19 22:02 iety Review of Systems ROS Statement: Those systems with pertinent positive or pertinent negative responses have been documented in the HPI. ROS Other: All systems not noted in ROS Statement are negative. Past Medical History Past Medical History: Cancer, Chest Pain / Angina, COPD, Diabetes Mellitus, GERD/Reflux, Hyperlipidemia, Hypertension, Osteoarthritis (OA), Vascular Disorder Additional Past Medical History / Comment(s): Pt recently admitted to [facility] on 09/26/19 with infected/necrotic R face mass and lesion L ear, moderate protein calorie malnutrition. Other hx: Squamous cell cancer R neck/face/ear with past radiation and chemo last given 11/02/19, anemia, NIDDM type II, past gastric ulcer, PVD-poor circulation bilateral legs, varicosities, R leg nerve pain, occasional tinnitis, constipation, small R inguinal hernia. History of Any Multi-Drug Resistant Organisms: None Reported Past Surgical History: Hysterectomy, Tonsillectomy, Tubal Ligation Additional Past Surgical History / Comment(s): PTBA/STENT TO LT LEG, EGD, colonoscopy/benign polypectomy, cystocele/rectocele repairs. Past Anesthesia/Blood Transfusion Reactions: No Reported Reaction Additional Past Anesthesia/Blood Transfusion Reaction / Comment(s): . Past Psychological History: Anxiety, Depression, Panic Disorder Smoking Status: Current every day smoker Past Alcohol Use History: None Reported Past Drug Use History: None Reported - Past Family History Son(s) Family Medical History: Cancer Additional Family Medical History / Comment(s): LYMPHOMA Mother Family Medical History: Diabetes Mellitus Father Additional Family Medical History / Comment(s): HAD AAA Sister(s) Family Medical History: Cancer Additional Family Medical History / Comment(s): rectal General Exam Limitations: no limitations Course Vital Signs 11/25/19 21:07 Temperature 99 F Pulse Rate 111 H Respiratory 20 Rate Blood Pressure 121/69 O2 Sat by Pulse 97 Oximetry Disposition Clinical Impression: Leaking PEG tube Disposition: HOME SELF-CARE Condition: Good Instructions (If sedation given, give patient instructions): PEG Tube Insertion (DC) Is patient prescribed a controlled substance at d/c from ED?: No Referrals: Silviano Lieberman MD [Primary Care Provider] - 1-2 days Time of Disposition: 22:17
--- NOTE | 2019-11-25 22:16 | XR ---
EXAMINATION TYPE: XR abdomen 1V DATE OF EXAM: 11/25/2019 COMPARISON: NONE HISTORY: Discharge from PEG tube TECHNIQUE: Single view FINDINGS: 30 mL of Isovue was injected into the PEG tube. There is contrast opacification of the vidya elton fundus. There is no evidence of contrast extravasation. IMPRESSION: PEG tube appears to be in good position in the stomach. Bowel gas pattern is nonacute.
== END 2019-11-25 22:29 | disposition home or self-care (01) ==
LOC: EC 21:05
DX: K94.23 Gastrostomy malfunction (principal); F17.200 Nicotine dependence, unspecified, uncomplicated; J44.9 Chronic obstructive pulmonary disease, unspecified; E11.9 Type 2 diabetes mellitus without complications; K21.9 Gastro-esophageal reflux disease without esophagitis; E78.5 Hyperlipidemia, unspecified; I10 Essential (primary) hypertension; M19.90 Unspecified osteoarthritis, unspecified site; Z79.1 Long term (current) use of non-steroidal anti-inflammatories (NSAID); Z79.84 Long term (current) use of oral hypoglycemic drugs; Z79.899 Other long term (current) drug therapy; Z88.1 Allergy status to other antibiotic agents; Z85.828 Personal history of other malignant neoplasm of skin; Z92.21 Personal history of antineoplastic chemotherapy; Z92.3 Personal history of irradiation; Z80.8 Family history of malignant neoplasm of other organs or systems; Z86.018 Personal history of other benign neoplasm
CPT/HCPCS: 74018; 99283

== ENCOUNTER 2019-11-28 21:07 | Inpatient (IN) | payer MEDICARE, OTHER ==
[2019-11-28] MEDS ORDERED: SODIUM CHLORIDE 0.9% 1,000 ML IV ONE (21:50)
--- NOTE | 2019-11-28 21:55 | ED ---
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 She states during her last visit here--after a few breathing treatment her symptoms seems to get better. Patient currently denies hemoptysis. Denies chest pain, denies leg swelling. Denies fevers, cough. Denies URI symptoms. Patient is very SOB appearing on arrival but is able to complete full sentences. Patient hypoxic, HR elevated and BP on lower aspect of normal. Patient afebrile. (Jasmyne Wilkins) - Related Data Home Medications Medication Instructions Recorded Confirmed Gabapentin [Neurontin] 200 mg PO DAILY 06/21/15 11/29/19 Famotidine 20 mg PO BID 12/27/16 11/29/19 Albuterol Nebulized [Ventolin 2.5 mg INHALATION RT-TID PRN 01/27/19 11/29/19 Nebulized] Atorvastatin [Lipitor] 40 mg PO HS 01/27/19 11/29/19 Ibuprofen [Motrin] 600 mg PO QID PRN 09/26/19 11/29/19 Ondansetron HCl [Zofran] 4 mg PO Q8H PRN 09/26/19 11/29/19 Megestrol Acetate 800 mg PO DAILY 11/04/19 11/29/19 Polyethylene Glycol 3350 [Miralax] 17 gm PO DAILY 11/04/19 11/29/19 HYDROcodone/APAP 7.5-325MG [[place] 1 tab PO Q4H PRN 11/22/19 11/29/19 7.5-325] Morphine Sulfate [Ms Contin] 15 mg PO BID 11/22/19 11/29/19 guaiFENesin [Mucinex] 1,200 mg PO Q12H 11/22/19 11/29/19 Previous Rx's Medication Instructions Recorded Ipratropium-Albuterol Nebulize 3 ml INHALATION RT-QID #120 ml 11/07/19 [Duoneb 0.5 mg-3 mg/3 ml Soln] Metoprolol Tartrate [Lopressor] 50 mg PO BID 30 Days #60 tab 11/12/19 Ciprofloxacin HCl [Cipro] 500 mg PO BID 3 Days #6 tab 12/01/19 predniSONE 10 mg PO DAILY #30 tab 12/01/19 Allergies Allergy/AdvReac Type Severity Reaction Status Date / Time azithromycin Allergy Dyspnea/anx Verified 11/29/19 10:22 iety Review of Systems ROS Other: All systems not noted in ROS Statement are negative. <Jasmyne Wilkins - Last Filed: 11/29/19 10:18> ROS Other: All systems not noted in ROS Statement are negative. <Monik Mathur - Last Filed: 12/02/19 22:57> ROS Statement: Those systems with pertinent positive or pertinent negative responses have been documented in the HPI. Past Medical History Past Medical History: Cancer, Chest Pain / Angina, COPD, Diabetes Mellitus, GERD/Reflux, Hyperlipidemia, Hypertension, Osteoarthritis (OA), Vascular Disorder Additional Past Medical History / Comment(s): Pt recently admitted to [facility] on 09/26/19 with infected/necrotic R face mass and lesion L ear, moderate protein calorie malnutrition. Other hx: Squamous cell cancer R neck/face/ear with past radiation and chemo last given 11/02/19, anemia, NIDDM type II, past gastric ulcer, PVD-poor circulation bilateral legs, varicosities, R leg nerve pain, occasional tinnitis, constipation, small R inguinal hernia. History of Any Multi-Drug Resistant Organisms: None Reported Past Surgical History: Hysterectomy, Tonsillectomy, Tubal Ligation Additional Past Surgical History / Comment(s): PTBA/STENT TO LT LEG, EGD, colonoscopy/benign polypectomy, cystocele/rectocele repairs. Past Anesthesia/Blood Transfusion Reactions: No Reported Reaction Additional Past Anesthesia/Blood Transfusion Reaction / Comment(s): . Past Psychological History: Anxiety, Depression, Panic Disorder Smoking Status: Current every day smoker Past Alcohol Use History: None Reported Past Drug Use History: None Reported - Past Family History Son(s) Family Medical History: Cancer Additional Family Medical History / Comment(s): LYMPHOMA Mother Family Medical History: Diabetes Mellitus Father Additional Family Medical History / Comment(s): HAD AAA Sister(s) Family Medical History: Cancer Additional Family Medical History / Comment(s): rectal <Jasmyne Wilkins - Last Filed: 11/29/19 10:18> General Exam Limitations: no limitations <Jasmyne Wilkins - Last Filed: 11/29/19 10:18> - General Exam Comments Initial Comments: General: The patient is awake and alert Eye: +3 mm pupils are equal, round and reactive to light, extra-ocular movements are intact. No nystagmus. There is normal conjunctiva bilaterally. No signs of icterus. Ears, nose, mouth and throat: There are moist mucous membranes and no oral lesions. Neck: The neck is supple, there is no tenderness or JVD. Cardiovascular: There is a regular rate and rhythm. No murmur, rub or gallop is appreciated. Respiratory: Respirations are labored, breath sounds are equal. Rhonchi noted. left sided rales. No wheezes, stridor. Gastrointestinal: Soft, non-distended, non-tender abdomen without masses or organomegaly noted. There is no rebound or guarding present. Musculoskeletal: Normal ROM, no tenderness. Strength 5/5. Sensation intact. Radial pulses equal bilaterally 2+. Neurological: A&O x 3. CN II-XII intact grossly, There are no obvious motor or sensory deficits. Coordination appears grossly intact. Speech is normal. Skin: Skin is warm and dry and no rashes or lesions are noted. Psychiatric: Cooperative, appropriate mood & affect, normal judgment. (Jasmyne Wilkins) Course Vital Signs 11/28/19 11/28/19 11/28/19 21:19 21:32 22:21 Temperature 99.4 F Pulse Rate 125 H 117 H 110 H Respiratory 28 H 24 24 Rate Blood Pressure 98/56 118/68 112/63 O2 Sat by Pulse 93 L 98 97 Oximetry 11/28/19 11/28/19 11/29/19 23:00 23:59 00:00 Temperature 98.1 F Pulse Rate 105 H 98 99 Respiratory 22 22 22 Rate Blood Pressure 109/65 126/79 115/74 O2 Sat by Pulse 98 99 99 Oximetry Medical Decision Making - Lab Data Result diagrams: 11/28/19 22:40 11/28/19 22:40 <Jasmyne Wilkins - Last Filed: 11/29/19 10:18> - Lab Data Result diagrams: 11/28/19 22:40 11/30/19 12:55 <Monik Mathur - Last Filed: 12/02/19 22:57> - Medical Decision Making Increased WBC count, Patient has new left sided PNA, concern for hospital acquired with recent admission/discharged. Cefepime, levaquin and vancomycin initiated. Patient blood cultured pending. IVF initiated in ER. Patient breathing rate decreased and she was not longer appears dyspneic after 35 minutes resting in bed. No leg swelling on exam. BNP slightly increased from last visit no significant pleural effusions noted. Patient case discussed with Dr. Mathur who is agreeable to admission. Dr. Solis accepted. Patient agreeable to admission. Patient states she would still like to be DNR status which was personally discussed with patient. (Jasmyne Wilkins) I was available for consultation in the emergency department. The history and physical exam were done by the midlevel provider. I was consulted for this patients care. I reviewed the case with the midlevel provider and based on their presentation of the patient, I agree with the assessment, medical decision making and plan of care as documented. Chart was dictated using [employer] dictation software. Attempts were made to correct any dictation errors however some typographical errors may persist. Patient was seen during a national state of emergency due to the Covid-19 pandemic. (Monik Mathur) - Lab Data Lab Results 11/28/19 11/28/19 11/28/19 Range/Units 22:40 22:40 22:40 WBC 28.6 H (3.8-10.6) k/uL RBC 3.72 L (3.80-5.40) m/uL Hgb 9.9 L (11.4-16.0) gm/dL Hct 32.4 L (34.0-46.0) % MCV 87.1 (80.0-100.0) fL MCH 26.7 (25.0-35.0) pg MCHC 30.6 L (31.0-37.0) g/dL RDW 21.9 H (11.5-15.5) % Plt Count 338 (150-450) k/uL Neutrophils % 95 % Lymphocytes % 1 % Monocytes % 3 % Eosinophils % 1 % Basophils % 0 % Neutrophils # 27.1 H (1.3-7.7) k/uL Lymphocytes # 0.3 L (1.0-4.8) k/uL Monocytes # 0.8 (0-1.0) k/uL Eosinophils # 0.2 (0-0.7) k/uL Basophils # 0.0 (0-0.2) k/uL Manual Slide Review Performed Hypochromasia Marked Anisocytosis Moderate Microcytosis Slight PT 10.0 (9.0-12.0) sec INR 1.0 (<1.2) APTT 19.0 L (22.0-30.0) sec Sodium 134 L (137-145) mmol/L Potassium 4.6 (3.5-5.1) mmol/L Chloride 104 (98-107) mmol/L Carbon Dioxide 22 (22-30) mmol/L Anion Gap 8 mmol/L BUN 21 H (7-17) mg/dL Creatinine 0.43 L (0.52-1.04) mg/dL Est GFR (CKD-EPI)AfAm >90 (>60 ml/min/1.73 sqM) Est GFR (CKD-EPI)NonAf >90 (>60 ml/min/1.73 sqM) Glucose 210 H (74-99) mg/dL Lactic Ac Sepsis Rflx Plasma Lactic Acid Matthew (0.7-2.0) mmol/L Calcium 8.4 (8.4-10.2) mg/dL Magnesium 1.8 (1.6-2.3) mg/dL Total Bilirubin 0.3 (0.2-1.3) mg/dL AST 19 (14-36) U/L ALT 14 (4-34) U/L Alkaline Phosphatase 99 (38-126) U/L Troponin I (0.000-0.034) ng/mL NT-Pro-B Natriuret Pep pg/mL Total Protein 5.4 L (6.3-8.2) g/dL Albumin 2.6 L (3.5-5.0) g/dL 11/28/19 11/28/19 11/28/19 Range/Units 22:40 22:40 22:40 WBC (3.8-10.6) k/uL RBC (3.80-5.40) m/uL Hgb (11.4-16.0) gm/dL Hct (34.0-46.0) % MCV (80.0-100.0) fL MCH (25.0-35.0) pg MCHC (31.0-37.0) g/dL RDW (11.5-15.5) % Plt Count (150-450) k/uL Neutrophils % % Lymphocytes % % Monocytes % % Eosinophils % % Basophils % % Neutrophils # (1.3-7.7) k/uL Lymphocytes # (1.0-4.8) k/uL Monocytes # (0-1.0) k/uL Eosinophils # (0-0.7) k/uL Basophils # (0-0.2) k/uL Manual Slide Review Hypochromasia Anisocytosis Microcytosis PT (9.0-12.0) sec INR (<1.2) APTT (22.0-30.0) sec Sodium (137-145) mmol/L Potassium (3.5-5.1) mmol/L Chloride (98-107) mmol/L Carbon Dioxide (22-30) mmol/L Anion Gap mmol/L BUN (7-17) mg/dL Creatinine (0.52-1.04) mg/dL Est GFR (CKD-EPI)AfAm (>60 ml/min/1.73 sqM) Est GFR (CKD-EPI)NonAf (>60 ml/min/1.73 sqM) Glucose (74-99) mg/dL Lactic Ac Sepsis Rflx Plasma Lactic Acid Matthew 3.0 H* (0.7-2.0) mmol/L Calcium (8.4-10.2) mg/dL Magnesium (1.6-2.3) mg/dL Total Bilirubin (0.2-1.3) mg/dL AST (14-36) U/L ALT (4-34) U/L Alkaline Phosphatase (38-126) U/L Troponin I <0.012 (0.000-0.034) ng/mL NT-Pro-B Natriuret Pep 809 pg/mL Total Protein (6.3-8.2) g/dL Albumin (3.5-5.0) g/dL 11/28/19 Range/Units 23:27 WBC (3.8-10.6) k/uL RBC (3.80-5.40) m/uL Hgb (11.4-16.0) gm/dL Hct (34.0-46.0) % MCV (80.0-100.0) fL MCH (25.0-35.0) pg MCHC (31.0-37.0) g/dL RDW (11.5-15.5) % Plt Count (150-450) k/uL Neutrophils % % Lymphocytes % % Monocytes % % Eosinophils % % Basophils % % Neutrophils # (1.3-7.7) k/uL Lymphocytes # (1.0-4.8) k/uL Monocytes # (0-1.0) k/uL Eosinophils # (0-0.7) k/uL Basophils # (0-0.2) k/uL Manual Slide Review Hypochromasia Anisocytosis Microcytosis PT (9.0-12.0) sec INR (<1.2) APTT (22.0-30.0) sec Sodium (137-145) mmol/L Potassium (3.5-5.1) mmol/L Chloride (98-107) mmol/L Carbon Dioxide (22-30) mmol/L Anion Gap mmol/L BUN (7-17) mg/dL Creatinine (0.52-1.04) mg/dL Est GFR (CKD-EPI)AfAm (>60 ml/min/1.73 sqM) Est GFR (CKD-EPI)NonAf (>60 ml/min/1.73 sqM) Glucose (74-99) mg/dL Lactic Ac Sepsis Rflx Y Plasma Lactic Acid Matthew (0.7-2.0) mmol/L Calcium (8.4-10.2) mg/dL Magnesium (1.6-2.3) mg/dL Total Bilirubin (0.2-1.3) mg/dL AST (14-36) U/L ALT (4-34) U/L Alkaline Phosphatase (38-126) U/L Troponin I (0.000-0.034) ng/mL NT-Pro-B Natriuret Pep pg/mL Total Protein (6.3-8.2) g/dL Albumin (3.5-5.0) g/dL Disposition Is patient prescribed a controlled substance at d/c from ED?: No Time of Disposition: 23:29 Decision to Admit Reason: Admit from EC Decision Date: 11/28/19 Decision Time: 23:29 <Jasmyne Wilkins - Last Filed: 11/29/19 10:18> <Monik Mathur - Last Filed: 12/02/19 22:57> Clinical Impression: Dyspnea, Hospital-acquired pneumonia, Lactic acidosis Disposition: ADMITTED IP TO THIS HOSP Condition: Poor
[2019-11-28 23:01] LABS: Anisocytosis Moderate; Basophils % (A) 0 %; Eosinophils # (A) 0.2 k/uL (0-0.7); Eosinophils % (A) 1 %; HCT 32.4 % (34.0-46.0); HGB 9.9 gm/dL (11.4-16.0); Hypochromasia Marked; Lymphocytes # (A) 0.3 k/uL (1.0-4.8); Lymphocytes % (A) 1 %; MCH 26.7 pg (25.0-35.0); MCHC 30.6 g/dL (31.0-37.0); MCV 87.1 fL (80.0-100.0); Mean Platelet Volume 7.7; Microcytosis Slight; Monocytes # (A) 0.8 k/uL (0-1.0); Monocytes % (A) 3 %; Neutrophils # (A) 27.1 k/uL (1.3-7.7); Neutrophils % (A) 95 %; Platelet Count 338 k/uL (150-450); RBC 3.72 m/uL (3.80-5.40); RDW 21.9 % (11.5-15.5); WBC 28.6 k/uL (3.8-10.6)
[2019-11-28] MEDS ORDERED: PIPERACILLIN-TAZOBACTAM 3.375 GM in SODIUM CHLORIDE 0.9% 100 ML IVPB STA (23:05)
[2019-11-28 23:11] LABS: ALT 14 U/L (4-34); AST 19 U/L (14-36); African American GFR (CKD) >90 (>60 ml/min/1.73 sqM); Albumin 2.6 g/dL (3.5-5.0); Alkaline Phosphatase 99 U/L (38-126); Anion Gap 8 mmol/L; Blood Urea Nitrogen 21 mg/dL (7-17); Calcium 8.4 mg/dL (8.4-10.2); Carbon Dioxide 22 mmol/L (22-30); Chloride 104 mmol/L (98-107); Glucose 210 mg/dL (74-99); Magnesium 1.8 mg/dL (1.6-2.3); Non-African American GFR(CKD) >90 (>60 ml/min/1.73 sqM); Potassium 4.6 mmol/L (3.5-5.1); Sodium 134 mmol/L (137-145); Total Bilirubin 0.3 mg/dL (0.2-1.3); Total Protein 5.4 g/dL (6.3-8.2)
--- NOTE | 2019-11-28 23:13 | XR ---
EXAMINATION TYPE: XR chest 1V DATE OF EXAM: 11/28/2019 COMPARISON: 11/22/2019 HISTORY: Difficulty breathing TECHNIQUE: FINDINGS: There is some patchy airspace infiltrate left lower lobe. There is no heart failure. Heart size is normal. There are chest leads. Bony thorax is intact. IMPRESSION: There is left lower lobe pneumonia that appears new compared to old exam. No heart failur e seen.
[2019-11-28] MEDS ORDERED: LEVOFLOXACIN 750MG-D5W PMX 750 MG in DEXTROSE/WATER 1 150ML.BAG IVPB STA (23:20)
[2019-11-28] MEDS ORDERED: CEFEPIME 1 GM in SODIUM CHLORIDE 0.9% 50 ML IVPB STA (23:20)
[2019-11-28] MEDS ORDERED: ALBUTEROL NEBULIZED 2.5 MG/3 ML INHALATION STA (23:21)
[2019-11-28] MEDS ORDERED: VANCOMYCIN IV PER PHARMACY 1 EACH MISC MISCELLANE PRN (23:21)
[2019-11-28] MEDS ORDERED: VANCOMYCIN 1,000 MG in SODIUM CHLORIDE 0.9% 250 ML IVPB STA (23:23)
[2019-11-28] MEDS ORDERED: SODIUM CHLORIDE 0.9% 500 ML 500 ML IV ONE (23:39)
[2019-11-28] MEDS: SODIUM CHLORIDE 0.9% 1,000 ML IV SCH (23:51)
--- NOTE | 2019-11-29 00:01 | CT ---
EXAMINATION TYPE: CT chest angio for PE DATE OF EXAM: 11/28/2019 COMPARISON: 11/23/2019 HISTORY: pe CT DLP: 201.4 mGycm Automated exposure control for dose reduction was used. CONTRAST: Performed with IV Contrast, patient injected with 100 mL of Isovue 370. There are 3-D post processed images. There is some mild pulmonary emphysema. Thoracic aorta is atheromatous. There is no aneurysm. There i s calcified irregular plaque in the descending thoracic aorta. There is moderate airspace consolidati on left lower lobe. There are a few left bronchial lymph nodes measuring up to 1 cm. There is no medi astinal adenopathy. There is normal contrast opacification of the pulmonary arteries. There are no filling defects. There is no pleural effusion. There is small infiltrate at the right posterior lung base. Bony thorax is i ntact. IMPRESSION: No evidence of pulmonary embolism. Extensive airspace pneumonia left lower lobe. Small pneumonia righ t lower lobe posteriorly. Pneumonia significantly increased on the left side compared to old exam. Mi ld pulmonary emphysema.
[2019-11-29] MEDS: HYDROcodone/APAP 7.5-325MG 1 EACH TAB PO PRN ×4 (02:08→18:02)
[2019-11-29 06:27] LABS: Glucose,Whole Blood 106 mg/dL (75-99)
[2019-11-29] MEDS: MORPHINE SULFATE ER 15 MG TABLET PO SCH ×2 (09:03→20:10)
[2019-11-29 11:58] LABS: Glucose,Whole Blood 99 mg/dL (75-99)
[2019-11-29 12:03] VITALS: BMI 17.4
[2019-11-29] MEDS ORDERED: ONDANSETRON 4 MG TAB PO PRN (12:21)
[2019-11-29] MEDS ORDERED: HYDROcodone/APAP 7.5-325MG 1 EACH TAB PO PRN (12:21)
[2019-11-29] MEDS: VANCOMYCIN 750 MG in SODIUM CHLORIDE 0.9% 250 ML IVPB SCH (12:42)
[2019-11-29] MEDS: GABAPENTIN 100 MG CAP PO SCH (15:03)
[2019-11-29] MEDS: METOPROLOL TARTRATE 50 MG TAB PO SCH ×2 (15:03→20:10)
[2019-11-29] MEDS: ENOXAPARIN 40 MG/0.4 ML SYRINGE SQ SCH (15:03)
[2019-11-29] MEDS: IPRATROPIUM-ALBUTEROL 3 ML NEB INHALATION SCH ×2 (15:11→20:14)
[2019-11-29 16:55] LABS: Glucose,Whole Blood 107 mg/dL (75-99)
--- NOTE | 2019-11-29 17:05 | P.HPIM ---
History of Present Illness H&P Date: 11/29/19 Chief Complaint: Short of breath Chief Complaint: Large fungating mass right neck History of presenting complaint: Patient is a 74-year-old female of Dr. Silviano Lieberman. 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 PEG tube. and angina . She follows with Dr. Mei. Outpatient treatment has failed. Patient currently on palliative chemotherapy. In the last 1 month patient's had at least 5 presentation to the hospital including for admissions. Patient has continued to smoke. Has been getting recurrent infections of infected mass and pneumonia. Also continues to have COPD exacerbation. Patient now presents with worsening short of breath. Wheezing. Cough congested. Decreased appetite. Feeling tired and rundown. On the last admission had become DO NOT RESUSCITATE after discussed with her. She lives with her 2 sons. Fungating mass in the right side of the neck draining. Patient also got a PEG tube for which she is getting additional supplementation. Review of systems: GEN.: Weight loss tired decreased appetite EYES: None HEENT: As above] NECK: As above RESPIRATORY: As above CARDIOVASCULAR: None GASTROINTESTINAL: None GENITOURINARY: None MUSCULOSKELETAL: Joint pains LYMPHATICS: None HEMATOLOGICAL: None PSYCHIATRY: Anxious NEUROLOGICAL: None Past medical history to include: Squamous cell carcinoma of the face and neck on the right side having failed outpatient treatment, protein calorie malnutrition, COPD, diabetes, hypertension, malnutrition, PEG tube for feeding, paroxysmal atrial fibrillation, occluded right internal jugular vein. Right internal candidate artery narrowing Social history: Does use a walker. Long-standing smoker. Over 50 years. Has 2 sons at home. Physical examination: VITAL SIGNS: 99.4, 125, 28, 98 x 56, 93% on room air GENERAL: BMI 17.4, sitting on bed, tired, short of breath EYES: Pupils equal. Conjunctiva normal. HEENT: [External appearance of nose and ears normal, oral cavity unable to assess NECK: JVD unable to assess; large right neck mass fungating , infected surface with lower edges. HEART: First and second heart sounds are normal; no edema. LUNGS: Respiratory rate increased, decreased breath sound congested wheezing. ABDOMEN: Soft, nontender, liver spleen not palpable, no masses palpable. PSYCH: [Alert and oriented x3; mood and affect low l. NEUROLOGICAL: Cranial nerves grossly intact; some facial asymmetry, power and sensation grossly intact. Hoarse voice MUSCULAR skeletal: Wasting of muscles LYMPHATICS: No lymph nodes palpable in the axilla and neck INVESTIGATIONS, reviewed in the clinical context: White count 28.6 hemoglobin 9.9 platelets 338 potassium 4.6 creatinine 0.43 lactic acid 3.0 albumin 2.6 EKG tracing personally reviewed by me-normal sinus rhythm heart rate 120 Chest x-ray film personally reviewed by me-basilar infiltrates Computed tomography scan of the chest for PE-no PE. Extensive airspace pneumonia especially left lower lobe. Emphysema Previous testing Computed tomography scan of the neck large necrotic fungating neck mass some increase in size increase interval foci of gas within the mass, no obvious fluid collection, right jugular vein appears occluded. Right internal carotid artery narrowing the level of C1. Also mass effect narrowing the right airway from the oral cavity. 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 Causing hoarse otherwise. It looks like patient not able to clear his secretions. -Possible secondary infection of the affected tumor site as above -Chronic nicotine dependence patient's cigarette smoker -Moderate protein calorie malnutrition from decreased oral intake. With a BMI of 18 -Acute COPD exacerbation in a current smoker, POA -Diabetes mellitus type 2 on oral hypoglycemic -Essential hypertension -Right internal jugular vein occluded -Right internal carotid artery narrowing at level of C1 Plan: Patient received antibiotics in the ER. We'll continue with cefepime. DuoNeb's. Inhaled steroids. Nicotine patch. Home medications resumed. Josias enox for DVT prophylaxis. Advanced care planning: Had a lengthy talk with the patient of the bedside. She has had 5 presentation in the last 1 month to the hospital. Including this being her fourth admission. She does understand of the cancer on the neck is supple relentless and progressive. Recurrent infections. No she also pneumonia. Multiple COPD exacerbation. Health is failing. Significantly malnourished. Does agree to proceed with hospice. She wants more information. This will be done. We'll have the hospitalist information was a tomorrow. She has 2 sons at home. She is already DO NOT RESUSCITATE. 25 minutes was spent for this. Past Medical History Past Medical History: Cancer, Chest Pain / Angina, COPD, Diabetes Mellitus, GERD/Reflux, Hyperlipidemia, Hypertension, Osteoarthritis (OA), Vascular Disorder Additional Past Medical History / Comment(s): Pt recently admitted to [facility] on 09/26/19 with infected/necrotic R face mass and lesion L ear, moderate protein calorie malnutrition. Other hx: Squamous cell cancer R neck/face/ear with past radiation and chemo last given 11/02/19, anemia, NIDDM type II, past gastric ulcer, PVD-poor circulation bilateral legs, varicosities, R leg nerve pain, occasional tinnitis, constipation, small R inguinal hernia. History of Any Multi-Drug Resistant Organisms: None Reported Past Surgical History: Hysterectomy, Tonsillectomy, Tubal Ligation Additional Past Surgical History / Comment(s): PTBA/STENT TO LT LEG, EGD, colonoscopy/benign polypectomy, cystocele/rectocele repairs. Past Anesthesia/Blood Transfusion Reactions: No Reported Reaction Additional Past Anesthesia/Blood Transfusion Reaction / Comment(s): . Past Psychological History: Anxiety, Depression, Panic Disorder Smoking Status: Current every day smoker Past Alcohol Use History: None Reported Past Drug Use History: None Reported - Past Family History Son(s) Family Medical History: Cancer Additional Family Medical History / Comment(s): LYMPHOMA Mother Family Medical History: Diabetes Mellitus Father Additional Family Medical History / Comment(s): HAD AAA Sister(s) Family Medical History: Cancer Additional Family Medical History / Comment(s): rectal Medications and Allergies Home Medications Medication Instructions Recorded Confirmed Type Gabapentin [Neurontin] 200 mg PO DAILY 06/21/15 11/29/19 History metFORMIN HCL [Glucophage] 500 mg PO DAILY 10/11/15 11/29/19 History Famotidine 20 mg PO BID 12/27/16 11/29/19 History Albuterol Nebulized [Ventolin 2.5 mg INHALATION RT-TID PRN 01/27/19 11/29/19 History Nebulized] Atorvastatin [Lipitor] 40 mg PO HS 01/27/19 11/29/19 History Ibuprofen [Motrin] 600 mg PO QID PRN 09/26/19 11/29/19 History Ondansetron HCl [Zofran] 4 mg PO Q8H PRN 09/26/19 11/29/19 History Ferrous Sulfate [Feosol] 325 mg PO DAILY 11/04/19 11/29/19 History Megestrol Acetate 800 mg PO DAILY 11/04/19 11/29/19 History Polyethylene Glycol 3350 [Miralax] 17 gm PO DAILY 11/04/19 11/29/19 History Ipratropium-Albuterol Nebulize 3 ml INHALATION RT-QID #120 ml 11/07/19 11/29/19 Rx [Duoneb 0.5 mg-3 mg/3 ml Soln] Metoprolol Tartrate [Lopressor] 50 mg PO BID 30 Days #60 tab 11/12/19 11/29/19 Rx HYDROcodone/APAP 7.5-325MG [[place] 1 tab PO Q4H PRN 11/22/19 11/29/19 History 7.5-325] Morphine Sulfate [Ms Contin] 15 mg PO BID 11/22/19 11/29/19 History guaiFENesin [Mucinex] 1,200 mg PO Q12H 11/22/19 11/29/19 History Cefdinir [Omnicef] 300 mg PO BID #6 cap 11/25/19 11/29/19 Rx predniSONE See Taper PO DAILY 11/25/19 11/29/19 History Allergies Allergy/AdvReac Type Severity Reaction Status Date / Time azithromycin Allergy Dyspnea/anx Verified 11/29/19 10:22 iety Physical Exam Vitals: Vital Signs Temp Pulse Pulse Resp BP BP Pulse Ox 11/29/19 04:00 98.5 F 99 20 135/73 98 11/29/19 00:56 97.7 F 110 H 20 127/70 96 11/29/19 00:00 99 22 115/74 99 11/28/19 23:59 98.1 F 98 22 126/79 99 11/28/19 23:00 105 H 22 109/65 98 11/28/19 22:21 110 H 24 112/63 97 11/28/19 21:32 117 H 24 118/68 98 11/28/19 21:19 99.4 F 125 H 28 H 98/56 93 L Intake and Output 11/28/19 11/29/19 11/29/19 22:59 06:59 14:59 Intake Total 1770 120 Balance 1770 120 Intake: IV 520 Sodium Chloride 0.9% 1, 520 000 ml @ 130 mls/hr IV . Q7H42M [facility] Rx#:[id number] Intake, IV Titration 1250 Amount Sodium Chloride 0.9% 1, 1000 000 ml @ 999 mls/hr IV . Q1H1M [facility] Rx#:[id number] Vancomycin 750 mg In 250 Sodium Chloride 0.9% 250 ml @ 125 mls/hr IVPB Q12H [facility] Rx#:[id number] Oral 120 Other: Voiding Method Toilet Weight 46.72 kg 46.1 kg Results CBC & Chem 7: 11/28/19 22:40 11/28/19 22:40 Labs: Abnormal Lab Results - Last 24 Hours (Table) 11/28/19 11/28/19 11/28/19 Range/Units 22:40 22:40 22:40 WBC 28.6 H (3.8-10.6) k/uL RBC 3.72 L (3.80-5.40) m/uL Hgb 9.9 L (11.4-16.0) gm/dL Hct 32.4 L (34.0-46.0) % MCHC 30.6 L (31.0-37.0) g/dL RDW 21.9 H (11.5-15.5) % Neutrophils # 27.1 H (1.3-7.7) k/uL Lymphocytes # 0.3 L (1.0-4.8) k/uL APTT 19.0 L (22.0-30.0) sec Sodium 134 L (137-145) mmol/L BUN 21 H (7-17) mg/dL Creatinine 0.43 L (0.52-1.04) mg/dL Glucose 210 H (74-99) mg/dL POC Glucose (mg/dL) (75-99) mg/dL Plasma Lactic Acid Matthew (0.7-2.0) mmol/L Total Protein 5.4 L (6.3-8.2) g/dL Albumin 2.6 L (3.5-5.0) g/dL 11/28/19 11/29/19 Range/Units 22:40 06:25 WBC (3.8-10.6) k/uL RBC (3.80-5.40) m/uL Hgb (11.4-16.0) gm/dL Hct (34.0-46.0) % MCHC (31.0-37.0) g/dL RDW (11.5-15.5) % Neutrophils # (1.3-7.7) k/uL Lymphocytes # (1.0-4.8) k/uL APTT (22.0-30.0) sec Sodium (137-145) mmol/L BUN (7-17) mg/dL Creatinine (0.52-1.04) mg/dL Glucose (74-99) mg/dL POC Glucose (mg/dL) 106 H (75-99) mg/dL Plasma Lactic Acid Matthew 3.0 H* (0.7-2.0) mmol/L Total Protein (6.3-8.2) g/dL Albumin (3.5-5.0) g/dL Thrombosis Risk Factor Assmnt - Choose All That Apply Any of the Below Risk Factors Present?: Yes Each Factor Represents 1 point: Abnormal pulmonary function (COPD) Other Risk Factors: Yes Each Risk Factor Represents 2 Points: Age 61-74 years Other congenital or acquired thrombophilia - If yes, enter type in comment: No Thrombosis Risk Factor Assessment Total Risk Factor Score: 3 Thrombosis Risk Factor Assessment Level: Moderate Risk
[2019-11-29] MEDS: SODIUM CHLORIDE 0.9% 1,000 ML IV SCH ×2 (17:40→17:41)
[2019-11-29] MEDS: MEGESTROL 400 MG/10 ML CUP PO SCH (18:03)
[2019-11-29 20:04] LABS: Glucose,Whole Blood 195 mg/dL (75-99)
[2019-11-29] MEDS: ATORVASTATIN 40 MG TAB PO SCH (20:10)
[2019-11-29] MEDS: FAMOTIDINE 20 MG TAB PO SCH (20:10)
[2019-11-29] MEDS: guaiFENesin 600 MG TABLET.ER PO SCH (20:10)
[2019-11-30] MEDS: IPRATROPIUM-ALBUTEROL 3 ML NEB INHALATION SCH ×6 (00:12→20:05)
[2019-11-30] MEDS: VANCOMYCIN 750 MG in SODIUM CHLORIDE 0.9% 250 ML IVPB SCH ×3 (00:26→19:58)
[2019-11-30] MEDS: HYDROcodone/APAP 7.5-325MG 1 EACH TAB PO PRN ×6 (00:35→22:54)
[2019-11-30] MEDS: SODIUM CHLORIDE 0.9% 1,000 ML IV SCH ×4 (01:08→21:07)
[2019-11-30 06:07] LABS: Glucose,Whole Blood 102 mg/dL (75-99)
[2019-11-30] MEDS: ENOXAPARIN 40 MG/0.4 ML SYRINGE SQ SCH (08:14)
[2019-11-30] MEDS: guaiFENesin 600 MG TABLET.ER PO SCH ×2 (08:15→21:04)
[2019-11-30] MEDS: FAMOTIDINE 20 MG TAB PO SCH ×2 (08:15→21:01)
[2019-11-30] MEDS: MORPHINE SULFATE ER 15 MG TABLET PO SCH ×2 (08:15→21:02)
[2019-11-30] MEDS: GABAPENTIN 100 MG CAP PO SCH (08:15)
[2019-11-30] MEDS: METOPROLOL TARTRATE 50 MG TAB PO SCH ×2 (08:15→21:02)
[2019-11-30] MEDS: MEGESTROL 400 MG/10 ML CUP PO SCH (08:15)
[2019-11-30] MEDS ORDERED: VANCOMYCIN TROUGH DUE 1 EACH MISC MISCELLANE ONE (12:00)
[2019-11-30 12:26] LABS: Glucose,Whole Blood 159 mg/dL (75-99)
[2019-11-30] MEDS: MEROPENEM 1 GM in SODIUM CHLORIDE 0.9% 100 ML IVPB SCH (13:15)
[2019-11-30 13:24] LABS: African American GFR (CKD) >90 (>60 ml/min/1.73 sqM); Anion Gap 6 mmol/L; Blood Urea Nitrogen 13 mg/dL (7-17); Carbon Dioxide 23 mmol/L (22-30); Chloride 107 mmol/L (98-107); Glucose 122 mg/dL (74-99); Non-African American GFR(CKD) >90 (>60 ml/min/1.73 sqM); Potassium 4.1 mmol/L (3.5-5.1); Sodium 136 mmol/L (137-145)
[2019-11-30 17:23] LABS: Glucose,Whole Blood 204 mg/dL (75-99)
--- NOTE | 2019-11-30 20:12 | P.PN ---
Progress Note - Text Progress Note Date: 11/30/19 Chief Complaint: Large fungating mass right neck History of presenting complaint: Patient is a 74-year-old female of Dr. Silviano Lieberman. 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 PEG tube. and angina . She follows with Dr. Mei. Outpatient treatment has failed. Patient currently on palliative chemotherapy. In the last 1 month patient's had at least 5 presentation to the hospital including for admissions. Patient has continued to smoke. Has been getting recurrent infections of infected mass and pneumonia. Also continues to have COPD exacerbation. Patient now presents with worsening short of breath. Wheezing. Cough congested. Decreased appetite. Feeling tired and rundown. On the last admission had become DO NOT RESUSCITATE after discussed with her. She lives with her 2 sons. Fungating mass in the right side of the neck draining. Patient also got a PEG tube for which she is getting additional supplementation. Admitted with pneumonia sepsis. COPD exacerbation. Started IV antibiotics. Infected canceled the right side of the neck. Did talk to patient about hospice. Today-again talked to the the patient about hospice. Hospice is coming in for informational visit.. Breathing is a bit better. Decreased oral intake. Eating about 25%. Review of systems: Was done for constitutional, cardiovascular, GI, pulmonary. relevant finding as above Active Medications Hydrocodone Bitart/Acetaminophen ([place] 7.5-325) 1 each PO Q4H PRN PRN Reason: Pain Last Admin: 11/30/19 17:18 Dose: 1 each Documented by: Albuterol/Ipratropium (Duoneb 0.5 Mg-3 Mg/3 Ml Soln) 3 ml INHALATION RT-Q4H [facility] Last Admin: 11/30/19 20:05 Dose: 3 ml Documented by: Atorvastatin Calcium (Lipitor) 40 mg PO HS [facility] Last Admin: 11/29/19 20:10 Dose: 40 mg Documented by: Enoxaparin Sodium (Lovenox) 40 mg SQ DAILY [facility] Last Admin: 11/30/19 08:14 Dose: 40 mg Documented by: Famotidine (Pepcid) 20 mg PO BID [facility] Last Admin: 11/30/19 08:15 Dose: 20 mg Documented by: Gabapentin (Neurontin) 200 mg PO DAILY [facility] Last Admin: 11/30/19 08:15 Dose: 200 mg Documented by: Guaifenesin (Mucinex) 1,200 mg PO Q12HR [facility] Last Admin: 11/30/19 08:15 Dose: 1,200 mg Documented by: Sodium Chloride (Saline 0.9%) 1,000 mls @ 130 mls/hr IV .Q7H42M [facility] Last Admin: 11/30/19 13:18 Dose: 130 mls/hr Documented by: Meropenem 1 gm/ Sodium (Chloride) 100 mls @ 33.3 mls/hr IVPB Q12H [facility]; Protocol Last Admin: 11/30/19 13:15 Dose: 33.3 mls/hr Documented by: Vancomycin HCl 750 mg/ Sodium (Chloride) 250 mls @ 125 mls/hr IVPB Q8H [facility] Last Admin: 11/30/19 19:58 Dose: 125 mls/hr Documented by: Megestrol Acetate (Megace) 800 mg PO DAILY [facility] Last Admin: 11/30/19 08:15 Dose: 800 mg Documented by: Metoprolol Tartrate (Lopressor) 50 mg PO BID [facility] Last Admin: 11/30/19 08:15 Dose: 50 mg Documented by: Morphine Sulfate (Ms Contin) 15 mg PO BID [facility] Last Admin: 11/30/19 08:15 Dose: 15 mg Documented by: Ondansetron HCl (Zofran) 4 mg PO Q8H PRN PRN Reason: Nausea And Vomiting Physical examination: VITAL SIGNS: 97.3, 98, 18, 124/81, 96% on 5 L GENERAL: Sitting up in bed, tired, short of breath EYES: Pupils equal. Conjunctiva normal. HEENT: [External appearance of nose and ears normal, oral cavity unable to assess NECK: JVD unable to assess; large right neck mass fungating , infected surface with lower edges. HEART: First and second heart sounds are normal; no edema. LUNGS: Respiratory rate increased, decreased breath sound congested wheezing. ABDOMEN: Soft, nontender, liver spleen not palpable, no masses palpable. PSYCH: [Alert and oriented x3; mood and affect anxious NEUROLOGICAL: Cranial nerves grossly intact; some facial asymmetry, power and sensation grossly intact. Hoarse voice MUSCULAR skeletal: Wasting of muscles INVESTIGATIONS, reviewed in the clinical context: Potassium 4.1 creatinine 0.36 Previous testing White count 28.6 hemoglobin 9.9 platelets 338 potassium 4.6 creatinine 0.43 lactic acid 3.0 albumin 2.6 EKG tracing personally reviewed by me-normal sinus rhythm heart rate 120 Chest x-ray film personally reviewed by me-basilar infiltrates Computed tomography scan of the chest for PE-no PE. Extensive airspace pneumonia especially left lower lobe. Emphysema Previous testing Computed tomography scan of the neck large necrotic fungating neck mass some increase in size increase interval foci of gas within the mass, no obvious fluid collection, right jugular vein appears occluded. Right internal carotid artery narrowing the level of C1. Also mass effect narrowing the right airway from the oral cavity. 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 Causing hoarse otherwise. It looks like patient not able to clear his secretions. -Possible secondary infection of the affected tumor site as above -Chronic nicotine dependence patient's cigarette smoker -Moderate protein calorie malnutrition from decreased oral intake. With a BMI of 18 -Acute COPD exacerbation in a current smoker, POA -Diabetes mellitus type 2 on oral hypoglycemic -Essential hypertension -Right internal jugular vein occluded -Right internal carotid artery narrowing at level of C1 -DO NOT RESUSCITATE Plan: Patient IV vancomycin, meropenem. Again discussed length with the patient. Also spoke to riley from oncology team. They're hoping the patient will sign up with hospice. Late in the day patient spoke to the hospice team and to be going home with hospice tomorrow.
[2019-11-30 20:38] LABS: Glucose,Whole Blood 214 mg/dL (75-99)
[2019-11-30] MEDS: ATORVASTATIN 40 MG TAB PO SCH (21:01)
[2019-12-01] MEDS: IPRATROPIUM-ALBUTEROL 3 ML NEB INHALATION SCH ×4 (00:35→12:07)
[2019-12-01] MEDS: MEROPENEM 1 GM in SODIUM CHLORIDE 0.9% 100 ML IVPB SCH ×2 (01:17→11:25)
[2019-12-01] MEDS: VANCOMYCIN 750 MG in SODIUM CHLORIDE 0.9% 250 ML IVPB SCH ×2 (05:22→11:25)
[2019-12-01] MEDS: SODIUM CHLORIDE 0.9% 1,000 ML IV SCH ×3 (05:26→11:25)
[2019-12-01 06:17] LABS: Glucose,Whole Blood 99 mg/dL (75-99)
[2019-12-01] MEDS: HYDROcodone/APAP 7.5-325MG 1 EACH TAB PO PRN (07:37)
[2019-12-01] MEDS: MEGESTROL 400 MG/10 ML CUP PO SCH (08:22)
[2019-12-01] MEDS: FAMOTIDINE 20 MG TAB PO SCH (08:23)
[2019-12-01] MEDS: ENOXAPARIN 40 MG/0.4 ML SYRINGE SQ SCH (08:23)
[2019-12-01] MEDS: MORPHINE SULFATE ER 15 MG TABLET PO SCH (08:23)
[2019-12-01] MEDS: GABAPENTIN 100 MG CAP PO SCH (08:24)
[2019-12-01] MEDS: guaiFENesin 600 MG TABLET.ER PO SCH (08:24)
[2019-12-01] MEDS: METOPROLOL TARTRATE 50 MG TAB PO SCH (08:24)
[2019-12-01 08:38] VITALS: BP 144/67; RESP 26; TEMP 97.3
[2019-12-01] MEDS ORDERED: LORazepam 0.5 MG TAB PO PRN (10:21)
[2019-12-01 11:52] LABS: Glucose,Whole Blood 102 mg/dL (75-99)
[2019-12-01 12:23] VITALS: PULSE 108
--- NOTE | 2019-12-01 23:01 | P.DS ---
Providers Date of admission: 11/28/19 23:34 Expected date of discharge: 12/01/19 Attending physician: Hang Solis Primary care physician: Silviano Lieberman [facility] Course: Chief Complaint: Large fungating mass right neck History of presenting complaint: Patient is a 74-year-old female of Dr. Silviano Lieberman. 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 PEG tube. and angina . She follows with Dr. Mei. Outpatient treatment has failed. Patient currently on palliative chemotherapy. In the last 1 month patient's had at least 5 presentation to the hospital including for admissions. Patient has continued to smoke. Has been getting recurrent infections of infected mass and pneumonia. Also continues to have COPD exacerbation. Patient now presents with worsening short of breath. Wheezing. Cough congested. Decreased appetite. Feeling tired and rundown. On the last admission had become DO NOT RESUSCITATE after discussed with her. She lives with her 2 sons. Fungating mass in the right side of the neck draining. Patient also got a PEG tube for which she is getting additional supplementation. Admitted with pneumonia sepsis. COPD exacerbation. Started IV antibiotics. Infected canceled the right side of the neck. Did talk to patient about hospice. Today-had a lengthy talk with the patient again. This is regarding a feeding. Her oxygen does been decreased. Also spoke to the nurse. Medication addressed. Patient be going home with hospice. patient's sister lives next door will be receiving her. Equipment being delivered. Discussion and discharge planning more than 35 minutes Physical examination: VITAL SIGNS: 97.3, 111, 26, 140/77, 98% on 5 L GENERAL: Sitting up in bed, tired, short of breath EYES: Pupils equal. Conjunctiva normal. HEENT: [External appearance of nose and ears normal, oral cavity unable to assess NECK: JVD unable to assess; large right neck mass fungating , infected surface with lower edges. HEART: First and second heart sounds are normal; no edema. LUNGS: Respiratory rate increased, decreased breath sound congested wheezing. ABDOMEN: Soft, nontender, liver spleen not palpable, no masses palpable. PSYCH: [Alert and oriented x3; mood and affect anxious NEUROLOGICAL: Cranial nerves grossly intact; some facial asymmetry, power and sensation grossly intact. Hoarse voice MUSCULAR skeletal: Wasting of muscles INVESTIGATIONS, reviewed in the clinical context: Potassium 4.1 creatinine 0.36 Previous testing White count 28.6 hemoglobin 9.9 platelets 338 potassium 4.6 creatinine 0.43 lactic acid 3.0 albumin 2.6 EKG tracing personally reviewed by me-normal sinus rhythm heart rate 120 Chest x-ray film personally reviewed by me-basilar infiltrates Computed tomography scan of the chest for PE-no PE. Extensive airspace pneumonia especially left lower lobe. Emphysema Previous testing Computed tomography scan of the neck large necrotic fungating neck mass some increase in size increase interval foci of gas within the mass, no obvious fluid collection, right jugular vein appears occluded. Right internal carotid artery narrowing the level of C1. Also mass effect narrowing the right airway from the oral cavity. Assessment: -Severe basal pneumonia suspected gram-negative organism, causing sepsis, POA -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-On pa lliative chemotherapy -Masses occluded the right internal jugular vein, affecting the area from the right site and affecting the possible vocal cord. Causing hoarse otherwise. It looks like patient not able to clear his secretions. -Possible secondary infection of the affected tumor site as above -Chronic nicotine dependence patient's cigarette smoker -Moderate protein calorie malnutrition from decreased oral intake. With a BMI of 18 -Acute COPD exacerbation in a current smoker, POA -Diabetes mellitus type 2 on oral hypoglycemic -Essential hypertension -Right internal jugular vein occluded -Right internal carotid artery narrowing at level of C1 -DO NOT RESUSCITATE -Discharged home with hospice disposition: Home with hospice Patient Condition at Discharge: Poor Plan - Discharge Summary Discharge Rx Participant: Yes New Discharge Prescriptions: New Ciprofloxacin HCl [Cipro] 500 mg PO BID 3 Days #6 tab predniSONE 10 mg PO DAILY #30 tab Continue Gabapentin [Neurontin] 200 mg PO DAILY Famotidine 20 mg PO BID Atorvastatin [Lipitor] 40 mg PO HS Albuterol Nebulized [Ventolin Nebulized] 2.5 mg INHALATION RT-TID PRN PRN Reason: Shortness Of Breath Ibuprofen [Motrin] 600 mg PO QID PRN PRN Reason: Pain Ondansetron HCl [Zofran] 4 mg PO Q8H PRN PRN Reason: Nausea And Vomiting Polyethylene Glycol 3350 [Miralax] 17 gm PO DAILY Megestrol Acetate 800 mg PO DAILY Ipratropium-Albuterol Nebulize [Duoneb 0.5 mg-3 mg/3 ml Soln] 3 ml INHALATION RT-QID #120 ml Metoprolol Tartrate [Lopressor] 50 mg PO BID 30 Days #60 tab Morphine Sulfate [Ms Contin] 15 mg PO BID guaiFENesin [Mucinex] 1,200 mg PO Q12H HYDROcodone/APAP 7.5-325MG [[place] 7.5-325] 1 tab PO Q4H PRN PRN Reason: Breakthrough Pain Discontinued metFORMIN HCL [Glucophage] 500 mg PO DAILY Ferrous Sulfate [Feosol] 325 mg PO DAILY Cefdinir [Omnicef] 300 mg PO BID #6 cap predniSONE See Taper PO DAILY Discharge Medication List Gabapentin [Neurontin] 200 mg PO DAILY 06/21/15 [History] Famotidine 20 mg PO BID 12/27/16 [History] Albuterol Nebulized [Ventolin Nebulized] 2.5 mg INHALATION RT-TID PRN 01/27/19 [History] Atorvastatin [Lipitor] 40 mg PO HS 01/27/19 [History] Ibuprofen [Motrin] 600 mg PO QID PRN 09/26/19 [History] Ondansetron HCl [Zofran] 4 mg PO Q8H PRN 09/26/19 [History] Megestrol Acetate 800 mg PO DAILY 11/04/19 [History] Polyethylene Glycol 3350 [Miralax] 17 gm PO DAILY 11/04/19 [History] Ipratropium-Albuterol Nebulize [Duoneb 0.5 mg-3 mg/3 ml Soln] 3 ml INHALATION RT-QID #120 ml 11/07/19 [Rx] Metoprolol Tartrate [Lopressor] 50 mg PO BID 30 Days #60 tab 11/12/19 [Rx] HYDROcodone/APAP 7.5-325MG [[place] 7.5-325] 1 tab PO Q4H PRN 11/22/19 [History] Morphine Sulfate [Ms Contin] 15 mg PO BID 11/22/19 [History] guaiFENesin [Mucinex] 1,200 mg PO Q12H 11/22/19 [History] Ciprofloxacin HCl [Cipro] 500 mg PO BID 3 Days #6 tab 12/01/19 [Rx] predniSONE 10 mg PO DAILY #30 tab 12/01/19 [Rx] Follow up Appointment(s)/Referral(s): Silviano Lieberman MD [Primary Care Provider] - 1-2 days Patient Instructions/Handouts: Hospice (DC) Discharge Disposition: HOME SELF-CARE
== END 2019-12-01 12:42 | disposition hospice, home (50) | DRG 871 ==
LOC: EC 21:07 → 3SCARD 23:34
PROVIDERS: ADMIT Hospitalist; ATTEND Hospitalist
PROC: 3E0G76Z Introduction of Nutritional Substance into Upper GI, Via Natural or Artificial Opening (ICD-10-PCS; principal; 2019-11-29)
DX: A41.50 Gram-negative sepsis, unspecified (principal); J15.6 Pneumonia due to other Gram-negative bacteria; E44.0 Moderate protein-calorie malnutrition; Z68.1 Body mass index [BMI] 19.9 or less, adult; J44.1 Chronic obstructive pulmonary disease with (acute) exacerbation; J44.0 Chronic obstructive pulmonary disease with (acute) lower respiratory infection; E87.2 Acidosis; I82.C11 Acute embolism and thrombosis of right internal jugular vein; C90.30 Solitary plasmacytoma not having achieved remission; E11.51 Type 2 diabetes mellitus with diabetic peripheral angiopathy without gangrene; Z66 Do not resuscitate; Z51.5 Encounter for palliative care; Z93.1 Gastrostomy status; F17.210 Nicotine dependence, cigarettes, uncomplicated; I10 Essential (primary) hypertension; E78.5 Hyperlipidemia, unspecified; M19.90 Unspecified osteoarthritis, unspecified site; K21.9 Gastro-esophageal reflux disease without esophagitis; D63.0 Anemia in neoplastic disease; F41.0 Panic disorder [episodic paroxysmal anxiety]; F32.9 Major depressive disorder, single episode, unspecified; I65.21 Occlusion and stenosis of right carotid artery; R09.02 Hypoxemia; K40.90 Unilateral inguinal hernia, without obstruction or gangrene, not specified as recurrent; Z71.3 Dietary counseling and surveillance; Z79.899 Other long term (current) drug therapy; Z79.84 Long term (current) use of oral hypoglycemic drugs; Z86.010 Personal history of colon polyps; Z95.820 Peripheral vascular angioplasty status with implants and grafts; Z87.11 Personal history of peptic ulcer disease; Z90.710 Acquired absence of both cervix and uterus; Z98.890 Other specified postprocedural states; Z88.1 Allergy status to other antibiotic agents; Z80.7 Family history of other malignant neoplasms of lymphoid, hematopoietic and related tissues; Z83.3 Family history of diabetes mellitus; Z82.49 Family history of ischemic heart disease and other diseases of the circulatory system; Z80.0 Family history of malignant neoplasm of digestive organs
CPT/HCPCS: 36415; 71045; 71275; 80048; 80053; 80202; 83605; 83735; 83880; 84484; 85025; 85610; 85730; 87040; 93005; 94640; 94760; 96365; 99285

== ENCOUNTER 2019-12-10 05:05 | Emergency (ER) | payer MEDICARE, OTHER ==
--- NOTE | 2019-12-10 06:18 | XR ---
EXAM: XR Chest, 2 Views CLINICAL HISTORY: ITS.REASON XR Reason: SOB TECHNIQUE: Frontal and lateral views of the chest. COMPARISON: 11/28/19. FINDINGS: Lungs: Mild patchy lower lung infiltrate or atelectasis. Pleural space: No significant pleural effusion or pneumothorax. Heart: Stable cardiomediastinal silhouette. Mediastinum: See above. Bones/joints: No acute fracture. IMPRESSION: Mild patchy lower lung infiltrate or atelectasis.
[2019-12-10 06:31] LABS: Anisocytosis Moderate; Basophils # (A) 0.1 k/uL (0-0.2); Basophils % (A) 0 %; Eosinophils % (A) 0 %; HGB 11.4 gm/dL (11.4-16.0); Hypochromasia Slight; Lymphocytes # (A) 1.1 k/uL (1.0-4.8); Lymphocytes % (A) 4 %; MCH 26.4 pg (25.0-35.0); MCHC 30.8 g/dL (31.0-37.0); MCV 85.5 fL (80.0-100.0); Mean Platelet Volume 6.9; Microcytosis Slight; Monocytes # (A) 1.6 k/uL (0-1.0); Monocytes % (A) 7 %; Neutrophils # (A) 21.6 k/uL (1.3-7.7); Neutrophils % (A) 88 %; Platelet Count 673 k/uL (150-450); RBC 4.33 m/uL (3.80-5.40); RDW 20.5 % (11.5-15.5); WBC 24.7 k/uL (3.8-10.6)
[2019-12-10 06:32] LABS: ALT 17 U/L (4-34); AST 21 U/L (14-36); African American GFR (CKD) >90 (>60 ml/min/1.73 sqM); Albumin 2.8 g/dL (3.5-5.0); Alkaline Phosphatase 89 U/L (38-126); Anion Gap 5 mmol/L; Blood Urea Nitrogen 20 mg/dL (7-17); Carbon Dioxide 28 mmol/L (22-30); Chloride 100 mmol/L (98-107); Glucose 110 mg/dL (74-99); Non-African American GFR(CKD) >90 (>60 ml/min/1.73 sqM); Potassium 3.9 mmol/L (3.5-5.1); Sodium 133 mmol/L (137-145); Total Bilirubin 0.4 mg/dL (0.2-1.3); Total Protein 5.9 g/dL (6.3-8.2)
[2019-12-10 06:49] LABS: Prothrombin Time 10.2 sec (9.0-12.0)
[2019-12-10 06:55] LABS: Partial Thromboplastin Time 20.5 sec (22.0-30.0)
[2019-12-10] MEDS ORDERED: MORPHINE SULFATE 4 MG/ML SYRINGE IV STA (07:32)
[2019-12-10] MEDS ORDERED: MORPHINE SULFATE 4 MG/ML SYRINGE IM STA (07:35)
--- NOTE | 2019-12-10 08:08 | ED ---
SOB HPI <FrancoisIván - Last Filed: 12/10/19 09:19> <Reji Kasper - Last Filed: 12/14/19 10:12> - General Stated Complaint: SOB - History of Present Illness Initial Comments: This patient did arrive on computer downtime, please see the paper record. (Reji Kasper) - Related Data Home Medications Medication Instructions Recorded Confirmed Gabapentin [Neurontin] 200 mg PO DAILY 06/21/15 12/10/19 Famotidine 20 mg PO BID 12/27/16 12/10/19 Albuterol Nebulized [Ventolin 2.5 mg INHALATION RT-TID PRN 01/27/19 12/10/19 Nebulized] Atorvastatin [Lipitor] 40 mg PO HS 01/27/19 12/10/19 Ibuprofen [Motrin] 600 mg PO QID PRN 09/26/19 12/10/19 Ondansetron HCl [Zofran] 4 mg PO Q8H PRN 09/26/19 12/10/19 Megestrol Acetate 800 mg PO DAILY 11/04/19 12/10/19 Polyethylene Glycol 3350 [Miralax] 17 gm PO DAILY 11/04/19 12/10/19 HYDROcodone/APAP 7.5-325MG [[place] 1 tab PO Q4H PRN 11/22/19 12/10/19 7.5-325] Morphine Sulfate [Ms Contin] 15 mg PO BID 11/22/19 12/10/19 guaiFENesin [Mucinex] 1,200 mg PO Q12H PRN 11/22/19 12/10/19 Ipratropium-Albuterol Nebulize 3 ml INHALATION RT-QID PRN 12/10/19 12/10/19 [Duoneb 0.5 mg-3 mg/3 ml Soln] LORazepam [Ativan] 0.5 mg PO Q4H PRN 12/10/19 12/10/19 Morphine Sulfate [Morphine Sulfate 5 mg PO Q4H PRN 12/10/19 12/10/19 Oral Soln Conc (20 MG/ML)] predniSONE See Taper PO DIRECTED 12/10/19 12/10/19 Previous Rx's Medication Instructions Recorded Metoprolol Tartrate [Lopressor] 50 mg PO BID 30 Days #60 tab 08/13/20 Allergies Allergy/AdvReac Type Severity Reaction Status Date / Time azithromycin Allergy Dyspnea/anx Verified 12/10/19 09:48 iety Review of Systems ROS Other: All systems not noted in ROS Statement are negative. <FrancoisIván - Last Filed: 12/10/19 09:19> ROS Other: All systems not noted in ROS Statement are negative. <RanjithReji - Last Filed: 12/14/19 10:12> ROS Statement: Those systems with pertinent positive or pertinent negative responses have been documented in the HPI. Past Medical History Past Medical History: Cancer, Chest Pain / Angina, COPD, Diabetes Mellitus, GERD/Reflux, Hyperlipidemia, Hypertension, Osteoarthritis (OA), Vascular Disorder Additional Past Medical History / Comment(s): Pt recently admitted to [facility] on 09/26/19 with infected/necrotic R face mass and lesion L ear, moderate protein calorie malnutrition. Other hx: Squamous cell cancer R neck/face/ear with past radiation and chemo last given 11/02/19, anemia, NIDDM type II, past gastric ulcer, PVD-poor circulation bilateral legs, varicosities, R leg nerve pain, occasional tinnitis, constipation, small R inguinal hernia. History of Any Multi-Drug Resistant Organisms: None Reported Past Surgical History: Hysterectomy, Tonsillectomy, Tubal Ligation Additional Past Surgical History / Comment(s): PTBA/STENT TO LT LEG, EGD, colonoscopy/benign polypectomy, cystocele/rectocele repairs. Past Anesthesia/Blood Transfusion Reactions: No Reported Reaction Additional Past Anesthesia/Blood Transfusion Reaction / Comment(s): . Past Psychological History: Anxiety, Depression, Panic Disorder Smoking Status: Current every day smoker Past Alcohol Use History: None Reported Past Drug Use History: None Reported - Past Family History Son(s) Family Medical History: Cancer Additional Family Medical History / Comment(s): LYMPHOMA Mother Family Medical History: Diabetes Mellitus Father Additional Family Medical History / Comment(s): HAD AAA Sister(s) Family Medical History: Cancer Additional Family Medical History / Comment(s): rectal <RanjithReji - Last Filed: 12/14/19 10:12> Course Vital Signs 12/10/19 12/10/19 12/10/19 11:23 11:34 13:47 Temperature 98.4 F Pulse Rate 148 H 118 H 168 H Respiratory 20 22 24 Rate Blood Pressure 101/86 115/63 108/72 O2 Sat by Pulse 100 99 99 Oximetry Medical Decision Making - Lab Data Result diagrams: 12/10/19 05:42 12/10/19 05:42 <AlessandroIván - Last Filed: 12/10/19 09:19> - Lab Data Result diagrams: 12/10/19 05:42 12/10/19 05:42 <OlimpiaReji whitley - Last Filed: 12/14/19 10:12> - Lab Data Lab Results 12/10/19 12/10/19 12/10/19 Range/Units 05:42 05:42 05:42 WBC 24.7 H (3.8-10.6) k/uL RBC 4.33 (3.80-5.40) m/uL Hgb 11.4 (11.4-16.0) gm/dL Hct 37.0 (34.0-46.0) % MCV 85.5 (80.0-100.0) fL MCH 26.4 (25.0-35.0) pg MCHC 30.8 L (31.0-37.0) g/dL RDW 20.5 H (11.5-15.5) % Plt Count 673 H (150-450) k/uL Neutrophils % 88 % Lymphocytes % 4 % Monocytes % 7 % Eosinophils % 0 % Basophils % 0 % Neutrophils # 21.6 H (1.3-7.7) k/uL Lymphocytes # 1.1 (1.0-4.8) k/uL Monocytes # 1.6 H (0-1.0) k/uL Eosinophils # 0.0 (0-0.7) k/uL Basophils # 0.1 (0-0.2) k/uL Hypochromasia Slight Anisocytosis Moderate Microcytosis Slight PT (9.0-12.0) sec INR (<1.2) APTT (22.0-30.0) sec Sodium 133 L (137-145) mmol/L Potassium 3.9 (3.5-5.1) mmol/L Chloride 100 (98-107) mmol/L Carbon Dioxide 28 (22-30) mmol/L Anion Gap 5 mmol/L BUN 20 H (7-17) mg/dL Creatinine 0.47 L (0.52-1.04) mg/dL Est GFR (CKD-EPI)AfAm >90 (>60 ml/min/1.73 sqM) Est GFR (CKD-EPI)NonAf >90 (>60 ml/min/1.73 sqM) Glucose 110 H (74-99) mg/dL Plasma Lactic Acid Matthew (0.7-2.0) mmol/L Calcium 9.0 (8.4-10.2) mg/dL Total Bilirubin 0.4 (0.2-1.3) mg/dL AST 21 (14-36) U/L ALT 17 (4-34) U/L Alkaline Phosphatase 89 (38-126) U/L Troponin I <0.012 (0.000-0.034) ng/mL NT-Pro-B Natriuret Pep pg/mL Total Protein 5.9 L (6.3-8.2) g/dL Albumin 2.8 L (3.5-5.0) g/dL 12/10/19 12/10/19 12/10/19 Range/Units 05:42 05:42 05:42 WBC (3.8-10.6) k/uL RBC (3.80-5.40) m/uL Hgb (11.4-16.0) gm/dL Hct (34.0-46.0) % MCV (80.0-100.0) fL MCH (25.0-35.0) pg MCHC (31.0-37.0) g/dL RDW (11.5-15.5) % Plt Count (150-450) k/uL Neutrophils % % Lymphocytes % % Monocytes % % Eosinophils % % Basophils % % Neutrophils # (1.3-7.7) k/uL Lymphocytes # (1.0-4.8) k/uL Monocytes # (0-1.0) k/uL Eosinophils # (0-0.7) k/uL Basophils # (0-0.2) k/uL Hypochromasia Anisocytosis Microcytosis PT 10.2 (9.0-12.0) sec INR 1.0 (<1.2) APTT 20.5 L (22.0-30.0) sec Sodium (137-145) mmol/L Potassium (3.5-5.1) mmol/L Chloride (98-107) mmol/L Carbon Dioxide (22-30) mmol/L Anion Gap mmol/L BUN (7-17) mg/dL Creatinine (0.52-1.04) mg/dL Est GFR (CKD-EPI)AfAm (>60 ml/min/1.73 sqM) Est GFR (CKD-EPI)NonAf (>60 ml/min/1.73 sqM) Glucose (74-99) mg/dL Plasma Lactic Acid Matthew 1.6 (0.7-2.0) mmol/L Calcium (8.4-10.2) mg/dL Total Bilirubin (0.2-1.3) mg/dL AST (14-36) U/L ALT (4-34) U/L Alkaline Phosphatase (38-126) U/L Troponin I (0.000-0.034) ng/mL NT-Pro-B Natriuret Pep 885 pg/mL Total Protein (6.3-8.2) g/dL Albumin (3.5-5.0) g/dL Disposition Time of Disposition: 09:19 <Iván Francois - Last Filed: 12/10/19 09:19> Is patient prescribed a controlled substance at d/c from ED?: No <Reji Kasper - Last Filed: 12/14/19 10:12> Clinical Impression: Paroxysmal atrial fibrillation, Infected wound, Cancer associated pain, Dehydration Disposition: ADMITTED IP TO THIS HOSP Condition: Poor Instructions (If sedation given, give patient instructions): A-fib (Atrial Fibrillation) (ED), Dehydration (ED), Pneumonia (ED) Referrals: Silviano Lieberman MD [Primary Care Provider] - 1-2 days
[2019-12-10] MEDS: DILTIAZEM 125 MG in SODIUM CHLORIDE 0.9% 100 ML IV SCH ×2 (09:08→11:25)
[2019-12-10] MEDS: LEVOFLOXACIN 750 MG TAB PO STA ×2 (09:09→11:21)
[2019-12-10] MEDS ORDERED: VANCOMYCIN IV PER PHARMACY 1 EACH MISC MISCELLANE PRN (09:19)
[2019-12-10] MEDS: DILTIAZEM DRIP BOLUS FROM BAG 1 MG SOLN IV ONE ×2 (09:20→11:24)
[2019-12-10] MEDS ORDERED: VANCOMYCIN 1,000 MG in SODIUM CHLORIDE 0.9% 250 ML IVPB STA (09:28)
[2019-12-10] MEDS ORDERED: MORPHINE ORAL SOLN 10 MG/5 ML CUP PO PRN (11:01)
[2019-12-10] MEDS ORDERED: IBUPROFEN 600 MG TAB PO PRN (11:02)
[2019-12-10] MEDS ORDERED: ALBUTEROL NEBULIZED 2.5 MG/3 ML INHALATION PRN (11:02)
[2019-12-10] MEDS ORDERED: MORPHINE SULFATE PO PRN (11:02)
[2019-12-10] MEDS ORDERED: [UNRECOGNIZED DRUG - OTHER] PO PRN (11:02)
[2019-12-10] MEDS ORDERED: guaiFENesin 600 MG TABLET.ER PO PRN (11:02)
[2019-12-10] MEDS ORDERED: LORazepam 0.5 MG TAB PO PRN (11:02)
[2019-12-10] MEDS ORDERED: IPRATROPIUM-ALBUTEROL 3 ML NEB INHALATION PRN (11:02)
[2019-12-10] MEDS ORDERED: ACETAMINOPHEN TAB 325 MG TAB PO PRN (11:03)
[2019-12-10] MEDS ORDERED: ONDANSETRON 4 MG/2 ML VIAL IVP PRN (11:03)
[2019-12-10 11:37] VITALS: TEMP 98.4
--- NOTE | 2019-12-10 12:07 | P.HPIM ---
History of Present Illness H&P Date: 12/10/19 Chief Complaint: Uncontrolled pain This is a 74-year-old female with past medical history noted below significant for squamous cell carcinoma of the neck that was discharged last week from the hospital on hospice. Patient said that her pain was not well controlled and wanted to come into the emergency room for further evaluation. Patient was evaluated in the ER and was found to be in atrial fibrillation with rapid ventricular response. She was started on IV Cardizem drip. She denies any chest pain or palpitation. Her main concern is her uncontrolled pain. Patient was also given antibiotic with vancomycin and Levaquin in the ER. When I saw the patient, she appears comfortable. She rated her pain as 8-9 out of 10 in severity. She said that the pain is mostly in her right face and neck area. She denies any headache. No nausea or vomiting. No pain anywhere else. Patient informed me that she would like to be comfortable and would like to continue with hospice care at this time. There was no family members at bedside to discuss further. Review of Systems Review of system: 14 points review of systems were obtained and were negative except to what were mentioned in the HPI. Past Medical History Past Medical History: Cancer, Chest Pain / Angina, COPD, Diabetes Mellitus, GERD/Reflux, Hyperlipidemia, Hypertension, Osteoarthritis (OA), Vascular Disorder Additional Past Medical History / Comment(s): Pt recently admitted to [facility] on 09/26/19 with infected/necrotic R face mass and lesion L ear, moderate protein calorie malnutrition. Other hx: Squamous cell cancer R neck/face/ear with past radiation and chemo last given 11/02/19, anemia, NIDDM type II, past gastric ulcer, PVD-poor circulation bilateral legs, varicosities, R leg nerve pain, occasional tinnitis, constipation, small R inguinal hernia. History of Any Multi-Drug Resistant Organisms: None Reported Past Surgical History: Hysterectomy, Tonsillectomy, Tubal Ligation Additional Past Surgical History / Comment(s): PTBA/STENT TO LT LEG, EGD, colonoscopy/benign polypectomy, cystocele/rectocele repairs. Past Anesthesia/Blood Transfusion Reactions: No Reported Reaction Additional Past Anesthesia/Blood Transfusion Reaction / Comment(s): . Past Psychological History: Anxiety, Depression, Panic Disorder Smoking Status: Current every day smoker Past Alcohol Use History: None Reported Past Drug Use History: None Reported - Past Family History Son(s) Family Medical History: Cancer Additional Family Medical History / Comment(s): LYMPHOMA Mother Family Medical History: Diabetes Mellitus Father Additional Family Medical History / Comment(s): HAD AAA Sister(s) Family Medical History: Cancer Additional Family Medical History / Comment(s): rectal Medications and Allergies Home Medications Medication Instructions Recorded Confirmed Type Gabapentin [Neurontin] 200 mg PO DAILY 06/21/15 12/10/19 History Famotidine 20 mg PO BID 12/27/16 12/10/19 History Albuterol Nebulized [Ventolin 2.5 mg INHALATION RT-TID PRN 01/27/19 12/10/19 History Nebulized] Atorvastatin [Lipitor] 40 mg PO HS 01/27/19 12/10/19 History Ibuprofen [Motrin] 600 mg PO QID PRN 09/26/19 12/10/19 History Ondansetron HCl [Zofran] 4 mg PO Q8H PRN 09/26/19 12/10/19 History Megestrol Acetate 800 mg PO DAILY 11/04/19 12/10/19 History Polyethylene Glycol 3350 [Miralax] 17 gm PO DAILY 11/04/19 12/10/19 History Metoprolol Tartrate [Lopressor] 50 mg PO BID 30 Days #60 tab 11/12/19 12/10/19 Rx HYDROcodone/APAP 7.5-325MG [[place] 1 tab PO Q4H PRN 11/22/19 12/10/19 History 7.5-325] Morphine Sulfate [Ms Contin] 15 mg PO BID 11/22/19 12/10/19 History guaiFENesin [Mucinex] 1,200 mg PO Q12H PRN 11/22/19 12/10/19 History Ipratropium-Albuterol Nebulize 3 ml INHALATION RT-QID PRN 12/10/19 12/10/19 History [Duoneb 0.5 mg-3 mg/3 ml Soln] LORazepam [Ativan] 0.5 mg PO Q4H PRN 12/10/19 12/10/19 History Morphine Sulfate [Morphine Sulfate 5 mg PO Q4H PRN 12/10/19 12/10/19 History Oral Soln Conc (20 MG/ML)] predniSONE See Taper PO DIRECTED 12/10/19 12/10/19 History Allergies Allergy/AdvReac Type Severity Reaction Status Date / Time azithromycin Allergy Dyspnea/anx Verified 12/10/19 09:48 iety Physical Exam Vitals: Vital Signs Temp Pulse Resp BP Pulse Ox 12/10/19 11:34 98.4 F 118 H 22 115/63 99 12/10/19 11:23 148 H 20 101/86 100 Intake and Output 12/09/19 12/10/19 12/10/19 22:59 06:59 14:59 Other: Weight 0 g General: The patient is awake and alert, in no distress. She appears cachectic Eye: there is normal conjunctiva bilaterally. Neck: There is multiple necrotic masses involving the right neck and the right mandibular area with no drainage or bleeding noted. There is some redness surrounding Cardiovascular: Normal S1-S2, no S3-S4, no murmurs. Respiratory: Lungs clear to auscultation bilaterally Gastrointestinal: Abdomen is soft, nontender. PEG tube in place Musculoskeletal: There is no pedal edema. Neurological:. Speech is normal. Skin: Skin is warm and dry Results CBC & Chem 7: 12/10/19 05:42 12/10/19 05:42 Labs: Abnormal Lab Results - Last 24 Hours (Table) 12/10/19 12/10/19 12/10/19 Range/Units 05:42 05:42 05:42 WBC 24.7 H (3.8-10.6) k/uL MCHC 30.8 L (31.0-37.0) g/dL RDW 20.5 H (11.5-15.5) % Plt Count 673 H (150-450) k/uL Neutrophils # 21.6 H (1.3-7.7) k/uL Monocytes # 1.6 H (0-1.0) k/uL APTT 20.5 L (22.0-30.0) sec Sodium 133 L (137-145) mmol/L BUN 20 H (7-17) mg/dL Creatinine 0.47 L (0.52-1.04) mg/dL Glucose 110 H (74-99) mg/dL Total Protein 5.9 L (6.3-8.2) g/dL Albumin 2.8 L (3.5-5.0) g/dL Assessment and Plan Assessment: 1. Uncontrolled pain secondary to multiple necrotic masses in the right neck and right mandibular area, continue long-acting morphine 15 mg twice daily. Add morphine solution 5 mg every 4 hours as needed. 2. Squamous cell carcinoma of the neck: Seen previously by oncology. Not a candidate for any further treatment. Now tumors appeared necrotic with some surrounding cellulitis. Received IV vancomycin and Zosyn in the ER. Awaiting f colbyther discussion about goals of care. May use oral antibiotic. 3. Goals of care: Discussed in details with patient, she would like to continue with comfort care and hospice. I will consult the hospice nurse to discuss further with the patient and her family. Plan to return back home with hospice or to the hospice house 4. Atrial fibrillation with rapid ventricular response, currently on IV C ardizem drip. We will continue telemetry monitoring. Resume home dose of metoprolol 50 mg twice daily. May up titrate metoprolol dose as needed. 5. Underlying COPD, with no evidence of exacerbation. Continue bronchodilators 6. Severe malnutrition, status post PEG tube placement, consult dietitian for further evaluation and recommendation Today, I reviewed her medication list and lab work results. We will continue current management. Awaiting further discussion with hospice to determine plan of care.
[2019-12-10 13:50] VITALS: BP 108/72; PULSE 168; RESP 24
[2019-12-10] MEDS ORDERED: MORPHINE SULFATE ER 15 MG TABLET PO SCH (21:00)
[2019-12-10] MEDS ORDERED: METOPROLOL TARTRATE 50 MG TAB PO SCH (21:00)
[2019-12-10] MEDS ORDERED: FAMOTIDINE 20 MG TAB PO SCH (21:00)
[2019-12-10] MEDS ORDERED: SODIUM CHLORIDE 0.9% 500 ML BAG ONE (23:59)
[2019-12-11] MEDS ORDERED: MEGESTROL 400 MG/10 ML CUP PO SCH (09:00)
[2019-12-11] MEDS ORDERED: GABAPENTIN 100 MG CAP PO SCH (09:00)
[2019-12-11] MEDS ORDERED: polyethylene glycoL 3350 17 GM POWD.PACK PO SCH (09:00)
[2019-12-11] MEDS ORDERED: LEVOFLOXACIN 750MG-D5W PMX 750 MG in DEXTROSE/WATER 1 150ML.BAG IVPB SCH (09:30)
== END 2019-12-10 14:00 | disposition other institution (70) ==
LOC: EC 05:05 → UNDOADMIN 09:19 → 3SCARD 09:19 → EC 14:00
DX: I48.0 Paroxysmal atrial fibrillation (principal); S11.90XA Unspecified open wound of unspecified part of neck, initial encounter; G89.3 Neoplasm related pain (acute) (chronic); E86.0 Dehydration; J44.9 Chronic obstructive pulmonary disease, unspecified; F41.9 Anxiety disorder, unspecified; E78.5 Hyperlipidemia, unspecified; M19.90 Unspecified osteoarthritis, unspecified site; F41.0 Panic disorder [episodic paroxysmal anxiety]; F17.200 Nicotine dependence, unspecified, uncomplicated; Z79.899 Other long term (current) drug therapy; Z79.51 Long term (current) use of inhaled steroids; Z79.891 Long term (current) use of opiate analgesic; Z88.1 Allergy status to other antibiotic agents; Z85.89 Personal history of malignant neoplasm of other organs and systems; X58.XXXA Exposure to other specified factors, initial encounter
CPT/HCPCS: 36415; 93005; 83880; 80053; 83605; 84484; 85025; 85610; 85730; 87040; 71046; 99285; 96365; 96366; 96375; 96372; J3370; J2270

== ENCOUNTER 2019-12-10 13:31 | Inpatient (IN) | payer MEDICAID ==
[2019-12-10] MEDS ORDERED: ONDANSETRON 4 MG/2 ML VIAL IVP PRN (14:46)
[2019-12-10] MEDS ORDERED: IBUPROFEN 600 MG TAB PO PRN (14:46)
[2019-12-10] MEDS ORDERED: ALBUTEROL NEBULIZED 2.5 MG/3 ML INHALATION PRN (14:46)
[2019-12-10] MEDS ORDERED: MORPHINE SULFATE 2 MG/ML SYRINGE IVP PRN (14:46)
[2019-12-10] MEDS ORDERED: guaiFENesin 600 MG TABLET.ER PO PRN (14:46)
[2019-12-10] MEDS ORDERED: ACETAMINOPHEN TAB 325 MG TAB PO PRN (14:46)
--- NOTE | 2019-12-10 14:49 | P.DS ---
Providers Date of admission: 12/10/19 13:37 Expected date of discharge: 12/10/19 Attending physician: Kiera Chopra Primary care physician: Silviano Villarreal [employer] Course: Patient will be admitted under hospice. Please refer to the H&P for further details about this presentation. Plan - Discharge Summary New Discharge Prescriptions: No Action Gabapentin [Neurontin] 200 mg PO DAILY Famotidine 20 mg PO BID Atorvastatin [Lipitor] 40 mg PO HS Albuterol Nebulized [Ventolin Nebulized] 2.5 mg INHALATION RT-TID PRN PRN Reason: Shortness Of Breath Ibuprofen [Motrin] 600 mg PO QID PRN PRN Reason: Pain Ondansetron HCl [Zofran] 4 mg PO Q8H PRN PRN Reason: Nausea And Vomiting Polyethylene Glycol 3350 [Miralax] 17 gm PO DAILY Megestrol Acetate 800 mg PO DAILY Metoprolol Tartrate [Lopressor] 50 mg PO BID 30 Days #60 tab Morphine Sulfate [Ms Contin] 15 mg PO BID guaiFENesin [Mucinex] 1,200 mg PO Q12H PRN PRN Reason: CONGESTION HYDROcodone/APAP 7.5-325MG [[place] 7.5-325] 1 tab PO Q4H PRN PRN Reason: Breakthrough Pain Ipratropium-Albuterol Nebulize [Duoneb 0.5 mg-3 mg/3 ml Soln] 3 ml INHALATION RT-QID PRN PRN Reason: Shortness Of Breath Morphine Sulfate [Morphine Sulfate Oral Soln Conc (20 MG/ML)] 5 mg PO Q4H PRN PRN Reason: Pain predniSONE See Taper PO DIRECTED LORazepam [Ativan] 0.5 mg PO Q4H PRN PRN Reason: Anxiety Discharge Medication List Gabapentin [Neurontin] 200 mg PO DAILY 06/21/15 [History] Famotidine 20 mg PO BID 12/27/16 [History] Albuterol Nebulized [Ventolin Nebulized] 2.5 mg INHALATION RT-TID PRN 01/27/19 [History] Atorvastatin [Lipitor] 40 mg PO HS 01/27/19 [History] Ibuprofen [Motrin] 600 mg PO QID PRN 09/26/19 [History] Ondansetron HCl [Zofran] 4 mg PO Q8H PRN 09/26/19 [History] Megestrol Acetate 800 mg PO DAILY 11/04/19 [History] Polyethylene Glycol 3350 [Miralax] 17 gm PO DAILY 11/04/19 [History] Metoprolol Tartrate [Lopressor] 50 mg PO BID 30 Days #60 tab 11/12/19 [Rx] HYDROcodone/APAP 7.5-325MG [[place] 7.5-325] 1 tab PO Q4H PRN 11/22/19 [History] Morphine Sulfate [Ms Contin] 15 mg PO BID 11/22/19 [History] guaiFENesin [Mucinex] 1,200 mg PO Q12H PRN 11/22/19 [History] Ipratropium-Albuterol Nebulize [Duoneb 0.5 mg-3 mg/3 ml Soln] 3 ml INHALATION RT-QID PRN 12/10/19 [History] LORazepam [Ativan] 0.5 mg PO Q4H PRN 12/10/19 [History] Morphine Sulfate [Morphine Sulfate Oral Soln Conc (20 MG/ML)] 5 mg PO Q4H PRN 12/10/19 [History] predniSONE See Taper PO DIRECTED 12/10/19 [History]
--- NOTE | 2019-12-10 14:52 | P.HPIM ---
History of Present Illness H&P Date: 12/10/19 This is a 74-year-old female with past medical history noted below significant for squamous cell carcinoma of the neck that was discharged last week from the hospital on hospice. Patient said that her pain was not well controlled and wanted to come into the emergency room for further evaluation. Patient was evaluated in the ER and was found to be in atrial fibrillation with rapid ventricular response. She was started on IV Cardizem drip. She denies any chest pain or palpitation. Her main concern is her uncontrolled pain. Patient was also given antibiotic with vancomycin and Levaquin in the ER. When I saw the patient, she appears comfortable. She rated her pain as 8-9 out of 10 in severity. She said that the pain is mostly in her right face and neck area. She denies any headache. No nausea or vomiting. No pain anywhere else. Patient informed me that she would like to be comfortable and would like to continue with hospice care at this time. This was discussed with the hospice team and patient will be admitted under hospice Review of Systems Review of system: 14 points review of systems were obtained and were negative except to what were mentioned in the HPI. Past Medical History Past Medical History: Cancer, Chest Pain / Angina, COPD, Diabetes Mellitus, GERD/Reflux, Hyperlipidemia, Hypertension, Osteoarthritis (OA), Vascular Disorder Additional Past Medical History / Comment(s): Pt recently admitted to [facility] on 09/26/19 with infected/necrotic R face mass and lesion L ear, moderate protein calorie malnutrition. Other hx: Squamous cell cancer R neck/face/ear with past radiation and chemo last given 11/02/19, anemia, NIDDM type II, past gastric ulcer, PVD-poor circulation bilateral legs, varicosities, R leg nerve pain, occasional tinnitis, constipation, small R inguinal hernia. History of Any Multi-Drug Resistant Organisms: None Reported Past Surgical History: Hysterectomy, Tonsillectomy, Tubal Ligation Additional Past Surgical History / Comment(s): PTBA/STENT TO LT LEG, EGD, colonoscopy/benign polypectomy, cystocele/rectocele repairs. Past Anesthesia/Blood Transfusion Reactions: No Reported Reaction Additional Past Anesthesia/Blood Transfusion Reaction / Comment(s): . Past Psychological History: Anxiety, Depression, Panic Disorder Additional Psychological History / Comment(s): Pt has an adult son residing with her. She states she uses a walker to ambulate. Smoking Status: Current every day smoker Past Alcohol Use History: None Reported Additional Past Alcohol Use History / Comment(s): STARTED SMOKING AGE 23, down to<1PPD Past Drug Use History: None Reported - Past Family History Son(s) Family Medical History: Cancer Additional Family Medical History / Comment(s): LYMPHOMA Mother Family Medical History: Diabetes Mellitus Father Additional Family Medical History / Comment(s): HAD AAA Sister(s) Family Medical History: Cancer Additional Family Medical History / Comment(s): rectal Medications and Allergies Home Medications Medication Instructions Recorded Confirmed Type Gabapentin [Neurontin] 200 mg PO DAILY 06/21/15 12/10/19 History Famotidine 20 mg PO BID 12/27/16 12/10/19 History Albuterol Nebulized [Ventolin 2.5 mg INHALATION RT-TID PRN 01/27/19 12/10/19 History Nebulized] Atorvastatin [Lipitor] 40 mg PO HS 01/27/19 12/10/19 History Ibuprofen [Motrin] 600 mg PO QID PRN 09/26/19 12/10/19 History Ondansetron HCl [Zofran] 4 mg PO Q8H PRN 09/26/19 12/10/19 History Megestrol Acetate 800 mg PO DAILY 11/04/19 12/10/19 History Polyethylene Glycol 3350 [Miralax] 17 gm PO DAILY 11/04/19 12/10/19 History Metoprolol Tartrate [Lopressor] 50 mg PO BID 30 Days #60 tab 11/12/19 12/10/19 Rx HYDROcodone/APAP 7.5-325MG [[place] 1 tab PO Q4H PRN 11/22/19 12/10/19 History 7.5-325] Morphine Sulfate [Ms Contin] 15 mg PO BID 11/22/19 12/10/19 History guaiFENesin [Mucinex] 1,200 mg PO Q12H PRN 11/22/19 12/10/19 History Ipratropium-Albuterol Nebulize 3 ml INHALATION RT-QID PRN 12/10/19 12/10/19 History [Duoneb 0.5 mg-3 mg/3 ml Soln] LORazepam [Ativan] 0.5 mg PO Q4H PRN 12/10/19 12/10/19 History Morphine Sulfate [Morphine Sulfate 5 mg PO Q4H PRN 12/10/19 12/10/19 History Oral Soln Conc (20 MG/ML)] predniSONE See Taper PO DIRECTED 12/10/19 12/10/19 History Allergies Allergy/AdvReac Type Severity Reaction Status Date / Time azithromycin Allergy Dyspnea/anx Verified 12/10/19 09:48 iety Physical Exam Vitals: Intake and Output 12/09/19 12/10/19 12/10/19 22:59 06:59 14:59 Other: Weight 46 kg Thrombosis Risk Factor Assmnt - Choose All That Apply Any of the Below Risk Factors Present?: No Each Risk Factor Represents 2 Points: Age 61-74 years Thrombosis Risk Factor Assessment Total Risk Factor Score: 2 Thrombosis Risk Factor Assessment Level: Low Risk Assessment and Plan Assessment: 1. Uncontrolled pain secondary to multiple necrotic masses in the right neck and right mandibular area, continue long-acting morphine 15 mg twice daily. Add morphine 2 mg IV every 4 hours as needed. 2. Squamous cell carcinoma of the neck: Seen previously by oncology. Not a candidate for any further treatment. Now tumors appeared necrotic with some surrounding cellulitis. Received IV vancomycin and Zosyn in the ER. I would continue with oral clindamycin 3. Goals of care: Discussed in details with patient, she would like to continue with comfort care and hospice. She was seen and evaluated by the hospice team. Currently admitted under hospice. 4. Atrial fibrillation with rapid ventricular response. Resume home dose of metoprolol 50 mg twice daily. May up titrate metoprolol dose as needed. 5. Underlying COPD, with no evidence of exacerbation. Continue bronchodilators as needed 6. Severe malnutrition, status post PEG tube placement, consult dietitian for further evaluation and recommendation Today, I reviewed her medication list and lab work results. We will continue current management.
[2019-12-10] MEDS: IPRATROPIUM-ALBUTEROL 3 ML NEB INHALATION PRN (15:31)
[2019-12-10] MEDS: CLINDAMYCIN 150 MG CAP PO SCH ×3 (17:36→21:55)
[2019-12-10] MEDS: LORazepam 0.5 MG TAB PO PRN (17:37)
[2019-12-10] MEDS: MORPHINE SULFATE ER 15 MG TABLET PO SCH (21:04)
[2019-12-10] MEDS: FAMOTIDINE 20 MG TAB PO SCH (21:04)
[2019-12-10] MEDS: METOPROLOL TARTRATE 50 MG TAB PO SCH (21:04)
[2019-12-10] MEDS: MORPHINE SULFATE 2 MG/ML SYRINGE IVP PRN (21:46)
[2019-12-11] MEDS: MORPHINE SULFATE 2 MG/ML SYRINGE IVP PRN ×4 (00:56→11:41)
[2019-12-11] MEDS: LORazepam 0.5 MG TAB PO PRN (02:13)
[2019-12-11] MEDS: IPRATROPIUM-ALBUTEROL 3 ML NEB INHALATION PRN ×4 (03:19→15:19)
[2019-12-11] MEDS ORDERED: MORPHINE SULFATE 2 MG/ML SYRINGE IVP STA (05:56)
[2019-12-11] MEDS: GABAPENTIN 100 MG CAP PO SCH (08:40)
[2019-12-11] MEDS: polyethylene glycoL 3350 17 GM POWD.PACK PO SCH (08:40)
[2019-12-11] MEDS: FAMOTIDINE 20 MG TAB PO SCH ×2 (08:40→21:27)
[2019-12-11] MEDS: CLINDAMYCIN 150 MG CAP PO SCH ×4 (08:40→21:28)
[2019-12-11] MEDS: MORPHINE SULFATE ER 15 MG TABLET PO SCH ×3 (08:40→21:27)
[2019-12-11] MEDS: METOPROLOL TARTRATE 50 MG TAB PO SCH ×2 (08:41→21:27)
--- NOTE | 2019-12-11 10:23 | P.PN ---
Subjective Progress Note Date: 12/11/19 Patient reported that her pain is better controlled. She is still requiring IV morphine every 2 hours. No acute events overnight reported by nursing staff. Objective - Vital Signs Vital signs: Vital Signs Temp 97.3 F L 12/11/19 07:12 Pulse 77 12/11/19 07:30 Resp 19 12/11/19 07:12 BP 118/73 12/11/19 07:12 Pulse Ox 99 12/11/19 07:12 Intake & Output 12/10/19 12/11/19 12/11/19 18:59 06:59 18:59 Weight 46 kg Other: Voiding Method Bedpan Bedpan Incontinent Incontinent # Voids 2 - Exam General: The patient is awake and alert, in no distress. She appears cachectic and chronically ill Eye: there is normal conjunctiva bilaterally. Cardiovascular: Normal S1-S2, no S3-S4, no murmurs. Respiratory: Lungs clear to auscultation bilaterally Gastrointestinal: Abdomen is soft, nontender Musculoskeletal: There is no pedal edema. Neurological:. Speech is normal. Skin: Skin is warm and dry Assessment and Plan Assessment: This is a 74-year-old female was currently admitted under hospice for pain control. The lowest dose of her medical problems. 1. Uncontrolled pain secondary to multiple necrotic masses in the right neck and right mandibular area, continue long-acting morphine 15 mg twice daily. morphine 2 mg IV every 2 hours as needed. 2. Squamous cell carcinoma of the neck: Seen previously by oncology. Not a candidate for any further treatment. Now tumors appeared necrotic with some surrounding cellulitis. Received IV vancomycin and Zosyn in the ER. I would continue with oral clindamycin 3. Goals of care: Discussed in details with patient, she would like to continue with comfort care and hospice. She was seen and evaluated by the hospice team. Currently admitted under hospice. 4. Atrial fibrillation with rapid ventricular response. Resume home dose of metoprolol 50 mg twice daily. May up titrate metoprolol dose as needed. 5. Underlying COPD, with no evidence of exacerbation. Continue bronchodilators as needed 6. Severe malnutrition, status post PEG tube placement, consult dietitian for further evaluation and recommendation Today, I reviewed her medication list and lab work results. We will continue current management.
[2019-12-11 14:07] VITALS: BMI 17.4
[2019-12-12] MEDS: MORPHINE ORAL SOLN 10 MG/5 ML CUP PO PRN ×4 (06:09→20:02)
[2019-12-12] MEDS: IPRATROPIUM-ALBUTEROL 3 ML NEB INHALATION PRN ×2 (07:11→11:05)
[2019-12-12] MEDS: MORPHINE SULFATE ER 15 MG TABLET PO SCH (08:26)
[2019-12-12] MEDS: LORazepam 0.5 MG TAB PO PRN (08:27)
[2019-12-12] MEDS: CLINDAMYCIN 150 MG CAP PO SCH ×4 (08:28→21:58)
[2019-12-12] MEDS: METOPROLOL TARTRATE 50 MG TAB PO SCH ×2 (08:28→21:00)
[2019-12-12] MEDS: FAMOTIDINE 20 MG TAB PO SCH ×2 (08:28→21:59)
[2019-12-12] MEDS: GABAPENTIN 100 MG CAP PO SCH (08:28)
[2019-12-12] MEDS: polyethylene glycoL 3350 17 GM POWD.PACK PO SCH (09:17)
--- NOTE | 2019-12-12 15:06 | P.PN ---
Subjective Progress Note Date: 12/12/19 Patient reported that her pain is better controlled. No acute events overnight reported by nursing staff. Objective - Vital Signs Vital signs: Vital Signs Temp 98.5 F 12/12/19 07:00 Pulse 92 12/12/19 11:15 Resp 20 12/12/19 07:00 BP 106/68 12/12/19 07:00 Pulse Ox 99 12/12/19 07:00 Intake & Output 12/11/19 12/12/19 12/12/19 18:59 06:59 18:59 Intake Total 300 Balance 300 Weight 46 kg Intake: Oral 300 Other: # Voids 2 2 - Exam General: The patient is awake and alert, in no distress. She appears cachectic and chronically ill Eye: there is normal conjunctiva bilaterally. Cardiovascular: Normal S1-S2, no S3-S4, no murmurs. Respiratory: Lungs clear to auscultation bilaterally Gastrointestinal: Abdomen is soft, nontender Musculoskeletal: There is no pedal edema. Neurological:. Speech is normal. Skin: Skin is warm and dry Assessment and Plan Assessment: This is a 74-year-old female was currently admitted under hospice for pain control. The lowest dose of her medical problems. 1. Uncontrolled pain secondary to multiple necrotic masses in the right neck and right mandibular area, increased long-acting morphine to 30 mg twice daily. Continue morphine solution 5 mg every 2 hours as needed. 2. Squamous cell carcinoma of the neck: Seen previously by oncology. Not a candidate for any further treatment. Now tumors appeared necrotic with some surrounding cellulitis. Received IV vancomycin and Zosyn in the ER. I would continue with oral clindamycin 3. Goals of care: Discussed in details with patient, she would like to continue with comfort care and hospice. She was seen and evaluated by the hospice team. Currently admitted under hospice. 4. Atrial fibrillation with rapid ventricular response. Resume home dose of metoprolol 50 mg twice daily. May up titrate metoprolol dose as needed. 5. Underlying COPD, with no evidence of exacerbation. Continue bronchodilators as needed 6. Severe malnutrition, status post PEG tube placement, consult dietitian for further evaluation and recommendation Today, I reviewed her medication list and lab work results. We will continue current management.
[2019-12-12] MEDS: MORPHINE SULFATE ER 30 MG TABLET PO SCH (21:58)
[2019-12-13] MEDS: MORPHINE ORAL SOLN 10 MG/5 ML CUP PO PRN ×3 (02:24→17:32)
[2019-12-13] MEDS: CLINDAMYCIN 150 MG CAP PO SCH ×3 (08:17→16:40)
[2019-12-13] MEDS: polyethylene glycoL 3350 17 GM POWD.PACK PO SCH (08:17)
[2019-12-13] MEDS: MORPHINE SULFATE ER 30 MG TABLET PO SCH ×2 (08:23→20:03)
[2019-12-13] MEDS: FAMOTIDINE 20 MG TAB PO SCH ×2 (08:23→20:03)
[2019-12-13] MEDS: METOPROLOL TARTRATE 50 MG TAB PO SCH ×2 (08:23→20:03)
[2019-12-13] MEDS: GABAPENTIN 100 MG CAP PO SCH (08:24)
--- NOTE | 2019-12-13 09:41 | CDI ---
Documentation Clarification Form Date: 12/13/2019 0935 CDS: Carmelita Rios RN, CCDS Admit Date: 12/10/2019 1337 Patient Name: Margaret Chen ATTENTION: The Clinical Documentation Specialists (CDI) and [facility] Coding Staff appreciate your assistance in clarifying documentation. Please respond to the clarification below the line at the bottom and electronically sign. The CDI & [facility] Coding staff will review the response and follow-up if needed. Please note: Queries are made part of the Legal Health Record. If you have any questions, please contact the author of this message via ITS. Dr. Chopra Atrial Fibrillation is documented in the H&P and Progress Notes and requires further specificity. History/Risk Factors: Squamous cell CA of neck and mandible, COPD, HTN, Atrial Fib Clinical Indicators: 12/09 H&P: "Patient was evaluated in the ER and was found to be in atrial fibrillation with rapid ventricular response." 12/11 Attending Progress Note: "Atrial fibrillation with rapid ventricular response.Resume home dose of metoprolol 50 mg twice daily. May up titrate metoprolol dose as needed." EKG/telemetry:not ordered Treatment: Lopressor 50 mg PO BID In your professional opinion, can you please clarify the type of Atrial Fibrillation, if known? Chronic/Permanent Paroxysmal Persistent Other, please specify Unable to determine Please continue to document in your progress notes and discharge summary in order to capture severity of illness and risk of mortality. Include clinical findings that support your diagnosis. MTDD
--- NOTE | 2019-12-13 13:32 | P.PN ---
Subjective Progress Note Date: 12/13/19 Patient is doing well today. Unfortunately last night she had a fall was unwitnessed in her room with no reported injury. Her pain is a lot better compared to yesterday. No headache this morning. Objective - Vital Signs Vital signs: Vital Signs Temp 98.7 F 12/13/19 07:00 Pulse 67 12/13/19 07:00 Resp 19 12/13/19 07:00 BP 94/61 12/13/19 07:00 Pulse Ox 95 12/13/19 07:00 Intake & Output 12/12/19 12/13/19 12/13/19 18:59 06:59 18:59 Intake Total 200 Balance 200 Intake: Oral 200 Other: # Voids 1 1 1 - Exam General: The patient is awake and alert, in no distress. She appears cachectic and chronically ill Eye: there is normal conjunctiva bilaterally. Cardiovascular: Normal S1-S2, no S3-S4, no murmurs. Respiratory: Lungs clear to auscultation bilaterally Gastrointestinal: Abdomen is soft, nontender Musculoskeletal: There is no pedal edema. Neurological:. Speech is normal. Skin: Skin is warm and dry Assessment and Plan Assessment: This is a 74-year-old female was currently admitted under hospice for pain control. The lowest dose of her medical problems. 1. Uncontrolled pain secondary to multiple necrotic masses in the right neck and right mandibular area, increased long-acting morphine to 30 mg twice daily. Continue morphine solution 5 mg every 2 hours as needed. 2. Squamous cell carcinoma of the neck: Seen previously by oncology. Not a candidate for any further treatment. Now tumors appeared necrotic with some surrounding cellulitis. Received IV vancomycin and Zosyn in the ER. I would continue with oral clindamycin 3. Goals of care: Discussed in details with patient, she would like to continue with comfort care and hospice. She was seen and evaluated by the hospice team. Currently admitted under hospice. 4. Chronic atrial fibrillation with rapid ventricular response on presentation. Resumed home dose of metoprolol 50 mg twice daily. 5. Underlying COPD, with no evidence of exacerbation. Continue bronchodilators as needed 6. Severe malnutrition, status post PEG tube placement, consult dietitian for further evaluation and recommendation Today, I reviewed her medication list and lab work results. We will continue current management. Plan to discharge to [facility] tomorrow on hospice
[2019-12-14] MEDS: LORazepam 0.5 MG TAB PO PRN ×2 (02:47→13:01)
[2019-12-14] MEDS: CLINDAMYCIN 150 MG CAP PO SCH ×5 (03:12→21:08)
[2019-12-14 06:59] LABS: Glucose,Whole Blood 147 mg/dL (75-99)
[2019-12-14] MEDS: MORPHINE SULFATE ER 30 MG TABLET PO SCH ×2 (09:25→21:08)
[2019-12-14] MEDS: FAMOTIDINE 20 MG TAB PO SCH ×2 (09:28→21:09)
[2019-12-14] MEDS: GABAPENTIN 100 MG CAP PO SCH (09:28)
[2019-12-14] MEDS: polyethylene glycoL 3350 17 GM POWD.PACK PO SCH (09:28)
[2019-12-14] MEDS: METOPROLOL TARTRATE 50 MG TAB PO SCH ×2 (09:28→21:08)
[2019-12-14 11:37] LABS: Glucose,Whole Blood 176 mg/dL (75-99)
[2019-12-14] MEDS: MORPHINE ORAL SOLN 10 MG/5 ML CUP PO PRN (13:01)
[2019-12-14] MEDS ORDERED: MORPHINE ORAL SOLN 10 MG/5 ML CUP PO PRN (14:57)
[2019-12-14] MEDS: MORPHINE ORAL SOLN 10 MG/5 ML CUP PO SCH ×2 (15:23→21:09)
[2019-12-14] MEDS: LORazepam 0.5 MG TAB PO SCH ×2 (15:24→21:09)
[2019-12-14] MEDS ORDERED: MORPHINE ORAL SOLN 10 MG/5 ML CUP PO SCH (16:00)
[2019-12-14 16:31] LABS: Glucose,Whole Blood 130 mg/dL (75-99)
--- NOTE | 2019-12-14 17:59 | P.PN ---
Progress Note - Text Progress Note Date: 12/14/19 Chief Complaint: Large fungating mass right neck History of presenting complaint: Patient is a 74-year-old patient of Dr. Silviano Lieberman. 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 PEG tube. and angina . She follows with Dr. Mei. Outpatient treatment has failed. Patient currently on palliative chemotherapy. Recently had multiple admissions to the hospital.. Patient had continued to smoke. Has been getting recurrent infections of infected mass and pneumonia. She was recently discharged home with hospice. Presented to the ER with uncontrolled pain found to be in A. fib. Uncontrolled initially was put on a Cardizem drip. She was then converted over to [facility] hospice. Today-laying in bed. Tired. Getting morphine. Minimal oral intake. Some pain is present. Dose of IV morphine increased today. Taking oral medications intermittently. Review of systems: Was done for constitutional, cardiovascular, GI, pulmonary. relevant finding as above Active Medications Acetaminophen (Acetaminophen Tab 325 Mg Tab) 650 mg PO Q6HR PRN PRN Reason: Fever and/ or Pain Albuterol Sulfate (Albuterol Nebulized 2.5 Mg/3 Ml) 2.5 mg INHALATION RT-TID PRN PRN Reason: Shortness Of Breath Albuterol/Ipratropium (Ipratropium-Albuterol 3 Ml Neb) 3 ml INHALATION RT-QID PRN PRN Reason: Shortness Of Breath Last Admin: 12/12/19 11:05 Dose: 3 ml Documented by: Clindamycin HCl (Clindamycin 150 Mg Cap) 450 mg PO QID [facility] Last Admin: 12/14/19 15:24 Dose: Not Given Documented by: Famotidine (Famotidine 20 Mg Tab) 20 mg PO BID [facility] Last Admin: 12/14/19 09:28 Dose: Not Given Documented by: Gabapentin (Gabapentin 100 Mg Cap) 200 mg PO DAILY [facility] Last Admin: 12/14/19 09:28 Dose: Not Given Documented by: Guaifenesin (Guaifenesin 600 Mg Tablet.Er) 1,200 mg PO Q12H PRN PRN Reason: CONGESTION Ibuprofen (Ibuprofen 600 Mg Tab) 600 mg PO QID PRN PRN Reason: Pain Last Admin: 12/10/19 17:36 Dose: 600 mg Documented by: Lorazepam (Lorazepam 0.5 Mg Tab) 0.5 mg PO Q4H PRN PRN Reason: Anxiety Last Admin: 12/14/19 13:01 Dose: 0.5 mg Documented by: Lorazepam (Lorazepam 0.5 Mg Tab) 0.5 mg PO Q4HR [facility] Last Admin: 12/14/19 15:24 Dose: 0.5 mg Documented by: Metoprolol Tartrate (Metoprolol Tartrate 50 Mg Tab) 50 mg PO BID [facility] Last Admin: 12/14/19 09:28 Dose: Not Given Documented by: Morphine Sulfate (Morphine Sulfate Er 30 Mg Tablet) 30 mg PO Q12HR [facility] Last Admin: 12/14/19 09:25 Dose: 30 mg Documented by: Morphine Sulfate (Morphine Oral Soln 10 Mg/5 Ml Cup) 10 mg PO Q4HR [facility] Last Admin: 12/14/19 15:23 Dose: 10 mg Documented by: Morphine Sulfate (Morphine Oral Soln 10 Mg/5 Ml Cup) 10 mg PO Q2HR PRN PRN Reason: Pain Ondansetron HCl (Ondansetron 4 Mg/2 Ml Vial) 4 mg IVP Q6HR PRN PRN Reason: Nausea And Vomiting Polyethylene Glycol (Polyethylene Glycol 3350 17 Gm Powd.Pack) 17 gm PO DAILY [facility] Last Admin: 12/14/19 09:28 Dose: Not Given Documented by: Physical examination: VITAL SIGNS: Heart rate 114, afebrile, 18, 93% on 5 L GENERAL: Laying in bed, tired EYES: Pupils equal. Conjunctiva normal. NECK: JVD unable to assess; large right neck mass fungating , infected, excavating ulcer-breakdown of tumor. HEART: First and second heart sounds are normal; no edema. LUNGS: Respiratory rate increased, decreased breath sound. ABDOMEN: Soft, nontender, liver spleen not palpable, no masses palpable. 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 Causing hoarse otherwise. It looks like patient not able to clear his secretions. - secondary infection of the affected tumor site as above -Chronic nicotine dependence patient's cigarette smoker -Moderate protein calorie malnutrition from decreased oral intake. With a BMI of 18 -Acute COPD exacerbation in a current smoker, POA -Diabetes mellitus type 2 -Essential hypertension -Right internal jugular vein occluded -Right internal carotid artery narrowing at level of C1 -DO NOT RESUSCITATE -Under [facility]/hospice Plan: Titrate patient's morphine to pain. Other medications to continue. Patient has a sitter. Spoke to the hospice nurse. Looking at disposition.
[2019-12-14 20:55] LABS: Glucose,Whole Blood 216 mg/dL (75-99)
[2019-12-15] MEDS: LORazepam 0.5 MG TAB PO SCH ×4 (01:20→13:25)
[2019-12-15] MEDS: MORPHINE ORAL SOLN 10 MG/5 ML CUP PO SCH ×4 (01:20→13:25)
[2019-12-15 02:09] VITALS: BP 121/74; PULSE 95; RESP 20; TEMP 98.4
[2019-12-15] MEDS: CLINDAMYCIN 150 MG CAP PO SCH ×2 (07:38→13:21)
[2019-12-15] MEDS: GABAPENTIN 100 MG CAP PO SCH (07:39)
[2019-12-15] MEDS: FAMOTIDINE 20 MG TAB PO SCH (07:39)
[2019-12-15] MEDS: METOPROLOL TARTRATE 50 MG TAB PO SCH (07:40)
[2019-12-15] MEDS: MORPHINE SULFATE ER 30 MG TABLET PO SCH (07:40)
[2019-12-15] MEDS: polyethylene glycoL 3350 17 GM POWD.PACK PO SCH (07:41)
--- NOTE | 2019-12-15 12:47 | P.DS ---
Providers Date of admission: 12/10/19 13:37 Expected date of discharge: 12/15/19 Attending physician: Hang Solis Primary care physician: Silviano Lieberman [facility] Course: Chief Complaint: Large fungating mass right neck History of presenting complaint: Patient is a 74-year-old patient of Dr. Silviano Lieberman. 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 PEG tube. and angina . She follows with Dr. Mei. Outpatient treatment has failed. Patient currently on palliative chemotherapy. Recently had multiple admissions to the hospital.. Patient had continued to smoke. Has been getting recurrent infections of infected mass and pneumonia. She was recently discharged home with hospice. Presented to the ER with uncontrolled pain found to be in A. fib. Uncontrolled initially was put on a Cardizem drip. She was then converted over to [facility] hospice. Comfort measures were started. Including insulin. Today-l on morphine. comfortable. Discussed with the nurse. Disposition ECF with hospice Physical examination: VITAL SIGNS: 98.4, 95, 20, 121/74, 93% on 6 L GENERAL: Laying in bed, somnolent LUNGS: Respiratory rate increased, decreased breath sound. 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 Causing hoarse otherwise. It looks like patient not able to clear his secretions. - secondary infection of the affected tumor site as above -Chronic nicotine dependence patient's cigarette smoker -Moderate protein calorie malnutrition from decreased oral intake. With a BMI of 18 -Acute COPD exacerbation in a current smoker, POA -Diabetes mellitus type 2 -Essential hypertension -Right internal jugular vein occluded -Right internal carotid artery narrowing at level of C1 -DO NOT RESUSCITATE -Under [facility]/hospice Disposition: [facility]ospice Patient Condition at Discharge: Poor Plan - Discharge Summary Discharge Rx Participant: No New Discharge Prescriptions: New MORPHINE ORAL BHARAT CONC 20mg/mL [Roxanol Oral Soln Conc 20Mg/ml] 5 mg PO Q4H PRN #30 ml PRN Reason: Pain Control Continue Albuterol Nebulized [Ventolin Nebulized] 2.5 mg INHALATION RT-TID PRN PRN Reason: Shortness Of Breath Metoprolol Tartrate [Lopressor] 50 mg PO BID 30 Days #60 tab LORazepam [Ativan] 0.5 mg PO Q4H PRN #18 tab PRN Reason: Anxiety Discontinued Gabapentin [Neurontin] 200 mg PO DAILY Famotidine 20 mg PO BID Atorvastatin [Lipitor] 40 mg PO HS Ibuprofen [Motrin] 600 mg PO QID PRN PRN Reason: Pain Ondansetron HCl [Zofran] 4 mg PO Q8H PRN PRN Reason: Nausea And Vomiting Polyethylene Glycol 3350 [Miralax] 17 gm PO DAILY Megestrol Acetate 800 mg PO DAILY Morphine Sulfate [Ms Contin] 15 mg PO BID guaiFENesin [Mucinex] 1,200 mg PO Q12H PRN PRN Reason: CONGESTION HYDROcodone/APAP 7.5-325MG [[place] 7.5-325] 1 tab PO Q4H PRN PRN Reason: Breakthrough Pain Ipratropium-Albuterol Nebulize [Duoneb 0.5 mg-3 mg/3 ml Soln] 3 ml INHALATION RT-QID PRN PRN Reason: Shortness Of Breath Morphine Sulfate [Morphine Sulfate Oral Soln Conc (20 MG/ML)] 5 mg PO Q4H PRN PRN Reason: Pain predniSONE See Taper PO DIRECTED Discharge Medication List Albuterol Nebulized [Ventolin Nebulized] 2.5 mg INHALATION RT-TID PRN 01/27/19 [History] Metoprolol Tartrate [Lopressor] 50 mg PO BID 30 Days #60 tab 11/12/19 [Rx] LORazepam [Ativan] 0.5 mg PO Q4H PRN #18 tab 12/15/19 [Rx] MORPHINE ORAL BHARAT CONC 20mg/mL [Roxanol Oral Soln Conc 20Mg/ml] 5 mg PO Q4H PRN #30 ml 12/15/19 [Rx] Follow up Appointment(s)/Referral(s): Petros Esquivel MD [STAFF PHYSICIAN] - 12/16/19 Activity/Diet/Wound Care/Special Instructions: MAPS checked
== END 2019-12-15 15:15 | disposition hospice, home (50) | DRG 947 ==
LOC: 4SSUR 13:37
PROVIDERS: ADMIT Hospitalist; ATTEND Hospitalist
DX: G89.3 Neoplasm related pain (acute) (chronic) (principal); E43 Unspecified severe protein-calorie malnutrition; I48.20 Chronic atrial fibrillation, unspecified; L03.221 Cellulitis of neck; J44.1 Chronic obstructive pulmonary disease with (acute) exacerbation; Z68.1 Body mass index [BMI] 19.9 or less, adult; Z51.5 Encounter for palliative care; K21.9 Gastro-esophageal reflux disease without esophagitis; M19.90 Unspecified osteoarthritis, unspecified site; Z66 Do not resuscitate; F17.210 Nicotine dependence, cigarettes, uncomplicated; I65.21 Occlusion and stenosis of right carotid artery; E11.51 Type 2 diabetes mellitus with diabetic peripheral angiopathy without gangrene; C76.0 Malignant neoplasm of head, face and neck; E78.5 Hyperlipidemia, unspecified; F32.9 Major depressive disorder, single episode, unspecified; F41.0 Panic disorder [episodic paroxysmal anxiety]; I10 Essential (primary) hypertension; Z85.89 Personal history of malignant neoplasm of other organs and systems; Z87.11 Personal history of peptic ulcer disease; Z90.710 Acquired absence of both cervix and uterus; Z98.51 Tubal ligation status; Z98.890 Other specified postprocedural states; Z79.899 Other long term (current) drug therapy; Z95.820 Peripheral vascular angioplasty status with implants and grafts; Z80.7 Family history of other malignant neoplasms of lymphoid, hematopoietic and related tissues; Z83.3 Family history of diabetes mellitus; Z82.49 Family history of ischemic heart disease and other diseases of the circulatory system; Z88.1 Allergy status to other antibiotic agents
CPT/HCPCS: 94640